=== PATIENT | male | born 1975 | race Hispanic/Latino ===

== ENCOUNTER 2022-01-31 14:11 | Emergency (ER) | payer SELFPAY ==
--- OUTSIDE RECORDS SUMMARY | 2022-01-31 14:14 | XMS REPORT | Continuity of Care Document ---
:1975 Author Organization [facility] t Address [address] [place] [address] Care Team Providers Name Role Phone MaherShelia ba Attending Clinician Unavailable Payers Payer Name Policy Type Policy Number Effective Date Expiration Date S [facility] [employer] [place] 6 [id number] Common Spiri t 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 [id number] Essential Problem Active Comm on (primary) Spirit hypertensi - [facility] on [facility] Allergies, Adverse Reactions, Alerts Allergy Allergy Status Severity Reaction(s) Onset Inactive Treating Comm ents Source Name Type Date Date Clinician 4614 Drug Active Unknown Common allergy [facility] Social History Social Habit Start Date Stop Date Quantity Comments Source History of Tobacco Use Co mmon [facility] Sex Assigned At Com mon [facility] Smoking Status Start Date Stop Date Source Former Smoker 2021-08-27 00:00:00 2021-08-27 00:00:00 Common S pirit - [facility] Medications Ordered Filled Start Stop Current Ordering Indication Dosage Frequency Signature Comments Components Source Medication Medication Date Date Medication? Clinician (SIG) Name Name Lisinopril Lisinopril No 1{table QD Lisinopril 2.5 MG 2.5 MG 5-06 t} 2.5 MG 00:00: 00 glipiZIDE glipiZIDE No 1{table QD glipiZIDE XL 10 MG XL 10 MG 3-18 t_with_ XL 10 MG 00:00: break} Atorvastati Atorvastati No 1{table QD Atorvastat n Calcium n Calcium 3-18 t} in Calcium 40 MG 40 MG 00:00: 40 MG 00 metFORMIN metFORMIN No 1{table BID metFORMIN HCl 1000 MG HCl 1000 MG 3-18 t_with_ HCl 1000 00:00: a_meal} MG 00 Levothyroxi Levothyroxi No QD Levothyrox ne Sodium ne Sodium 3-18 ine Sodium 75 MCG 75 MCG 00:00: 75 MCG 00 No Known No Known No Common Medications Medications S [facility] Ozempic Ozempic No Ozempic (0.25 or (0.25 or (0.25 or 0.5 0.5 0.5 MG/DOSE) 2 MG/DOSE) 2 MG/DOSE) 2 MG/1.5ML MG/1.5ML MG/1.5ML Ozempic Ozempic No Ozempic (0.25 or (0.25 or (0.25 or 0.5 0.5 0.5 MG/DOSE) 2 MG/DOSE) 2 MG/DOSE) 2 MG/1.5ML MG/1.5ML MG/1.5ML Levothyroxi Levothyroxi No QD Levothyrox ne Sodium ne Sodium ine Sodium 75 MCG 75 MCG 75 MCG Atorvastati Atorvastati No 1{table QD Atorvastat n Calcium n Calcium t} in Calcium 40 MG 40 MG 40 MG metFORMIN metFORMIN No 1{table BID metFORMIN HCl 1000 MG HCl 1000 MG t_with_ HCl 1000 a_meal} MG glipiZIDE glipiZIDE No 1{table QD glipiZIDE XL 10 MG XL 10 MG t_with_ XL 10 MG break} metFORMIN metFORMIN No 1{table BID metFORMIN HCl 1000 MG HCl 1000 MG t_with_ HCl 1000 a_meal} MG Levothyroxi Levothyroxi No QD Levothyrox ne Sodium ne Sodium ine Sodium 88 MCG 88 MCG 88 MCG Ozempic Ozempic No Ozempic (0.25 or (0.25 or (0.25 or 0.5 0.5 0.5 MG/DOSE) 2 MG/DOSE) 2 MG/DOSE) 2 MG/1.5ML MG/1.5ML MG/1.5ML Lisinopril Lisinopril No 1{table QD Lisinopril 2.5 MG 2.5 MG t} 2.5 MG glipiZIDE glipiZIDE No 1{table QD glipiZIDE XL 10 MG XL 10 MG t_with_ XL [address]} Atorvastati Atorvastati No 1{table QD Atorvastat n Calcium n Calcium t} in Calcium 40 MG 40 MG 40 MG Vital Signs Vital Name Observation Time Observation Value Comments Source height 2021-08-31 09:40:00 75 [in_i] [facility] weight 2021-08-31 09:40:00 199.2 [lb_av] [facility] temperature 2021-08-31 09:40:00 98.6 [degF] [facility] bmi 2021-08-31 09:40:00 24.9 kg/m2 [facility] oximetry 2021-08-31 09:40:00 99 % [facility] respiratory rate 2021-08-31 09:40:00 16 /min Comm on [facility] blood pressure 2021-08-31 09:40:00 126 mm[Hg] [facility] - systolic [facility] blood pressure 2021-08-31 09:40:00 72 mm[Hg] [facility] diastolic [facility] height 2021-07-10 09:20:00 75 [in_i] [facility] weight 2021-07-10 09:20:00 193.6 [lb_av] [facility] temperature 2021-07-10 09:20:00 97.9 [degF] Common [facility] bmi 2021-07-10 09:20:00 24.2 kg/m2 [facility] oximetry 2021-07-10 09:20:00 99 % [facility] respiratory rate 2021-07-10 09:20:00 16 /min Comm on [facility] blood pressure 2021-07-10 09:20:00 128 mm[Hg] Common [facility] - systolic [facility] blood pressure 2021-07-10 09:20:00 72 mm[Hg] Common [facility] - diastolic [facility] height 2021-05-22 11:40:00 75 [in_i] [facility] weight 2021-05-22 11:40:00 198 [lb_av] [facility] bmi 2021-05-22 11:40:00 24.75 kg/m2 Common [facility] height 2021-05-15 15:40:00 75 [in_i] [facility] weight 2021-05-15 15:40:00 198 [lb_av] [facility] temperature 2021-05-15 15:40:00 97.9 [degF] [facility] bmi 2021-05-15 15:40:00 24.75 kg/m2 [facility] oximetry 2021-05-15 15:40:00 95 % [facility] respiratory rate 2021-05-15 15:40:00 16 /min Comm on [facility] blood pressure 2021-05-15 15:40:00 127 mm[Hg] Common [facility] systolic [facility] blood pressure 2021-05-15 15:40:00 85 mm[Hg] Common [facility] diastolic [facility] Procedures This patient has no known procedures. Encounters Start End Encounter Admission Attending Care Care Encounter Source Date/Time Date/Time Type Type Clinicians Facility Department ID 2021-11-27 Outpatient Maher, STGLORIALC STLMLC [id number] Common 12:25:01 Shelia [facility] 2021-08-27 Outpatient Maher, STGLORIALC STLMLC [id number] Common 10:24:03 Shelia [facility] 2021-07-08 Outpatient Maher, STGLORIALC STLMLC [id number] Common 11:32:01 Shelia [facility] 2021-05-20 Outpatient Maher, STGLORIALC STLMLC [id number] Common 10:54:02 Shelia [facility] 2021-05-15 Outpatient Maher, STLC STLMLC [id number] Common 15:20:02 Shelia [facility] 2021-08-31 2021-08-31 OFFICE STLMLC STLMLC [id number] Co mmon 00:00:00 00:00:00 VISIT Spirit ESTAB PT - [facility] LEVEL 4 [facility] 2021-07-10 2021-07-10 OFFICE STLMLC STLMLC [id number] Co mmon 00:00:00 00:00:00 VISIT Spirit ESTAB PT - [facility] LEVEL 4 [facility] 2021-05-22 2021-05-22 OFFICE STLMLC STLMLC [id number] Co mmon 00:00:00 00:00:00 VISIT Spirit ESTAB PT - [facility] LEVEL 4 [facility] 2021-05-15 2021-05-15 OFFICE STLMLC STLMLC [id number] Co mmon 00:00:00 00:00:00 VISIT NEW Spir it PT LEVEL 3 - [facility] Results Test Description Test Time Test Comments Results Result Comments Source HEMOGLOBIN A1C 2021-07-10 00:00:00 Test Item Value Reference Range Interpretation Comme nts A1C (test code = 4548-4) 11.6
[2022-01-31] MEDS ORDERED: MECLIZINE HCL 12.5 MG TAB ONE (14:50)
[2022-01-31] MEDS ORDERED: ONDANSETRON 4 MG/2 ML VIAL ONE (14:50)
[2022-01-31 15:15] LABS: Absolute Lymphocytes (CBC) 1.9 K/uL (0.7-4.9); Hematocrit 49.3 % (39.6-49.0); Lymphocytes % 18.3 % (15.3-44.8); MPV 7.1 fL (7.6-11.3); RBC Red Blood Cell Count 5.61 M/uL (4.33-5.43)
[2022-01-31 15:32] LABS: Potassium 4.2 mmol/L (3.5-5.1); Troponin High Sensitivity 3.5 pg/mL (<58.9)
[2022-01-31] MEDS ORDERED: NA CHLORIDE 0.9% 1,000 ML ONE (15:45)
[2022-01-31] MEDS ORDERED: INSULIN -REGULAR HUMAN 50 UNIT/0.5 ML ML ONE (15:45)
--- NOTE | 2022-01-31 16:35 | RAD REPORT ---
EXAM DESCRIPTION: CT - Head Brain Wo Cont - 01/31/2022 4:16 pm CLINICAL HISTORY: Syncope COMPARISON: None TECHNIQUE: Computed axial tomography of the head was obtained. IV contrast was not requested. All CT scans are performed using dose optimization technique as appropriate and may include automated exposure control or mA/KV adjustment according to patient size. FINDINGS: An intracranial bleed is not seen . The ventricles are normal in caliber. No extra-axial fluid collection is noted. No significant hypodensity within the brain seen Fluid within the sinuses/ mastoids is not seen. IMPRESSION: No acute intracranial abnormality is seen. If patient's symptoms persist MRI of the bra in would be recommended.
--- NOTE | 2022-01-31 16:40 | RAD REPORT ---
EXAM DESCRIPTION: [facility] Angio01/31/2022 4:18 pm CLINICAL HISTORY: Syncope COMPARISON: None TECHNIQUE: 50 cc Isovue 370 was administered intravenously. 3D MIP reconstruction performed All CT scans are performed using dose optimization technique as appropriate and may include automated exposure control or mA/KV adjustment according to patient size. FINDINGS: The common carotid, internal carotid and external carotid arteries are unremarkable. Left vertebral artery is dominant. Vertebral arteries otherwise unremarkable. No dissection seen. No significant stenosis IMPRESSION: No significant abnormality is displayed NASCET criteria used. Mild 0-49% stenosis Moderate 50-69% stenosis Severe 70-99% stenosis
--- NOTE | 2022-01-31 16:43 | RAD REPORT ---
EXAM DESCRIPTION: CTHead angio01/31/2022 4:18 pm CLINICAL HISTORY: Syncope COMPARISON: None TECHNIQUE: CT angiogram of the head was obtained. 3D MIPS reconstruction performed. All CT scans are performed using dose optimization technique as appropriate and may include automated exposure control or mA/KV adjustment according to patient size. FINDINGS: The basilar, internal carotid, anterior cerebral, middle cerebral and posterior cerebral a rteries do not demonstrate a significant abnormality An aneurysm is not seen A significant stenosis is not noted. IMPRESSION: No acute abnormality is displayed
[2022-01-31] MEDS ORDERED: DIAZEPAM 10 MG/2 ML INJ SYRINGE ONE (17:44)
--- NOTE | 2022-01-31 18:16 | ER ---
Nurse's Notes [facility] Name: Sp Nagel Age: 46 yrs Sex: Male : 1975 Arrival Date: 01/31/2022 Time: 14:13 Bed 14 Private MD: Diagnosis: Vertigo Presentation: 01/31 14:30 Chief complaint: Patient states: unsteady gait, nausea, and syncopal episodes x5 over kb3 the last 3 days. Coronavirus screen: Vaccine status: Patient reports receiving the 2nd dose of the covid vaccine. Client denies travel out of the [place] in the last 14 days. Ebola Screen: Patient negative for fever greater than or equal to 101.5 degrees Fahrenheit, and additional compatible Ebola Virus Disease symptoms Patient denies exposure to infectious person. Patient denies travel to an Ebola-affected area in the 21 days before illness onset. Initial Sepsis Screen: Does the patient meet any 2 criteria? No. Patient's initial sepsis screen is negative. Does the patient have a suspected source of infection? No. Patient's initial sepsis screen is negative. Risk Assessment: Do you want to hurt yourself or someone else? Patient reports no desire to harm self or others. Onset of symptoms was January 29, 2022. 14:30 Method Of Arrival: Ambulatory kb3 14:30 Acuity: [place] 3 kb3 Triage Assessment: 14:33 General: Appears in no apparent distress. Behavior is calm, cooperative. Pain: Denies kb3 pain. GI: Reports nausea. Historical: - Allergies: 14:33 Vicodin; kb3 - Home Meds: 14:33 metformin 500 mg Oral tr24 1 tab once daily [Active]; Ozempic 1 mg/dose (4 mg/3 mL) kb3 subcutaneous pnij once wkly [Active]; - PMHx: 14:33 Diabetes - NIDDM; Hyperlipidemia; Hypertension; Hypothyroidism; kb3 - PSHx: 14:33 None; kb3 - Immunization history:: Adult Immunizations up to date, Client reports receiving the 2nd dose of the Covid vaccine, Last tetanus immunization: up to date. - Social history:: Smoking status: Patient denies any tobacco usage or history of. Screenin:45 Abuse screen: Denies threats or abuse. Denies injuries from another. Nutritional tp1 screening: No deficits noted. Tuberculosis screening: No symptoms or risk factors identified. Fall Risk No fall in past 12 months (0 pts). No secondary diagnosis (0 pts). IV access (20 points). Ambulatory Aid- None/Bed Rest/Nurse Assist (0 pts). Gait- Impaired (20 pts.). Mental Status- Oriented to own ability (0 pts). Total Tobin Fall Scale indicates Low Risk Score (25-44 pts). Fall prevention measures have been instituted. Side Rails Up X 2 Placed close to Nursing Station Frequent Obs/Assesments occuring Family Present and informed to notify staff if they need to leave bedside As available Patient and Family Educated on Fall Prevention Program and strategies. Assessment: 14:40 General: Appears in no apparent distress. comfortable, Behavior is calm, cooperative. tp1 Pain: Denies pain. Neuro: Level of Consciousness is awake, alert, obeys commands, Oriented to person, place, time, situation, Speech is normal, Pupils are PERRLA. Cardiovascular: Patient's skin is warm and dry. Respiratory: Airway is patent Respiratory effort is even, unlabored. GI: Abdomen is flat, non-distended, Reports nausea, vomiting, Patient currently denies diarrhea. : No signs and/or symptoms were reported regarding the genitourinary system. EENT: No signs and/or symptoms were reported regarding the EENT system. Derm: Skin is pink, warm \T\ dry. Musculoskeletal: Circulation, motion, and sensation intact. 15:38 Reassessment: Patient appears in no apparent distress at this time. No changes from tp1 previously documented assessment. Patient and/or family updated on plan of care and expected duration. Pain level reassessed. Patient is alert, oriented x 3, equal unlabored respirations, skin warm/dry/pink. states dizziness and nausea have decreased but are not gone. PT stated he did not take his insulin this morning due to not feeling well. 16:44 Reassessment: Patient appears in no apparent distress at this time. No changes from tp1 previously documented assessment. Patient is alert, oriented x 3, equal unlabored respirations, skin warm/dry/pink. states nausea is gone and is only dizzy when standing Patient denies pain at this time. 17:52 Reassessment: Patient appears in no apparent distress at this time. No changes from tp1 previously documented assessment. Patient is alert, oriented x 3, equal unlabored respirations, skin warm/dry/pink. Patient denies pain at this time. Vital Signs: 14:30 BP 130 / 104; Pulse 101; Resp 20; Temp 98.4; Pulse Ox 99% ; Weight 90.72 kg; Height 6 kb3 ft. 2 in. (187.96 cm); Pain 0/10; 15:38 BP 128 / 94; Pulse 99; Resp 12; Pulse Ox 100% on R/A; tp1 16:44 BP 118 / 94; Pulse 96; Resp 16; Pulse Ox 100% on R/A; tp1 18:00 BP 117 / 89; Pulse 100; Resp 14; Pulse Ox 100% on R/A; tp1 19:04 BP 112 / 87; Pulse 98; Resp 16; Pulse Ox 99% on R/A; tp1 14:30 Body Mass Index 25.68 (90.72 kg, 187.96 cm) kb3 ED Course: 14:13 Patient arrived in ED. jl7 14:14 Isidro Arzate PA is PHCP. [facility] 14:14 Rogelio Root DO is Attending Physician. jmm 14:33 Triage completed. kb3 14:33 Arm band placed on left wrist. kb3 14:43 Marline Oconnell, RN is Primary Nurse. tp1 14:45 Patient has correct armband on for positive identification. Bed in low position. Call tp1 light in reach. Client placed on continuous cardiac and pulse oximetry monitoring. NIBP monitoring applied. 14:46 No provider procedures requiring assistance completed. tp1 15:10 Inserted saline lock: 20 gauge in right forearm, using aseptic technique. Blood tp1 collected. 16:17 CT Head Brain wo Cont In Process Unspecified. EDMS 16:19 CT Head Angio In Process Unspecified. EDMS 16:20 CT Neck Angio In Process Unspecified. EDMS 19:36 IV discontinued, intact, bleeding controlled, No redness/swelling at site. Pressure tp1 dressing applied. Administered Medications: 15:03 Drug: Meclizine 50 mg Route: PO; tp1 15:32 Follow up: Response: Marked relief of symptoms tp1 15:04 Drug: Zofran (Ondansetron) 4 mg Route: IVP; Site: right antecubital; tp1 15:33 Follow up: Response: Nausea is decreased tp1 15:52 Drug: NS 0.9% 1000 ml Route: IV; Rate: 1 bolus; Site: right forearm; tp1 17:00 Follow up: IV Status: Completed infusion; IV Intake: 1000ml tp1 15:52 Drug: Insulin Regular Human 10 units {Co-Signature: bp (Raymond Salomon RN).} Route: IVP; tp1 Site: right forearm; 19:36 Follow up: Response: No adverse reaction tp1 17:47 Drug: Valium (diazepam) 2 mg Route: IVP; Site: right hand; bp 19:37 Follow up: Response: Marked relief of symptoms tp1 Medication: 14:46 VIS not applicable for this client. tp1 Intake: 17:00 IV: 1000ml; Total: 1000ml. tp1 Outcome: 18:16 Discharge ordered by . [facility] 19:36 Discharged to home ambulatory. tp1 19:36 Condition: good 19:36 Discharge instructions given to patient, Instructed on discharge instructions, follow up and referral plans. medication usage, Demonstrated understanding of instructions, follow-up care, medications, Prescriptions given X 2. 19:37 Patient left the ED. tp1 Signatures: Dispatcher [employer] EDMS Isidro Arzate PA PA jmm Leal, Jahala, RN RN jl7 Raymond Salomon RN RN bp Parker, Tiffany, RN RN tp1 Sheila Greene, RN RN kb3 Raymond Salomon RN bp Corrections: (The following items were deleted from the chart) 14:35 14:33 Home Meds: atorvastatin 20 mg Oral tab; kb3 kb3 14:35 14:33 Home Meds: Invokana 100 mg Oral tab 1 tab once daily; kb3 kb3 14:35 14:33 Home Meds: levothyroxine 50 mcg tab 1 tab once daily; kb3 kb3 14:35 14:33 Home Meds: lisinopril 10 mg Oral tab; kb3 kb3 14:35 14:33 Home Meds: bydurion injection weekly; kb3 kb3
--- NOTE | 2022-01-31 18:16 | EDPHYS ---
Physician Documentation [facility] Name: Sp Nagel Age: 46 yrs Sex: Male : 1975 Arrival Date: 01/31/2022 Time: 14:13 Bed 14 Private MD: ED Physician Rogelio Root HPI: 01/31 14:38 This 46 yrs old Male presents to ER via Ambulatory with complaints of Vertigo, jmm Nausea. 14:38 The patient presents with dizziness. Onset: The symptoms/episode began/occurred jmm acutely. Modifying factors: The symptoms are alleviated by nothing, the symptoms are aggravated by movement of head, standing up, changing position. Is a 46-year-old male with history of diabetes mellitus, hyperlipidemia, hypertension the presents emerged department with complaints of acute onset dizziness beginning 3 days ago. Patient states symptoms are intermittent and normally started with movement or walking.. Historical: - Allergies: 14:33 Vicodin; kb3 - Home Meds: 14:33 metformin 500 mg Oral tr24 1 tab once daily [Active]; Ozempic 1 mg/dose (4 mg/3 mL) kb3 subcutaneous pnij once wkly [Active]; - PMHx: 14:33 Diabetes - NIDDM; Hyperlipidemia; Hypertension; Hypothyroidism; kb3 - PSHx: 14:33 None; kb3 - Immunization history:: Adult Immunizations up to date, Client reports receiving the 2nd dose of the Covid vaccine, Last tetanus immunization: up to date. - Social history:: Smoking status: Patient denies any tobacco usage or history of. ROS: 14:38 Constitutional: Negative for fever, chills, and weight loss, Cardiovascular: Negative jmm for chest pain, palpitations, and edema, Respiratory: Negative for shortness of breath, cough, wheezing, and pleuritic chest pain, Abdomen/GI: Negative for abdominal pain, nausea, vomiting, diarrhea, and constipation. 14:38 Neuro: Positive for dizziness. 14:38 All other systems are negative. Exam: 14:38 Constitutional: This is a well developed, well nourished patient who is awake, alert, jmm and in no acute distress. Head/Face: atraumatic. ENT: Moist Mucus Membranes 14:38 Neck: Trachea midline, Supple Chest/axilla: Normal chest wall appearance and motion. 14:38 Eyes: Extraocular movements: intact throughout, Nystagmus: nystagmus with fast component noted, bilaterally. 14:38 Cardiovascular: Rate: normal, Rhythm: regular. 14:38 Respiratory: the patient does not display signs of respiratory distress, Respirations: normal, Breath sounds: are clear throughout. 14:38 Abdomen/GI: Inspection: abdomen appears normal, Bowel sounds: normal. 14:38 Back: pain, is absent. 14:38 Musculoskeletal/extremity: ROM: intact in all extremities. 14:38 Skin: Appearance: Color: normal in color. 14:38 Neuro: Orientation: is normal, Mentation: is normal, Memory: is normal. 14:38 Psych: Behavior/mood is pleasant, cooperative. 14:38 Neuro: Cerebellar function: heel to parmar testing is normal. [facility] Vital Signs: 14:30 BP 130 / 104; Pulse 101; Resp 20; Temp 98.4; Pulse Ox 99% ; Weight 90.72 kg; Height 6 kb3 ft. 2 in. (187.96 cm); Pain 0/10; 15:38 BP 128 / 94; Pulse 99; Resp 12; Pulse Ox 100% on R/A; tp1 16:44 BP 118 / 94; Pulse 96; Resp 16; Pulse Ox 100% on R/A; tp1 18:00 BP 117 / 89; Pulse 100; Resp 14; Pulse Ox 100% on R/A; tp1 19:04 BP 112 / 87; Pulse 98; Resp 16; Pulse Ox 99% on R/A; tp1 14:30 Body Mass Index 25.68 (90.72 kg, 187.96 cm) kb3 MDM: 14:38 Patient medically screened. [facility] 18:15 Data reviewed: vital signs, nurses notes. Counseling: I had a detailed discussion with [facility] the patient and/or guardian regarding: the historical points, exam findings, and any diagnostic results supporting the discharge/admit diagnosis, the need for outpatient follow up, to return to the emergency department if symptoms worsen or persist or if there are any questions or concerns that arise at home. 22:31 ED course: Patient states that he feels much better. Is able ambulate without [facility] difficulty. Cerebellar exam was normal. CTA and CT were negative. I do not currently suspect a central cause. Patient advised follow with ENT and otherwise given strict return precautions. Patient understood and agrees plan of care.. 01/31 14:38 Order name: Basic Metabolic Panel; Complete Time: 15:[address] [facility] 01/31 14:38 Order name: CBC with Diff; Complete Time: 15:[address] [facility] 01/31 14:38 Order name: Troponin HS; Complete Time: 15:[address] [facility] 01/31 14:40 Order name: CT Head Brain wo Cont; Complete Time: 16:[address] [facility] 01/31 14:40 Order name: CT Head Angio; Complete Time: 16:[address] [facility] 01/31 14:40 Order name: CT Neck Angio; Complete Time: 16:[address] [facility] 01/31 14:38 Order name: EKG; Complete Time: 14:[address] [facility] 01/31 14:38 Order name: Cardiac monitoring; Complete Time: 14:[address] [facility] 01/31 14:38 Order name: EKG - Nurse/Tech; Complete Time: 15:[address] [facility] 01/31 14:38 Order name: IV Saline Lock; Complete Time: 15:[address] [facility] 01/31 14:38 Order name: Labs collected and sent; Complete Time: 15:[address] [facility] 01/31 14:38 Order name: O2 Per Protocol; Complete Time: 14:[address] [facility] 01/31 14:38 Order name: O2 Sat Monitoring; Complete Time: 14:[address] [facility] Administered Medications: 15:03 Drug: Meclizine 50 mg Route: PO; tp1 15:32 Follow up: Response: Marked relief of symptoms tp1 15:04 Drug: Zofran (Ondansetron) 4 mg Route: IVP; Site: right antecubital; tp1 15:33 Follow up: Response: Nausea is decreased tp1 15:52 Drug: NS 0.9% 1000 ml Route: IV; Rate: 1 bolus; Site: right forearm; tp1 17:00 Follow up: IV Status: Completed infusion; IV Intake: 1000ml tp1 15:52 Drug: Insulin Regular Human 10 units {Co-Signature: bp (Raymond Salomon RN).} Route: IVP; tp1 Site: right forearm; 19:36 Follow up: Response: No adverse reaction tp1 17:47 Drug: Valium (diazepam) 2 mg Route: IVP; Site: right hand; bp 19:37 Follow up: Response: Marked relief of symptoms tp1 Disposition: 19:16 Co-signature as Attending Physician, Rogelio Root DO I was immediately available on-site ms3 in the Emergency Department for consultation in the care of the patient. Disposition Summary: 01/31/22 18:16 Discharge Ordered Location: Home [facility] Condition: Stable jm Diagnosis - Vertigo [facility] Followup: [facility] - With: Private Physician - When: 2 - 3 days - Reason: Recheck today's complaints, Continuance of care, Re-evaluation by your physician Discharge Instructions: - Discharge Summary Sheet [facility] - Vertigo [facility] - How to Perform the Kristal Maneuver [facility] Forms: - Medication Reconciliation Form [facility] - Thank You Letter [facility] - Antibiotic Education [facility] - Prescription Opioid Use [facility] Prescriptions: - Valium 2 mg Oral Tablet - take 1 tablet by ORAL route every 8 hours As needed; 20 tablet; Refills: 0, [facility] Product Selection Permitted - ondansetron 4 mg odt - take 1 tablet by SUBLINGUAL route every 4-6 hours As needed; 20 tablet; [facility] Refills: 0, Product Selection Permitted Signatures: Dispatcher [employer] EDMD Isidro Arzate PA PA jmm Peltier, Brian, RN RN bp Rogelio Root DO DO ms3 Marline Oconnell RN RN tp1 Sheila Greene RN RN kb3 Raymond Salomon RN bp Corrections: (The following items were deleted from the chart) 14:35 14:33 Home Meds: atorvastatin 20 mg Oral tab; kb3 kb3 14:35 14:33 Home Meds: Invokana 100 mg Oral tab 1 tab once daily; kb3 kb3 14:35 14:33 Home Meds: levothyroxine 50 mcg tab 1 tab once daily; kb3 kb3 14:35 14:33 Home Meds: lisinopril 10 mg Oral tab; kb3 kb3 14:35 14:33 Home Meds: bydurion injection weekly; kb3 kb3
[2022-01-31 19:59] VITALS: TEMP 98.4
[2022-01-31 20:04] VITALS: BP 112/87; O2SAT 99
--- NOTE | 2022-02-01 12:50 | EKG ---
Test Date: 2022-01-31 Test Time: 14:54:32 Service Worker Helper: TP MEASUREMENT RESULTS: Intervals: Rate: 103 TN: 96 QRSD: 88 QT: 528 QTc: 691 [place]: P: 100 TN: 96 QRS: 89 T: 70 INTERPRETIVE STATEMENTS: Sinus tachycardia with short TN Prolonged QT Abnormal ECG Compared to ECG 07/18/2015 09:51:03 Short TN interval now present Prolonged QT interval now present Sinus rhythm no longer present Electronically Signed On 02-01-22 12:48:59 TREE PULLER by Nicholas Farmer
== END 2022-01-31 19:37 | disposition home or self-care (01) ==
LOC: ER 14:11
DX: R42 Dizziness and giddiness (principal); E11.9 Type 2 diabetes mellitus without complications; I10 Essential (primary) hypertension; Z88.5 Allergy status to narcotic agent
CPT/HCPCS: 36415; 70450; 70496; 70498; 80048; 84484; 85025; 93005; 99284; J1815; J2405; J3360; J7030; J8597; Q9967

== ENCOUNTER 2022-04-19 14:22 | Inpatient (IN) | payer BC, SELFPAY ==
--- OUTSIDE RECORDS SUMMARY | 2022-04-19 14:28 | XMS REPORT | Continuity of Care Document ---
:[address] [facility] t Address [address] [place] [address] Care Team Providers Name Role Phone Shelia Maher Attending Clinician Unavailable ANGELIQUE BONILLA Attending Clinician Unavailable EDDIE STEELE Attending Clinician Unavailable [id number] Attending Clinician Unavailable Payers Payer Name Policy Type Policy Number Effective Date Expiration Date Elio ceja [facility] 2 [id number] 2022 00:00:00 [employer] 6 [id number] Common Spiri t [facility] Problems Condition Condition Condition Status Onset Resolution Last Treating Co mments Source Name Details Category Date Date Treatment Clinician Date [id number] Mixed Problem Active Common hyperlipid [facility] emia - [facility] [id number] Hypothyroi Problem Active Com mon dism, [facility] unspecifie - [facility] d type [facility] Hyperglyce Type 2 Problem Active Commo n [facility] due to diabetes Spir it type 2 mellitus - [facility] diabetes with [facility] mellitus hyperglyce [facility] [id number] Essential Problem Active Comm on (primary) [facility] hypertensi - [facility] on [facility] Allergies, Adverse Reactions, Alerts Allergy Allergy Status Severity Reaction(s) Onset Inactive Treating Comm ents Source Name Type Date Date Clinician 4614 Drug Active Unknown Common allergy [facility] Social History Social Habit Start Date Stop Date Quantity Comments Source History of Tobacco Use Co mmon [facility] Sex Assigned At Com funmi [facility] Smoking Status Start Date Stop Date Source Former Smoker 2021-08-27 00:00:00 2021-08-27 00:00:00 Common [facility] Medications Ordered Filled Start Stop Current Ordering Indication Dosage Frequency Signature Comments Components Source Medication Medication Date Date Medication? Clinician (SIG) Name Name Lisinopril Lisinopril No 1{table QD Lisinopril 2.5 MG 2.5 MG 5-06 t} 2.5 MG 00:00: 00 glipiZIDE glipiZIDE No 1{table QD glipiZIDE XL 10 MG XL 10 MG 3-18 t_with_ XL 10 MG 00:00: breakfa 00 st} Atorvastati Atorvastati No 1{table QD Atorvastat [...] Known No Known No Common Medications Medications [facility] Ozempic Ozempic No Ozempic (0.25 [...] MG t_with_ XL [address]} metFORMIN metFORMIN No 1{table BID metFORMIN HCl [...] Comments Source height 2021-08-31 09:40:00 75 [in_i] [facility] weight 2021-08-31 09:40:00 199.2 [lb_av] Common [facility] temperature 2021-08-31 09:40:00 98.6 [degF] [facility] bmi 2021-08-31 09:40:00 24.9 kg/m2 [facility] oximetry 2021-08-31 09:40:00 99 % [facility] respiratory rate 2021-08-31 09:40:00 16 /min Comm on [facility] blood pressure 2021-08-31 09:40:00 126 mm[Hg] Common [facility] blood pressure 2021-08-31 09:40:00 72 mm[Hg] Common [facility] - diastolic [facility] height 2021-07-10 09:20:00 75 [in_i] Common pirit [facility] weight 2021-07-10 09:20:00 193.6 [lb_av] [facility] temperature 2021-07-10 09:20:00 97.9 [degF] Common [facility] bmi 2021-07-10 09:20:00 24.2 kg/m2 [facility] oximetry 2021-07-10 09:20:00 99 % [facility] respiratory rate 2021-07-10 09:20:00 16 /min Comm on [facility] blood pressure 2021-07-10 09:20:00 128 mm[Hg] Common [facility] - systolic [facility] blood pressure 2021-07-10 09:20:00 72 mm[Hg] [facility] diastolic [facility] height 2021-05-22 11:40:00 75 [in_i] [facility] weight 2021-05-22 11:40:00 198 [lb_av] [facility] 2021-05-22 11:40:00 24.75 kg/m2 [facility] height 2021-05-15 15:40:00 75 [in_i] Common [facility] weight 2021-05-15 15:40:00 198 [lb_av] [facility] temperature 2021-05-15 15:40:00 97.9 [degF] [facility] bmi 2021-05-15 15:40:00 24.75 kg/m2 [facility] oximetry 2021-05-15 15:40:00 95 % [facility] respiratory rate 2021-05-15 15:40:00 16 /min Comm on [facility] blood pressure 2021-05-15 15:40:00 127 mm[Hg] Common [facility] - systolic [facility] blood pressure 2021-05-15 15:40:00 85 mm[Hg] Common [facility] - diastolic [facility] Procedures This patient has no known procedures. Encounters Start End Encounter Admission Attending Care Care Encounter Source Date/Time Date/Time Type Type Clinicians Facility Department ID 2021-11-27 Outpatient Maher, STGLORIALC STLMLC [id number] Common 12:25:01 [facility] 2021-08-27 Outpatient Maher, STGLORIALC STLMLC [id number] Common 10:24:03 [facility] 2021-07-08 Outpatient Maher, STGLORIALC STLMLC [id number] Common 11:32:01 [facility] 2021-05-20 Outpatient Maher, STGLORIALC STLC [id number] Common 10:54:02 [facility] 2021-05-15 Outpatient Maher, STGLORIALC STLC [id number] Common 15:20:02 [facility] 2022-06-09 2022-06-09 Outpatient NARENDRA BONILLA [id number] Narendra 14:30:00 14:30:00 ANGELIQUE Seybol d 2022-04-19 2022-04-19 Outpatient NARENDRA STEELE [id number] Narendra 00:00:00 00:00:00 EDDIE Seybol d 2022-04-13 2022-04-13 Outpatient NARENDRA BONILLA [id number] Narendra 08:45:00 08:45:00 ANGELIQUE Seybol d 2022-03-30 2022-03-30 Outpatient NARENDRA STEELE [id number] Narendra 00:00:00 00:00:00 EDDIE Seybol d 2022-03-30 2022-03-30 Outpatient NARENDRA STEELE [id number] Narendra 00:00:00 00:00:00 EDDIE Seybol d 2022-03-29 2022-03-29 Outpatient LAB90 NARENDRA MACKEY [id number] Narendra 15:30:00 15:30:00 Seybol d 2022-03-29 2022-03-29 Outpatient CEDRIC NARENDRA MACKEY [id number] Narendra 14:30:00 14:30:00 EDDIE Seybol d 2021-08-31 2021-08-31 OFFICE STLMLC STLMLC [id number] Co mmon 00:00:00 00:00:00 VISIT Spirit ESTAB PT - [facility] LEVEL 4 [facility] 2021-07-10 2021-07-10 OFFICE STLMLC STLMLC [id number] Co mmon 00:00:00 00:00:00 VISIT Spirit ESTAB PT - [facility] LEVEL 4 [facility] 2021-05-22 2021-05-22 OFFICE STLMLC STLMLC [id number] Co mmon 00:00:00 00:00:00 VISIT Spirit CHARI PT - [facility] LEVEL 4 [facility] 2021-05-15 2021-05-15 OFFICE STLMLC STLMLC [id number] Co mmon 00:00:00 00:00:00 VISIT NEW Spir it PT LEVEL 3 - [facility] Results Test Description Test Time Test Comments Results Result Comments Source HEMOGLOBIN A1C 2021-07-10 00:00:00 Test Item Value Reference Range Interpretation Comme nts A1C (test code = 4548-4) 11.6
[2022-04-19 15:39] LABS: Absolute Lymphocytes (CBC) 1.6 K/uL (0.7-4.9); Hematocrit 37.5 % (39.6-49.0); Lymphocytes % 7.9 % (15.3-44.8); MCV 91.3 fL (80-100); MPV 7.1 fL (7.6-11.3); RBC Red Blood Cell Count 4.11 M/uL (4.33-5.43)
--- NOTE | 2022-04-19 15:43 | RAD REPORT ---
EXAM DESCRIPTION: RAD - Forearm Left - 04/19/2022 3:13 pm CLINICAL HISTORY: Pain. Cellulitis. History of diabetes and hypertension. COMPARISON: None. TECHNIQUE: Two views of the left forearm. FINDINGS: No fracture is identified. There is no dislocation or periosteal reaction noted. No elbow joint effusion is identified on the lateral view. No foreign body or other soft tissue abnormality. IMPRESSION: No acute osseous abnormality of the left forearm.
[2022-04-19 15:44] LABS: Protime INR 0.99
[2022-04-19] MEDS ORDERED: NA CHLORIDE 0.9% 1,000 ML ONE ×2 (15:44→16:24)
[2022-04-19] MEDS ORDERED: ACETAMINOPHEN 500 MG TAB ONE (15:44)
[2022-04-19] MEDS ORDERED: CEFTRIAXONE 1000 MG/VIAL ONE (15:44)
[2022-04-19] MEDS ORDERED: VANCOMYCIN 1.25 GM in NA CHLORIDE 0.9% 250 ML IVPB ONE (16:00)
[2022-04-19 16:02] LABS: Albumin 3.1 g/dL (3.4-5.0); Bilirubin Total 0.5 mg/dL (0.2-1.0); Potassium 3.4 mmol/L (3.5-5.1); Protein, Total 6.9 g/dL (6.4-8.2)
[2022-04-19 16:03] LABS: SARS-CoV-2 Antigen Rapid Res Negative (Negative)
--- NOTE | 2022-04-19 16:18 | ER ---
Nurse's Notes [facility] Name: Sp Nagel Age: 46 yrs Sex: Male : 1975 Arrival Date: 04/19/2022 Time: 14:25 Bed 26 Private MD: Ariella Rust Diagnosis: Cellulitis of left upper limb;Hyperglycemia, unspecified Presentation: 04/19 14:41 Chief complaint: Patient states: left arm cellulitis; i was cleaning out the garage, [facility] moving wood and stuff. dont remember feeling anything bite me. Coronavirus screen: Vaccine status: Patient reports receiving the 2nd dose of the covid vaccine. Client denies travel out of the [place] in the last 14 days. Ebola Screen: Patient negative for fever greater than or equal to 101.5 degrees Fahrenheit, and additional compatible Ebola Virus Disease symptoms Patient denies exposure to infectious person. Patient denies travel to an Ebola-affected area in the 21 days before illness onset. Initial Sepsis Screen: Does the patient meet any 2 criteria? No. Patient's initial sepsis screen is negative. Does the patient have a suspected source of infection? No. Patient's initial sepsis screen is negative. Risk Assessment: Do you want to hurt yourself or someone else? Patient reports no desire to harm self or others. 14:41 Method Of Arrival: Ambulatory [facility] 14:41 Acuity: [place] 2 5 Triage Assessment: 14:46 General: Appears uncomfortable, slender, well groomed, well developed, Behavior is [facility] calm, cooperative, appropriate for age. Pain: Complains of pain in left arm. Historical: - Allergies: 14:46 Vicodin; jh5 - PMHx: 14:46 Diabetes - NIDDM; Hypothyroidism; Hypertension; Hyperlipidemia; jh5 - Immunization history:: Adult Immunizations up to date. - Social history:: Smoking status: Patient denies any tobacco usage or history of. Screenin:08 [facility] ED Fall Risk Assessment (Adult) History of falling in the last 3 months, mb9 including since admission No falls in past 3 months (0 pts) Confusion or Disorientation No (0 pts) Intoxicated or Sedated No (0 pts) Impaired Gait No (0 pts) Mobility Assist Device Used No (0 pt) Altered Elimination No (0 pt) Score/Fall Risk Level 0 - 2 = Low Risk. Abuse screen: Denies threats or abuse. Nutritional screening: No deficits noted. Tuberculosis screening: No symptoms or risk factors identified. Assessment: 15:02 Reassessment: pt brought back to ER room. mb9 15:25 Reassessment: first set of blood cultures sent. mb9 15:35 General: Appears in no apparent distress. comfortable, Behavior is calm, cooperative, mb9 appropriate for age. Pain: Complains of pain in left arm Pain does not radiate. Pain currently is 6 out of 10 on a pain scale. Quality of pain is described as aching, throbbing. 15:35 Neuro: Villarreal Agitation-Sedation Scale (RASS): 0 - Alert and Calm Level of mb9 Consciousness is awake, alert, obeys commands, Oriented to person, place, time, situation, Appropriate for age. Cardiovascular: Heart tones S1 S2 present. Respiratory: Airway is patent Respiratory effort is even, unlabored, Respiratory pattern is regular, symmetrical. GI: Abdomen is flat, non-distended. : No signs and/or symptoms were reported regarding the genitourinary system. EENT: No signs and/or symptoms were reported regarding the EENT system. Derm: Skin is pink, warm \T\ dry. Derm: Musculoskeletal: Range of motion: intact in all extremities, Swelling present in left arm. 15:50 Reassessment: Second set of blood cultures sent. mb9 16:44 Reassessment: No changes from previously documented assessment. Patient and/or family mb9 updated on plan of care and expected duration. Pain level reassessed. Patient is alert, oriented x 3, equal unlabored respirations, skin warm/dry/pink. 18:09 Reassessment: No changes from previously documented assessment. Patient and/or family mb9 updated on plan of care and expected duration. Pain level reassessed. Patient is alert, oriented x 3, equal unlabored respirations, skin warm/dry/pink. Vital Signs: 14:41 BP 123 / 84; Pulse 111; Resp 18; Temp 100.0; Pulse Ox 98% ; Weight 86.18 kg; Height 6 jh5 ft. 2 in. (187.96 cm); Pain 8/10; 16:05 BP 107 / 82; Pulse 98; Resp 20; Pulse Ox 98% on R/A; mb9 14:41 Body Mass Index 24.39 (86.18 kg, 187.96 cm) [facility] ED Course: 14:25 Patient arrived in ED. as 14:27 Ariella Rust is Private Physician. as 14:41 Sina Baird MD is Attending Physician. bs3 14:46 Triage completed. 5 14:46 Arm band placed on right wrist. 5 15:00 Placed in gown. Bed in low position. Call light in reach. Side rails up X 1. Client mb9 placed on continuous cardiac and pulse oximetry monitoring. NIBP monitoring applied. hall monitor on. 15:01 Winter Mohan, RN is Primary Nurse. mb9 15:20 Inserted saline lock: 18 gauge in right forearm, using aseptic technique. mb9 15:29 CBC with Diff Sent. mb9 15:29 Protime (+inr) Sent. mb9 15:29 Ptt, Activated Sent. mb9 15:29 CMP Sent. mb9 15:32 SARS-COV-2 Antigen Rapid Sent. em1 15:42 EKG done, by ED staff, reviewed by Sina Baird MD. em1 15:45 Inserted saline lock: 20 gauge in right antecubital area, using aseptic technique. mb9 16:03 Blood Culture Adult (2) Sent. mb9 16:16 Gucci Baeza MD is Hospitalizing Provider. bs3 16:17 Hospitalizing Provider role handed off by Gucci Baeza MD bs3 16:17 Baldomero Wills is Hospitalizing Provider. bs3 16:18 Baldomero Wills is Hospitalizing Provider. bs3 18:09 No provider procedures requiring assistance completed. mb9 19:55 Patient admitted, IV remains in place. mb9 Administered Medications: 15:30 Drug: Acetaminophen 1000 mg Route: PO; mb9 16:03 Drug: NS 0.9% 1000 ml Route: IV; Rate: 1 bolus; Site: right forearm; mb9 16:03 Drug: Rocephin (cefTRIAXone) 1 grams Route: IV; Rate: bolus; Site: right antecubital; mb9 16:15 Follow up: Response: No adverse reaction; IV Status: Completed infusion mb9 16:15 Drug: vancoMYCIN 15 mg/kg Route: IVPB; Site: right forearm; mb9 16:23 Drug: Ketorolac 15 mg Route: IVP; Site: right antecubital; mb9 16:42 Follow up: Response: No adverse reaction mb9 16:24 Drug: Insulin Regular Human 10 units {Co-Signature: ss (Teressa Keller RN).} Route: mb9 Sub-Q; Site: left lower abdomen; 16:42 Follow up: Response: No adverse reaction mb9 17:51 Drug: NS 0.9% 1000 ml Route: IV; Rate: 1000 ml; Site: right antecubital; mb9 Medication: 18:09 VIS not applicable for this client. mb9 Outcome: 16:17 Decision to Hospitalize by Provider. bs3 19:54 Admitted to Tele via wheelchair, room 415, with chart, Report called to DEEPTHI Freedman mb9 19:54 Condition: stable 19:54 Discharge instructions given to patient, Instructed on the need for admit. 20:26 Patient left the ED. mb9 Signatures: Bailee Craig Eric em1 Merlene Bermeo RN RN jh5 Sina Baird MD MD bs3 Winter Mohan RN RN mb9 Teressa Keller RN ss
--- NOTE | 2022-04-19 16:18 | EDPHYS ---
Physician Documentation [facility] Name: Sp Nagel Age: 46 yrs Sex: Male : 1975 Arrival Date: 04/19/2022 Time: 14:25 Bed 26 Private MD: Airella Rust ED Physician Sina Baird HPI: 04/19 14:48 This 46 yrs old Male presents to ER via Ambulatory with complaints of Abscess, bs3 Arm Swelling/Redness. 14:48 46-year-old history of hypertension hyperlipidemia, diabetes presents with left arm bs3 pain and swelling he notes that he was cleaning his shack and injured it several days ago and he developed redness swelling and a scab he notes that sometimes there is discharge from the area of the scab he notes sweating yesterday but no fevers he has been taking Tylenol for pain this is never happened before. Historical: - Allergies: 14:46 Vicodin; jh5 - PMHx: 14:46 Diabetes - NIDDM; Hypothyroidism; Hypertension; Hyperlipidemia; jh5 - Immunization history:: Adult Immunizations up to date. - Social history:: Smoking status: Patient denies any tobacco usage or history of. ROS: 14:48 Constitutional: Negative for fever, +chills bs3 14:48 Eyes: Negative for injury, pain, redness, and discharge, ENT: Negative for injury, pain, and discharge, Neck: Negative for injury, pain, and swelling, Cardiovascular: Negative for chest pain, palpitations, and edema, Respiratory: Negative for shortness of breath, cough, wheezing Back: Negative for injury and pain, Neuro: Negative for headache, weakness, numbness, tingling, and seizure, Psych: Negative for depression, anxiety, suicide ideation, homicidal ideation, and hallucinations, Endocrine: Negative for neck swelling, polydipsia, polyuria, polyphagia, and marked weight changes. 14:48 Constitutional: Exam: 14:48 Constitutional: This is a well developed, well nourished patient who is awake, alert, bs3 and in no acute distress. Head/Face: Normocephalic, atraumatic. Eyes: Pupils equal round and reactive to light, extra-ocular motions intact. Lids and lashes normal. ENT: mmm, no posterior phyarngeal erythema Neck: Trachea midline, no thyromegaly, no neck stiffness Chest/axilla: Normal chest wall appearance and motion. Nontender with no deformity. No lesions are appreciated. Cardiovascular: Regular rate and rhythm with a normal S1 and S2. symmetric pulses in upper extremities Respiratory: Lungs have equal breath sounds bilaterally, clear to auscultation, no respiratory distress Skin: Warm, dry with normal turgor. Normal color with no rashes, no lesions, and no evidence of cellulitis. MS/ Extremity: Pulses equal, no cyanosis. Neurovascular intact. There is significant redness or warmth in his left forearm with significant swelling, there is an area of a dried scab no palpable fluctuance Neuro: Awake and alert, GCS 15, oriented to person, place, time, and situation. Cranial nerves II-XII grossly intact. Motor strength 5/5 in all extremities. Sensory grossly intact. Psych: Awake, alert, with orientation to person, place and time. Behavior, mood, and affect are within normal limits. Vital Signs: 14:41 BP 123 / 84; Pulse 111; Resp 18; Temp 100.0; Pulse Ox 98% ; Weight 86.18 kg; Height 6 5 ft. 2 in. (187.96 cm); Pain 8/10; 16:05 BP 107 / 82; Pulse 98; Resp 20; Pulse Ox 98% on R/A; mb9 14:41 Body Mass Index 24.39 (86.18 kg, 187.96 cm) [facility] MDM: 14:41 Patient medically screened. bs3 14:48 Differential diagnosis: abscess, cellulitis, insect bite. Data reviewed: vital signs, bs3 EMS record. Consideration of Admission/Observation Patient was admitted/placed on observation. ED course: Patient with likely cellulitis possible abscess we will do bedside ultrasound to evaluate for underlying abscess patient reports chills he is almost febrile he is tachycardic will evaluate for sepsis we will give vancomycin to cover for MRSA and ceftriaxone for gram-negative coverage we will give fluids we will plan to admit given his diabetes and rapidly spreading cellulitis. 15:58 Management of patient was discussed with the following: Hospitalist: agreed w plan. bs3 Test considered but Not performed: CT: doubt compartment syndrome. Care significantly affected by the following Social Determinants of Health: Poor access to healthcare and/or lack of insurance. ED course: pt with leukocytosis, bedside US neg for abscess, will admit. 16:15 ED course: no anion gap, will give fluid, insulin, check fingersticks, lactate <2, no bs3 sepsis. . 04/19 14:48 Order name: Blood Culture Adult (2) bs3 04/19 14:48 Order name: CBC with Diff bs3 04/19 14:48 Order name: CMP bs3 04/19 14:48 Order name: Lactate w/ 2H reflex if indic. bs3 04/19 14:48 Order name: Protime (+inr) bs3 04/19 14:48 Order name: Ptt, Activated bs3 04/19 14:48 Order name: SARS-COV-2 Antigen Rapid bs3 04/19 15:41 Order name: CBC with Automated Diff; Complete Time: 15:47 EDMS 04/19 15:44 Order name: Protime (+INR); Complete Time: 15:47 EDMS 04/19 15:44 Order name: PTT, Activated Partial Thromb; Complete Time: 15:47 EDMS 04/19 16:03 Order name: Lactate w/ 2H reflex if indic.; Complete Time: 16:04 EDMS 04/19 16:03 Order name: SARS-COV-2 Antigen Rapid; Complete Time: 16:04 EDMS 04/19 16:06 Order name: Comprehensive Metabolic Panel; Complete Time: 16:13 EDMS 04/19 16:11 Order name: Glucose, Ancillary Testing; Complete Time: 16:13 EDMS 04/19 14:48 Order name: XRAY Forearm LEFT bs3 04/19 15:44 Order name: RAD; Complete Time: 15:47 EDMS 04/19 17:55 Order name: Phosphorus EDMS 04/19 17:55 Order name: T4 Free EDMS 04/19 17:55 Order name: Magnesium EDMS 04/19 17:55 Order name: Thyroid Stimulating Hormone EDMS 04/19 18:06 Order name: Glucose, Ancillary Testing EDMS 04/19 19:11 Order name: CT EDMS 04/19 19:44 Order name: Glucose, Ancillary Testing EDMS 04/19 14:48 Order name: EKG; Complete Time: 14:48 bs3 04/19 14:48 Order name: Accucheck; Complete Time: 17:54 bs3 04/19 14:48 Order name: Cardiac monitoring; Complete Time: 15:01 bs3 04/19 14:48 Order name: EKG - Nurse/Tech; Complete Time: 15:36 bs3 04/19 14:48 Order name: IV Saline Lock - Large Bore; Complete Time: 15:36 bs3 04/19 14:48 Order name: Labs collected and sent; Complete Time: 15:29 bs3 04/19 14:48 Order name: O2 Per Protocol; Complete Time: 15:01 bs3 04/19 14:48 Order name: O2 Sat Monitoring; Complete Time: 15:01 bs3 04/19 14:48 Order name: Vital Signs; Complete Time: 15:02 bs3 Administered Medications: 15:30 Drug: Acetaminophen 1000 mg Route: PO; mb9 16:03 Drug: NS 0.9% 1000 ml Route: IV; Rate: 1 bolus; Site: right forearm; mb9 16:03 Drug: Rocephin (cefTRIAXone) 1 grams Route: IV; Rate: bolus; Site: right antecubital; mb9 16:15 Follow up: Response: No adverse reaction; IV Status: Completed infusion mb9 16:15 Drug: vancoMYCIN 15 mg/kg Route: IVPB; Site: right forearm; mb9 16:23 Drug: Ketorolac 15 mg Route: IVP; Site: right antecubital; mb9 16:42 Follow up: Response: No adverse reaction mb9 16:24 Drug: Insulin Regular Human 10 units {Co-Signature: ss (Teressa Keller RN).} Route: mb9 Sub-Q; Site: left lower abdomen; 16:42 Follow up: Response: No adverse reaction mb9 17:51 Drug: NS 0.9% 1000 ml Route: IV; Rate: 1000 ml; Site: right antecubital; mb9 Disposition Summary: 04/19/22 16:17 Hospitalization Ordered Hospitalization Status: Inpatient Admission bs3 Location: Telemetry/MedSurg (Inpatient) bs3 Condition: Fair bs3 Problem: new bs3 Symptoms: are unchanged bs3 Bed/Room Type: Standard bs3 Provider: Baldomero Wills(04/19/22 16:18) bs3 Room Assignment: 415(04/19/22 17:38) dw Diagnosis - Cellulitis of left upper limb bs3 - Hyperglycemia, unspecified bs3 Forms: - Medication Reconciliation Form bs3 - SBAR form bs3 Signatures: Dispatcher Dee Núñez Radha, RN RN dw Merlene Bermeo RN RN jh5 Sina Baird MD MD bs3 Winter Mohan RN RN mb9 Teressa Keller RN Corrections: (The following items were deleted from the chart) 16:18 16:17 Gucci Baeza bs3 bs3 17:38 16:17 bs3 dw
[2022-04-19] MEDS ORDERED: KETOROLAC 30 MG/ML INJ ONE (16:23)
[2022-04-19] MEDS ORDERED: INSULIN -REGULAR HUMAN 50 UNIT/0.5 ML ML ONE (16:24)
[2022-04-19] MEDS ORDERED: ACETAMINOPHEN 325 MG TABLET PO PRN (16:51)
[2022-04-19] MEDS ORDERED: LABETALOL 20 MG/4ML SYRINGE IV PRN (16:53)
[2022-04-19] MEDS: CEFEPIME 1 GM in NA CHLORIDE 0.9% 100 ML IV SCH (17:00)
[2022-04-19] MEDS ORDERED: ONDANSETRON 4 MG/2 ML VIAL IV PRN (17:08)
--- NOTE | 2022-04-19 17:10 | P.HP ---
Certification for Inpatient Patient admitted to: Inpatient With expected LOS: >2 Midnights Patient will require the following post-hospital care: None Practitioner: I am a practitioner with admitting privileges, knowledge of patient current condition, hospital course, and medical plan of care. Services: Services provided to patient in accordance with Admission requirements found in Title 42 Section 412.3 of the Code of Federal Regulations Patient History Date of Service: 04/19/22 Reason for admission: Left forearm cellulitis History of Present Illness: Patient is a 46-year-old male with a past medical history significant for DM 2, hypothyroidism, hypertension hyperlipidemia who presents with complaint of left forearm swelling\redness\pain that has been ongoing for the past 2 weeks. Patient reported that he was cleaning his garage when he injured his left forearm. Patient reported that shortly after he started having symptoms which b ecame worse over time. Patient also reported noticing purulent discharge from the scab site. Patient rated pain as 10/10 in severity and described as throbbing\aching in quality. Patient reported associated signs and symptoms of subjective fever, diaphoresis and chills. Patient denies any other signs or symptoms. Symptoms are aggravated by movement and relieved by nothing. Patient decided to present to the hospital due to worsening symptoms. Allergies acetaminophen [From Vicodin] Allergy (Unknown, Verified 09/02/15 07:24) Unknown hydrocodone Allergy (Verified 07/22/15 02:46) Hives seafood Allergy (Unknown, Uncoded 09/02/15 07:24) Rash Home Medications: Atorvastatin Calcium 40 mg PO DAILY 07/18/15 Metformin HCl [Glucophage*] 500 mg PO BIDWM 07/18/15 lisinopriL [Prinivil*] 20 mg PO DAILY 07/18/15 Insulin Glargine,Hum.rec.anlog [Lantus] 25 unit SQ BEDTIME #10 ml 09/03/15 Insulin Lispro [Humalog] 5 unit SQ TID #10 ml 09/03/15 Levothyroxine [Synthroid*] 0.075 mg PO [id number] #30 tab 09/03/15 - Past Medical/Surgical History Diabetic: Yes -: Hypothyroidism -: Diabetes -: Hypertension Past Surgical History: Reviewed- Non-Contributory - Family History Father -: Heart disease, Hypertension, Other (see notes) Notes: Hypothyroidism Mother -: Diabetes, Kidney disease, Other (see notes) Notes: Dialysis; Legally blind - Social History Smoking Status: Former smoker Alcohol use: Yes CD- Drugs: No Caffeine use: Yes Place of Residence: Home Review of Systems General: Fever, Chills, Sweats Eyes: Unremarkable ENT: Unremarkable Respiratory: Unremarkable Cardiovascular: Unremarkable Gastrointestinal: Unremarkable Genitourinary: Unremarkable Musculoskeletal: Arm Pain (Left forearm swelling\pain ), Other (left arm pain ) Integumentary: Other (Left forearm redness ) Neurological: Unremarkable Lymphatics: Unremarkable Physical Examination - Physical Exam General: Alert, In no apparent distress, Oriented x3, Cooperative HEENT: Atraumatic, PERRLA, Mucous membr. moist/pink, EOMI, Sclerae nonicteric Neck: Supple, 2+ carotid pulse no bruit, No LAD, Without JVD or thyroid abnormality Respiratory: Clear to auscultation bilaterally, Normal air movement Cardiovascular: Regular rate/rhythm, Normal S1 S2, Edema Capillary refill: <2 Seconds Gastrointestinal: Normal bowel sounds, Soft and benign, No tenderness Musculoskeletal: Tenderness, Other (Left arm swelling ) Integumentary: No rashes, Tenderness/swelling, Erythema Neurological: Normal speech, Normal tone, Normal affect Lymphatics: No axilla or inguinal lymphadenopathy - Studies Laboratory Data (last 24 hrs) 04/19/22 15:26: PT 10.9, INR 0.99, APTT 29.0 04/19/22 15:26: Sodium 128 L, Potassium 3.4 L, BUN 13, Creatinine 0.92, Glucose 618 H*, Total Bilirubin 0.5, AST 8 L, ALT 31, Alkaline Phosphatase 122 H 04/19/22 15:26: WBC 19.60 H, Hgb 12.6 L, Hct 37.5 L, Plt Count 411 H Assessment and Plan - Plan -- Left forearm cellulitis. CT imaging does not indicate any abscess. Patient placed on antibiotics. Blood cultures pending. Infectious disease MD consulted. We will await further recommendations. --Acute pain. We will manage pain with current medication regimen. --Sepsis. likely secondary to cellulitis. Blood cultures pending. Continue antibiotics. --DM2 with hyperglycemia. Patient reports noncompliance with home diabetic medication. BS monitoring with sliding scale insulin and insulin glargine. --Hypothyroidism. Continue Synthroid. --Hypokalemia. Replete as needed. --Hyperlipidemia. Continue statin. --Hypertension. Poorly controlled. Continue home medications and labetalol as needed. --Anemia of chronic disease. H&H stable. We will continue to monitor hemoglobin and transfuse if less than 7.0. --Hypertension. Stable. Continue home medication. --DVT prophylaxis with Lovenox subQ. Discharge Plan: Home Plan to discharge in: Greater than 2 days - Advance Directives Does patient have a Living Will: No Does patient have a Durable POA for Healthcare: No - Code Status/Comfort Care Code Status Assessed: Yes Physician Review: Patient Assessed, Agree with Above Assessment and Plan Critical Care: No
[2022-04-19] MEDS ORDERED: POTASSIUM CL SA 10 MEQ TAB PO ONE ×2 (17:13→18:56)
[2022-04-19 17:54] LABS: Magnesium 1.9 mg/dL (1.6-2.4); Phosphorus 2.9 mg/dL (2.5-4.9); Thyroid Stimulating Hormone 8.79 uIU/mL (0.358-3.740)
[2022-04-19] MEDS: ENOXAPARIN 40 MG/0.4 ML SQ SCH (18:00)
[2022-04-19] MEDS ORDERED: ENOXAPARIN 40 MG/0.4 ML SQ ONE (18:56)
[2022-04-19] MEDS ORDERED: NA CHLORIDE 0.9% 100 ML ONE (18:57)
[2022-04-19] MEDS ORDERED: CEFEPIME 1 GM/VIAL ONE (18:57)
--- NOTE | 2022-04-19 19:10 | RAD REPORT ---
EXAM DESCRIPTION: CT - Forearm Left W Con - 04/19/2022 6:30 pm CLINICAL HISTORY: Left arm cellulitis. Concern for abscess. COMPARISON: Forearm radiographs of the same day. TECHNIQUE: Thin cut CT images of the left forearm were obtained following administration of approxim ately 90mL Isovue 300 IV contrast. Sagittal and coronal reconstruction images were generated and revi ewed. All CT scans are performed using dose optimization technique as appropriate and may include automated exposure control or mA/KV adjustment according to patient size. FINDINGS: Pronounced subcutaneous soft tissue edema along the left forearm most notably involving th e medial and dorsal aspects, with overlying skin thickening. No discrete or marginally enhancing flui d collections are appreciated. Flexor and extensor muscle compartments are unremarkable, without discrete fluid collections, areas o f nonenhancement, or soft tissue gas. Neurovascular structures are unremarkable. No osseous destructive were lucent changes to suggest ongoing osteomyelitis. No suspicious osseous le sions. Joint alignment is well maintained. No joint effusions. No significant degenerative changes. IMPRESSION: Changes of acute cellulitis most pronounced along the medial and dorsal aspects of the f orearm. No discrete fluid collections to suggest abscess formation. No suspicious osseous abnormality .
[2022-04-19] MEDS ORDERED: INSULIN LISPRO 100 UNIT/ML SQ SCH (21:00)
[2022-04-19] MEDS: HYDROCODONE/APAP 10/325 TAB PO PRN (21:06)
[2022-04-19] MEDS: INSULIN GLARGINE 100 UNIT/ML SQ SCH (21:50)
[2022-04-19] MEDS: INSULIN -REGULAR HUMAN 50 UNIT/0.5 ML ML SQ SCH (21:51)
[2022-04-20] MEDS: CEFEPIME 1 GM in NA CHLORIDE 0.9% 100 ML IV SCH ×3 (00:56→16:32)
[2022-04-20] MEDS ORDERED: WATER FOR INJ,STERILE 20 ML ONE (03:50)
[2022-04-20] MEDS: VANCOMYCIN 1.5 GM in NA CHLORIDE 0.9% 500 ML IVPB SCH ×2 (04:00→16:33)
[2022-04-20] MEDS: HYDROCODONE/APAP 10/325 TAB PO PRN (04:20)
[2022-04-20 05:52] LABS: Absolute Lymphocytes (CBC) 1.7 K/uL (0.7-4.9); Hematocrit 33.2 % (39.6-49.0); Lymphocytes % 9.6 % (15.3-44.8); MCV 88.7 fL (80-100); MPV 7.1 fL (7.6-11.3); RBC Red Blood Cell Count 3.75 M/uL (4.33-5.43)
[2022-04-20 05:57] VITALS: BMI 24.3
[2022-04-20 06:00] LABS: Potassium 3.2 mmol/L (3.5-5.1)
[2022-04-20] MEDS: LEVOTHYROXINE SOD 0.075 MG TAB PO SCH (06:49)
[2022-04-20] MEDS ORDERED: INSULIN LISPRO 100 UNIT/1 ML SQ SCH (08:00)
[2022-04-20] MEDS ORDERED: INFLUENZA VACCINE (for 6+ mo) 0.5 ML DOSE IMVAC ONE (08:00)
[2022-04-20 08:08] LABS: Magnesium 1.8 mg/dL (1.6-2.4); Phosphorus 2.9 mg/dL (2.5-4.9)
[2022-04-20] MEDS: ENOXAPARIN 40 MG/0.4 ML SQ SCH (08:15)
[2022-04-20] MEDS: ATORVASTATIN 40 MG TAB PO SCH (08:16)
[2022-04-20] MEDS: ASPIRIN 81 MG CHEWABLE TABLET PO SCH (08:16)
[2022-04-20] MEDS: lisinopriL 20 MG TAB PO SCH (08:16)
--- NOTE | 2022-04-20 08:25 | P.CNS ---
Date of Consult: 04/20/22 Chief Complaint: Left forearm cellulitis History of Present Illness: Patient is a 46-year-old male with a past medical history significant for DM 2, hypothyroidism, hypertension hyperlipidemia who presents with complaint of left forearm swelling\redness\pain that has been ongoing for the past 2 weeks. Patient reported that he was cleaning his garage when he injured his left forearm. Patient reported that shortly after he started having symptoms which became worse over time. Patient also reported noticing purulent discharge from the scab site. Patient rated pain as 10/10 in severity and described as throbbing\aching in quality. Patient reported associated signs and symptoms of subjective fever, diaphoresis and chills. ID has been consulted for IV antibiotics recommendations and management of left arm cellulitis Allergies seafood Allergy (Unknown, Uncoded 09/02/15 07:24) Rash Home Medications: Atorvastatin Calcium 40 mg PO DAILY 07/18/15 Metformin HCl [Glucophage*] 500 mg PO BIDWM 07/18/15 lisinopriL [Prinivil*] 20 mg PO DAILY 07/18/15 Insulin Glargine,Hum.rec.anlog [Lantus] 25 unit SQ BEDTIME #10 ml 09/03/15 Insulin Lispro [Humalog] 5 unit SQ TID #10 ml 09/03/15 Levothyroxine [Synthroid*] 0.075 mg PO [id number] #30 tab 09/03/15 - Past Medical/Surgical History Diabetic: Yes -: Hypothyroidism -: Diabetes -: Hypertension - Family History Father Medical History: Heart disease, Hypertension, Other (see notes) Notes: Hypothyroidism Mother Medical History: Diabetes, Kidney disease, Other (see notes) Notes: Dialysis; Legally blind - Social History Smoking Status: Current every day smoker Alcohol use: Yes CD- Drugs: No Caffeine use: Yes Place of Residence: Home Review of Systems 10-point ROS is otherwise unremarkable Musculoskeletal: Other (left arm cellulitis) Integumentary: Lesions, Other (left arm, swelling, warmth, and erythematous) Physical Examination Temp Pulse Resp BP Pulse Ox 97.4 F 95 H 18 110/70 96 04/20/22 04:00 04/20/22 08:16 04/20/22 05:20 04/20/22 08:16 04/20/22 05:20 General: Alert, In no apparent distress, Oriented x3 Respiratory: Clear to auscultation bilaterally Cardiovascular: Normal S1 S2, Edema (left arm 2+ secondary to cellulitis) Gastrointestinal: Normal bowel sounds Musculoskeletal: Swelling (left arm cellulitis), Erythema, Tenderness, Warmth Integumentary: Skin lesion (left arm cellulitis), Tenderness/swelling, Erythema, Warmth Neurological: Normal speech, Normal tone, Normal affect Laboratory Data (last 24 hrs) 04/19/22 15:26: Phosphorus 2.9, Magnesium 1.9 04/19/22 15:26: PT 10.9, INR 0.99, APTT 29.0 04/19/22 15:26: Sodium 128 L, Potassium 3.4 L, BUN 13, Creatinine 0.92, Glucose 618 H*, Total Bilirubin 0.5, AST 8 L, ALT 31, Alkaline Phosphatase 122 H 04/19/22 15:26: WBC 19.60 H, Hgb 12.6 L, Hct 37.5 L, Plt Count 411 H Current Medications Acetaminophen (Acetaminophen 325 Mg Tablet) 650 mg PO Q6H PRN PRN Reason: TEMP > 100.4' F Hydrocodone Bitart/Acetaminophen (Hydrocodone/Apap 10/325 Tab) 1 tab PO Q6H PRN PRN Reason: Pain scale 5-7 (Moderate) Last Admin: 04/20/22 04:20 Dose: 1 tab Aspirin (Aspirin 81 Mg Chewable Tablet) 81 mg PO DAILY [facility] Last Admin: 04/20/22 08:16 Dose: 81 mg Atorvastatin Calcium (Atorvastatin 40 Mg Tab) 40 mg PO DAILY [facility] Last Admin: 04/20/22 08:16 Dose: 40 mg Enoxaparin Sodium (Enoxaparin 40 Mg/0.4 Ml) 40 mg SQ DAILY [facility] Last Admin: 04/20/22 08:15 Dose: 40 mg Cefepime HCl 1 gm/ Sodium (Chloride) 100 mls @ 200 mls/hr IV Q8HR [facility]; Protocol Last Admin: 04/20/22 08:16 Dose: 100 mls Vancomycin HCl 1.5 gm/ Sodium (Chloride) 500 mls @ 250 mls/hr IVPB Q12H [facility]; Protocol Last Admin: 04/20/22 04:00 Dose: 500 mls Insulin Glargine (Insulin Glargine 100 Unit/Ml) 25 unit SQ BEDTIME [facility] Last Admin: 04/19/22 21:50 Dose: 25 unit Insulin Human Regular (Insulin -Regular Human 50 Unit/0.5 Ml Ml) 0 unit SQ ACHS [facility]; Protocol Last Admin: 04/19/22 21:51 Dose: 4 unit Labetalol HCl (Labetalol 20 Mg/4ml Syringe) 10 mg IV Q6H PRN PRN Reason: SBP>160 Levothyroxine Sodium (Levothyroxine Sod 0.075 Mg Tab) 0.075 mg PO [id number] [facility] Last Admin: 04/20/22 06:49 Dose: 0.075 mg Lisinopril (Lisinopril 20 Mg Tab) 20 mg PO DAILY [facility] Last Admin: 04/20/22 08:16 Dose: 20 mg Ondansetron HCl (Ondansetron 4 Mg/2 Ml Vial) 4 mg IV Q6HP PRN PRN Reason: NAUSEA / VOMITING Potassium Chloride (Potassium Cl Sa 10 Meq Tab) 40 meq PO 1X ONE Stop: 04/20/22 09:01 Sodium Chloride (Flush Normal Saline 10 Ml) 10 ml IV BID [facility] Last Admin: 04/19/22 21:50 Dose: 10 ml Imagings Data: CT - Forearm Left W Con - 04/19/2022 FINDINGS: Pronounced subcutaneous soft tissue edema along the left forearm most notably involving the medial and dorsal aspects, with overlying skin thickening. No discrete or marginally enhancing fluid collections are appreciated. Flexor and extensor muscle compartments are unremarkable, without discrete fluid collections, areas of nonenhancement, or soft tissue gas. Neurovascular structures are unremarkable. No osseous destructive were lucent changes to suggest ongoing osteomyelitis. No suspicious osseous lesions. Joint alignment is well maintained. No joint effusions. No significant degenerative changes. IMPRESSION: Changes of acute cellulitis most pronounced along the medial and dorsal aspects of the forearm. No discrete fluid collections to suggest abscess formation. No suspicious osseous abnormality RAD - Forearm Left - 04/19/2022 FINDINGS: No fracture is identified. There is no dislocation or periosteal react ion noted. No elbow joint effusion is identified on the lateral view. No foreign body or other soft tissue abnormality. IMPRESSION: No acute osseous abnormality of the left forearm. - Problems (1) Cellulitis of left arm Current Visit: Yes Status: Acute Plan: Cultures: - 04/19 BC: Pending Antibiotics: - On IV Cefepime and Vancomycin (04/19- ) Recommendations: - Continue IV Cefepime and Vancomycin - ID will recommend the antibiotics drug of choice when culture is available (2) Leukocytosis Current Visit: Yes Status: Acute Plan: WBC: - 04/19: 19.6 - 04/20: 17.3, trending down Conclusions/Impression: - Left forearm cellulitis: Continue IV Cefepime and Vancomycin - Acute pain - Sepsis: Likely secondary to cellulitis - Leukocytosis: Trending down - DM2 with hyperglycemia - Hypothyroidism - Hypokalemia - Hyperlipidemia - Hypertension - Anemia of chronic disease - Hypertension ID will monitor the patient closely for signs of infection with fever and WBC trends Case has been discussed with Dr. Silva N Thank you Dr. Garcia for consultation
[2022-04-20] MEDS: INSULIN -REGULAR HUMAN 50 UNIT/0.5 ML ML SQ SCH ×4 (08:41→21:10)
[2022-04-20] MEDS ORDERED: POTASSIUM CL SA 10 MEQ TAB PO ONE (09:00)
[2022-04-20] MEDS: HYDROMORPHONE HCL 1 MG/ML INJ IV PRN ×2 (11:57→21:11)
[2022-04-20 12:29] LABS: Urine Bacteria None Seen /HPF (<20); Urine Bilirubin NEGATIVE (Negative); Urine Blood Negative (Negative); Urine Clarity Clear (Clear); Urine Color Yellow (Yellow); Urine Glucose 4+ (Negative); Urine Mucus 2+ /HPF (None Seen); Urine Protein 1+ (Negative); Urine Urobilinogen Normal (Normal)
[2022-04-20 12:37] LABS: Specific Gravity > 1.030 (1.005-1.030)
--- NOTE | 2022-04-20 17:13 | EKG ---
Test Date: 2022-04-19 Test Time: 15:38:29 Manager Transportation: LATANYA MEASUREMENT RESULTS: Intervals: Rate: 97 IN: 142 QRSD: 104 QT: 374 QTc: 474 [place]: P: 75 IN: 142 QRS: 66 T: 89 INTERPRETIVE STATEMENTS: Normal sinus rhythm Prolonged QT Abnormal ECG Compared to ECG 01/31/2022 14:54:32 Sinus tachycardia no longer present Short IN interval no longer present Electronically Signed On 04-20-22 17:09:32 [employer] by Nicholas Farmer
[2022-04-20] MEDS: INSULIN GLARGINE 100 UNIT/ML SQ SCH (21:11)
--- NOTE | 2022-04-20 22:13 | P.PN ---
Date of Service: 04/20/22 Subjective: feels redness and warmth has improved swelling slightly worsened, pain about the same no new numbness/tingling of hands/fingers ROS: A complete review of systems was performed and is negative except as mentioned above Physical Exam: Gen: NAD, AOx3 HEENT: normal conjunctiva, sclera anicteric CV: regular rate & rhythm, no edema Pulm: non-labored respirations, clear bilaterally Abd: soft, non-tender, non-distended Skin: erythema and tenderness of left upper extremity, with significant swelling vitals reviewed Problem List Sepsis secondary to Left arm cellulitis IDDM2 with neuropathy Hypothyroidism HLD HTN cellulitis significant erythema and swelling improving with significant pain continue empiric vanc/cefepime ID consulted CT without signs compartment syndrome, no abscess insulin, +sliding scale synthroid VTE: lovenox Code: full Dispo: home, ~2-3 days
[2022-04-21] MEDS: CEFEPIME 1 GM in NA CHLORIDE 0.9% 100 ML IV SCH ×3 (00:52→15:58)
[2022-04-21] MEDS: HYDROMORPHONE HCL 1 MG/ML INJ IV PRN ×4 (01:26→21:32)
[2022-04-21 03:09] LABS: Absolute Lymphocytes (CBC) 1.8 K/uL (0.7-4.9); Hematocrit 32.4 % (39.6-49.0); Lymphocytes % 11.1 % (15.3-44.8); MPV 6.7 fL (7.6-11.3)
[2022-04-21 03:21] LABS: Potassium 3.8 mmol/L (3.5-5.1)
[2022-04-21] MEDS: VANCOMYCIN 1.5 GM in NA CHLORIDE 0.9% 500 ML IVPB SCH (03:48)
[2022-04-21] MEDS ORDERED: POTASSIUM CL SA 10 MEQ TAB PO ONE (04:00)
[2022-04-21] MEDS: LEVOTHYROXINE SOD 0.075 MG TAB PO SCH (05:32)
[2022-04-21] MEDS: INSULIN -REGULAR HUMAN 50 UNIT/0.5 ML ML SQ SCH ×4 (07:30→21:31)
[2022-04-21] MEDS: lisinopriL 20 MG TAB PO SCH (08:38)
[2022-04-21] MEDS: ATORVASTATIN 40 MG TAB PO SCH (08:39)
[2022-04-21] MEDS: ASPIRIN 81 MG CHEWABLE TABLET PO SCH (08:39)
[2022-04-21] MEDS: ENOXAPARIN 40 MG/0.4 ML SQ SCH (08:39)
--- NOTE | 2022-04-21 09:49 | P.PN ---
Subjective Date of Service: 04/21/22 Chief Complaint: Left forearm cellulitis Patient just finished taking a shower with family member at the bedside. Left arm cellulitis started having white drainage with no odor. Wound culture sent Physical Examination - Vital Signs Temperature: 98.6 F Blood Pressure: 114/70 Pulse: 86 Respirations: 16 Pulse Ox (%): 97 - Physical Exam General: Alert, In no apparent distress, Oriented x3 Respiratory: Clear to auscultation bilaterally Cardiovascular: Normal S1 S2, Edema (left arm cellulitis 2+ edema) Gastrointestinal: Normal bowel sounds Musculoskeletal: No swelling, No tenderness, Swelling (left arm cellulitis 2+ edema) Integumentary: Skin lesion (left arm cellulitis 2+ edema), Tenderness/swelling, Erythema, Warmth, Other (white drainage with no odor) Neurological: Normal gait, Normal speech, Normal tone, Normal affect - Studies Current medications Acetaminophen (Acetaminophen 325 Mg Tablet) 650 mg PO Q6H PRN PRN Reason: TEMP > 100.4' F Hydrocodone Bitart/Acetaminophen (Hydrocodone/Apap 10/325 Tab) 1 tab PO Q6H PRN PRN Reason: Pain scale 5-7 (Moderate) Last Admin: 04/20/22 04:20 Dose: 1 tab Aspirin (Aspirin 81 Mg Chewable Tablet) 81 mg PO DAILY [facility] Last Admin: 04/21/22 08:39 Dose: 81 mg Atorvastatin Calcium (Atorvastatin 40 Mg Tab) 40 mg PO DAILY [facility] Last Admin: 04/21/22 08:39 Dose: 40 mg Enoxaparin Sodium (Enoxaparin 40 Mg/0.4 Ml) 40 mg SQ DAILY [facility] Last Admin: 04/21/22 08:39 Dose: 40 mg Hydromorphone HCl (Hydromorphone Hcl 1 Mg/Ml Inj) 1 mg IV Q4H PRN PRN Reason: Pain scale 8-10 (Severe) Last Admin: 04/21/22 11:13 Dose: 1 mg Cefepime HCl 1 gm/ Sodium (Chloride) 100 mls @ 200 mls/hr IV Q8HR [facility]; Protocol Last Admin: 04/21/22 15:58 Dose: 100 mls Vancomycin HCl 1.75 gm/ Sodium (Chloride) 500 mls @ 250 mls/hr IVPB Q12H [facility]; Protocol Last Admin: 04/21/22 15:59 Dose: 500 mls Insulin Glargine (Insulin Glargine 100 Unit/Ml) 25 unit SQ BEDTIME [facility] Last Admin: 04/20/22 21:11 Dose: 25 unit Insulin Human Regular (Insulin -Regular Human 50 Unit/0.5 Ml Ml) 0 unit SQ ACHS [facility]; Protocol Last Admin: 04/21/22 17:25 Dose: 4 unit Labetalol HCl (Labetalol 20 Mg/4ml Syringe) 10 mg IV Q6H PRN PRN Reason: SBP>160 Levothyroxine Sodium (Levothyroxine Sod 0.075 Mg Tab) 0.075 mg PO [id number] [facility] Last Admin: 04/21/22 05:32 Dose: 0.075 mg Lisinopril (Lisinopril 20 Mg Tab) 20 mg PO DAILY [facility] Last Admin: 04/21/22 08:38 Dose: 20 mg Ondansetron HCl (Ondansetron 4 Mg/2 Ml Vial) 4 mg IV Q6HP PRN PRN Reason: NAUSEA / VOMITING Sodium Chloride (Flush Normal Saline 10 Ml) 10 ml IV BID [facility] Last Admin: 04/21/22 08:40 Dose: 10 ml Microbiology Data (last 24 hrs): Microbiology 04/19/22 15:50 Blood - Blood Aerobic Blood Culture - Preliminary No growth in 24 hours. 04/19/22 15:50 Blood - Blood Anaerobic Blood Culture - Preliminary No growth in 24 hours. 04/19/22 15:25 Blood - Blood Aerobic Blood Culture - Preliminary No growth in 24 hours. 04/19/22 15:25 Blood - Blood Anaerobic Blood Culture - Preliminary No growth in 24 hours. Assessment And Plan - Current Problems (Diagnosis) (1) Cellulitis of left arm Current Visit: Yes Status: Acute Plan: Cultures: - 04/21 Wound: Pending - 04/19 BC: Negative Antibiotics: - On IV Cefepime and Vancomycin (04/19- ) Recommendations: - Continue IV Cefepime and Vancomycin - ID will recommend antibiotics drug of choice when culture is available (2) Leukocytosis Current Visit: Yes Status: Acute Plan: WBC: - 04/19: 19.6 - 04/20: 17.3, - 04/21: 16.5, trending down - Plan - Left forearm cellulitis: Continue IV Cefepime and Vancomycin; Pending for wound culture - Acute pain - Sepsis: Likely secondary to cellulitis - Leukocytosis: Trending down - DM2 with hyperglycemia - Hypothyroidism - Hypokalemia - Hyperlipidemia - Hypertension - Anemia of chronic disease - Hypertension ID will monitor the patient closely for signs of infection with fever and WBC trends Case has been discussed with Dr. Silva N Physician Review: Patient Assessed, Agree with Above Assessment and Plan
--- NOTE | 2022-04-21 15:04 | CON ---
Date of Consultation: 04/21/2022 Reason For Consultation: Infection of left forearm. History Of Present Illness: The patient is a 46-year-old gentleman, who presented to the emergency room 2 days ago with infection on his left forearm, which started about 2 weeks ago after he was working in the garage and had a minor injury, and his symptoms progressively got worse where he had some purulent discharge, swelling, redness in his left forearm, and he felt feverish, diaphoretic, and chills were present as well. He came to the emergency room and was admitted for cellulitis; however, there has been a small opening in the forearm from the wound and I was asked to evaluate. He is awake, alert, complaining of pain. No axillary lymphadenopathy. He does not recall any insect bite, injury or any significant trauma 2 weeks ago. Review of Systems: Negative for any sore throat, runny nose, cough, headaches, dizziness, chest pain. Otherwise, unremarkable. Past Medical History: Significant for diabetes, hypertension, hypothyroidism. Past Surgical History: Negative. Allergies: INCLUDE HYDROCODONE, SEAFOOD, AND ACETAMINOPHEN. Social History: The patient is a former smoker. Drinks alcohol occasionally. Family History: Significant for heart disease, hypertension, and hypothyroidism as well as kidney disease. Physical Examination: Vital Signs: Stable. Currently afebrile. General: He is awake, alert, and oriented x3. Head and Neck: Cranial nerves 2 through 12 are grossly within normal limits. No neck masses. No JVD. Throat clear. Neck is supple. Chest: Clear. Heart: S1, S2. Abdomen: Soft. Extremities: Neurovascularly intact. Neuro: Nonfocal. Left forearm is swollen, red, warm with edema present, tenderness and there is a small opening approximately 1 cm in length where he has minimal oozing that appears to be some fluctuance underneath there. Laboratory Data: Reviewed. The patient has leukocytosis on admission, his white count was 19.6, today 16.5, and left shift. CT shows changes of acute cellulitis of the forearm that was done 2 days ago. Assessment: Left forearm cellulitis and abscess. Recommendations: Continue IV antibiotics as ordered, n.p.o. after midnight. To the OR for incision, drainage, and debridement of left forearm abscess. The patient understands the risks, benefits, and alternatives and agrees to procedure. /MODL Voice ID: [id number] Report ID: [id number] MTDNegar
--- NOTE | 2022-04-21 15:49 | P.PN ---
Date of Service: 04/21/22 Subjective: Redness and swelling improved Now having purulent drainage No new/worsening of symptoms ROS: A complete review of systems was performed and is negative except as mentioned above Physical Exam: Gen: NAD, AOx3 HEENT: normal conjunctiva, sclera anicteric CV: regular rate & rhythm, no edema Pulm: non-labored respirations, clear bilaterally Skin: erythema and tenderness of left upper extremity (elbow to wrist), with significant swelling white, purulent drainage noted on dorsal aspect of forearm, with palpable fluctuance vitals reviewed Problem List Sepsis secondary to Left arm cellulitis IDDM2 with neuropathy Hypothyroidism HLD HTN cellulitis significant erythema and swelling with pain improving continue empiric vanc/cefepime ID consulted CT without signs compartment syndrome, no abscess noted 04/21 - purulent drainage noted Dr. Mata consulted plan for I&D on 04/22 culture obtained of purulent drainage insulin, +sliding scale better control home synthroid VTE: lovenox Code: full Dispo: home, likely Tuesday/Tuesday await cultures
[2022-04-21] MEDS: VANCOMYCIN 1.75 GM in NA CHLORIDE 0.9% 500 ML IVPB SCH (15:59)
[2022-04-21] MEDS: INSULIN GLARGINE 100 UNIT/ML SQ SCH (21:31)
[2022-04-22] MEDS: CEFEPIME 1 GM in NA CHLORIDE 0.9% 100 ML IV SCH ×3 (01:06→17:08)
[2022-04-22] MEDS: HYDROMORPHONE HCL 1 MG/ML INJ IV PRN ×2 (03:07→12:06)
[2022-04-22] MEDS: VANCOMYCIN 1.75 GM in NA CHLORIDE 0.9% 500 ML IVPB SCH ×2 (03:59→16:00)
[2022-04-22] MEDS: LEVOTHYROXINE SOD 0.075 MG TAB PO SCH (05:27)
[2022-04-22 05:41] LABS: Absolute Lymphocytes (CBC) 1.5 K/uL (0.7-4.9); Lymphocytes % 9.4 % (15.3-44.8); MCV 89.9 fL (80-100); MPV 7.5 fL (7.6-11.3); RBC Red Blood Cell Count 3.67 M/uL (4.33-5.43)
[2022-04-22 05:54] LABS: Potassium 3.4 mmol/L (3.5-5.1)
[2022-04-22] MEDS ORDERED: Ringers Lactate 1,000 ML IV ONE (06:53)
[2022-04-22] MEDS ORDERED: BUPIVACAINE 0.5% PF 10 ML VIAL ONE (07:04)
[2022-04-22] MEDS ORDERED: LIDOCAINE 2% MPF 5 ML VIAL ONE (07:15)
[2022-04-22] MEDS ORDERED: propofoL 200 MG/20 ML VIAL IV ONE (07:15)
[2022-04-22] MEDS ORDERED: MIDAZOLAM HCL 2 MG/2 ML INJ ONE (07:15)
[2022-04-22] MEDS ORDERED: FENTANYL CITR 100 MCG/2 ML ONE (07:15)
[2022-04-22] MEDS: INSULIN -REGULAR HUMAN 50 UNIT/0.5 ML ML SQ SCH ×5 (07:30→20:36)
[2022-04-22] MEDS ORDERED: ONDANSETRON 4 MG/2 ML VIAL ONE (07:42)
[2022-04-22] MEDS: lisinopriL 20 MG TAB PO SCH (07:59)
[2022-04-22] MEDS: HYDROMORPHONE HCL 1 MG/ML INJ ONE ×2 (08:27→08:47)
--- NOTE | 2022-04-22 08:41 | P.OP ---
Date of Service: 04/22/22 Preop diagnosis: Abscess and cellulitis left forearm Postop diagnosis: Same Procedure performed: Incision, drainage and debridement left forearm abscess Surgeon: Genaro Mata MD Carpet Cleaning Technician: None Estimated blood loss: Minimal Specimen: Pus and debridement tissue Findings: As above Anesthesia: General Complications: None Drains: None Fluids and blood products: Nonapplicable Disposition: Recovery room Operative note: Patient brought to the OR and placed in supine position. General anesthesia begun. Patient prepped and draped in the usual sterile fashion. Marcaine 0.5% infiltrated locally. Then a 15 blade used to make a 4 x 1 cm incision around a open wound. Subcutaneous tissue divided. Pus under pressure evacuated. Necrotic tissue debrided. Wound irrigated and bleeding controlled cautery. Wet-to-dry normal saline dressing change applied. Patient the procedure in stable condition taken to recovery room in good general condition. CC: Dr. Garcia's office
[2022-04-22] MEDS: FENTANYL CITR 100 MCG/2 ML ONE ×2 (08:57→09:07)
[2022-04-22] MEDS ORDERED: CHLORHEXIDINE GLUCO 4% 120 ML TOP SCH (09:00)
[2022-04-22] MEDS: MUPIROCIN 2% OINT 22GM TUBE TOP SCH ×3 (09:00→21:00)
[2022-04-22] MEDS: ATORVASTATIN 40 MG TAB PO SCH (09:35)
[2022-04-22] MEDS: ENOXAPARIN 40 MG/0.4 ML SQ SCH (09:35)
[2022-04-22] MEDS: ASPIRIN 81 MG CHEWABLE TABLET PO SCH (09:35)
[2022-04-22] MEDS: HYDROCODONE/APAP 10/325 TAB PO PRN (09:39)
--- NOTE | 2022-04-22 10:16 | P.PN ---
Subjective Date of Service: 04/22/22 Chief Complaint: Left forearm cellulitis Patient lying in bed with family member at the bedside. Had I&D by Dr. Adolfo beckett Physical Examination - Vital Signs Temperature: 98.0 F Blood Pressure: 104/71 Pulse: 82 Respirations: 16 Pulse Ox (%): 99 - Physical Exam General: Alert, In no apparent distress, Oriented x3 Neck: Supple Respiratory: Clear to auscultation bilaterally Cardiovascular: Normal S1 S2, Edema (left arm cellulitis) Gastrointestinal: Normal bowel sounds Musculoskeletal: Swelling (left arm cellulitis), Erythema, Tenderness, Warmth, Other Integumentary: Skin lesion (left arm cellulitis), Tenderness/swelling, Erythema, Warmth Neurological: Normal gait, Normal speech, Normal tone, Sensation intact, Normal affect - Studies active medications Acetaminophen (Acetaminophen 325 Mg Tablet) 650 mg PO Q6H PRN PRN Reason: TEMP > 100.4' F Hydrocodone Bitart/Acetaminophen (Hydrocodone/Apap 10/325 Tab) 1 tab PO Q6H PRN PRN Reason: Pain scale 5-7 (Moderate) Last Admin: 04/22/22 09:39 Dose: 1 tab Aspirin (Aspirin 81 Mg Chewable Tablet) 81 mg PO DAILY [facility] Last Admin: 04/22/22 09:35 Dose: 81 mg Atorvastatin Calcium (Atorvastatin 40 Mg Tab) 40 mg PO DAILY [facility] Last Admin: 04/22/22 09:35 Dose: 40 mg Chlorhexidine Gluconate (Chlorhexidine Gluco 4% 120 Ml) 1 appl [place] [facility] [place] Enoxaparin Sodium (Enoxaparin 40 Mg/0.4 Ml) 40 mg SQ DAILY [facility] Last Admin: 04/22/22 09:35 Dose: 40 mg Hydromorphone HCl (Hydromorphone Hcl 1 Mg/Ml Inj) 1 mg IV Q4H PRN PRN Reason: Pain scale 8-10 (Severe) Last Admin: 04/22/22 03:07 Dose: 1 mg Cefepime HCl 1 gm/ Sodium (Chloride) 100 mls @ 200 mls/hr IV Q8HR [facility]; Protocol Last Admin: 04/22/22 09:34 Dose: 100 mls Vancomycin HCl 1.75 gm/ Sodium (Chloride) 500 mls @ 250 mls/hr IVPB Q12H [facility]; Protocol Last Admin: 02/16/23 03:59 Dose: 500 mls Insulin Glargine (Insulin Glargine 100 Unit/Ml) 25 unit SQ BEDTIME [facility] Last Admin: 04/21/22 21:31 Dose: 25 unit Insulin Human Regular (Insulin -Regular Human 50 Unit/0.5 Ml Ml) 0 unit SQ ACHS [facility]; Protocol Last Admin: 04/22/22 09:45 Dose: 8 unit Labetalol HCl (Labetalol 20 Mg/4ml Syringe) 10 mg IV Q6H PRN PRN Reason: SBP>160 Levothyroxine Sodium (Levothyroxine Sod 0.075 Mg Tab) 0.075 mg PO [id number] [facility] Last Admin: 04/22/22 05:27 Dose: Not Given Lisinopril (Lisinopril 20 Mg Tab) 20 mg PO DAILY [facility] Last Admin: 04/22/22 07:59 Dose: Not Given Mupirocin (Mupirocin 2% Oint 22gm Tube) 1 appl TOP BID [facility] Last Admin: 04/22/22 09:00 Dose: Not Given Ondansetron HCl (Ondansetron 4 Mg/2 Ml Vial) 4 mg IV Q6HP PRN PRN Reason: NAUSEA / VOMITING Sodium Chloride (Flush Normal Saline 10 Ml) 10 ml IV BID [facility] Last Admin: 04/22/22 07:59 Dose: Not Given Microbiology Data (last 24 hrs): Microbiology 04/19/22 15:50 Blood - Blood Aerobic Blood Culture - Preliminary No growth in 24 hours. 04/19/22 15:50 Blood - Blood Anaerobic Blood Culture - Preliminary No growth in 24 hours. 04/19/22 15:25 Blood - Blood Aerobic Blood Culture - Preliminary No growth in 24 hours. 04/19/22 15:25 Blood - Blood Anaerobic Blood Culture - Preliminary No growth in 24 hours. Assessment And Plan - Current Problems (Diagnosis) (1) Cellulitis of left arm Plan: Cultures: - 04/22 Wound: Pending - 04/22 Body fluid-arm: Pending - 04/21 Wound: Pending - 04/19 BC: Negative Antibiotics: - On IV Cefepime and Vancomycin (04/19- ) Recommendations: - Continue IV Cefepime and Vancomycin - ID will recommend antibiotics drug of choice when culture is available 04/22: Dr. Mata performed Incision, drainage and debridement left forearm abscess (2) Leukocytosis Plan: WBC: - 04/19: 19.6 - 04/20: 17.3 - 04/21: 16.5 - 04/22: 15.5, trending down - Plan - Left forearm cellulitis: Continue IV Cefepime and Vancomycin; Pending for wound culture - Acute pain - Sepsis: Likely secondary to cellulitis - Leukocytosis: Trending down - DM2 with hyperglycemia - Hypothyroidism - Hypokalemia - Hyperlipidemia - Hypertension - Anemia of chronic disease - Hypertension ID will monitor the patient closely for signs of infection with fever and WBC trends Case has been discussed with Dr. Silva, N Physician Review: Patient Assessed, Agree with Above Assessment and Plan
[2022-04-22] MEDS ORDERED: POLYETHYL GLY 3350 17 GM/DOSE PO PRN (15:39)
[2022-04-22] MEDS: VANCOMYCIN 2 GM in NA CHLORIDE 0.9% 500 ML IVPB SCH (17:09)
[2022-04-22] MEDS: DOCUSATE NA 100 MG CAP PO SCH (20:35)
[2022-04-22] MEDS: INSULIN GLARGINE 100 UNIT/ML SQ SCH (20:35)
--- NOTE | 2022-04-22 20:47 | P.PN ---
Date of Service: 04/22/22 Subjective: s/p I&D by Dr. Mata this morning feeling much better, significant pain from pressure is now relieved swelling improved afebrile ROS: A complete review of systems was performed and is negative except as mentioned above Physical Exam: Gen: NAD, AOx3 HEENT: normal conjunctiva, sclera anicteric CV: regular rate & rhythm, no edema Pulm: non-labored respirations, clear bilaterally Skin: mild swelling, surgical dressing in place vitals reviewed Problem List Sepsis secondary to Left arm cellulitis with abscess IDDM2 with neuropathy Hypothyroidism HLD HTN cellulitis with abscess improving 04/21 - purulent drainage noted s/p I&D 04/[address] Mata continue empiric antibiotics until cultures return leukocytosis slightly improved ID consulted culture obtained of purulent drainage insulin, +sliding scale better control long acting insulin check A1c pt reports was off meds for months due to insurance issues, only recently restarted on meds by PCP home synthroid VTE: lovenox Code: full Dispo: home, likely Tuesday await cultures
[2022-04-23] MEDS: CEFEPIME 1 GM in NA CHLORIDE 0.9% 100 ML IV SCH ×3 (01:00→17:23)
[2022-04-23] MEDS: HYDROMORPHONE HCL 1 MG/ML INJ IV PRN ×2 (01:10→20:46)
[2022-04-23 04:12] LABS: Absolute Lymphocytes (CBC) 1.5 K/uL (0.7-4.9); Hematocrit 34.1 % (39.6-49.0); Lymphocytes % 11.4 % (15.3-44.8); MCV 90.2 fL (80-100); MPV 7.5 fL (7.6-11.3); RBC Red Blood Cell Count 3.77 M/uL (4.33-5.43)
[2022-04-23 04:27] LABS: Magnesium 1.9 mg/dL (1.6-2.4); Potassium 3.6 mmol/L (3.5-5.1)
[2022-04-23] MEDS: VANCOMYCIN 2 GM in NA CHLORIDE 0.9% 500 ML IVPB SCH ×2 (04:37→17:23)
[2022-04-23] MEDS: LEVOTHYROXINE SOD 0.075 MG TAB PO SCH (05:27)
[2022-04-23] MEDS ORDERED: POTASSIUM CL SA 10 MEQ TAB PO ONE (06:00)
[2022-04-23] MEDS: INSULIN -REGULAR HUMAN 50 UNIT/0.5 ML ML SQ SCH ×4 (08:44→20:43)
[2022-04-23] MEDS: DOCUSATE NA 100 MG CAP PO SCH ×2 (08:45→20:42)
[2022-04-23] MEDS: lisinopriL 20 MG TAB PO SCH (08:45)
[2022-04-23] MEDS: HYDROCODONE/APAP 10/325 TAB PO PRN (08:45)
[2022-04-23] MEDS: ENOXAPARIN 40 MG/0.4 ML SQ SCH (08:45)
[2022-04-23] MEDS: ASPIRIN 81 MG CHEWABLE TABLET PO SCH (08:45)
[2022-04-23] MEDS: ATORVASTATIN 40 MG TAB PO SCH (08:46)
[2022-04-23] MEDS: MUPIROCIN 2% OINT 22GM TUBE TOP SCH ×3 (09:00→20:44)
--- NOTE | 2022-04-23 09:40 | P.PN ---
Subjective Date of Service: 04/23/22 Chief Complaint: Left forearm cellulitis No major event over night, s/p I&D by Dr. Mata, day 1 Physical Examination - Vital Signs Temperature: 98.2 F Blood Pressure: 118/78 Pulse: 82 Respirations: 17 Pulse Ox (%): 100 - Physical Exam General: Alert, In no apparent distress, Oriented x3 Respiratory: Clear to auscultation bilaterally Cardiovascular: Normal S1 S2, Edema (left arm cellulitis) Gastrointestinal: Normal bowel sounds Musculoskeletal: Erythema (left arm cellulitis), Tenderness, Warmth Integumentary: Skin lesion (left arm cellulitis), Tenderness/swelling, Erythema, Warmth Neurological: Normal gait, Normal speech, Normal tone, Normal affect - Studies active medications Acetaminophen (Acetaminophen 325 Mg Tablet) 650 mg PO Q6H PRN PRN Reason: TEMP > 100.4' F Hydrocodone Bitart/Acetaminophen (Hydrocodone/Apap 10/325 Tab) 1 tab PO Q6H PRN PRN Reason: Pain scale 5-7 (Moderate) Last Admin: 04/23/22 08:45 Dose: 1 tab Aspirin (Aspirin 81 Mg Chewable Tablet) 81 mg PO DAILY [facility] Last Admin: 04/23/22 08:45 Dose: 81 mg Atorvastatin Calcium (Atorvastatin 40 Mg Tab) 40 mg PO DAILY [facility] Last Admin: 04/23/22 08:46 Dose: 40 mg Chlorhexidine Gluconate (Chlorhexidine Gluco 4% 120 Ml) 1 appl TOP [facility] [place] Docusate Sodium (Docusate Na 100 Mg Cap) 100 mg PO BID [facility] Last Admin: 04/23/22 08:45 Dose: 100 mg Enoxaparin Sodium (Enoxaparin 40 Mg/0.4 Ml) 40 mg SQ DAILY [facility] Last Admin: 04/23/22 08:45 Dose: 40 mg Hydromorphone HCl (Hydromorphone Hcl 1 Mg/Ml Inj) 1 mg IV Q4H PRN PRN Reason: Pain scale 8-10 (Severe) Last Admin: 04/23/22 01:10 Dose: 1 mg Cefepime HCl 1 gm/ Sodium (Chloride) 100 mls @ 200 mls/hr IV Q8HR [facility]; Protocol Last Admin: 04/23/22 08:43 Dose: 100 mls Vancomycin HCl 2 gm/ Sodium (Chloride) 500 mls @ 250 mls/hr IVPB Q12H [facility]; Protocol Last Admin: 04/23/22 04:37 Dose: 500 mls Insulin Glargine (Insulin Glargine 100 Unit/Ml) 25 unit SQ BEDTIME [facility] Last Admin: 04/22/22 20:35 Dose: 25 unit Insulin Human Regular (Insulin -Regular Human 50 Unit/0.5 Ml Ml) 0 unit SQ ACHS [facility]; Protocol Last Admin: 04/23/22 08:44 Dose: 6 unit Labetalol HCl (Labetalol 20 Mg/4ml Syringe) 10 mg IV Q6H PRN PRN Reason: SBP>160 Levothyroxine Sodium (Levothyroxine Sod 0.075 Mg Tab) 0.075 mg PO [id number] [facility] Last Admin: 04/23/22 05:27 Dose: 0.075 mg Lisinopril (Lisinopril 20 Mg Tab) 20 mg PO DAILY [facility] Last Admin: 04/23/22 08:45 Dose: 20 mg Mupirocin (Mupirocin 2% Oint 22gm Tube) 1 appl TOP BID [facility] Last Admin: 04/22/22 21:00 Dose: Not Given Ondansetron HCl (Ondansetron 4 Mg/2 Ml Vial) 4 mg IV Q6HP PRN PRN Reason: NAUSEA / VOMITING Polyethylene Glycol (Polyethyl Gly 3350 17 Gm/Dose) 17 gm PO DAILY PRN PRN Reason: CONSTIPATION Last Admin: 04/23/22 08:44 Dose: 17 gm Sodium Chloride (Flush Normal Saline 10 Ml) 10 ml IV BID [facility] Last Admin: 04/23/22 08:46 Dose: 10 ml Microbiology Data (last 24 hrs): Microbiology 04/19/22 15:50 Blood - Blood Aerobic Blood Culture - Preliminary No growth in 24 hours. 04/19/22 15:50 Blood - Blood Anaerobic Blood Culture - Preliminary No growth in 24 hours. 04/19/22 15:25 Blood - Blood Aerobic Blood Culture - Preliminary No growth in 24 hours. 04/19/22 15:25 Blood - Blood Anaerobic Blood Culture - Preliminary No growth in 24 hours. Assessment And Plan - Current Problems (Diagnosis) (1) Cellulitis of left arm Plan: Cultures: - 04/22 Wound: Staph coagulase positive; pending for culture - 04/22 Body fluid-arm: Pending - 04/21 Wound: Staph coagulase positive; pending for culture - 04/19 BC: Negative Antibiotics: - On IV Cefepime and Vancomycin (04/19- ) Recommendations: - Continue IV Cefepime and Vancomycin - ID will recommend antibiotics drug of choice when culture is available 04/22: Dr. Mata performed Incision, drainage and debridement left forearm abscess (2) Leukocytosis Plan: WBC: - 04/19: 19.6 - 04/20: 17.3 - 04/21: 16.5 - 04/22: 15.5 - 04/23: 13.6, trending down - Plan - Left forearm cellulitis: Continue IV Cefepime and Vancomycin; Pending for wound culture - Acute pain - Sepsis: Likely secondary to cellulitis - Leukocytosis: Trending down - DM2 with hyperglycemia - Hypothyroidism - Hypokalemia - Hyperlipidemia - Hypertension - Anemia of chronic disease - Hypertension ID will monitor the patient closely for signs of infection with fever and WBC trends Case has been discussed with Mike Olguin Physician Review: Patient Assessed, Agree with Above Assessment and Plan
--- NOTE | 2022-04-23 15:02 | P.PN ---
Date of Service: 04/23/22 Subjective: stilll swollen/painful but improving daily no new/worsening symptoms ROS: A complete review of systems was performed and is negative except as mentioned above Physical Exam: Gen: NAD, AOx3 HEENT: normal conjunctiva, sclera anicteric CV: regular rate & rhythm, no edema Pulm: non-labored respirations, clear bilaterally Skin: mild swelling, surgical dressing in place vitals reviewed Problem List Sepsis secondary to Left arm cellulitis with abscess IDDM2 with neuropathy Hypothyroidism HLD HTN cellulitis with abscess improving 04/21 - purulent drainage noted s/p I&D 04/[address] Mata continue empiric antibiotics until cultures return leukocytosis improving ID consulted culture obtained of purulent drainage insulin, +sliding scale better control long acting insulin check A1c pt reports was off meds for months due to insurance issues, only recently restarted on meds by PCP home synthroid VTE: lovenox Code: full Dispo: home, likely Tuesday await cultures
--- NOTE | 2022-04-23 17:13 | PN ---
Date of Progress Note: 04/23/2022 Subjective: The patient is awake, alert, states that he feels better. Objective: Vital Signs: Stable and afebrile. Extremities: Dressing is clean, dry, intact. Cultures are pending. Gram stain shows gram-positive cocci. Coag positive. White count is down to 13.6 with a left shift, which is improving. Assessment: Status post I and D left form abscess. Recommendations: Continue IV antibiotics. Check cultures. Adjust antibiotics accordingly. Wound care is ordered. Teach family, likely discharged to home. /MODL Voice ID: [id number] Report ID: [id number] MTDNegar
[2022-04-23] MEDS: INSULIN GLARGINE 100 UNIT/ML SQ SCH (20:43)
[2022-04-23 22:56] VITALS: O2SAT 99
[2022-04-24] MEDS: CEFEPIME 1 GM in NA CHLORIDE 0.9% 100 ML IV SCH (00:01)
[2022-04-24 05:06] LABS: Potassium 4.1 mmol/L (3.5-5.1)
[2022-04-24] MEDS: VANCOMYCIN 2 GM in NA CHLORIDE 0.9% 500 ML IVPB SCH (05:35)
[2022-04-24] MEDS: LEVOTHYROXINE SOD 0.075 MG TAB PO SCH (05:36)
[2022-04-24] MEDS: INSULIN -REGULAR HUMAN 50 UNIT/0.5 ML ML SQ SCH (08:17)
[2022-04-24] MEDS: ATORVASTATIN 40 MG TAB PO SCH (08:17)
[2022-04-24] MEDS: ASPIRIN 81 MG CHEWABLE TABLET PO SCH (08:17)
[2022-04-24] MEDS: DOCUSATE NA 100 MG CAP PO SCH (08:17)
[2022-04-24] MEDS: lisinopriL 20 MG TAB PO SCH (08:17)
[2022-04-24] MEDS: ENOXAPARIN 40 MG/0.4 ML SQ SCH (08:17)
[2022-04-24] MEDS: HYDROCODONE/APAP 10/325 TAB PO PRN (08:17)
[2022-04-24] MEDS: MUPIROCIN 2% OINT 22GM TUBE TOP SCH (08:18)
[2022-04-24] MEDS ORDERED: CEFEPIME 2 GM in NA CHLORIDE 0.9% 100 ML IV SCH (09:00)
[2022-04-24] MEDS ORDERED: SMZ./TMP. 800/160 MG TABLET PO SCH (09:00)
[2022-04-24 09:43] VITALS: BP 116/78; TEMP 98.4
--- NOTE | 2022-04-24 10:11 | P.DS ---
Admission Date: 04/19/22 Discharge Date: 04/24/22 Disposition: ROUTINE DISCHARGE Discharge Condition: GOOD Reason for Admission: Left forearm cellulitis Consultations: General Surgery - Dr. Mata Brief History of Present Illness: 46-year-old male with a past medical history significant for DM 2, hypothyroidism, hypertension hyperlipidemia who presents with complaint of left forearm swelling\redness\pain that has been ongoing for the past 2 weeks. Patient reported that he was cleaning his garage when he injured his left forearm. Patient reported that shortly after he started having symptoms which b ecame worse over time. Patient also reported noticing purulent discharge from the scab site. Patient rated pain as 10/10 in severity and described as throbbing\aching in quality. Patient reported associated signs and symptoms of subjective fever, diaphoresis and chills. Patient denies any other signs or symptoms. Symptoms are aggravated by movement and relieved by nothing. Patient decided to present to the hospital due to worsening symptoms. Hospital Course: Problem List Sepsis secondary to Left arm cellulitis with abscess; secondary to MRSA IDDM2 with neuropathy Hypothyroidism HLD HTN Patient presented with significant swelling, erythema, and pain of his left arm. He was treated with IV empiric antibiotics. He was found to have an abscess with purulent drainage. He underwent incision and debridement by Dr. Mata. Culture of the abscess fluid was positive for MRSA. Blood cultures were negative, patient's symptoms significantly improved, he remained afebrile, and leukocytosis improved. He was deemed stable for discharge home on 2 weeks of antibiotics -Bactrim and doxycycline per Dr. Mata Patient's hemoglobin A1c was >14, discharged with insulin, continue his home metformin, and follow-up with his primary care doctor as already planned. Follow-up with Dr. Mata in the wound clinic Continue wet-to-dry/packing dressing changes as instructed by Dr. Adolfo Starr to return back to work without restrictions. Physical Exam: Gen: NAD, AOx3 HEENT: normal conjunctiva, sclera anicteric CV: regular rate & rhythm, no edema Pulm: non-labored respirations, clear bilaterally Skin: mild swelling, surgical dressing in place Vital Signs/Physical Exam: Temp Pulse Resp BP Pulse Ox 98.4 F 82 16 116/78 99 04/24/22 08:00 04/24/22 08:00 04/24/22 08:00 04/24/22 08:00 04/24/22 08:00 Laboratory Data at Discharge: WBC 13.60 K/uL (4.3-10.9) H 04/23/22 03:22 Hgb 11.1 g/dL (13.6-17.9) L 04/23/22 03:22 Hct 34.1 % (39.6-49.0) L 04/23/22 03:22 Plt Count 457 K/uL (152-406) H 04/23/22 03:22 PT 10.9 SECONDS (9.5-12.5) 04/19/22 15:26 INR 0.99 04/19/22 15:26 APTT 29.0 SECONDS (24.3-36.9) 04/19/22 15:26 Sodium 138 mmol/L (136-145) 04/24/22 04:05 Potassium 4.1 mmol/L (3.5-5.1) D 04/24/22 04:05 BUN 9 mg/dL (7-18) 04/24/22 04:05 Creatinine 0.60 mg/dL (0.70-1.30) L 04/24/22 04:05 Glucose 236 mg/dL (74-106) H 04/24/22 04:05 Phosphorus 2.9 mg/dL (2.5-4.9) 04/20/22 05:17 Magnesium 1.9 mg/dL (1.6-2.4) 04/23/22 03:22 Total Bilirubin 0.5 mg/dL (0.2-1.0) 04/19/22 15:26 AST 8 U/L (15-37) L 04/19/22 15:26 ALT 31 U/L (16-61) 04/19/22 15:26 Alkaline Phosphatase 122 U/L (45-117) H 04/19/22 15:26 Home Medications: Atorvastatin Calcium 40 mg PO DAILY 07/18/15 Metformin HCl [Glucophage*] 500 mg PO BIDWM 07/18/15 lisinopriL [Prinivil*] 20 mg PO DAILY 07/18/15 Levothyroxine [Synthroid*] 0.075 mg PO [id number] #30 tab 09/03/15 Doxycycline Monohydrate 100 mg PO BID 12 Days #24 cap 04/24/22 Hydrocodone 5/APAP 325 [Wolcott 5/325] 1 tab PO Q8H PRN #10 tab 04/24/22 Insulin Glargine,Hum.rec.anlog [Lantus] 25 unit SQ BEDTIME 30 Days #10 ml 04/24/22 Insulin Lispro [Humalog] 5 unit SQ TID #10 ml 04/24/22 Smz./Tmp. [Bactrim Ds 800 MG/160 MG*] 1 tab PO BID 12 Days #24 tab 04/24/22 New Medications: Smz./Tmp. [Bactrim Ds 800 MG/160 MG*] 1 tab PO BID 12 Days #24 tab Doxycycline Monohydrate 100 mg PO BID 12 Days #24 cap Insulin Lispro [Humalog] 5 unit SQ TID #10 ml Insulin Glargine,Hum.rec.anlog [Lantus] 25 unit SQ BEDTIME 30 Days #10 ml Hydrocodone 5/APAP 325 [Wolcott 5/325] 1 tab PO Q8H PRN #10 tab PRN Reason: Pain Physician Discharge Instructions: Patient presented with significant swelling, erythema, and pain of his left arm. He was treated with IV empiric antibiotics. He was found to have an abscess with purulent drainage. He underwent incision and debridement by Dr. Mata. Culture of the abscess fluid was positive for MRSA. Blood cultures were negative, patient's symptoms significantly improved, he remained afebrile, and leukocytosis improved. He was deemed stable for discharge home on 2 weeks of antibiotics -Bactrim and doxycycline per Dr. Mata Patient's hemoglobin A1c was >14, discharged with insulin, continue his home metformin, and follow-up with his primary care doctor as already planned. Follow-up with Dr. Mata in the wound clinic Continue wet-to-dry/packing dressing changes as instructed by Dr. Adolfo Starr to return back to work without restrictions. Diet: ADA Followup: Ariella Rust MD [Primary Care Provider] - Time spent managing pt's care (in minutes): 45
--- NOTE | 2022-04-24 11:53 | PN ---
Date of Progress Note: 04/24/2022 Subjective: The patient is awake, alert. No complaint. Objective: Vital Signs: Stable, afebrile. Extremities: Examination of the wound reveals it to be clean. No purulence. There is fibrin presen t. There is still some edema in the forearm and mild erythema. Laboratory Data: Cultures have grown MRSA, sensitive to Bactrim and doxycycline. Assessment: Status post I and D of left forearm abscess. Recommendation: The patient is cleared from Surgery for discharge on Bactrim and doxycycline. [facility]. /MODL Voice ID: [id number] Report ID: [id number]
[2022-04-24] MEDS ORDERED: INFLUENZA VACCINE (for 6+ mo) 0.5 ML DOSE IMVAC ONE (12:00)
== END 2022-04-24 12:00 | disposition home or self-care (01) | DRG 854 ==
LOC: ER 14:22 → ERHOLD 16:44 → 4TH 19:54
PROVIDERS: ADMIT Internal Medicine; ATTEND Hospitalist
PROC: 0JBH0ZZ Excision of Left Lower Arm Subcutaneous Tissue and Fascia, Open Approach (ICD-10-PCS; principal; 2022-04-22 07:30)
DX: A41.02 Sepsis due to Methicillin resistant Staphylococcus aureus (principal); L02.414 Cutaneous abscess of left upper limb; L03.114 Cellulitis of left upper limb; I10 Essential (primary) hypertension; E78.5 Hyperlipidemia, unspecified; E87.6 Hypokalemia; E03.9 Hypothyroidism, unspecified; E11.65 Type 2 diabetes mellitus with hyperglycemia; E11.40 Type 2 diabetes mellitus with diabetic neuropathy, unspecified; D63.8 Anemia in other chronic diseases classified elsewhere; T38.3X6A Underdosing of insulin and oral hypoglycemic [antidiabetic] drugs, initial encounter; F17.200 Nicotine dependence, unspecified, uncomplicated; Z88.5 Allergy status to narcotic agent; Z79.4 Long term (current) use of insulin; Z79.84 Long term (current) use of oral hypoglycemic drugs; Z91.14 Patient's other noncompliance with medication regimen; Z91.013 Allergy to seafood; Z79.890 Hormone replacement therapy; Z20.822 Contact with and (suspected) exposure to COVID-19
CPT/HCPCS: 36415; 73201; 80048; 80053; 80202; 81001; 82947; 83036; 83605; 83735; 84100; 84439; 84443; 85025; 85610; 85730; 87040; 87070; 87075; 87077; 87186; 87205; 87811; 88304; 93005; 96372; 99285; J0692; J1170; J1650; J1815; J2001; J2250; J2405; J2704; J3010; J3370; J7030; J7040; J7050; J7120; Q9967

== ENCOUNTER 2022-04-27 17:19 | Emergency (ER) | payer BC ==
--- OUTSIDE RECORDS SUMMARY | 2022-04-27 17:24 | XMS REPORT | Continuity of Care Document ---
:1975 Author Organization [facility] t Address [address] [place] [address] Care Team Providers Name Role Phone Shelia Maher Attending Clinician Unavailable ANGELIQUE BONILLA Attending Clinician Unavailable EDDIE STEELE Attending Clinician Unavailable [id number] Attending Clinician Unavailable Payers Payer Name Policy Type Policy Number Effective Date Expiration Date Elio ceja [facility] 2 [id number] 2022 00:00:00 [employer] 6 [id number] Common [facility]iri t [facility] Problems Condition Condition Condition Status Onset Resolution Last Treating Co mments Source Name Details Category Date Date Treatment Clinician Date [id number] Mixed Problem Active Common hyperlipid [facility] emia - [facility] [id number] Hypothyroi Problem Active Com mon dism, [facility] unspecifie - [facility] d type [facility] Hyperglyce Type 2 Problem Active Commo n [facility] due to diabetes Spir it type 2 mellitus [id number] Essential Problem Active Comm on (primary) [facility] hypertensi - [facility] on [facility] Allergies, Adverse Reactions, Alerts Allergy Allergy Status Severity Reaction(s) Onset Inactive Treating Comm ents Source Name Type Date Date Clinician 4614 Drug Active Unknown Common allergy [facility] Social History Social Habit Start Date Stop Date Quantity Comments Source History of Tobacco Use Co mmon [facility] Sex Assigned At Com funmi [facility] Smoking Status Start Date Stop Date Source Former Smoker 2021-08-27 00:00:00 2021-08-27 00:00:00 Common [facility] Medications Ordered Filled Start Stop Current Ordering [...] Known No Known No Common Medications Medications [facility] Ozempic Ozempic No Ozempic (0.25 or (0.25 [...] Comments Source height 2021-08-31 09:40:00 75 [in_i] [facility] weight 2021-08-31 09:40:00 199.2 [lb_av] Common [facility] temperature 2021-08-31 09:40:00 98.6 [degF] [facility] bmi 2021-08-31 09:40:00 24.9 kg/m2 [facility] oximetry 2021-08-31 09:40:00 99 % [facility] respiratory rate 2021-08-31 09:40:00 16 /min Comm on [facility] blood pressure 2021-08-31 09:40:00 126 mm[Hg] [facility] blood pressure 2021-08-31 09:40:00 72 mm[Hg] Common [facility] - diastolic [facility] height 2021-07-10 09:20:00 75 [in_i] [facility] weight 2021-07-10 09:20:00 193.6 [lb_av] Common [facility] - [facility] temperature 2021-07-10 09:20:00 97.9 [degF] [facility] bmi 2021-07-10 09:20:00 24.2 kg/m2 [facility] oximetry 2021-07-10 09:20:00 99 % [facility] respiratory rate 2021-07-10 09:20:00 16 /min Comm on [facility] blood pressure 2021-07-10 09:20:00 128 mm[Hg] Common [facility] - systolic [facility] blood pressure 2021-07-10 09:20:00 72 mm[Hg] Common [facility] - diastolic [facility] height 2021-05-22 11:40:00 75 [in_i] Common [facility] weight 2021-05-22 11:40:00 198 [lb_av] [facility] bmi 2021-05-22 11:40:00 24.75 kg/m2 Common S [facility] height 2021-05-15 15:40:00 75 [in_i] Common [facility] weight 2021-05-15 15:40:00 198 [lb_av] Common [facility] temperature 2021-05-15 15:40:00 97.9 [degF] Common [facility] bmi 2021-05-15 15:40:00 24.75 kg/m2 [facility] oximetry 2021-05-15 15:40:00 95 % [facility] respiratory rate 2021-05-15 15:40:00 16 /min Comm on [facility] blood pressure 2021-05-15 15:40:00 127 mm[Hg] Common [facility] - systolic [facility] blood pressure 2021-05-15 15:40:00 85 mm[Hg] Common [facility] - diastolic [facility] Procedures This patient has no known procedures. Encounters Start End Encounter Admission Attending Care Care Encounter Source Date/Time Date/Time Type Type Clinicians Facility Department ID 2021-11-27 Outpatient Maher, STLMLC STLMLC [id number] Common 12:25:01 Shelia [facility] 2021-08-27 Outpatient Maher, STLMLC STLMLC [id number] Common 10:24:03 Shelia [facility] 2021-07-08 Outpatient Maher, STLMLC STLMLC [id number] Common 11:32:01 Shelia [facility] 2021-05-20 Outpatient Maher, STGLORIALC STLMLC [id number] Common 10:54:02 Shelia [facility] 2021-05-15 Outpatient Maher, STLMLC STLMLC [id number] Common 15:20:02 Shelia [facility] 2022-06-09 2022-06-09 Outpatient NARENDRA BONILLA [id number] Narendra 14:30:00 14:30:00 ANGELIQUE Seybol d 2022-04-27 2022-04-27 Outpatient NARENDRA STEELE [id number] Narendra 16:30:00 16:30:00 EDDIE Seybol d 2022-04-19 2022-04-19 Outpatient NARENDRA STEELE [id number] Narendra 00:00:00 00:00:00 EDDIE Seybol d 2022-04-13 2022-04-13 Outpatient NARENDRA BONILLA [id number] Narendra 08:45:00 08:45:00 ANGELIQUE Seybol d 2022-03-30 2022-03-30 Outpatient NARENDRA STEELE [id number] Narendra 00:00:00 00:00:00 EDDIE Seybol d 2022-03-30 2022-03-30 Outpatient NARENDRA STEELE [id number] Narendra 00:00:00 00:00:00 EDDIE Seybol d 2022-03-29 2022-03-29 Outpatient LAB90 NARENDRA MACKEY [id number] Narendra 15:30:00 15:30:00 Seybol d 2022-03-29 2022-03-29 Outpatient NARENDRA STEELE [id number] Narendra 14:30:00 14:30:00 EDDIE Seybol d 2021-08-31 2021-08-31 OFFICE STLMLC STLMLC [id number] Co mmon 00:00:00 00:00:00 VISIT Spirit ESTAB PT - [facility] LEVEL 4 [facility] 2021-07-10 2021-07-10 OFFICE STLMLC STLMLC [id number] Co mmon 00:00:00 00:00:00 VISIT Spirit ESTAB PT - [facility] LEVEL 4 [facility] 2021-05-22 2021-05-22 OFFICE STLMLC STLMLC [id number] Co mmon 00:00:00 00:00:00 VISIT Spirit [facility] - [facility] LEVEL 4 [facility] 2021-05-15 2021-05-15 OFFICE STLMLC STLMLC [id number] Co mmon 00:00:00 00:00:00 VISIT NEW Susan it PT LEVEL 3 - [facility] Results Test Description Test Time Test Comments Results Result Comments Source HEMOGLOBIN A1C 2021-07-10 00:00:00 Test Item Value Reference Range Interpretation Comme nts A1C (test code = 4548-4) 11.6
[2022-04-27 17:57] LABS: SARS-CoV-2 Antigen Rapid Res Negative (Negative)
--- NOTE | 2022-04-27 18:29 | RAD REPORT ---
[facility]21 pm CLINICAL HISTORY: SWELLING COMPARISON: Chest Single View dated 07/18/2015; CHEST PA AND LAT 2 VIEW dated 11/29/2014; CHEST PA AND LAT 2 VIEW dated 10/15/2008 TECHNIQUE: Portable AP view of the chest. FINDINGS: The lungs are clear. No pneumothorax or effusion. The cardiomediastinal contours are unrem arkable. IMPRESSION: No acute cardiopulmonary process.
[2022-04-27 18:44] LABS: Absolute Lymphocytes (CBC) 2.3 K/uL (0.7-4.9); Lymphocytes % 24.7 % (15.3-44.8); MPV 6.4 fL (7.6-11.3); RBC Red Blood Cell Count 3.84 M/uL (4.33-5.43)
--- NOTE | 2022-04-27 18:48 | RAD REPORT ---
EXAM DESCRIPTION: US - Extrem Venous W Compress Azael - 04/27/2022 6:33 pm CLINICAL HISTORY: Swelling COMPARISON: 07/20/2015 TECHNIQUE: Real-time sonographic evaluation of the bilateral lower extremity deep venous system was performed. FINDINGS: Normal compressibility, flow augmentation, phasic flow and spontaneous flow is identified in bilateral lower extremity deep venous system. No intraluminal filling defects seen. Mildly prominent lymph nodes in the left groin. Bilateral subcutaneous soft tissue swelling along the lower legs worse on the left. IMPRESSION: No DVT in either lower extremity.
[2022-04-27 19:04] LABS: BUN Blood Urea Nitrogen 10 mg/dL (7-18); Bicarbonate 29 mmol/L (21-32); Glomerular Filtration Rate 105 ml/min (=/>90); Potassium 4.8 mmol/L (3.5-5.1); Sodium Level 130 mmol/L (136-145); Troponin High Sensitivity < 3.0 pg/mL (<58.9)
[2022-04-27 19:05] LABS: Glucose Level 576 mg/dL (74-106)
[2022-04-27] MEDS ORDERED: INSULIN -REGULAR HUMAN 50 UNIT/0.5 ML ML ONE (19:22)
--- NOTE | 2022-04-27 19:46 | EDPHYS ---
Physician Documentation [facility] Name: Sp Nagel Age: 46 yrs Sex: Male : 1975 Arrival Date: 04/27/2022 Time: 17:22 Bed 12 Private MD: ED Physician Vito Grider HPI: 04/27 17:29 This 46 yrs old Male presents to ER via Ambulatory with complaints of swelling.jmm 17:29 The patient presents with swelling. jmm 17:29 Onset: The symptoms/episode began/occurred gradually. Is a 46-year-old male with jmm history of diabetes mellitus, hyperlipidemia, hypertension presents ED with complaints of 1 week of increased swelling to the lower extremities and the lower abdomen. Denies any chest pain or shortness of breath. Patient was admitted to the hospital for cellulitis approximate 1 week ago. Patient states he spent 3 days. Had a surgical procedure done to the left forearm.. Historical: - Allergies: 17:33 Vicodin; ap3 - PMHx: 17:33 Diabetes - NIDDM; Hyperlipidemia; Hypertension; Hypothyroidism; ap3 - Immunization history:: Client reports receiving the 2nd dose of the Covid vaccine, Flu vaccine is up to date. - Social history:: Smoking status: Patient denies any tobacco usage or history of. ROS: 17:29 Constitutional: Negative for fever, chills, and weight loss, Cardiovascular: Negative jmm for chest pain, palpitations, and edema, Respiratory: Negative for shortness of breath, cough, wheezing, and pleuritic chest pain. 17:29 MS/extremity: Positive for swelling. 17:29 All other systems are negative. Exam: 17:29 Constitutional: This is a well developed, well nourished patient who is awake, alert, jmm and in no acute distress. Head/Face: atraumatic. Eyes: EOMI, no conjunctival erythema appreciated ENT: Moist Mucus Membranes Neck: Trachea midline, Supple Chest/axilla: Normal chest wall appearance and motion. Cardiovascular: Regular rate and rhythm. No edema appreciated Respiratory: Normal respirations, no respiratory distress appreciated Abdomen/GI: Non distended Back: Normal ROM Skin: General appearance color normal 17:29 Musculoskeletal/extremity: Swelling noted to the lower extremity bilaterally, compartments are soft, full distal dorsalis pedis pulse, neurovascular intact. 17:29 Skin: Exam negative for Appearance: Color: normal in color. 17:29 Neuro: Orientation: is normal, Mentation: is normal, Memory: is normal. 17:29 Psych: Behavior/mood is pleasant, cooperative. Vital Signs: 17:31 BP 115 / 78; Pulse 95; Resp 18; Temp 98.7(T); Pulse Ox 97% on R/A; Weight 101.6 kg; ap3 Height 6 ft. 2 in. (187.96 cm); 18:29 BP 122 / 79; Pulse 94; Resp 18; Pulse Ox 99% on R/A; ld1 20:23 BP 106 / 77; Pulse 78; Resp 18; Pulse Ox 99% on R/A; kr3 17:31 Body Mass Index 28.76 (101.60 kg, 187.96 cm) ap3 MDM: 17:41 Patient medically screened. [facility] 19:43 Data reviewed: vital signs, nurses notes. I considered the following discharge [facility] prescriptions or medication management in the emergency department Medications were administered in the Emergency Department. See MAR. Counseling: I had a detailed discussion with the patient and/or guardian regarding: the historical points, exam findings, and any diagnostic results supporting the discharge/admit diagnosis, lab results, radiology results, the need for outpatient follow up, to return to the emergency department if symptoms worsen or persist or if there are any questions or concerns that arise at home. Admission orders: after a detailed discussion of the patient's condition and case, the admit orders are written by me. ED course: Patient is alert nontoxic in appearance in the ED. Ultrasounds negative for DVT chest x-ray did not show any volume overload pattern, I do not Suspect heart failure. Patient's glucose level was elevated. IV insulin was administered. Patient advised follow with the PCP tomorrow for reevaluation otherwise given strict return precautions. Patient understood and agrees plan of care. 04/27 17:29 Order name: Basic Metabolic Panel 1 04/27 17:29 Order name: CBC with Diff ld1 04/27 17:29 Order name: Troponin HS ld1 04/27 17:29 Order name: SARS RAPID 1 04/27 17:57 Order name: SARS-COV-2 Antigen Rapid; Complete Time: 17:58 EDMS 04/27 18:32 Order name: NT PRO-BNP [facility] 04/27 17:29 Order name: XRAY Chest (1 view) ld1 04/27 17:47 Order name: US Extremity Venous W Compression Azael [facility] 04/27 18:29 Order name: RAD; Complete Time: 18:31 EDMS 04/27 18:45 Order name: CBC with Automated Diff; Complete Time: 18:46 EDMS 04/27 18:48 Order name: US; Complete Time: 18:52 EDMS 04/27 19:06 Order name: Basic Metabolic Panel; Complete Time: 19:06 EDMS 04/27 19:06 Order name: Troponin High Sensitivity; Complete Time: 19:06 EDMS 04/27 19:06 Order name: NT PRO-BNP; Complete Time: 19:06 EDMS 04/27 17:29 Order name: EKG; Complete Time: 17:30 ld1 04/27 17:29 Order name: Cardiac monitoring; Complete Time: 18:10 ld1 04/27 17:29 Order name: EKG - Nurse/Tech; Complete Time: 18:01 ld1 04/27 17:29 Order name: IV Saline Lock; Complete Time: 18:38 ld1 04/27 17:29 Order name: Labs collected and sent; Complete Time: 18:38 ld1 04/27 17:29 Order name: O2 Per Protocol; Complete Time: 17:35 ld1 04/27 17:29 Order name: O2 Sat Monitoring; Complete Time: 17:35 ld1 Administered Medications: 19:20 Drug: Insulin Regular Human 10 units {Co-Signature: bp (Raymond Salomon RN).} Route: IVP; kr3 Site: right antecubital; 20:24 Follow up: Response: No adverse reaction kr3 20:04 Drug: Lasix (furosemide) 20 mg Route: IVP; Site: right forearm; kr3 20:24 Follow up: Response: No adverse reaction kr3 Disposition Summary: 04/27/22 19:46 Discharge Ordered Location: Home jm Condition: Stable jmm Diagnosis - Hyperglycemia, unspecified jmm - Generalized edema jmm Followup: jmm - With: Private Physician - When: Tomorrow - Reason: Recheck today's complaints, Continuance of care, Re-evaluation by your physician Discharge Instructions: - Discharge Summary Sheet jmm - Edema jmm - Hyperglycemia jm Forms: - Medication Reconciliation Form jmm - Thank You Letter jmm - Antibiotic Education jmm - Prescription Opioid Use [facility] Prescriptions: - Lasix 20 mg Oral Tablet - take 1 tablet by ORAL route once daily; 20 tablet; Refills: 0, Product [facility] Selection Permitted Signatures: Dispatcher [employer] Isidro Del Rio PA PA jmm Prokisch, Amanda RN RN ap3 Gertrude Glover RN RN ld1 Yesika Carmona RN RN kr3 Raymond Salomon RN bp
--- NOTE | 2022-04-27 19:46 | ER ---
Nurse's Notes [facility] Name: Sp Nagel Age: 46 yrs Sex: Male : 1975 Arrival Date: 04/27/2022 Time: 17:22 Bed 12 Private MD: Diagnosis: Hyperglycemia, unspecified;Generalized edema Presentation: 04/27 17:31 Chief complaint: Patient states: he is having significant swelling over the last week ap3 from the waist down. patient was sent here from his PCP. Coronavirus screen: At this time, the client does not indicate any symptoms associated with coronavirus-19. Ebola Screen: No symptoms or risks identified at this time. Initial Sepsis Screen: Does the patient meet any 2 criteria? No. Patient's initial sepsis screen is negative. Does the patient have a suspected source of infection? No. Patient's initial sepsis screen is negative. Risk Assessment: Do you want to hurt yourself or someone else? Patient reports no desire to harm self or others. Onset of symptoms was April 20, 2022. 17:31 Method Of Arrival: Ambulatory ap3 17:31 Acuity: [place] 3 ap3 Triage Assessment: 17:33 General: Appears in no apparent distress. Behavior is calm, cooperative. Pain: ap3 Complains of pain in right leg and left leg Quality of pain is described as tightness. Neuro: Level of Consciousness is awake, alert, obeys commands, Oriented to person, place, time, situation, Gait is steady, Speech is normal. Cardiovascular: Patient's skin is warm and dry. Respiratory: Airway is patent Respiratory effort is even, unlabored, Respiratory pattern is regular, symmetrical. Musculoskeletal: Swelling present in right leg and left leg Reports. Historical: - Allergies: 17:33 Vicodin; ap3 - PMHx: 17:33 Diabetes - NIDDM; Hyperlipidemia; Hypertension; Hypothyroidism; ap3 - Immunization history:: Client reports receiving the 2nd dose of the Covid vaccine, Flu vaccine is up to date. - Social history:: Smoking status: Patient denies any tobacco usage or history of. Screenin:34 Abuse screen: Denies threats or abuse. Nutritional screening: No deficits noted. ap3 Tuberculosis screening: No symptoms or risk factors identified. 18:29 [facility] ED Fall Risk Assessment (Adult) History of falling in the last 3 months, ld1 including since admission No falls in past 3 months (0 pts). Assessment: 18:29 Reassessment: See triage assessment. ld1 Vital Signs: 17:31 BP 115 / 78; Pulse 95; Resp 18; Temp 98.7(T); Pulse Ox 97% on R/A; Weight 101.6 kg; ap3 Height 6 ft. 2 in. (187.96 cm); 18:29 BP 122 / 79; Pulse 94; Resp 18; Pulse Ox 99% on R/A; ld1 20:23 BP 106 / 77; Pulse 78; Resp 18; Pulse Ox 99% on R/A; kr3 17:31 Body Mass Index 28.76 (101.60 kg, 187.96 cm) ap3 ED Course: 17:22 Patient arrived in ED. as 17:29 Gertrude Glover, DEEPTHI is Primary Nurse. ld1 17:30 Isidro Arzate PA is PHCP. [facility] 17:30 Vito Grider MD is Attending Physician. [facility] 17:33 Triage completed. ap3 17:34 Arm band placed on right wrist. ap3 17:34 Patient has correct armband on for positive identification. Placed in gown. Bed in low ap3 position. Call light in reach. Side rails up X 1. front desk monitor on. Pulse ox on. NIBP on. Door closed. Noise minimized. 17:35 SARS RAPID Sent. ap3 18:00 Missed attempt(s): 20 gauge in right forearm. mm9 18:29 No provider procedures requiring assistance completed. ld1 18:38 Inserted saline lock: 20 gauge in right forearm, using aseptic technique. Blood ld1 collected. 20:24 IV discontinued, intact, bleeding controlled, No redness/swelling at site. Pressure kr3 dressing applied. Administered Medications: 19:20 Drug: Insulin Regular Human 10 units {Co-Signature: bp (Raymond Salomon RN).} Route: IVP; kr3 Site: right antecubital; 20:24 Follow up: Response: No adverse reaction kr3 20:04 Drug: Lasix (furosemide) 20 mg Route: IVP; Site: right forearm; kr3 20:24 Follow up: Response: No adverse reaction kr3 Medication: 17:35 VIS not applicable for this client. ap3 Outcome: 19:46 Discharge ordered by . brianna 20:21 Patient left the ED. kr3 20:24 Discharged to home ambulatory. kr3 20:24 Condition: stable 20:24 Discharge instructions given to patient, Instructed on discharge instructions, follow up and referral plans. medication usage, Demonstrated understanding of instructions, follow-up care, medications, Prescriptions given X 1. Signatures: Isidro Arzate PA PA jmm Martinez, Amelia as Prokisch, Amanda RN RN ap3 Gertrude Glover RN RN ld1 Yesika Carmona RN RN marques3 Leatha Craig mm9 Raymond Salomon RN bp
[2022-04-27] MEDS ORDERED: FUROSEMIDE 40 MG/4 ML VIAL ONE (20:03)
[2022-04-27 20:48] VITALS: TEMP 98.7
[2022-04-27 20:49] VITALS: BP 122/79; O2SAT 99
--- NOTE | 2022-04-28 15:22 | EKG ---
Test Date: 2022-04-27 Test Time: 17:40:06 Coding Compliance Specialist: CAMILLA MEASUREMENT RESULTS: Intervals: Rate: 81 HI: 136 QRSD: 96 QT: 388 QTc: 450 [place]: P: 71 HI: 136 QRS: 52 T: 63 INTERPRETIVE STATEMENTS: Normal sinus rhythm Normal ECG Compared to ECG 04/19/2022 15:38:29 Prolonged QT interval no longer present Electronically Signed On 04-28-22 15:19:47 DRYWALL SANDER by Nicholas Farmer
== END 2022-04-27 20:21 | disposition home or self-care (01) ==
LOC: ER 17:19
DX: R60.1 Generalized edema (principal); E11.65 Type 2 diabetes mellitus with hyperglycemia; Z20.822 Contact with and (suspected) exposure to COVID-19; Z88.5 Allergy status to narcotic agent
CPT/HCPCS: 85025; 80048; 36415; 84484; 83880; 71045; 93970; 87811; J1815; J1940; 93005

== ENCOUNTER 2022-11-10 13:32 | Inpatient (IN) | payer BC ==
--- OUTSIDE RECORDS SUMMARY | 2022-11-10 13:35 | XMS REPORT | Continuity of Care Document ---
:1975 Author Organization [facility] t Address [address] [place] [address] Care Team Providers Name Role Phone Shelia Maher Attending Clinician Unavailable ANGELIQUE BONILLA Attending Clinician Unavailable EDDIE STEELE Attending Clinician Unavailable [id number] Attending Clinician Unavailable Payers Payer Name Policy Type Policy Number Effective Date Expiration Date Elio ceja [facility] 2 [id number] 2022 00:00:00 [employer] 6 [id number] Common Spiri t [facility] Problems Condition Condition Condition Status Onset Resolution Last Treating Co mments Source Name Details Category Date Date Treatment Clinician Date [id number] Mixed Problem Active Common hyperlipid Spirit emia - [facility] [id number] Hypothyroi Problem Active Com mon dism, Spirit unspecifie - [facility] d type [facility] Hyperglyce Type [address] [facility] due to diabetes Spir it type 2 mellitus - [facility] diabetes with [facility] mellitus hyperglyce [facility] [id number] Essential Problem Active Comm on (primary) Spirit hypertensi - [facility] on [facility] Allergies, Adverse Reactions, Alerts Allergy Allergy Status Severity Reaction(s) Onset Inactive Treating Comm ents Source Name Type Date Date Clinician Hydrocod Propensi Active Hives Faye one ty to 2-13 Seybold adverse 00:00: - reaction 00 Externa s l 4614 Drug Active Unknown Common allergy [facility] Social History Social Habit Start Date Stop Date Quantity Comments Source History of Common Spirit - Tobacco Use [facility] Tobacco use and 2022-03-29 2022-03-29 Smokeless tobacco Ke lsey Seybold - exposure 00:00:00 00:00:00 non-user External Sex Ass[birth year] At [birth year] Faye Ernandez ybold - 00:00:00 00:00:00 External Smoking Status Start Date Stop Date Source Never smoked tobacco Faye Kendall old - External Former Smoker 2021-08-27 00:00:00 2021-08-27 00:00:00 Common S pirit - [facility] nter Medications Ordered Filled Start Stop Current Ordering Indication Dosage Frequency Signature Comments Components Source Medication Medication Date Date Medication? Clinician (SIG) Name Name Furosemide Yes 20mg Take 20 mg K elsey (LASIX) 20 2-22 by mouth Seybo ld MG oral 00:00: daily - Tablet 00 Externa l Doxycycline Yes 100mg Take 100 K elsey Monohydrate 2-18 mg by Seybold 100 MG oral 00:00: mouth 2 - Capsule 00 times Externa daily l HYDROcodone Yes 1{tbl} Q.[id number] Take 1 Faye -Acetaminop 2-18 [id number] tablet by Seybold hen (NORCO) 00:00: 3D mouth - 5-325 MG 00 every 8 Externa oral Tablet hours as l needed FOR PAIN HumaLOG 100 Yes INJECT 5 Ke lsey UNIT/ML 2-18 UNITS Seybold injection 00:00: SUBCUTANEO - Solution 00 USLY THREE Exter na TIMES l DAILY TRIMETHOPRI Yes 1{tbl} Take 1 Ke lsey M-SULFAMETH 2-18 tablet by [place] bold OXAZOLE 00:00: mouth 2 - (BACTRIM 00 times Externa DS) 800-160 daily l MG oral Tablet Doxycycline Yes 100mg Take 100 K elsey Monohydrate 2-18 mg by Seybold 100 MG oral 00:00: mouth 2 - Capsule 00 times Externa daily l HYDROcodone Yes 1{tbl} Q.[id number] Take 1 Faye -Acetaminop 2-18 [id number] tablet by Cinthya smith (Liiiike) 00:00: 3D mouth - 5-325 MG 00 every 8 Externa oral Tablet hours as l needed FOR PAIN HumaLOG 100 Yes INJECT 5 Ke lsey UNIT/ML 2-18 UNITS Seybold injection 00:00: SUBCUTANEO - Solution 00 USLY THREE Exter na TIMES l DAILY TRIMETHOPRI Yes 1{tbl} Take 1 Ke lsey M-SULFAMETH 2-18 tablet by [place] cortes OXAZOLE 00:00: mouth 2 - (BACTRIM 00 times Externa DS) 800-160 daily l MG oral Tablet OZEMPIC Yes [id number] .5mg Inject 0.5 Faye (0.25 or 1-25 mg into Seybold 0.5 00:00: the skin - mg/dose) 2 00 once a Externa mg/1.5 mL week l SQ Solution Pen-Injecto r OZEMPIC Yes [id number] .5mg Inject 0.5 Faye (0.25 or 1-25 mg into Seybold 0.5 00:00: the skin - mg/dose) 2 00 once a Externa mg/1.5 mL week l SQ Solution Pen-Injecto r Atorvastati Yes [id number] 40mg Take 1 Faye n Calcium 1-24 tablet (40 Seyb old 40 MG oral 00:00: mg total) - Tablet 00 by mouth Externa daily l GlipiZIDE Yes [id number] 10mg Take 1 K elsey 10 MG oral 1-24 tablet (10 Sey bold TABLET SR 00:00: mg total) - 24 HR 00 by mouth Externa daily l Levothyroxi Yes [id number] 88ug Take 1 Faye ne Sodium 1-24 tablet (88 Seyb old 88 MCG oral 00:00: mcg total) - Tablet 00 by mouth Externa daily l Lisinopril Yes [id number] 2.5mg Take 1 Faye 2.5 MG oral 1-24 tablet Seybol d Tablet 00:00: (2.5 mg - 00 total) by Externa mouth l daily Metformin 2022-0 Yes [id number] 1000mg Take 1 Faye HCl 1000 MG 1-24 tablet Seybol d oral Tablet 00:00: (1,000 mg - 00 total) by Externa mouth in l the morning and 1 tablet (1,000 mg total) in the evening. Take with meals. Atorvastati 2022-0 Yes [id number] 40mg Take 1 Faye n Calcium 1-24 tablet (40 Seyb old 40 MG oral 00:00: mg total) - Tablet 00 by mouth Externa daily l GlipiZIDE 2022-0 Yes [id number] 10mg Take 1 K elsey 10 MG oral 1-24 tablet (10 Sey bold TABLET SR 00:00: mg total) - 24 HR 00 by mouth Externa daily l Levothyroxi 2022-0 Yes [id number] 88ug Take 1 Faye ne Sodium 1-24 tablet (88 Seyb old 88 MCG oral 00:00: mcg total) - Tablet 00 by mouth Externa daily l Lisinopril 2022-0 Yes [id number] 2.5mg Take 1 Faye 2.5 MG oral 1-24 tablet Seybol d Tablet 00:00: (2.5 mg - 00 total) by Externa mouth l daily Metformin 2022-0 Yes [id number] 1000mg Take 1 Faye HCl 1000 MG 1-24 tablet Seybol d oral Tablet 00:00: (1,000 mg - 00 total) by Externa mouth in l the morning and 1 tablet (1,000 mg total) in the evening. Take with meals. OZEMPIC 0 2022- No [id number] 0.5 mg Ke lsey (0.25 or 1-24 - Seybold 0.5 00:00: 00:00 - mg/dose) 2 00 :00 Externa mg/1.5 mL l SQ Solution Pen-Injecto r Lisinopril Lisinopril 2021-0 No 1{table QD Lisinopril 2.5 MG 2.5 MG 5-06 t} 2.5 MG 00:00: 00 glipiZIDE glipiZIDE 2021-0 No 1{table QD glipiZIDE XL 10 MG XL 10 MG 3-18 t_with_ XL 10 MG 00:00: breakfa st} Atorvastati Atorvastati No 1{table QD [...] MCG 75 MCG 00:00: 75 MCG 00 Ozempic Ozempic No Ozempic (0.25 or (0.25 or (0.25 or 0.5 0.5 0.5 MG/DOSE) 2 MG/DOSE) 2 MG/DOSE) 2 MG/1.5ML MG/1.5ML MG/1.5ML Lisinopril Lisinopril No 1{table QD Lisinopril 2.5 MG 2.5 MG t} 2.5 MG glipiZIDE glipiZIDE No 1{table QD glipiZIDE XL 10 MG XL 10 MG t_with_ XL 10 MG break} Atorvastati Atorvastati No 1{table QD Atorvastat n Calcium n Calcium t} in Calcium 40 MG 40 MG 40 MG No Known No Known No Common Medications Medications S [facility] Ozempic Ozempic No Ozempic (0.25 or (0.25 [...] Sodium 88 MCG 88 MCG 88 MCG Vital Signs Vital Name Observation Time Observation Value Comments Source Body temperature 2022-05-10 20:55:00 37.28 Rachell Alejandra peterson Seybold - External Respiratory rate 2022-05-10 20:55:00 14 /min Alejandra peterson Seybold - External Body height 2022-05-10 20:55:00 188 cm Faye Ballard eybold - External Body weight 2022-05-10 20:55:00 90.719 kg Faye Ballard eybold - External BMI 2022-05-10 20:55:00 25.68 kg/m2 Faye Ballard eybold - External Systolic blood 2022-05-10 20:55:00 98 mm[Hg] Faye Seybold - pressure External Diastolic blood 2022-05-10 20:55:00 62 mm[Hg] Donna stanley Seybold - pressure External Heart rate 2022-05-10 20:55:00 100 /min Faye Ballard eybold - External Systolic blood 2022-04-27 22:11:00 106 mm[Hg] Faye Seybold - pressure External Diastolic blood 2022-04-27 22:11:00 68 mm[Hg] Donna y Seybold - pressure External Heart rate 2022-04-27 22:11:00 93 /min Faye Ballard eybold - External Body temperature 2022-04-27 22:11:00 37.39 Rachell Alejandra peterson Seybold - External Respiratory rate 2022-04-27 22:11:00 15 /min Alejandra peterson Seybold - External Body height 2022-04-27 22:11:00 188 cm Faye Ballard eybold - External Body weight 2022-04-27 22:11:00 101.152 kg Faye Ballard eybold - External BMI 2022-04-27 22:11:00 28.63 kg/m2 Faye Ballard eybold - External height 2021-08-31 09:40:00 75 [in_i] Common S pirit [facility] weight 2021-08-31 09:40:00 199.2 [lb_av] [facility] temperature 2021-08-31 09:40:00 98.6 [degF] Common S pirit [facility] bmi 2021-08-31 09:40:00 24.9 kg/m2 Common S pirit [facility] oximetry 2021-08-31 09:40:00 99 % Common S pirit [facility] respiratory rate 2021-08-31 09:40:00 16 /min Comm on [facility] blood pressure 2021-08-31 09:40:00 126 mm[Hg] Common [facility] - systolic [facility] blood pressure 2021-08-31 09:40:00 72 mm[Hg] Common [facility] - diastolic [facility] height 2021-07-10 09:20:00 75 [in_i] Common S [facility] weight 2021-07-10 09:20:00 193.6 [lb_av] [facility] temperature 2021-07-10 09:20:00 97.9 [degF] Common S [facility] bmi 2021-07-10 09:20:00 24.2 kg/m2 Common S pirit [facility] oximetry 2021-07-10 09:20:00 99 % [facility] 2021-07-10 09:20:00 16 /min Comm on [facility] blood pressure 2021-07-10 09:20:00 128 mm[Hg] Common [facility] - systolic [facility] blood pressure 2021-07-10 09:20:00 72 mm[Hg] Common [facility] - diastolic [facility] height 2021-05-22 11:40:00 75 [in_i] Common S pirit [facility] weight 2021-05-22 11:40:00 198 [lb_av] Common [facility] bmi 2021-05-22 11:40:00 24.75 kg/m2 Common [facility] height 2021-05-15 15:40:00 75 [in_i] Common [facility] weight 2021-05-15 15:40:00 198 [lb_av] Common [facility] temperature 2021-05-15 15:40:00 97.9 [degF] Common [facility] bmi 2021-05-15 15:40:00 24.75 kg/m2 [facility] oximetry 2021-05-15 15:40:00 95 % [facility] respiratory rate 2021-05-15 15:40:00 16 /min Comm on [facility] blood pressure 2021-05-15 15:40:00 127 mm[Hg] Common [facility] - systolic [facility] blood pressure 2021-05-15 15:40:00 85 mm[Hg] Common [facility] - diastolic [facility] Procedures This patient has no known procedures. Encounters Start End Encounter Admission Attending Care Care Encounter Source Date/Time Date/Time Type Type Clinicians Facility Department ID 2021-11-27 Outpatient GEREMIAS Maher [facility] [id number] Common 12:25:01 Shelia [facility] 2021-08-27 Outpatient Nika STCHANDNI [facility] [id number] Common 10:24:03 Shelia [facility] 2021-07-08 [facility] [id number] Common 11:32:01 Shelia [facility] 2021-05-20 [facility] [id number] Common 10:54:02 Shelia [facility] 2021-05-15 [facility] [id number] Common 15:20:02 Shelia [facility] 2022-06-09 2022-06-09 Outpatient FAYE BONILLA [id number] Faye 14:30:00 14:30:00 ANGELIQUE Seybol d 2022-05-10 2022-05-10 Outpatient FAYE STEELE [id number] Faye 15:00:00 15:00:00 EDDIE Seybol d 2022-05-03 2022-05-03 Outpatient FAYE STEELE [id number] Faye 00:00:00 00:00:00 EDDIE Seybol d 2022-04-29 2022-04-29 Outpatient FAYE STEELE [id number] Faye 00:00:00 00:00:00 EDDIE Seybol d 2022-04-28 2022-04-28 Outpatient FAYE STEELE [id number] Faye 00:00:00 00:00:00 EDDIE Seybol d 2022-04-27 2022-04-27 Outpatient FAYE STEELE [id number] Faye 16:30:00 16:30:00 EDDIE Seybol d 2022-04-19 2022-04-19 Outpatient FAYE STEELE [id number] Faye 00:00:00 00:00:00 EDDIE Seybol d 2022-04-13 2022-04-13 Outpatient FAYE BONILLA [id number] Faye 08:45:00 08:45:00 ANGELIQUE Seybol d 2022-03-30 2022-03-30 Outpatient FAYE STEELE [id number] Faye 00:00:00 00:00:00 EDDIE Seybol d 2022-03-30 2022-03-30 Outpatient FAYE STEELE [id number] Faye 00:00:00 00:00:00 EDDIE Seybol d 2022-03-29 2022-03-29 Outpatient LAB90 FAYE MACKEY [id number] Faye 15:30:00 15:30:00 Seybol d 2022-03-29 2022-03-29 Outpatient FAYE STEELE [id number] Faye 14:30:00 14:30:00 EDDIE arroyo 2021-08-31 2021-08-31 OFFICE STLMLC ST[facility]C [id number] Co mmon 00:00:00 00:00:00 VISIT Spirit ESTAB PT - [facility] LEVEL 4 [facility] 2021-07-10 2021-07-10 OFFICE STLMLC STLMLC [id number] Co mmon 00:00:00 00:00:00 VISIT Spirit ESTAB PT - [facility] LEVEL 4 [facility] 2021-05-22 2021-05-22 OFFICE STLMLC STLMLC [id number] Co mmon 00:00:00 00:00:00 VISIT Spirit ESTAB PT - [facility] LEVEL 4 [facility] 2021-05-15 2021-05-15 OFFICE STLMLC STLMLC [id number] Co mmon 00:00:00 00:00:00 VISIT TOÑO [place] it PT LEVEL 3 - [facility] Results Test Description Test Time Test Comments Results Result Comments Source HEMOGLOBIN A1C 2021-07-10 00:00:00 Test Item Value Reference Range Interpretation Comme nts A1C (test code = 4548-4) 11.6
--- NOTE | 2022-11-10 14:15 | EDPHYS ---
Physician Documentation [facility] Name: Sp Nagel Age: 47 yrs Sex: Male : 1975 Arrival Date: 11/10/2022 Time: 13:32 Bed 7 Private MD: ED Physician Feng Garcia HPI: 11/10 14:06 This 47 yrs old Male presents to ER via Ambulatory with complaints of Leg snw Swelling - right. 14:06 The patient presents with an abscess, moderate-sized, pain, that is acute, swelling, snw tenderness. The complaints affect the right parmar. Onset: The symptoms/episode began/occurred acutely. Severity of symptoms: At their worst the symptoms were moderate, severe. The patient has experienced a previous episode, many years ago. sees Dr. Rust at [facility]. Historical: - Allergies: 13:54 Vicodin; ko1 - PMHx: 13:54 Diabetes - NIDDM; Hyperlipidemia; Hypertension; Hypothyroidism; ko1 - Immunization history:: Adult Immunizations unknown. - Social history:: Smoking status: Patient denies any tobacco usage or history of. ROS: 14:15 Constitutional: Negative for fever, chills, and weight loss, Eyes: Negative for injury, snw pain, redness, and discharge, ENT: Negative for injury, pain, and discharge, Neck: Negative for injury, pain, and swelling, Cardiovascular: Negative for chest pain, palpitations, and edema, Respiratory: Negative for shortness of breath, cough, wheezing, and pleuritic chest pain, Abdomen/GI: Negative for abdominal pain, nausea, vomiting, diarrhea, and constipation, Back: Negative for injury and pain, : Negative for injury, bleeding, discharge, and swelling, MS/Extremity: Negative for injury and deformity, Neuro: Negative for headache, weakness, numbness, tingling, and seizure, Psych: Negative for depression, anxiety, suicide ideation, homicidal ideation, and hallucinations. 14:15 Skin: Positive for abscess, of the right parmar. Exam: 14:05 Constitutional: This is a well developed, well nourished patient who is awake, alert, snw and in no acute distress. Head/Face: Normocephalic, atraumatic. Eyes: Pupils equal round and reactive to light, extra-ocular motions intact. Lids and lashes normal. Conjunctiva and sclera are non-icteric and not injected. Cornea within normal limits. Periorbital areas with no swelling, redness, or edema. ENT: Nares patent. No nasal discharge, no septal abnormalities noted. Tympanic membranes are normal and external auditory canals are clear. Oropharynx with no redness, swelling, or masses, exudates, or evidence of obstruction, uvula midline. Mucous membranes moist. Neck: Trachea midline, no thyromegaly or masses palpated, and no cervical lymphadenopathy. Supple, full range of motion without nuchal rigidity, or vertebral point tenderness. No Meningismus. Chest/axilla: Normal chest wall appearance and motion. Nontender with no deformity. No lesions are appreciated. 14:05 Respiratory: Lungs have equal breath sounds bilaterally, clear to auscultation and percussion. No rales, rhonchi or wheezes noted. No increased work of breathing, no retractions or nasal flaring. Abdomen/GI: Soft, non-tender, with normal bowel sounds. No distension or tympany. No guarding or rebound. No evidence of tenderness throughout. Back: No spinal tenderness. No costovertebral tenderness. Full range of motion. Neuro: Awake and alert, GCS 15, oriented to person, place, time, and situation. Cranial nerves II-XII grossly intact. Motor strength 5/5 in all extremities. Sensory grossly intact. Cerebellar exam normal. Normal gait. Psych: Awake, alert, with orientation to person, place and time. Behavior, mood, and affect are within normal limits. 14:05 Cardiovascular: Rate: tachycardic, Rhythm: regular, Heart sounds: normal. 14:05 Skin: Appearance: normal except for affected area, abscess, that is moderate sized, of the right parmar, with drainage, with surrounding cellulitis, that is severe. Vital Signs: 13:52 BP 111 / 75; Pulse 107; Resp 18; Temp 99.1; Pulse Ox 99% ; Weight 90.72 kg; Height 6 ko1 ft. 2 in. ; 15:12 BP 135 / 92; Pulse 97; Resp 18; Pulse Ox 99% on R/A; ld1 17:00 BP 118 / 92; Pulse 95; Resp 18; Pulse Ox 99% on R/A; ld1 18:05 BP 130 / 105; Pulse 92; Resp 18; Pulse Ox 100% on R/A; ld1 18:27 BP 121 / 95; Pulse 97; Resp 18; Pulse Ox 99% on R/A; Pain 0/10; ld1 13:52 Body Mass Index 25.68 (90.72 kg, 187.96 cm) ko1 18:27 Pain Scale: Adult ld1 MDM: 13:51 Patient medically screened. snw 14:01 Differential diagnosis: cellulitis with abscess to right lower ext. Data reviewed: snw vital signs, nurses notes, lab test result(s), EKG, radiologic studies. Management of patient was discussed with the following: Hospitalist: Dayanara Watson. Pneumatic System Conveyor Operator: Dr. Addison. Counseling: I had a detailed discussion with the patient and/or guardian regarding the historical points, exam findings, and any diagnostic results supporting the discharge/admit diagnosis, lab results, radiology results, the need for further work-up and treatment in the hospital. 14:16 ED course: Dr. Addison at bedside. sn 11/10 13:57 Order name: Blood Culture Adult (2) snw 11/10 13:57 Order name: CBC with Diff; Complete Time: 14:50 snw 11/10 13:57 Order name: CMP; Complete Time: 15:22 snw 11/10 13:57 Order name: Lactate w/ 2H reflex if indic.; Complete Time: 14:58 snw 11/10 13:57 Order name: Protime (+inr); Complete Time: 14:50 snw 11/10 13:57 Order name: Ptt, Activated; Complete Time: 14:50 snw 11/10 13:57 Order name: CPK; Complete Time: 15:22 snw 11/10 13:57 Order name: Procalcitonin; Complete Time: 15:29 snw 11/10 13:57 Order name: CRP; Complete Time: 15:22 snw 11/10 14:13 Order name: Wound Culture snw 11/10 14:53 Order name: CREATININE WHOLE BLOOD; Complete Time: 14:54 EDMS 11/10 16:07 Order name: Glucose Level; Complete Time: 17:35 EDMS 11/10 16:17 Order name: Magnesium; Complete Time: 17:11 EDMS 11/10 16:17 Order name: Phosphorus; Complete Time: 17:11 EDMS 11/10 16:17 Order name: Urinalysis w/ reflexes EDMS 11/10 16:17 Order name: CBC with Automated Diff EDMS 11/10 16:17 Order name: CBC with Automated Diff EDMS 11/10 16:17 Order name: Comprehensive Metabolic Panel EDMS 11/10 16:17 Order name: Comprehensive Metabolic Panel EDMS 11/10 16:17 Order name: Lipid Profile EDMS 11/10 16:17 Order name: Lipid Profile EDMS 11/10 17:45 Order name: Glucose, Ancillary Testing; Complete Time: 17:49 EDMS 11/10 13:57 Order name: Chest Single View XRAY; Complete Time: 14:32 snw 11/10 14:31 Order name: US Extremity Venous Unilateral Ltd; Complete Time: 15:23 snw 11/10 16:37 Order name: Carotid Artery Bilateral EDMS 11/10 16:37 Order name: Echo with Doppler EDMS 11/10 16:37 Order name: ERT ORTHOSTATIC V/S EDMS 11/10 16:37 Order name: ERT ORTHOSTATIC V/S EDMS 11/10 16:37 Order name: ERT ORTHOSTATIC V/S EDMS 11/10 16:37 Order name: ERT ORTHOSTATIC V/S EDMS 11/10 13:57 Order name: EKG; Complete Time: 13:58 snw 11/10 16:17 Order name: 60g Consistent Carbohydrate (ADA 1800/2000) EDMS 11/10 16:17 Order name: CONS Physician Consult EDMS 11/10 13:57 Order name: Accucheck; Complete Time: 14:50 snw 11/10 13:57 Order name: Cardiac monitoring; Complete Time: 14:50 snw 11/10 13:57 Order name: EKG - Nurse/Tech; Complete Time: 14:35 snw 11/10 13:57 Order name: IV Saline Lock - Large Bore; Complete Time: 14:26 snw 11/10 13:57 Order name: Labs collected and sent; Complete Time: 14:26 snw 11/10 13:57 Order name: O2 Per Protocol; Complete Time: 14:26 snw 11/10 13:57 Order name: O2 Sat Monitoring; Complete Time: 14:26 snw 11/10 13:57 Order name: Vital Signs; Complete Time: 14:50 snw 11/10 14:13 Order name: Wound Care: Dr. Cyn Zapata (from the OR); Complete Time: 15:11 snw 11/10 14:13 Order name: NPO: post MN; Complete Time: 14:50 snw 11/10 17:11 Order name: FSBS; Complete Time: 17:34 snw EC:40 Rate is 104 beats/min. Rhythm is regular. QRS [place] is Normal. NV interval is normal. snw QRS interval is normal. QT interval is normal. Clinical impression: NSR w/ Non-specific ST/T Changes. Administered Medications: 14:59 Drug: Boostrix Tdap IM 0.5 ml Route: IM; Site: left deltoid; ld1 15:10 Drug: Cefepime IVPB 1 grams Route: IVPB; Rate: 200 ml/hr; Infused Over: 30 mins; Site: ld1 right forearm; 15:10 Drug: fentaNYL (PF) IVP 50 mcg Route: IVP; Site: right forearm; ld1 15:43 Drug: vancoMYCIN IVPB 1.5 grams Route: IVPB; Rate: calculated rate; Site: right forearm;ld1 16:16 Drug: Insulin Regular Human IVP 10 units {Co-Signature: sai (Pao Smith RN).} ld1 Route: IVP; Site: right forearm; 17:49 Drug: Insulin Regular Human IVP 5 units {Co-Signature: sai (Pao Smith RN).} Route: ld1 IVP; Site: right forearm; Disposition: 19:55 Co-signature as Attending Physician, Feng Garcia MD I reviewed the patient's care rn provided by the Advanced Practice Provider and agree with the diagnosis and treatment plan. Disposition Summary: 11/10/22 14:15 Hospitalization Ordered Hospitalization Status: Inpatient Admission snw Provider: Darius Egan Location: Telemetry/MedSurg (Inpatient) snw Condition: Stable snw Problem: new snw Symptoms: are unchanged snw Bed/Room Type: Standard snw Room Assignment: 431(11/10/22 17:17) bd Diagnosis - Cutaneous abscess of right lower limb snw - Cellulitis of right lower limb snw Forms: - Medication Reconciliation Form snw - SBAR form snw - Leadership Thank You Letter snw Signatures: Dispatcher [employer] Michaela Carver Shelly, PHARMACY CLERK-C PHARMACY CLERK-Csnw Feng Garcia MD MD rn Gertrude Root RN RN ld1 Jennifer Tapia RN RN [email or web address] Pao Smith RN Corrections: (The following items were deleted from the chart) 17:17 14:15 lizabeth bd
--- NOTE | 2022-11-10 14:15 | ER ---
Nurse's Notes [facility] Name: Sp Nagel Age: 47 yrs Sex: Male : 1975 Arrival Date: 11/10/2022 Time: 13:32 Bed 7 Private MD: Diagnosis: Cutaneous abscess of right lower limb;Cellulitis of right lower limb Presentation: 11/10 13:52 Chief complaint: Patient states: RLE red, swollen, weeping since Tuesday. Hx of ko1 cellulitis 16-17 yrs ago in same spot. HX DM. Coronavirus screen: At this time, the client does not indicate any symptoms associated with coronavirus-19. Ebola Screen: No symptoms or risks identified at this time. Initial Sepsis Screen: Does the patient meet any 2 criteria? No. Patient's initial sepsis screen is negative. Does the patient have a suspected source of infection? No. Patient's initial sepsis screen is negative. Risk Assessment: Do you want to hurt yourself or someone else? Patient reports no desire to harm self or others. Onset of symptoms was November 10, 2022. 13:52 Method Of Arrival: Ambulatory ko1 13:52 Acuity: [place] 3 ko1 Historical: - Allergies: 13:54 Vicodin; ko1 - PMHx: 13:54 Diabetes - NIDDM; Hyperlipidemia; Hypertension; Hypothyroidism; ko1 - Immunization history:: Adult Immunizations unknown. - Social history:: Smoking status: Patient denies any tobacco usage or history of. Screenin:41 [facility] ED Fall Risk Assessment (Adult) History of falling in the last 3 months, ld1 including since admission No falls in past 3 months (0 pts). Abuse screen: Denies threats or abuse. Denies injuries from another. Nutritional screening: No deficits noted. Tuberculosis screening: No symptoms or risk factors identified. Assessment: 14:41 General: Appears in no apparent distress. comfortable, Behavior is calm, cooperative, ld1 appropriate for age. Pain: Complains of pain in right leg and right parmar Pain does not radiate. Pain currently is 9 out of 10 on a pain scale. Quality of pain is described as throbbing, Pain began 1 day ago. Neuro: Level of Consciousness is awake, alert, obeys commands, Oriented to person, place, time, situation. Cardiovascular: Capillary refill < 3 seconds Patient's skin is warm and dry. Respiratory: Airway is patent Respiratory effort is even, unlabored. GI: Abdomen is flat, non-distended. : No signs and/or symptoms were reported regarding the genitourinary system. EENT: No signs and/or symptoms were reported regarding the EENT system. Derm: No signs and/or symptoms reported regarding the dermatologic system. Musculoskeletal: No signs and/or symptoms reported regarding the musculoskeletal system. 17:58 Reassessment:. ld1 18:05 Reassessment: Patient appears in no apparent distress at this time. No changes from ld1 previously documented assessment. Patient and/or family updated on plan of care and expected duration. Pain level reassessed. Patient is alert, oriented x 3, equal unlabored respirations, skin warm/dry/pink. 18:27 Reassessment: Patient appears in no apparent distress at this time. No changes from ld1 previously documented assessment. Patient and/or family updated on plan of care and expected duration. Pain level reassessed. Patient is alert, oriented x 3, equal unlabored respirations, skin warm/dry/pink. Patient denies pain at this time. Vital Signs: 13:52 BP 111 / 75; Pulse 107; Resp 18; Temp 99.1; Pulse Ox 99% ; Weight 90.72 kg; Height 6 ko1 ft. 2 in. ; 15:12 BP 135 / 92; Pulse 97; Resp 18; Pulse Ox 99% on R/A; ld1 17:00 BP 118 / 92; Pulse 95; Resp 18; Pulse Ox 99% on R/A; ld1 18:05 BP 130 / 105; Pulse 92; Resp 18; Pulse Ox 100% on R/A; ld1 18:27 BP 121 / 95; Pulse 97; Resp 18; Pulse Ox 99% on R/A; Pain 0/10; ld1 13:52 Body Mass Index 25.68 (90.72 kg, 187.96 cm) ko1 18:27 Pain Scale: Adult ld1 ED Course: 13:35 Patient arrived in ED. im 13:35 Lynsey Buckley [facility]-C [facility] snw 13:35 Feng Garcia MD is Attending Physician. snw 13:54 Triage completed. ko1 13:54 Arm band placed on right wrist. Patient placed in waiting room, Patient notified of ko1 wait time. 14:12 Smith, Pao, RN is Primary Nurse. hb 14:13 Darius Egan MD is Hospitalizing Provider. snw 14:19 Chest Single View XRAY In Process Unspecified. EDMS 14:26 CRP Sent. bc6 14:26 Procalcitonin Sent. bc6 14:26 CPK Sent. bc6 14:26 Blood Culture Adult (2) Sent. bc6 14:26 CBC with Diff Sent. bc6 14:26 CMP Sent. bc6 14:26 Lactate w/ 2H reflex if indic. Sent. bc6 14:26 Protime (+inr) Sent. bc6 14:26 Ptt, Activated Sent. bc6 14:26 Inserted saline lock: 20 gauge in right forearm, using aseptic technique. Blood bc6 collected. 14:41 Patient has correct armband on for positive identification. Placed in gown. Bed in low ld1 position. Call light in reach. Side rails up X2. environmental monitoring technician on. Pulse ox on. NIBP on. Door closed. Noise minimized. Warm blanket given. 14:41 No provider procedures requiring assistance completed. ld1 15:05 US Extremity Venous Unilateral Ltd In Process Unspecified. EDMS 18:05 Patient admitted, IV remains in place. ld1 Administered Medications: 14:59 Drug: Boostrix Tdap IM 0.5 ml Route: IM; Site: left deltoid; ld1 15:10 Drug: Cefepime IVPB 1 grams Route: IVPB; Rate: 200 ml/hr; Infused Over: 30 mins; Site: ld1 right forearm; 15:10 Drug: fentaNYL (PF) IVP 50 mcg Route: IVP; Site: right forearm; ld1 15:43 Drug: vancoMYCIN IVPB 1.5 grams Route: IVPB; Rate: calculated rate; Site: right forearm;ld1 16:16 Drug: Insulin Regular Human IVP 10 units {Co-Signature: hb (Pao Smith RN).} ld1 Route: IVP; Site: right forearm; 17:49 Drug: Insulin Regular Human IVP 5 units {Co-Signature: sai (Pao Smith RN).} Route: ld1 IVP; Site: right forearm; Medication: 18:05 Vaccine Information Statement (VIS) provided today. Questions and/or concerns ld1 addressed. VIS edition date: November 10, 2022. Outcome: 14:15 Decision to Hospitalize by Provider. snw 18:05 Admitted to Med/surg accompanied by tech, via wheelchair, room 431, Report called to annmarie Solomon RN 18:05 Condition: stable 18:05 Instructed on the need for admit. 19:07 Patient left the ED. ld1 Signatures: Dispatcher [employer] EDMS Lynsey Buckley, MACHINE SHOP INSPECTOR-C MACHINE SHOP INSPECTOR-Csnw Pao Smith RN RN Gertrude Root RN RN ld1 Jennifer Tapia, DEEPTHI RN ko1 Amaris Cox [facility] Sparkle Munguia Heather RN
--- NOTE | 2022-11-10 14:27 | RAD REPORT ---
EXAM DESCRIPTION: Jim Single View11/10/2022 2:17 pm CLINICAL HISTORY: Preop COMPARISON: April 2019. FINDINGS: The lungs appear clear of acute infiltrate. The heart is normal size IMPRESSION: No acute abnormalities displayed
[2022-11-10 14:45] LABS: Hematocrit 38.7 % (39.6-49.0); Lymphocytes % 12.8 % (15.3-44.8); MCV 91.7 fL (80-100); MPV 7.5 fL (7.6-11.3); Platelets 420 thou/uL (152-406); RBC Red Blood Cell Count 4.22 M/uL (4.33-5.43)
[2022-11-10 14:46] LABS: Protime INR 0.97
[2022-11-10] MEDS ORDERED: VANCOMYCIN 1.5 GM in NA CHLORIDE 0.9% 500 ML IVPB ONE (15:00)
[2022-11-10] MEDS ORDERED: TDAP (DIPHTH,PERTUSS(ACELL),TET VAC) 0.5 ML VIAL IMVAC ONE (15:05)
[2022-11-10] MEDS ORDERED: NA CHLORIDE 0.9% 100 ML ONE (15:05)
[2022-11-10] MEDS ORDERED: FENTANYL CITR 100 MCG/2 ML ONE (15:05)
[2022-11-10] MEDS ORDERED: CEFEPIME 1 GM/VIAL ONE (15:06)
[2022-11-10 15:14] LABS: Albumin 3.3 g/dL (3.4-5.0); Bilirubin Total 0.5 mg/dL (0.2-1.0); Protein, Total 7.4 g/dL (6.4-8.2)
--- NOTE | 2022-11-10 15:22 | RAD REPORT ---
EXAM DESCRIPTION: USExtremity Venous Uni Ltd11/10/2022 3:02 pm CLINICAL HISTORY: Right leg swelling. COMPARISON: April 2022 FINDINGS: Right common femoral, superficial femoral, greater saphenous, popliteal and right posterio r tibial veins are compressible and demonstrate augmentation. Doppler demonstrates good flow. Grayscale, color and spectral analysis performed on all vessels IMPRESSION: No evidence of deep venous thrombosis involving the right lower extremity.
[2022-11-10] MEDS ORDERED: ACETAMINOPHEN 325 MG TABLET PO PRN (16:11)
[2022-11-10] MEDS ORDERED: ONDANSETRON 4 MG/2 ML VIAL IV PRN (16:14)
[2022-11-10] MEDS ORDERED: D10W 250 ML BAG IV PRN (16:19)
[2022-11-10] MEDS ORDERED: GLUCAGON 1 MG/VIAL IM PRN (16:19)
--- NOTE | 2022-11-10 16:19 | P.HP ---
Certification for Inpatient Patient admitted to: Inpatient With expected LOS: >2 Midnights Patient will require the following post-hospital care: None Practitioner: I am a practitioner with admitting privileges, knowledge of patient current condition, hospital course, and medical plan of care. Services: Services provided to patient in accordance with Admission requirements found in Title 42 Section 412.3 of the Code of Federal Regulations Patient History Date of Service: 11/10/22 Reason for admission: Right lower extremity redness\swelling\pain\wound and dizziness History of Present Illness: Patient is a 47-year-old male with a past medical history significant for DM 2, hyperlipidemia, hypertension, hypothyroidism who presents with complaint of left lower extremity swelling\redness\pain has been ongoing for the past 3 days. Patient reported that he noticed an induration 4 days ago in his right lower extremity. The following day he started experiencing swelling\redness and pain which became worse over time. Patient rated pain as 9/10 in severity and described pain as throbbing in quality. Patient reported that wound developed y esterday on the right lower leg and started draining serosanguineous fluid. Patient also reported he been having dizziness for the past 1 year and dizziness is mostly pronounced whenever he stands up and change positions. Patient also reports that he has had about 2 syncopal episodes in the last couple of weeks. Patient reported associated signs and symptoms of headache.. Patient denies any other signs and symptoms. Symptoms are aggravated or relieved by nothing. Patient decided to present to the hospital due to worsening symptoms. Allergies seafood Allergy (Unknown, Uncoded 09/02/15 07:24) Rash Home Medications: Atorvastatin Calcium 40 mg PO DAILY 07/18/15 Metformin HCl [Glucophage*] 500 mg PO BIDWM 07/18/15 lisinopriL [Prinivil*] 20 mg PO DAILY 07/18/15 Levothyroxine [Synthroid*] 0.075 mg PO [id number] #30 tab 09/03/15 Doxycycline Monohydrate 100 mg PO BID 12 Days #24 cap 04/24/22 Hydrocodone 5/APAP 325 [[place] 5/325] 1 tab PO Q8H PRN #10 tab 04/24/22 Insulin Glargine,Hum.rec.anlog [Lantus] 25 unit SQ BEDTIME 30 Days #10 ml 04/24/22 Insulin Lispro [Humalog] 5 unit SQ TID #10 ml 04/24/22 Smz./Tmp. [Bactrim Ds 800 MG/160 MG*] 1 tab PO BID 12 Days #24 tab 04/24/22 - Past Medical/Surgical History Diabetic: Yes -: Hypothyroidism -: Diabetes -: Hypertension Past Surgical History: Reviewed- Non-Contributory - Family History Father -: Heart disease, Hypertension, Other (see notes) Notes: Hypothyroidism Mother -: Diabetes, Kidney disease, Other (see notes) Notes: Dialysis; Legally blind - Social History Smoking Status: Former smoker Alcohol use: Yes CD- Drugs: No Caffeine use: Yes Place of Residence: Home Review of Systems General: Unremarkable Eyes: Unremarkable ENT: Unremarkable Respiratory: Unremarkable Cardiovascular: Unremarkable Gastrointestinal: Unremarkable Genitourinary: Unremarkable Musculoskeletal: Leg Pain, Other (Right lower extremity swelling.) Integumentary: Other (Right lower extremity redness), Unremarkable Neurological: Other (Headache, dizziness, syncope) Lymphatics: Unremarkable Physical Examination - Physical Exam General: Alert, In no apparent distress, Oriented x3, Cooperative HEENT: Atraumatic, PERRLA, Mucous membr. moist/pink, EOMI, Sclerae nonicteric Neck: Supple, 2+ carotid pulse no bruit, No LAD, Without JVD or thyroid abnormality Respiratory: Clear to auscultation bilaterally, Normal air movement Cardiovascular: Regular rate/rhythm, Normal S1 S2 Capillary refill: <2 Seconds Gastrointestinal: Normal bowel sounds, Soft and benign, No tenderness Musculoskeletal: No tenderness, Erythema (Right lower extremity) Integumentary: No rashes, Tenderness/swelling, Erythema (Right lower extremity), Other (Right lower extremity wound) Neurological: Normal speech, Normal tone, Normal affect Lymphatics: No axilla or inguinal lymphadenopathy - Studies Laboratory Data (last 24 hrs) 11/10/22 11/10/22 11/10/22 14:20 14:20 14:20 WBC 15.80 H Hgb 12.8 L Hct 38.7 L Plt Count 420 H PT 10.7 INR 0.97 APTT 28.6 Sodium 127 L Potassium 4.0 BUN 16 Creatinine 1.19 Glucose 785 H* Total Bilirubin 0.5 AST 9 L ALT 17 Alkaline Phosphatase 126 H Assessment and Plan - Plan --Right lower extremity cellulitis\abscess. Surgeon consulted. Plans on I&D in a.m. continue antibiotics. Blood and wound cultures pending. We will further recommendation from surgeon. -- Acute pain. We will manage pain with current pain medication regimen. --DM2 with hyperglycemia. BS monitoring with sliding scale insulin, pre-meal and Lantus. --Leukocytosis. Likely secondary to abscess/cellulitis. Blood and wound cultures pending. Continue antibiotics. We will continue to monitor WBC levels.. --Anemia of chronic disease. H&H stable. We will continue to monitor hemoglobin and transfuse if less than 7.0. --Hyponatremia. Likely secondary to hyperglycemia. We will keep blood sugar controlled. We will continue to monitor sodium levels. --Dizziness. Patient reports 2 episodes of syncope in the last couple of weeks. Carotid Doppler to assess carotid artery stenosis. Echocardiogram pending to assess cardiac structures and functions. We will get some orthostatic blood pressure levels. Fall precautions. --Hypothyroidism. Continue Synthroid. --Hyperlipidemia. Continue statin. --DVT prophylaxis with SCDs. Discharge Plan: Home Plan to discharge in: Greater than 2 days - Advance Directives Does patient have a Living Will: No Does patient have a Durable POA for Healthcare: No - Code Status/Comfort Care Code Status Assessed: Yes Physician Review: Patient Assessed, Agree with Above Assessment and Plan Critical Care: No
[2022-11-10] MEDS: INSULIN -REGULAR HUMAN 50 UNIT/0.5 ML ML SQ SCH ×2 (16:30→21:00)
[2022-11-10] MEDS: INSULIN LISPRO 100 UNIT/1 ML SQ SCH (17:00)
[2022-11-10 17:08] LABS: Magnesium 1.8 mg/dL (1.6-2.4); Phosphorus 3.2 mg/dL (2.5-4.9)
[2022-11-10] MEDS ORDERED: INSULIN -REGULAR HUMAN 50 UNIT/0.5 ML ML ONE (17:57)
--- NOTE | 2022-11-10 20:46 | RAD REPORT ---
EXAM DESCRIPTION: USCarotid Artery Bilateral11/10/2022 8:29 pm CLINICAL HISTORY: syncope COMPARISON: 2021 CT angiogram neck FINDINGS: The velocity of the right internal carotid artery equals 62 cm/sec. The right ICA/CCA rati o 0.9 The velocity of the left internal carotid artery equals 68 cm/sec. The left ICA/CCA ratio 0.9 Plaque is not visualized within the arteries The vertebral arteries demonstrate antegrade flow IMPRESSION: Unremarkable exam NASCET criteria used. Mild 0-49% stenosis Moderate 50-69% stenosis Severe 70-99% stenosis
[2022-11-10] MEDS: MORPHINE 4 MG/ML SYR IV PRN (21:46)
[2022-11-10] MEDS: INSULIN GLARGINE 100 UNIT/ML SQ SCH (21:46)
--- NOTE | 2022-11-11 00:01 | CON ---
Date of Consultation: 11/10/2022 Brief History Of Present Illness: The patient is a 47-year-old male who comes in with right lower extremity cellulitis and drainage which began on Tuesday morning, which was approximately 5 days ago. He states that the area just began to swell. He was unaware of any injuries. No trauma. No envenomation he is aware of. However, he continued to get progressively worse with redness, swelling, tenderness. He tried placing some triple antibiotic on the area initially and it got significantly worse. 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 He has had multiple abscesses before also which required drainage, packing on multiple occasions in the past as well, predominantly of the left upper extremity as well as in the same said leg, but in a different location. He noted significant pain, swelling, tenderness, and he had difficulty taking his boot off due to the significant swelling, which is occurring in his lower extremity. As such, he came to the emergency room with the above-stated complaints. Past Medical History: Significant for diabetes, hypertension, hypothyroidism, hyperlipidemia, and multiple abscesses, MRSA. Past Surgical History: Includes multiple debridements in the past. Allergies: TO VICODIN. Review of Systems: 10-point review of systems other than HPI denies. Physical Examination: Vital Signs: At the time of my examination, his BMI is 25.7. General: He is awake, alert, oriented. Psychiatric: He is appropriate and conversive. HEENT: He is normocephalic. Sclerae anicteric. Mucous membranes are moist. Oropharynx is clear. Neck: Supple without JVD. Chest: Expansion and excursion. Cardiovascular: Regular rate and rhythm. Pulmonary: Clear to auscultation bilaterally. Abdomen: Soft, nontender, nondistended. No rebound. No guarding. No focal peritonitis. Extremities: Focused examination of the right lower extremity, he has swelling cellulitis over much of the right lower extremity below the knee extending above the area of concern it is completely circumferential in most areas and has an area of fluctuance in the mid section which is currently draining abscess like material. The remainder of the exam is unremarkable. The remainder of his other extremities are unremarkable other than well-healed surgical scars. Laboratory Exam: He had laboratory exam. His white blood count is 15.8, hemoglobin is 12.8, hematocrit 38.7, platelet count was 420, his neutrophils were 77%. PT of 10.7, INR 0.97, PTT 28.6. Sodium 127, potassium 4.9, chloride 98, carbon dioxide is 24, BUN 16, creatinine 1.1, glucose was 785 on admission. His lactic acid is 1.2, phosphorus 3.2, magnesium 1.8, total bilirubin 0.5, AST 9, ALT 17, alkaline phosphatase 126. Procal was less than 0.05. CRP was 181. He had imaging performed, which included an extremity venous study of the right lower extremity which did show no evidence of DVT. Additionally, he had a chest x-ray which was officially read, no acute abnormalities displayed. Assessment And Plan: This is a 47-year-old male who comes in with right lower extremity cellulitis and abscess and multiple medical problems including hyperlipidemia and electrolyte abnormalities. 1. IV fluid hydration and electrolyte correction. 2. Control of his blood sugar with insulin and medical management for his uncontrolled diabetes at this point. 3. We will appoint vancomycin and cefepime to be initiated for antibiotic coverage. 4. The patient ate he states 30-45 minutes prior to his arrival to the hospital and as such he states he ate a large meal and as such this is not a surgical emergency, I have recommended n.p.o. status and planning for surgical intervention tomorrow after the patient's medical condition is optimized and he has been n.p.o. for reasonable amount of time. I have explained the risks, its alternatives, the above stated plan including the procedure, which will be an excisional debridement of the right lower extremity. The risks include, but are not limited to bleeding, infection, damage to surrounding tissue, injury to nerves, need for further operation/procedures, limb loss, permanent dysfunction of lower extremity, need for further operation and procedures, trouble with perioperative complications including, but not limited to, bleeding, infection, strokes, heart attacks, blood clots, other unforeseen complications related to anesthesia. The patient displayed understanding of the above stated plan, agreed to proceed as indicated. Thank you for this interesting consult. ZACHARY/KACEY Voice ID: [id number] Report ID: [id number] ERNESTINA
[2022-11-11 01:48] VITALS: BMI 25.7
[2022-11-11] MEDS: CEFEPIME 2 GM in NA CHLORIDE 0.9% 100 ML IV SCH ×3 (02:02→16:02)
[2022-11-11] MEDS: VANCOMYCIN 1 GM in NA CHLORIDE 0.9% 250 ML IVPB SCH ×2 (02:02→15:32)
[2022-11-11] MEDS: MORPHINE 4 MG/ML SYR IV PRN ×2 (04:07→21:15)
[2022-11-11 06:15] LABS: Absolute Lymphocytes (CBC) 1.6 K/uL (0.7-4.9); Lymphocytes % 12.6 % (15.3-44.8); MPV 7.2 fL (7.6-11.3); Platelets 410 thou/uL (152-406); RBC Red Blood Cell Count 3.89 M/uL (4.33-5.43)
[2022-11-11 06:34] LABS: Albumin 2.6 g/dL (3.4-5.0); Bilirubin Total 0.4 mg/dL (0.2-1.0); Potassium 3.9 mEq/L (3.5-5.1); Protein, Total 6.2 g/dL (6.4-8.2)
[2022-11-11] MEDS: INSULIN LISPRO 100 UNIT/1 ML SQ SCH ×3 (08:00→16:03)
[2022-11-11] MEDS: INSULIN -REGULAR HUMAN 50 UNIT/0.5 ML ML SQ SCH ×4 (08:43→21:15)
[2022-11-11] MEDS ORDERED: NA CHLORIDE 0.9% 1,000 ML ONE (09:00)
[2022-11-11] MEDS ORDERED: NA CHLORIDE 0.9% 100 ML ONE (09:02)
[2022-11-11] MEDS ORDERED: BUPIVACAINE 0.25% PF 10 ML VIAL ONE (09:45)
[2022-11-11] MEDS ORDERED: MIDAZOLAM HCL 2 MG/2 ML INJ ONE (10:52)
[2022-11-11] MEDS ORDERED: propofoL 200 MG/20 ML VIAL IV ONE (10:52)
[2022-11-11] MEDS ORDERED: FENTANYL CITR 100 MCG/2 ML ONE (10:52)
[2022-11-11] MEDS ORDERED: LIDOCAINE 2% MPF 5 ML VIAL ONE (10:54)
[2022-11-11] MEDS ORDERED: ONDANSETRON 4 MG/2 ML VIAL ONE (11:32)
[2022-11-11] MEDS ORDERED: GLYCOPYRROLATE 0.2 MG/ML SYR ONE (11:32)
[2022-11-11] MEDS ORDERED: dexAMETHasone 4 MG/ML VIAL ONE (11:32)
[2022-11-11] MEDS ORDERED: KETAMINE HCL IN 0.9 % NACL 50 MG/5 ML SYRINGE IV ONE (11:48)
--- NOTE | 2022-11-11 11:50 | P.OP ---
Preoperative diagnosis: RIGHT Lower Extremity Abscess / Necrotic Wound Postoperative diagnosis: RIGHT Lower Extremity Abscess / Necrotic Wound Primary procedure: Excisional Debridement of RIGHT Lower Extremity Abscess / Necrotic Wound Anesthesia: GETA + Local Estimated blood loss: <5cc Specimen: Cultures, Debridement Tissue Findings: ~ 8cm x 4cm down to muscle necrosis Complications: None Transferred to: Recovery Room Condition: Good
[2022-11-11] MEDS ORDERED: NS 0.9% VIAL 10 ML ONE (11:52)
[2022-11-11] MEDS ORDERED: Phenylephrine HCl 10 MG/ML 1 ML VIAL ONE (11:52)
--- NOTE | 2022-11-11 12:28 | OP ---
Date of Procedure: 11/11/2022 Surgeon: Steven Addison MD, Preoperative Diagnosis: Right lower extremity abscess/necrotic wound. Postoperative Diagnosis: Right lower extremity abscess/necrotic wound. Procedure Performed: Excisional debridement of right lower extremity abscess/necrotic wound. Anesthesia: General endotracheal plus local with 0.25% Marcaine. Estimated Blood Loss: Less than 5 cc. Specimen: Cultures for for aerobic and anaerobic speciation and debridement tissue. Findings: An 8 cm x 4 cm area of abscess/necrosis down to the fascia overlying the muscle and slight ly into the fascia. Complications: None. Disposition: The patient was transferred to the recovery room in good condition. Procedure In Detail: After informed consent was obtained, the patient was brought to the operating r oom, prepped and draped in the usual sterile fashion after adequate anesthesia was achieved. I made a curvilinear incision around the area of necrotic drainage on the right lower extremity near the tib ia down to subcutaneous tissues using a 15 blade. I immediately encountered abscess material. This was cultured for aerobic and anaerobic speciation. I then removed this ellipse of skin and digitized the area and found to have a multiloculated abscess extending all the way down to the muscle fascia, but it did not appear to be a gas-forming necrotizing fasciitis type infection. As such, I extended the incisions superiorly and inferiorly with a 15 blade down to subcutaneous tissues and electrocaut jenny ultimately opening the entirety of the wound. At this point, all necrotic tissue was debrided sh arply and electrocautery was used to achieve hemostasis. At this point, the area was copiously irrig ated and packed with Kerlix with Vashe-soaked gauze and a sterile dressing placed over top. The kinga ent tolerated the procedure well without evidence of complication and transferred to PACU in good con dition. All counts were correct at the end of the case. TK/MODL Voice ID: [id number] Report ID: [id number]
--- NOTE | 2022-11-11 12:28 | EKG ---
Test Date: 2022-11-10 Test Time: 14:32:32 Inspector Technician: KETURAH MEASUREMENT RESULTS: Intervals: Rate: 104 FL: 144 QRSD: 94 QT: 382 QTc: 502 [place]: P: 86 FL: 144 QRS: 70 T: 76 INTERPRETIVE STATEMENTS: Sinus tachycardia Otherwise normal ECG Compared to ECG 04/27/2022 17:40:06 Sinus rhythm no longer present Electronically Signed On 11-11-22 12:25:10 CDT by Nicholas Farmer
[2022-11-11] MEDS ORDERED: HYDROMORPHONE HCL 1 MG/ML INJ ONE (12:43)
[2022-11-11] MEDS ORDERED: KETOROLAC 30 MG/ML INJ ONE (12:43)
[2022-11-11] MEDS: INSULIN GLARGINE 100 UNIT/ML SQ SCH (21:15)
[2022-11-12] MEDS: MORPHINE 4 MG/ML SYR IV PRN ×3 (00:11→13:41)
[2022-11-12] MEDS: CEFEPIME 2 GM in NA CHLORIDE 0.9% 100 ML IV SCH ×3 (00:12→15:58)
[2022-11-12 01:29] VITALS: O2SAT 97
[2022-11-12 02:34] LABS: Absolute Lymphocytes (CBC) 2.3 K/uL (0.7-4.9); Hematocrit 36.9 % (39.6-49.0); Lymphocytes % 12.7 % (15.3-44.8); MCV 90.5 fL (80-100); MPV 7.2 fL (7.6-11.3); Platelets 419 thou/uL (152-406); RBC Red Blood Cell Count 4.07 M/uL (4.33-5.43)
[2022-11-12 02:53] LABS: Albumin 2.6 g/dL (3.4-5.0); Bilirubin Total 0.3 mg/dL (0.2-1.0); Magnesium 1.9 mg/dL (1.6-2.4); Potassium 4.3 mEq/L (3.5-5.1); Protein, Total 6.4 g/dL (6.4-8.2)
[2022-11-12] MEDS: VANCOMYCIN 1 GM in NA CHLORIDE 0.9% 250 ML IVPB SCH (03:17)
[2022-11-12] MEDS: INSULIN -REGULAR HUMAN 50 UNIT/0.5 ML ML SQ SCH ×4 (03:20→15:57)
[2022-11-12] MEDS: INSULIN LISPRO 100 UNIT/1 ML SQ SCH ×3 (08:40→15:56)
[2022-11-12] MEDS ORDERED: VANCOMYCIN 1.25 GM in NA CHLORIDE 0.9% 250 ML IVPB SCH (15:00)
[2022-11-12 16:50] VITALS: BP 104/66; TEMP 98.4
[2022-11-12] MEDS ORDERED: INSULIN GLARGINE 100 UNIT/ML SQ SCH (21:00)
== END 2022-11-12 18:50 | disposition home or self-care (01) | DRG 571 ==
LOC: ER 13:32 → ERHOLD 16:09 → 4TH 17:30
PROVIDERS: ADMIT Hospitalist; ATTEND Hospitalist
PROC: 0JBN0ZZ Excision of Right Lower Leg Subcutaneous Tissue and Fascia, Open Approach (ICD-10-PCS; principal; 2022-11-11 14:00)
DX: L03.115 Cellulitis of right lower limb (principal); E87.1 Hypo-osmolality and hyponatremia; I96 Gangrene, not elsewhere classified; L02.415 Cutaneous abscess of right lower limb; E78.5 Hyperlipidemia, unspecified; D63.8 Anemia in other chronic diseases classified elsewhere; I10 Essential (primary) hypertension; E11.65 Type 2 diabetes mellitus with hyperglycemia; E03.9 Hypothyroidism, unspecified; Z88.5 Allergy status to narcotic agent; Z79.4 Long term (current) use of insulin; Z79.84 Long term (current) use of oral hypoglycemic drugs; Z86.14 Personal history of Methicillin resistant Staphylococcus aureus infection; Z91.013 Allergy to seafood; Z79.890 Hormone replacement therapy; Z79.899 Other long term (current) drug therapy; Z87.891 Personal history of nicotine dependence
CPT/HCPCS: 36415; 71045; 80053; 80061; 80202; 82550; 82565; 82947; 83036; 83605; 83735; 83880; 84100; 84145; 85025; 85610; 85730; 86140; 87040; 87070; 87075; 87077; 87186; 87205; 88304; 93005; 93880; 93971; 96372; 96374; 96375; 99285; A4216; J0692; J1100; J1170; J1815; J2001; J2250; J2371; J2405; J2704; J3010; J7030; J7040; J7050

== ENCOUNTER 2023-04-27 12:21 | Inpatient (IN) | payer BC ==
--- OUTSIDE RECORDS SUMMARY | 2023-04-27 12:24 | XMS REPORT | Continuity of Care Document ---
Author Name Unknown Address [address] [facility] [address] [place] [address] [facility] Address [address] [facility] [place] [address] Care Team Providers Care Mold Designer Name Role Phone Shelia Maher Attending Clinician Unavailable ANGELIQUE BONILLA Attending Clinician Unavailable EDDIE STEELE Attending Clinician Unabarry ilable [id number] Attending Clinician Unavailable Payers Payer Name Policy Type Policy Number Effective Date Expirati on Date Source [facility] 2 [id number] 2022 00:00:00 [place] [address] [id number] [facility] Problems Condition Name Condition Details Condition Category Status Onset Date Resolution Date Last Treatment Date Treating Clinician Comments Source [id number] Mixed hyperlipid emia Problem Active [facility] [id number] Hypothyroi dism, unspecifie d type Problem Active [facility] Hyperglyce diamante due to type 2 diabetes mellitus Type 2 diabetes mellitus with hyperglyce diamante Problem Active [facility] [id number] Essential (primary) hypertensi on Problem Active [facility] Allergies, Adverse Reactions, Alerts Allergy Name Allergy Type Status Severity Reaction(s) Onset Date Inactive Date Treating Clinician Comments Source Hydrocod one Propensi ty to adverse reaction s Active Hives -13 00:00: 00 Faye vo 4614 Drug allergy Active Unknown [facility] Social History Social Habit Start Date Stop Date Quantity Comments Source History of Tobacco Use [facility] Tobacco use and exposure 2022-03-29 00:00:00 2022-03-29 00:00:00 Smokeless tobacco non-user Faye Lozano Sex Assigned At [birth year] 00:00:00 Faye Lozano Smoking Status Start Date Stop Date Source Never smoked tobacco Faye Wilkins External Former Smoker 2021-08-27 00:00:00 2021-08-27 00:00:00 [facility] Medications Ordered Medication Name Filled Medication Name Start Date Stop Date Current Medication? Ordering Clinician Indication Dosage Frequency Signature (SIG) Comments Components Source Furosemide (LASIX) 20 MG oral Tablet 04-28 00:00: 00 Yes 20mg Take 20 mg by mouth daily Faye vo Doxycycline Monohydrate 100 MG oral Capsule 04-24 00:00: 00 Yes 100mg Take 100 mg by mouth 2 times daily Faye vo HYDROcodone -Acetaminop hen (NORCO) 5-325 MG oral Tablet 04-24 00:00: 00 Yes 1{tbl} Q.[id number] 3D Take 1 tablet by mouth every 8 hours as needed FOR PAIN Faye vo HumaLOG 100 UNIT/ML injection Solution 04-24 00:00: 00 Yes INJECT 5 UNITS SUBCUTANEO USLY THREE TIMES DAILY Faye vo TRIMETHOPRI M-SULFAMETH OXAZOLE (BACTRIM DS) 800-160 MG oral Tablet 04-24 00:00: 00 Yes 1{tbl} Take 1 tablet by mouth 2 times daily Faye vo Doxycycline Monohydrate 100 MG oral Capsule 04-24 00:00: 00 Yes 100mg Take 100 mg by mouth 2 times daily Faye vo HYDROcodone -Acetaminop hen (NORCO) 5-325 MG oral Tablet 04-24 00:00: 00 Yes 1{tbl} Q.[id number] 3D Take 1 tablet by mouth every 8 hours as needed FOR PAIN Faye ov HumaLOG 100 UNIT/ML injection Solution 04-24 00:00: 00 Yes INJECT 5 UNITS SUBCUTANEO USLY THREE TIMES DAILY Faye vo TRIMETHOPRI M-SULFAMETH OXAZOLE (BACTRIM DS) 800-160 MG oral Tablet 04-24 00:00: 00 Yes 1{tbl} Take 1 tablet by mouth 2 times daily Faye vo OZEMPIC (0.25 or 0.5 mg/dose) 2 mg/1.5 mL SQ Solution Pen-Injecto r 03-31 00:00: 00 Yes [id number] .5mg Inject 0.5 mg into the skin once a week Faye vo OZEMPIC (0.25 or 0.5 mg/dose) 2 mg/1.5 mL SQ Solution Pen-Injecto r 03-31 00:00: 00 Yes [id number] .5mg Inject 0.5 mg into the skin once a week Faye vo Atorvastati n Calcium 40 MG oral Tablet 03-30 00:00: 00 Yes [id number] 40mg Take 1 tablet (40 mg total) by mouth daily Faye vo GlipiZIDE 10 MG oral TABLET SR 24 HR 03-30 00:00: 00 Yes [id number] 10mg Take 1 tablet (10 mg total) by mouth daily Faye vo Levothyroxi ne Sodium 88 MCG oral Tablet 03-30 00:00: 00 Yes [id number] 88ug Take 1 tablet (88 mcg total) by mouth daily Faye vo Lisinopril 2.5 MG oral Tablet 03-30 00:00: 00 Yes [id number] 2.5mg Take 1 tablet (2.5 mg total) by mouth daily Faye vo Metformin HCl 1000 MG oral Tablet 03-30 00:00: 00 Yes [id number] 1000mg Take 1 tablet (1,000 mg total) by mouth in the morning and 1 tablet (1,000 mg total) in the evening. Take with meals. Faye vo Atorvastati n Calcium 40 MG oral Tablet 03-30 00:00: 00 Yes [id number] 40mg Take 1 tablet (40 mg total) by mouth daily Faye vo GlipiZIDE 10 MG oral TABLET SR 24 HR 03-30 00:00: 00 Yes [id number] 10mg Take 1 tablet (10 mg total) by mouth daily Faye vo Levothyroxi ne Sodium 88 MCG oral Tablet 03-30 00:00: 00 Yes [id number] 88ug Take 1 tablet (88 mcg total) by mouth daily Faye vo Lisinopril 2.5 MG oral Tablet 03-30 00:00: 00 Yes [id number] 2.5mg Take 1 tablet (2.5 mg total) by mouth daily Faye vo Metformin HCl 1000 MG oral Tablet 03-30 00:00: 00 Yes [id number] 1000mg Take 1 tablet (1,000 mg total) by mouth in the morning and 1 tablet (1,000 mg total) in the evening. Take with meals. Faye vo OZEMPIC (0.25 or 0.5 mg/dose) 2 mg/1.5 mL SQ Solution Pen-Injecto r 03-30 00:00: 00 04-27 00:00 :00 No [id number] 0.5 mg Faye vo Lisinopril 2.5 MG Lisinopril 2.5 MG 5-06 00:00: 00 No 1{table t} QD Lisinopril 2.5 MG glipiZIDE XL 10 MG glipiZIDE XL 10 MG 3-18 00:00: 00 No 1{table t_with_ breakfa st} QD glipiZIDE XL 10 MG Atorvastati n Calcium 40 MG Atorvastati n Calcium 40 MG 18 00:00: 00 No 1{table t} QD Atorvastat in Calcium 40 MG metFORMIN HCl 1000 MG metFORMIN HCl 1000 MG 18 00:00: 00 No 1{table t_with_ a_meal} BID metFORMIN HCl 1000 MG Levothyroxi ne Sodium 75 MCG Levothyroxi ne Sodium 75 MCG 05-22 00:00: 00 No QD Levothyrox ine Sodium 75 MCG No Known Medications No Known Medications No Common [facility] Ozempic (0.25 or 0.5 MG/DOSE) 2 MG/1.5ML Ozempic (0.25 or 0.5 MG/DOSE) 2 MG/1.5ML No Ozempic (0.25 or 0.5 MG/DOSE) 2 MG/1.5ML Ozempic (0.25 or 0.5 MG/DOSE) 2 MG/1.5ML Ozempic (0.25 or 0.5 MG/DOSE) 2 MG/1.5ML No Ozempic (0.25 or 0.5 MG/DOSE) 2 MG/1.5ML Levothyroxi ne Sodium 75 MCG Levothyroxi ne Sodium 75 MCG No QD Levothyrox ine Sodium 75 MCG Atorvastati n Calcium 40 MG Atorvastati n Calcium 40 MG No 1{table t} QD Atorvastat in Calcium 40 MG metFORMIN HCl 1000 MG metFORMIN HCl 1000 MG No 1{table t_with_ a_meal} BID metFORMIN HCl 1000 MG glipiZIDE XL 10 MG glipiZIDE XL 10 MG No 1{table t_with_ breakfa st} QD glipiZIDE XL 10 MG metFORMIN HCl 1000 MG metFORMIN HCl 1000 MG No 1{table t_with_ a_meal} BID metFORMIN HCl 1000 MG Levothyroxi ne Sodium 88 MCG Levothyroxi ne Sodium 88 MCG No QD Levothyrox ine Sodium 88 MCG Ozempic (0.25 or 0.5 MG/DOSE) 2 MG/1.5ML Ozempic (0.25 or 0.5 MG/DOSE) 2 MG/1.5ML No Ozempic (0.25 or 0.5 MG/DOSE) 2 MG/1.5ML Lisinopril 2.5 MG Lisinopril 2.5 MG No 1{table t} QD Lisinopril 2.5 MG glipiZIDE XL 10 MG glipiZIDE XL 10 MG No 1{table t_with_ breakfa st} QD glipiZIDE XL 10 MG Atorvastati n Calcium 40 MG Atorvastati n Calcium 40 MG No 1{table t} QD Atorvastat in Calcium 40 MG Vital Signs Vital Name Observation Time Observation Value Comments S ource Systolic blood pressure 2022-05-10 20:55:00 98 mm[Hg] Faye Seybo ld - External Diastolic blood pressure 2022-05-10 20:55:00 62 mm[Hg] Faye Seybo ld - External Heart rate 2022-05-10 20:55:00 100 /min Kelse y Seybold - External Body temperature 2022-05-10 20:55:00 37.28 Rachell Faye Seybold - External Respiratory rate 2022-05-10 20:55:00 14 /min Faye Seybold - External Body height 2022-05-10 20:55:00 188 cm Alejandra ey Seybold - External Body weight 2022-05-10 20:55:00 90.719 kg Alejandra ey Seybold - External BMI 2022-05-10 20:55:00 25.68 kg/m2 Alejandra ey Seybold - External Systolic blood pressure 2022-04-27 22:11:00 106 mm[Hg] Faye Seybo ld - External Diastolic blood pressure 2022-04-27 22:11:00 68 mm[Hg] Faye Seybo ld - External Heart rate 2022-04-27 22:11:00 93 /min Kelse y Seybold - External Body temperature 2022-04-27 22:11:00 37.39 Rachell Faye Seybold - External Respiratory rate 2022-04-27 22:11:00 15 /min Faye Seybold - External Body height 2022-04-27 22:11:00 188 cm Alejandra ey Seybold - External Body weight 2022-04-27 22:11:00 101.152 kg Alejandra ey Seybold - External BMI 2022-04-27 22:11:00 28.63 kg/m2 Alejandra ey Seybold - External height 2021-08-31 09:40:00 75 [in_i] Commo n [facility] weight 2021-08-31 09:40:00 199.2 [lb_av] Co on [facility] temperature 2021-08-31 09:40:00 98.6 [degF] Com [facility] bmi 2021-08-31 09:40:00 24.9 kg/m2 Commo n [facility] oximetry 2021-08-31 09:40:00 [facility] respiratory rate 2021-08-31 09:40:00 16 /min [facility] blood pressure systolic 2021-08-31 09:40:00 126 mm[Hg] [facility] blood pressure diastolic 2021-08-31 09:40:00 72 mm[Hg] [facility] oximetry 2021-07-10 09:20:00 99 % [facility] respiratory rate 2021-07-10 09:20:00 16 /min [facility] blood pressure systolic 2021-07-10 09:20:00 128 mm[Hg] [facility] blood pressure diastolic 2021-07-10 09:20:00 72 mm[Hg] Common [facility] height 2021-07-10 09:20:00 75 [in_i] Commo n [facility] weight 2021-07-10 09:20:00 193.6 [lb_av] Co [facility] temperature 2021-07-10 09:20:00 97.9 [degF] Com [facility] bmi 2021-07-10 09:20:00 24.2 kg/m2 Commo n [facility] height 2021-05-22 11:40:00 75 [in_i] Commo n [facility] weight 2021-05-22 11:40:00 198 [lb_av] Comm on [facility] bmi 2021-05-22 11:40:00 24.75 kg/m2 Comm on [facility] height 2021-05-15 15:40:00 75 [in_i] Commo n [facility] weight 2021-05-15 15:40:00 198 [lb_av] Comm on [facility] temperature 2021-05-15 15:40:00 97.9 [degF] Com mon [facility] bmi 2021-05-15 15:40:00 24.75 kg/m2 Comm on [facility] oximetry 2021-05-15 15:40:00 95 % Commo n [facility] respiratory rate 2021-05-15 15:40:00 16 /min [facility] blood pressure systolic 2021-05-15 15:40:00 127 mm[Hg] [facility] blood pressure diastolic 2021-05-15 15:40:00 85 mm[Hg] [facility] Encounters Start Date/Time End Date/Time Encounter Type Admission Type Attending [facility] Care Facility Care Department Encounter ID Source 2021-11-27 12:25:[address] [facility] [id number] [facility] 2021-08-27 10:24:03 [facility] [id number] [facility] 2021-07-08 11:32:01 Outpatient Shelia Maher [facility] [id number] [facility] 2021-05-20 10:54:02 [facility] [id number] [facility] 2021-05-15 15:20:02 [facility] [id number] [facility] 2022-06-09 14:30:00 2022-06-09 14:30:00 Outpatient ANGELIQUE BONILLA FAYE MACKEY [id number] [facility] 2022-05-10 15:00:00 2022-05-10 15:00:00 Outpatient HEMANT STEELEALEAH MACKEY [id number] [facility] 2022-05-03 00:00:00 2022-05-03 00:00:00 Outpatient CEDRIC, EDDIEALEAH MACKEY [id number] [facility] 2022-04-29 00:00:00 2022-04-29 00:00:00 Outpatient CEDRIC EDDIE MACKEY [id number] [facility] 2022-04-28 00:00:00 2022-04-28 00:00:00 Outpatient CEDRIC, EDDIE MACKEY [id number] [facility] 2022-04-27 16:30:00 2022-04-27 16:30:00 Outpatient CEDRIC[facility] EDDIE [facility] [id number] [facility] 00:00:00 2022-04-19 00:00:00 Outpatient EDDIE STEELE FAYE MACKEY [id number] [facility] 2022-04-13 08:45:00 2022-04-13 08:45:00 Outpatient ANGELIQUE [facility]ONILLA [facility] [id number] [facility] 2022-03-30 00:00:00 2022-03-30 00:00:00 Outpatient CEDRIC EDDIE MACKEY [id number] [facility] 2022-03-30 00:00:00 2022-03-30 00:00:00 Outpatient CEDRIC EDDIE [facility] [id number] [facility]22-[facility] 15:30:00 2022-03-29 15:30:00 [facility]YN [facility] [id number] [facility]22-[facility] 14:30:00 2022-03-29 14:30:00 Outpatient EDDIE STEELE [id number] [facility] 2021-08-31 00:00:00 2021-08-31 00:00:00 OFFICE VISIT ESTAB PT LEVEL 4 [facility] [id number] [facility] 2021-07-10 00:00:00 2021-07-10 00:00:00 OFFICE VISIT ESTAB PT LEVEL 4 [facility] [id number] [facility] 2021-05-22 00:00:00 2021-05-22 00:00:00 OFFICE VISIT ESTAB PT LEVEL 4 [facility] [id number] [facility] 2021-05-15 00:00:00 2021-05-15 00:00:00 OFFICE VISIT NEW PT LEVEL 3 [facility] [id number] [facility] Results Test Description Test Time Test Comments Results Result Co mments Source
[2023-04-27] MEDS ORDERED: VANCOMYCIN 1 GM/VIAL ONE (13:33)
[2023-04-27] MEDS ORDERED: VANCOMYCIN 500 MG/VIAL ONE (13:34)
[2023-04-27] MEDS ORDERED: NA CHLORIDE 0.9% 100 ML ONE (13:34)
[2023-04-27] MEDS ORDERED: ACETAMINOPHEN 500 MG TAB ONE (13:34)
[2023-04-27] MEDS ORDERED: NA CHLORIDE 0.9% 250 ML ONE (13:34)
[2023-04-27] MEDS ORDERED: PIPERACIL/TAZO 3.375 GM VIAL IV ONE (13:34)
[2023-04-27 13:44] LABS: Absolute Lymphocytes (CBC) 1.9 K/uL (0.7-4.9); Hematocrit 39.3 % (39.6-49.0); Lymphocytes % 22.1 % (15.3-44.8); MCV 89.3 fL (80-100); MPV 7.3 fL (7.6-11.3); Platelets 499 thou/uL (152-406)
[2023-04-27 13:47] LABS: Protime INR 0.92
[2023-04-27 13:59] LABS: Albumin 3.4 g/dL (3.4-5.0); Bilirubin Total 0.7 mg/dL (0.2-1.0); Potassium 4.3 mEq/L (3.5-5.1); Protein, Total 7.3 g/dL (6.4-8.2)
[2023-04-27] MEDS ORDERED: INSULIN REGULAR (HUMAN) 100 UNIT/ML ONE (14:15)
[2023-04-27 14:27] LABS: Specific Gravity > 1.030 (1.005-1.030); Urine Bacteria None Seen /HPF (<20); Urine Bilirubin NEGATIVE (Negative); Urine Blood Negative (Negative); Urine Clarity Clear (Clear); Urine Color Colorless (Yellow); Urine Glucose 4+ (Over) (Negative); Urine Mucus Slight /HPF (None Seen); Urine Protein NEGATIVE (Negative); Urine RBC <5 /HPF (None Seen); Urine Urobilinogen Normal (Normal); Urine pH 6.5 (5.0-7.0)
[2023-04-27 14:32] LABS: Arterial Blood Carboxyhemoglob 0.9 % (0-1.5); Blood Gas Oxyhemoglobin 77.6 % (94-97); Blood O2 Saturation 80.3 % (92-98.5)
--- NOTE | 2023-04-27 14:38 | RAD REPORT ---
EXAM DESCRIPTION: CTAbdomen Pelvis W Contrast - 04/27/2023 2:16 pm CLINICAL HISTORY: Scrotal infection COMPARISON: No comparisons TECHNIQUE: CT of the abdomen and pelvis was performed. All CT scans are performed using dose optimization technique as appropriate and may include automated exposure control or mA/KV adjustment according to patient size. FINDINGS: Lower chest: No acute abnormality. Liver: No acute abnormality or suspicious lesions. Biliary: No biliary ductal dilatation. Stomach: No significant focal abnormality. Duodenum: No significant focal abnormality. Pancreas: No significant abnormality. Spleen: No significant abnormality. Adrenal: No suspicious lesions. Kidney/ureter: No hydronephrosis. 2 mm stone in the right kidney. Retroperitoneum: No retroperitoneal adenopathy. Vascular: No aneurysm. Bowel: No significant focal abnormality. Peritoneum: No ascites or free air. Reactive inguinal lymph nodes. Bladder: Grossly unremarkable. Reproductive: Ulceration and subcutaneous gas and fluid at these scrotum. No discrete abscess identif ied. Scrotal edema is present. No evidence of soft tissue gas extending into the inguinal regions or abdominal wall. Bones: No acute fracture. Other: n/a IMPRESSION: Scrotal wound/ulceration without abscess. No evidence of disseminated soft tissue gas to suggest a necrotizing fasciitis.
--- NOTE | 2023-04-27 15:10 | ER ---
Nurse's Notes [facility] Name: Sp Nagel Age: 47 yrs Sex: Male : 1975 Arrival Date: 04/27/2023 Time: 12:21 Bed 13 Private MD: Diagnosis: Scrotal Ulcer;Diabetes mellitus due to underlying condition with hyperglycemia Presentation: 04/27 12:39 Chief complaint: Patient states: I have a hole in the base of my scrotum , it started iw as a pimple sized ball, then it got bigger , then it popped , had been there for a couple weeks, there's s smell and it's draining. Coronavirus screen: At this time, the client does not indicate any symptoms associated with coronavirus-19. Ebola Screen: Patient negative for fever greater than or equal to 101.5 degrees Fahrenheit, and additional compatible Ebola Virus Disease symptoms Patient denies exposure to infectious person. Patient denies travel to an Ebola-affected area in the 21 days before illness onset. No symptoms or risks identified at this time. Initial Sepsis Screen: Does the patient meet any 2 criteria? No. Patient's initial sepsis screen is negative. Does the patient have a suspected source of infection? No. Patient's initial sepsis screen is negative. Risk Assessment: Do you want to hurt yourself or someone else? Patient reports no desire to harm self or others. Onset of symptoms was April 07, 2023. 12:39 Method Of Arrival: Ambulatory iw 12:39 Acuity: [place] 3 iw Triage Assessment: 20:17 General: Behavior is calm, cooperative. tm6 Historical: - Allergies: 12:40 Vicodin; iw - PMHx: 12:40 Diabetes - NIDDM; Hyperlipidemia; Hypertension; Hypothyroidism; iw - PSHx: 12:40 leg infection; iw - Immunization history:: Adult Immunizations up to date. - Social history:: Smoking status: unknown. Screenin:53 [facility] ED Fall Risk Assessment (Adult) History of falling in the last 3 months, iw including since admission No falls in past 3 months (0 pts) Confusion or Disorientation No (0 pts) Intoxicated or Sedated No (0 pts) Impaired Gait No (0 pts) Mobility Assist Device Used No (0 pt) Altered Elimination No (0 pt) Score/Fall Risk Level 0 - 2 = Low Risk. Abuse screen: Denies threats or abuse. Denies injuries from another. Nutritional screening: No deficits noted. Tuberculosis screening: No symptoms or risk factors identified. Assessment: 13:53 General: Appears in no apparent distress. uncomfortable, well groomed, well developed. iw Pain: Complains of pain in pelvis, scrotum. Neuro: Level of Consciousness is awake, alert, obeys commands, Oriented to person, place, time, situation, Appropriate for age. Cardiovascular: Capillary refill < 3 seconds. Respiratory: Airway is patent Trachea midline Respiratory effort is even, unlabored, Respiratory pattern is regular, symmetrical. GI: No signs and/or symptoms were reported involving the gastrointestinal system. : No signs and/or symptoms were reported regarding the genitourinary system. Urine is clear, Swelling noted on scrotum with purulent drainage. EENT: No signs and/or symptoms were reported regarding the EENT system. Derm: Skin is intact, is healthy with good turgor, Skin is pink, warm \T\ dry. Abscess located on scrotum is half dollar sized, has purulent drainage, has foul odor. Musculoskeletal: No signs and/or symptoms reported regarding the musculoskeletal system. Circulation, motion, and sensation intact. Capillary refill < 3 seconds, Range of motion: intact in all extremities. 14:53 Reassessment: Patient appears in no apparent distress at this time. No changes from kc6 previously documented assessment. Patient and/or family updated on plan of care and expected duration. Pain level reassessed. Patient is alert, oriented x 3, equal unlabored respirations, skin warm/dry/pink. 15:53 Reassessment: Patient appears in no apparent distress at this time. No changes from kc6 previously documented assessment. Patient and/or family updated on plan of care and expected duration. Pain level reassessed. Patient is alert, oriented x 3, equal unlabored respirations, skin warm/dry/pink. 16:53 Reassessment: Patient appears in no apparent distress at this time. No changes from kc6 previously documented assessment. Patient and/or family updated on plan of care and expected duration. Pain level reassessed. Patient is alert, oriented x 3, equal unlabored respirations, skin warm/dry/pink. 17:53 Reassessment: Patient appears in no apparent distress at this time. No changes from kc6 previously documented assessment. Patient and/or family updated on plan of care and expected duration. Pain level reassessed. Patient is alert, oriented x 3, equal unlabored respirations, skin warm/dry/pink. 18:53 Reassessment: Patient appears in no apparent distress at this time. No changes from kc6 previously documented assessment. Patient and/or family updated on plan of care and expected duration. Pain level reassessed. Patient is alert, oriented x 3, equal unlabored respirations, skin warm/dry/pink. 19:09 Reassessment: Patient appears in no apparent distress at this time. No changes from tm6 previously documented assessment. Patient and/or family updated on plan of care and expected duration. Pain level reassessed. Patient is alert, oriented x 3, equal unlabored respirations, skin warm/dry/pink. 19:33 Reassessment: report attempted. Floor nurse will call back. tm6 Vital Signs: 12:39 BP 126 / 88; Pulse 109; Resp 16; Temp 99.2; Pulse Ox 97% on R/A; Weight 88.45 kg; iw Height 6 ft. 2 in. ; Pain 9/10; 13:55 BP 105 / 84; Pulse 97; Resp 16 S; Pulse Ox 99% on R/A; iw 15:46 BP 111 / 84; Pulse 98; Resp 16 S; Pulse Ox 99% on R/A; kc6 17:15 BP 123 / 91; Pulse 84; Resp 17 S; Pulse Ox 100% on R/A; kc6 19:09 BP 111 / 82; Pulse 95; Pulse Ox 100% ; tm6 12:39 Body Mass Index 25.04 (88.45 kg, 187.96 cm) iw 12:39 Pain Scale: Adult iw ED Course: 12:24 Patient arrived in ED. ra3 12:24 Nick Mukherjee MD is Attending Physician. ec2 12:40 Triage completed. iw 12:41 Arm band placed on. iw 13:32 Inserted saline lock: 20 gauge in right forearm, using aseptic technique. Blood kc6 collected. Patient maintains SpO2 saturation greater than 95% on room air. 13:51 Gill Tellez, DEEPTHI is Primary Nurse. iw 13:53 Patient has correct armband on for positive identification. Placed in gown. Bed in low iw position. Call light in reach. Side rails up X 1. Adult w/ patient. Client placed on continuous cardiac and pulse oximetry monitoring. NIBP monitoring applied. 14:16 CT Abd/Pelvis - IV Contrast Only In Process Unspecified. EDMS 15:09 Darius Egan MD is Hospitalizing Provider. ec2 19:00 Report given to DEEPTHI Guerrier. kc6 20:17 Provided Education on: need for admit. tm6 20:17 No provider procedures requiring assistance completed. Patient admitted, IV remains in tm6 place. Administered Medications: 13:51 Drug: Piperacillin-Tazobactam IVPB 3.375 grams IVPB once over 60 mins; (mix in NS 100 iw mL) Route: IVPB; Infused Over: 60 mins; Site: right forearm; 15:45 Follow up: Response: No adverse reaction; IV Status: Completed infusion; IV Intake: kc6 100ml 13:51 Drug: Acetaminophen PO 1000 mg PO once Route: PO; iw 15:45 Follow up: Response: No adverse reaction [facility] 14:31 Drug: NS 0.9% IV 1000 ml IV at 1 bolus Per protocol; 1000 mL bolus Route: IV; Rate: 1 kc6 bolus; Site: right forearm; 15:46 Follow up: Response: No adverse reaction; IV Status: Completed infusion; IV Intake: kc6 1000ml 14:31 Drug: NS 0.9% IV 1000 ml IV at 1 bolus Per protocol; 1000 mL bolus Route: IV; Rate: 1 kc6 bolus; Site: right forearm; 15:46 Follow up: Response: No adverse reaction; IV Status: Completed infusion; IV Intake: kc6 1000ml 14:32 Drug: Insulin Regular Human IVP 5 units IVP once {Co-Signature: cp4 (Yola, kc6 Sinai).} Route: IVP; Site: right forearm; 15:23 Follow up: Response: No adverse reaction; Blood sugar is lowered kc6 15:23 Drug: vancoMYCIN IVPB 1.5 grams IVPB at calculated rate once Route: IVPB; Rate: kc6 calculated rate; Site: right forearm; 17:16 Follow up: Response: No adverse reaction; IV Status: Completed infusion; IV Intake: kc6 250ml 15:45 Drug: fentaNYL (PF) IVP 50 mcg IVP once Route: IVP; Site: right forearm; kc6 17:16 Follow up: Response: No adverse reaction; Pain is decreased; RASS: Alert and Calm (0) kc6 Medication: 20:18 VIS not applicable for this client. tm6 Intake: 15:45 IV: 100ml; Total: 100ml. kc6 15:46 IV: 1000ml; Total: 1100ml. kc6 15:46 IV: 1000ml; Total: 2100ml. kc6 17:16 IV: 250ml; Total: 2350ml. kc6 Outcome: 15:09 Decision to Hospitalize by Provider. ec2 20:17 Admitted to Med/surg accompanied by nurse, via stretcher, room 411, with chart, Report tm6 called to Elba LACEY 20:17 Condition: stable 20:17 Instructed on the need for admit, 20:18 Patient left the ED. tm6 Signatures: Dispatcher [employer] Gill Mccormick, RN DEEPTHI iw Kimberly Wood RN RN kc6 Nick Mukherjee MD MD ec2 Chey Armas RN RN tm6 January Mccracken ra [facility] Aceves 4
--- NOTE | 2023-04-27 15:10 | EDPHYS ---
Physician Documentation [facility] Name: Sp Nagel Age: 47 yrs Sex: Male : 1975 Arrival Date: 04/27/2023 Time: 12:21 Bed 13 Private MD: ED Physician Nick Mukherjee HPI: 04/27 12:58 This 47 yrs old Male presents to ER via Ambulatory with complaints of Abscess, ec2 Scrotal Pain, Acute Onset. 12:58 Patient arrives today for evaluation of scrotal pain and discharge. Patient reports ec2 that he had noted a small pimple several weeks ago that progressed to have skin breakdown. States that he is having discharge as well as bleeding from the area. Reports no fevers or chills, no nausea or vomiting. Reports history of diabetes.. Historical: - Allergies: 12:40 Vicodin; iw - PMHx: 12:40 Diabetes - NIDDM; Hyperlipidemia; Hypertension; Hypothyroidism; iw - PSHx: 12:40 leg infection; iw - Immunization history:: Adult Immunizations up to date. - Social history:: Smoking status: unknown. ROS: 12:58 Constitutional: as per hpi ec2 Exam: 12:58 Constitutional: GEN: NAD Head: atraumatic Eyes: EOMI Ears: External ears are ec2 normal. CV: tachycardia LUNGS: no respiratory distress ABD: non-distended SKIN: no evidence of rashes. : Large gaping wound in the perineum with purulent drainage and skin breakdown MSK: no evidence of trauma NEURO: moves all extremities equally Vital Signs: 12:39 BP 126 / 88; Pulse 109; Resp 16; Temp 99.2; Pulse Ox 97% on R/A; Weight 88.45 kg; iw Height 6 ft. 2 in. ; Pain 9/10; 13:55 BP 105 / 84; Pulse 97; Resp 16 S; Pulse Ox 99% on R/A; iw 15:46 BP 111 / 84; Pulse 98; Resp 16 S; Pulse Ox 99% on R/A; kc6 17:15 BP 123 / 91; Pulse 84; Resp 17 S; Pulse Ox 100% on R/A; kc6 19:09 BP 111 / 82; Pulse 95; Pulse Ox 100% ; tm6 12:39 Body Mass Index 25.04 (88.45 kg, 187.96 cm) iw 12:39 Pain Scale: Adult iw MDM: 12:45 Patient medically screened. ec2 12:58 Data reviewed: vital signs. ec2 13:00 ED course: Patient arrives today due to concern for discharge from his scrotum and skin ec2 breakdown. Examination remarkable for findings as noted above. Will obtain lab work, CT imaging and treat the patient empirically with antibiotics. Concern for cellulitis versus Jaya's gangrene.. 13:31 ED course: EKG independently reviewed and interpreted by me, shows normal sinus rhythm, ec2 rate of 100, no acute ST segment elevations, intervals nonactionable.. 14:05 ED course: CBC without marked leukocytosis, metabolic profile shows hyperglycemia with ec2 a blood sugar of 697, pseudohyponatremia noted, anion gap of 16.3 noted. CRP elevated at 4.89. Lactic acid within normal ranges. . 14:34 ED course: Blood gas shows pH of 7.4.. ec2 14:34 ED course: +1 ketones present in the urine.. ec2 14:44 ED course: CT imaging shows scrotal wound/ulceration, consistent with physical ec2 examination, no evidence of tissue gas to suggest necrotizing fasciitis. . 15:08 ED course: I discussed case with urology, Dr. Johnston, who will consult on the ec2 inpatient setting. Discussed case with hospitalist, pending admission.. 02 12:56 Order name: Blood Culture Adult (2) ec2 04/27 12:56 Order name: CBC with Diff; Complete Time: 14:04 ec2 04/27 12:56 Order name: CMP; Complete Time: 14:04 ec2 04/27 12:56 Order name: Lactate w/ 2H reflex if indic.; Complete Time: 14:04 ec2 04/27 12:56 Order name: Protime (+inr); Complete Time: 14:04 ec2 04/27 12:56 Order name: Ptt, Activated; Complete Time: 14:04 ec2 04/27 13:18 Order name: CRP; Complete Time: 14:04 ec2 04/27 14:05 Order name: UAM; Complete Time: 14:34 ec2 04/27 14:07 Order name: ABG: VBG instead ec2 04/27 15:30 Order name: Glucose, Ancillary Testing EDMS 04/27 20:12 Order name: Glucose, Ancillary Testing EDME 04/27 12:56 Order name: CT Abd/Pelvis - IV Contrast Only; Complete Time: 14:44 ec2 04/27 12:56 Order name: EKG; Complete Time: 12:56 ec2 04/27 15:52 Order name: CONS Physician Consult [facility] 04/27 12:56 Order name: Accucheck; Complete Time: 13:32 ec2 04/27 12:56 Order name: Cardiac monitoring; Complete Time: 13:32 ec2 04/27 12:56 Order name: EKG - Nurse/Tech; Complete Time: 13:32 ec2 04/27 12:56 Order name: IV Saline Lock - Large Bore; Complete Time: 13:32 ec2 04/27 12:56 Order name: Labs collected and sent; Complete Time: 13:32 ec2 04/27 12:56 Order name: O2 Per Protocol; Complete Time: 13:10 ec2 04/27 12:56 Order name: O2 Sat Monitoring; Complete Time: 13:10 ec2 04/27 12:56 Order name: Vital Signs; Complete Time: 13:10 ec2 04/27 15:01 Order name: Accucheck Blood Glucose; Complete Time: 15:23 ec2 Administered Medications: 13:51 Drug: Piperacillin-Tazobactam IVPB 3.375 grams IVPB once over 60 mins; (mix in NS 100 iw mL) Route: IVPB; Infused Over: 60 mins; Site: right forearm; 15:45 Follow up: Response: No adverse reaction; IV Status: Completed infusion; IV Intake: kc6 100ml 13:51 Drug: Acetaminophen PO 1000 mg PO once Route: PO; iw 15:45 Follow up: Response: No adverse reaction kc6 14:31 Drug: NS 0.9% IV 1000 ml IV at 1 bolus Per protocol; 1000 mL bolus Route: IV; Rate: 1 kc6 bolus; Site: right forearm; 15:46 Follow up: Response: No adverse reaction; IV Status: Completed infusion; IV Intake: kc6 1000ml 14:31 Drug: NS 0.9% IV 1000 ml IV at 1 bolus Per protocol; 1000 mL bolus Route: IV; Rate: 1 kc6 bolus; Site: right forearm; 15:46 Follow up: Response: No adverse reaction; IV Status: Completed infusion; IV Intake: kc6 1000ml 14:32 Drug: Insulin Regular Human IVP 5 units IVP once {Co-Signature: cp4 (margy Aceves).} Route: IVP; Site: right forearm; 15:23 Follow up: Response: No adverse reaction; Blood sugar is lowered kc6 15:23 Drug: vancoMYCIN IVPB 1.5 grams IVPB at calculated rate once Route: IVPB; Rate: kc6 calculated rate; Site: right forearm; 17:16 Follow up: Response: No adverse reaction; IV Status: Completed infusion; IV Intake: kc6 250ml 15:45 Drug: fentaNYL (PF) IVP 50 mcg IVP once Route: IVP; Site: right forearm; kc6 17:16 Follow up: Response: No adverse reaction; Pain is decreased; RASS: Alert and Calm (0) kc6 Disposition Summary: 04/27/23 15:09 Hospitalization Ordered Notes: Hospitalization Status: Inpatient Admission ec2 Provider: Darius Egan ec2 Condition: Stable ec2 Problem: new ec2 Symptoms: are unchanged ec2 Bed/Room Type: Standard ec2 Location: Telemetry/MedSurg (Inpatient)(04/27/23 19:02) rv1 Room Assignment: 411(04/27/23 19:02) rv1 Diagnosis - Scrotal Ulcer ec2 - Diabetes mellitus due to underlying condition with hyperglycemia ec2 Forms: - Medication Reconciliation Form ec2 - SBAR form ec2 - Leadership Thank You Letter ec2 Signatures: Dispatcher [employer] Michaela Carver Irene, RN RN iw Campbell, Kaitlyn, RN RN [email or web address] Daniela Griffith rv1 Nick Mukherjee MD MD ec2 Chey Armas RN RN tm6 Potter, Christina cp4 Corrections: (The following items were deleted from the chart) 12:57 12:56 Patient medically screened. ec2 ec2 12:59 12:58 Constitutional: GEN: NAD Head: atraumatic Eyes: EOMI Ears: External ears are ec2 normal. CV: regular rate LUNGS: no respiratory distress ABD: non-distended SKIN: no evidence of rashes. : Large gaping wound in the perineum with purulent drainage and skin breakdown MSK: no evidence of trauma NEURO: moves all extremities equally ec2 16:46 15:09 ec2 bd 17:19 15:09 Telemetry/MedSurg (Inpatient) ec2 bd 17:19 16:46 213 bd bd 19:02 17:19 [facility] ER HOLD bd rv1 19:02 17:19 ERHOLD- bd rv1
[2023-04-27] MEDS ORDERED: FENTANYL CITR 100 MCG/2 ML ONE (15:40)
--- NOTE | 2023-04-27 15:48 | P.HP ---
Certification for Inpatient Patient admitted to: Inpatient With expected LOS: <2 Midnights Practitioner: I am a practitioner with admitting privileges, knowledge of patient current condition, hospital course, and medical plan of care. Services: Services provided to patient in accordance with Admission requirements found in Title 42 Section 412.3 of the Code of Federal Regulations Patient History Date of Service: 04/27/23 Reason for admission: Sacral abscess History of Present Illness: 47-year-old male with a past medical history of diabetes, hyperlipidemia, hypertension, hypothyroidism, presents to the emergency room for skin scrotal abscess he reports symptoms started 3 weeks ago is progressively getting worse. He reports foul odor, bloody drainage. He reports history of diabetes, noncompliant with insulin, noncompliance with checking blood glucose, he reports noncompliance with following up with primary care, he reports last PCP visit was in February 2023 with a hemoglobin of 15. No reported fever, nausea vomiting diarrhea, urinary frequency, plan to admit for scrotal ulcer, uncontrolled diabetes, hyperglycemia. CT imaging shows scrotal wound/ulceration, consistent with physical examination, no evidence of tissue gas to suggest necrotizing fasciitis. Urology consulted and notified of admission. ER evaluation EKG normal sinus rhythm rate [address] elevations, CBC without leukocytosis, metabolic panel shows hyperglycemia blood sugar of 697, pseudohyponatremia, gap of 16.3, elevated CRP. Lactic acid within normal limits Allergies acetaminophen [From Vicodin] Allergy (Verified 11/11/22 10:08) Hives hydrocodone [From Vicodin] Allergy (Verified 11/11/22 10:08) Hives seafood Allergy (Unknown, Uncoded 09/02/15 07:24) Rash Home Medications: Metformin HCl [Glucophage*] 1,000 mg PO BIDWM 07/18/15 Insulin Lispro [Humalog] 5 unit SQ TID #10 ml 04/24/22 Hydrocodone 10/APAP 325 [[place] 10/325] 1 tab PO Q6H PRN #30 tab 11/12/22 Minocycline HCl 100 mg PO BID #20 cap 11/12/22 Smz./Tmp. [Bactrim Ds 800 MG/160 MG] 1 tab PO BID #20 tab 11/12/22 - Past Medical/Surgical History Diabetic: Yes -: Hypothyroidism -: Diabetes -: Hypertension -: abcess/cellulitis to R arm w/ I&D - Family History Father -: Heart disease, Hypertension, Other (see notes) Notes: Hypothyroidism Mother -: Diabetes, Kidney disease, Other (see notes) Notes: Dialysis; Legally blind - Social History Alcohol use: Yes CD- Drugs: No Caffeine use: Yes Review of Systems PER HPI Physical Examination - Physical Exam General: Alert, In no apparent distress, Oriented x3 HEENT: Atraumatic, Normocephalic Neck: Supple, 2+ carotid pulse no bruit Respiratory: Clear to auscultation bilaterally, Normal air movement Cardiovascular: No edema, Normal pulses Gastrointestinal: Normal bowel sounds, Soft and benign Musculoskeletal: No clubbing, No swelling Integumentary: Other (Scrotal abscess with serosanguineous discharge,) Neurological: Normal speech, Normal strength at 5/5 x4 extr - Studies Laboratory Data (last 24 hrs) 04/27/23 04/27/23 04/27/23 13:27 13:27 13:27 WBC 8.40 Hgb 13.6 Hct 39.3 L Plt Count 499 H PT 10.1 INR 0.92 APTT 29.2 Sodium 127 L Potassium 4.3 BUN 16 Creatinine 0.99 Glucose 697 H* Total Bilirubin 0.7 AST 8 L ALT 19 Alkaline Phosphatase 189 H Assessment and Plan - Plan Assessment and plan Scrotal abscess Urology consult, IV antibiotics, as needed analgesics Infectious disease consult, wound culture, skin scrotal abscess he reports symptoms started 3 weeks ago is progressively getting worse. He reports foul odor, bloody drainage. CT imaging shows scrotal wound/ulceration, consistent with physical examination, no evidence of tissue gas to suggest necrotizing fasciitis. Uncontrolled diabetes with hyperglycemia with complication Treatment noncompliance High level sliding scale insulin, Accu-Cheks, A1c in a.m. CBC without leukocytosis, metabolic panel shows hyperglycemia blood sugar of 697, Lactic acid within normal limits noncompliant with insulin, noncompliance with checking blood glucose, he reports noncompliance with following up with primary care, he reports last PCP visit was in February 2023 with a hemoglobin of 15. pseudohyponatremia gap of 16.3 elevated CRP. hyperlipidemia Essential hypertension hypothyroidism EKG normal sinus rhythm rate [address] elevations, Resume appropriate home meds Full code DVT SCD Diet diabetic Discharge Plan: Home Plan to discharge in: 48 Hours - Advance Directives Does patient have a Living Will: No Does patient have a Durable POA for Healthcare: No - Code Status/Comfort Care Code Status: Full Code Critical Care: No Time Spent Managing Pts Care (In Minutes): 55
[2023-04-27] MEDS: ENOXAPARIN 40 MG/0.4 ML SQ SCH (17:00)
[2023-04-27] MEDS: PIPER TAZO 3.375 GM in NA CHLORIDE 0.9% 100 ML IV SCH (17:00)
[2023-04-27] MEDS ORDERED: HYDROMORPHONE HCL 0.5 MG/0.5 ML INJ ONE (19:16)
[2023-04-27] MEDS ORDERED: ENOXAPARIN 40 MG/0.4 ML SQ ONE (19:16)
[2023-04-27] MEDS: HYDROMORPHONE HCL 0.5 MG/0.5 ML INJ IV PRN (19:20)
[2023-04-27] MEDS ORDERED: ACETAMINOPHEN 500 MG TAB PO PRN (20:24)
[2023-04-27] MEDS ORDERED: ONDANSETRON 4 MG/2 ML VIAL IV PRN (20:24)
[2023-04-27 20:41] VITALS: BMI 24.3
[2023-04-27] MEDS: INSULIN REGULAR (HUMAN) 100 UNIT/ML SQ SCH (21:00)
[2023-04-27] MEDS: INSULIN GLARGINE 100 UNIT/ML SQ SCH (21:49)
[2023-04-27] MEDS: NA CHLORIDE 0.9% 1,000 ML IV SCH (21:49)
--- NOTE | 2023-04-27 21:52 | P.CNS ---
Date of Consult: 04/27/23 Reason for Consult: scrotal abscess Chief Complaint: Sacral abscess History of Present Illness: 47-year-old gentleman with hypertension, IDDM 2, hyperlipidemia and hypothyroidism, who is previously been seen and managed surgically with Dr. Addison for lower extremity wound issues, presents with 3-week history of a scrotal issue. He says it started like a pimple and eventually progressed within the last week and a half to a cavity. He had been managing it at home with the assistance of his using an irrigation device that he had previously been given for treatment of his lower extremity wounds, but despite this, the area failed to improve and in fact worsened. He indicates significant foul odor and drainage. He was previously on antibiotics, Bactrim and minocycline, relative to treatment of the lower extremity wound, but he has not been on any antibiotics in the last several weeks. Past medical history: As above Past surgical history: Lower extremity wound treatments Allergies: Acetaminophen, hydrocodone, seafood/iodine Social history: Former smoker of 20 years, 0.5 packs/day, but he quit about 3 years ago Family history: Denies urologic malignancy Review of symptoms: Denies any fevers or chills, nausea or vomiting Examination: Alert, awake, oriented x 3 in no acute distress No dyspnea or sign of respiratory distress Perineal scrotal area with large, approximately 5 to 6 cm diameter cavity with necrotic patch of tissue hanging from within the cavity, and sinus tracts extending superiorly and exiting with drainage at 2 points more superiorly within the inferior midline hemiscrotum. No crepitus noted. Mild erythema surrounding the periphery of the cavity. Able to move his lower extremities despite lying in bed sufficient to frog-leg for the exam and assessment 04/27/2023 CT abdomen and pelvis with contrast -I reviewed the images in detail with the following findings: Ulceration and possible cavity with subcutaneous gas and fluid within the inferior hemiscrotum Radiologist interpretation additional findings: 2 mm right renal calcification. Reactive inguinal lymph nodes noted. WBC 8.4, hemoglobin 13.6, platelets 499, INR 0.92, creatinine 0.99, glucose 697, bicarb 25, sodium 127, chloride 90, elevated anion gap, lactate 1.2 UA micro 4+ glucose, 1+ ketones, otherwise negative Assessment and recommendation: 47-year-old gentleman with hypertension, IDDM 2, hyperlipidemia and hypothyroidism, with prior lower extremity wounds manage surgically now with large perineal scrotal widely open 6 cm diameter abscess cavity with sinus tract with necrotic tissue and approximately 2 to 3 cm diameter inferior scrotal mid line draining abscess, likely contributing to DKA. -I counseled the patient that the wound was dirty enough appearing, that while draining, was unlikely to heal without definitive surgical debridement followed by intensive wound care. As such, to prevent further deterioration of his clinical situation, especially given his poorly controlled diabetes, I recommended operative surgical debridement, and incision and spatulation of the inferior scrotal abscess and marsupialization of the associated sinus tracts. -I counseled him on the likely need for wet-to-dry dressing changes postoperatively, which had the potential for significant discomfort, and these would likely be of benefit following twice daily sitz bath's, and sitz bath's following any bowel movements. -Meanwhile, since he has industrial paper towels now sitting in the wound, I discussed with nursing placing a 50-50 mixture of Betadine and saline soaked gauze into the cavity and covering it with an ABD pad pending surgical debri kiana. -I further counseled the patient that as long as he does not take a turn for the worse and become clinically ill, he can have breakfast in the morning, but he should be n.p.o. starting at lunch tomorrow including dinner, anticipating surgical debridement around 7 PM. -Wound care nursing consultation would be of value, likely on Tuesday, following surgical debridement tomorrow evening. -Continue aggressive IV antimicrobial therapy targeting aerobic as well as anaerobic organisms and MRSA Allergies acetaminophen [From Vicodin] Allergy (Verified 11/11/22 10:08) Hives hydrocodone [From Vicodin] Allergy (Verified 11/11/22 10:08) Hives seafood Allergy (Unknown, Uncoded 09/02/15 07:24) Rash Home medications list reviewed: Yes Home Medications: Metformin HCl [Glucophage*] 1,000 mg PO BIDWM 07/18/15 Insulin Lispro [Humalog] 5 unit SQ TID #10 ml 04/24/22 Hydrocodone 10/APAP 325 [[place] 10/325] 1 tab PO Q6H PRN #30 tab 11/12/22 Minocycline HCl 100 mg PO BID #20 cap 11/12/22 Smz./Tmp. [Bactrim Ds 800 MG/160 MG] 1 tab PO BID #20 tab 11/12/22 - Past Medical/Surgical History Diabetic: Yes -: Hypothyroidism -: Diabetes -: Hypertension -: abcess/cellulitis to R arm w/ I&D - Family History Father Medical History: Heart disease, Hypertension, Other (see notes) Notes: Hypothyroidism Mother Medical History: Diabetes, Kidney disease, Other (see notes) Notes: Dialysis; Legally blind - Social History Smoking Status: Unknown if ever smoked Alcohol use: Yes CD- Drugs: No Caffeine use: Yes Physical Examination Temp Pulse Resp BP Pulse Ox 99.2 F 95 H 17 111/82 100 04/27/23 20:27 04/27/23 20:34 04/27/23 20:32 04/27/23 20:34 04/27/23 19:20 Laboratory Data (last 24 hrs) 04/27/23 04/27/23 04/27/23 13:27 13:27 13:27 WBC 8.40 Hgb 13.6 Hct 39.3 L Plt Count 499 H PT 10.1 INR 0.92 APTT 29.2 Sodium 127 L Potassium 4.3 BUN 16 Creatinine 0.99 Glucose 697 H* Total Bilirubin 0.7 AST 8 L ALT 19 Alkaline Phosphatase 189 H - Problems (1) Abscess of deep perineal space Current Visit: Yes Status: Acute (2) Scrotal abscess Current Visit: Yes Status: Acute (3) DKA (diabetic ketoacidosis) Current Visit: Yes Status: Acute Critical Care: No Time Spent Managing Pts care (In Minutes): 75
[2023-04-28] MEDS: HYDROCODONE/APAP 10/325 TAB PO PRN (00:04)
[2023-04-28] MEDS: VANCOMYCIN 1 GM/VIAL ONE (02:13)
[2023-04-28] MEDS: NA CHLORIDE 0.9% 500 ML ONE (02:13)
[2023-04-28] MEDS: VANCOMYCIN 500 MG/VIAL ONE (02:15)
[2023-04-28] MEDS: VANCOMYCIN 1.5 GM in NA CHLORIDE 0.9% 500 ML IVPB SCH (02:52)
--- NOTE | 2023-04-28 07:13 | P.PN ---
Subjective Date of Service: 04/28/23 Chief Complaint: Sacral abscess No overnight events, pain controlled with as needed analgesia - Physical Exam General: Alert, In no apparent distress, Oriented x3 HEENT: Atraumatic, Normocephalic Neck: Supple, 2+ carotid pulse no bruit Respiratory: Clear to auscultation bilaterally, Normal air movement Cardiovascular: No edema, Normal pulses Gastrointestinal: Normal bowel sounds, Soft and benign Musculoskeletal: No clubbing, No swelling Integumentary: Other (Scrotal abscess with serosanguineous discharge,) Neurological: Normal speech, Normal strength at 5/5 x4 extr Review of Systems per HPI Physical Examination - Vital Signs Temperature: 97.3 F Blood Pressure: 113/65 Pulse: 86 Respirations: 20 Pulse Ox (%): 98 - Studies Laboratory Data (last 24 hrs) 04/27/23 04/27/23 04/27/23 13:27 13:27 13:27 WBC 8.40 Hgb 13.6 Hct 39.3 L Plt Count 499 H PT 10.1 INR 0.92 APTT 29.2 Sodium 127 L Potassium 4.3 BUN 16 Creatinine 0.99 Glucose 697 H* Total Bilirubin 0.7 AST 8 L ALT 19 Alkaline Phosphatase 189 H Microbiology Data (last 24 hrs): 04/27/23 13:27 Blood - Blood Anaerobic Blood Culture - Final Assessment And Plan - Plan Assessment and plan Scrotal abscess Urology consult, IV antibiotics, as needed analgesics Infectious disease consult, wound culture, skin scrotal abscess he reports symptoms started 3 weeks ago is progressively getting worse. He reports foul odor, bloody drainage. CT imaging shows scrotal wound/ulceration, consistent with physical examination, no evidence of tissue gas to suggest necrotizing fasciitis. Dr. Johnston to consult n.p.o. for I&D 04/28 crotal widely open 6 cm diameter abscess cavity with sinus tract with necrotic tissue and approximately 2 to 3 cm diameter inferior scrotal midline draining abscess, likely contributing to DKA. recommended operative surgical debridement, and incision and spatulation of the inferior scrotal abscess and marsupialization of the associated sinus tracts. -I counseled him on the likely need for wet-to-dry dressing changes postoperatively, which had the potential for significant discomfort, and these would likely be of benefit following twice daily sitz bath's, and sitz bath's following any bowel movements. -Meanwhile, since he has industrial paper towels now sitting in the wound, I discussed with nursing placing a 50-50 mixture of Betadine and saline soaked gauze into the cavity and covering it with an ABD pad pending surgical debridement. -I further counseled the patient that as long as he does not take a turn for the worse and become clinically ill, he can have breakfast in the morning, but he should be n.p.o. starting at lunch tomorrow including dinner, anticipating surgical debridement around 7 PM. -Wound care nursing consultation would be of value, likely on Tuesday, following surgical debridement tomorrow evening. -Continue aggressive IV antimicrobial therapy targeting aerobic as well as anaerobic organisms and MRSA Uncontrolled diabetes with hyperglycemia with complication Treatment noncompliance Glucosuria Proteinuria High level sliding scale insulin, Accu-Cheks, Normal saline at 125 x 3 L treatment for hyperglycemia A1c in a.m. CBC without leukocytosis, metabolic panel shows hyperglycemia blood sugar of 697, Lactic acid within normal limits, gap of 16.3 noncompliant with insulin, noncompliance with checking blood glucose, he reports noncompliance with following up with primary care, he reports last PCP visit was in February 2023 with a hemoglobin of 15. 2/22 Lantus increased from 20 to 24 units at bedtime, hemoglobin A1c greater than 14 pseudohyponatremia elevated CRP. Trend CRP Thrombocytosis platelets 499 Lovenox hyperlipidemia Essential hypertension hypothyroidism EKG normal sinus rhythm rate [address] elevations, Resume appropriate home meds Full code DVT Lovenox Diet diabetic Disposition Home estimated 48 hours Discharge Plan: Home - Code Status/Comfort Care Code Status: Full Code Critical Care: No Time Spent Managing PTS Care (In Minutes): 35
[2023-04-28 07:27] LABS: Absolute Lymphocytes (CBC) 1.8 K/uL (0.7-4.9); Lymphocytes % 23.3 % (15.3-44.8); MCV 89.6 fL (80-100); MPV 7.3 fL (7.6-11.3); Platelets 495 thou/uL (152-406); RBC Red Blood Cell Count 4.35 M/uL (4.33-5.43)
[2023-04-28 07:44] LABS: C-Reactive Protein 3.88 mg/L (<3.00); Potassium 4.6 mEq/L (3.5-5.1)
--- NOTE | 2023-04-28 08:53 | P.CNS ---
Date of Consult: 04/28/23 Reason for Consult: scrotal cellulitis Chief Complaint: Sacral abscess History of Present Illness: "47-year-old male with a past medical history of diabetes, hyperlipidemia, hypertension, hypothyroidism, presents to the emergency room for skin scrotal abscess he reports symptoms started 3 weeks ago is progressively getting worse. He reports foul odor, bloody drainage. He reports history of diabetes, noncompliant with insulin, noncompliance with checking blood glucose, he reports noncompliance with following up with primary care, he reports last PCP visit was in February 2023 with a hemoglobin of 15. No reported fever, nausea vomiting diarrhea, urinary frequency, plan to admit for scrotal ulcer, uncontrolled diabetes, hyperglycemia. CT imaging shows scrotal wound/ulceration, consistent with physical examination, no evidence of tissue gas to suggest necrotizing fasciitis." Allergies No Known Allergies Allergy (Verified 04/27/23 22:10) Home medications list reviewed: Yes Home Medications: Metformin HCl [Glucophage*] 1,000 mg PO BIDWM 07/18/15 Insulin Glargine,Hum.rec.anlog [Lantus] 10 unit SQ BEDTIME 04/28/23 Insulin Lispro [Humalog] See Protocol SQ AC 04/28/23 - Past Medical/Surgical History Diabetic: Yes -: Hypothyroidism-resolved after weight loss -: Diabetes -: Hypertension-resolved after weight loss -: abcess/cellulitis to R arm w/ I&D -: Debridement RLE wound - Family History Father Medical History: Heart disease, Hypertension, Other (see notes) Notes: Hypothyroidism Mother Medical History: Diabetes, Kidney disease, Other (see notes) Notes: Dialysis; Legally blind - Social History Smoking Status: Unknown if ever smoked Alcohol use: Yes CD- Drugs: No Caffeine use: Yes Place of Residence: Home Review of Systems 10-point ROS is otherwise unremarkable Integumentary: As per HPI Physical Examination Temp Pulse Resp BP Pulse Ox 97.3 F 86 20 113/65 98 04/28/23 07:16 04/28/23 07:16 04/28/23 07:16 04/28/23 07:16 04/28/23 07:16 General: Alert, In no apparent distress, Oriented x3 HEENT: Atraumatic, Normocephalic Respiratory: Clear to auscultation bilaterally, Normal air movement Cardiovascular: Regular rate/rhythm, Edema (trace BLE edema) Gastrointestinal: Normal bowel sounds, Soft and benign Integumentary: Other (scrotal erythema and tenderness. Full thickness scrotal wound with eschar. Foul odor noted.) Neurological: Normal speech External genitalia: Edema, Tenderness Laboratory Data - Reviewed Microbiology Data - Reviewed Imagings Data: - Reviewed Conclusions/Impression: Problem List Scrotal Cellulitis Diabetes Mellitus type II Thrombocytosis Hypertension Hyperlipidemia Scrotal Cellulitis - CT abdomen pelvis 04/27:" Scrotal wound/ulceration without abscess. No evidence of disseminated soft tissue gas to suggest a necrotizing fasciitis." - Blood cultures 04/27: pending - scrotal wound culture 04/27: gram positive cocci - Currently on Zosyn and Vancomycin (started 04/27) - Urology consulted, pending debridement No leukocytosis Afebrile Recommendations - Scrotal cellulitis, wound culture growing preliminary gram stain with gram positive cocci: - Continue Zosyn and Vancomycin for now. - Will follow up with final wound culture results and adjust antibiotics as appropriate. - Recommend continuing antibiotic therapy for 14 days. - Keep area clean and dry. Wound care per urology/wound care team. - Monitor CBC and BMP Case discussed with Rocky Olguin
--- NOTE | 2023-04-28 16:08 | EKG ---
Test Date: 2023-04-27 Test Time: 13:18:54 Service Or Work Dispatcher: KWAME MEASUREMENT RESULTS: Intervals: Rate: 100 OH: 142 QRSD: 90 QT: 380 QTc: 490 [place]: P: 83 OH: 142 QRS: 85 T: 85 INTERPRETIVE STATEMENTS: Normal sinus rhythm Prolonged QT Abnormal ECG Compared to ECG 11/10/2022 14:32:32 Prolonged QT interval now present Sinus tachycardia no longer present Electronically Signed On 04-28-23 16:04:55 WASH WORKER by Nicholas Farmer
[2023-04-28] MEDS ORDERED: ONDANSETRON 4 MG/2 ML VIAL ONE (19:57)
[2023-04-28] MEDS ORDERED: FENTANYL CITR 100 MCG/2 ML ONE (19:57)
[2023-04-28] MEDS ORDERED: MIDAZOLAM HCL 2 MG/2 ML INJ ONE (19:57)
[2023-04-28] MEDS ORDERED: LIDOCAINE 2% MPF 5 ML VIAL ONE (19:57)
[2023-04-28] MEDS ORDERED: propofoL 200 MG/20 ML VIAL IV ONE (19:57)
[2023-04-28] MEDS ORDERED: BUPIVACAINE 0.25% PF 30 ML VIAL ONE (19:59)
[2023-04-28] MEDS ORDERED: BACITRACIN OINTMENT 14 GM TUBE TOP ONE (19:59)
[2023-04-28] MEDS ORDERED: EPHEDRINE SULF 50 MG/ML VIAL ONE (20:37)
[2023-04-28] MEDS ORDERED: METHYLENE BLUE 1% 10 ML VIAL ONE (21:01)
[2023-04-28] MEDS: NA CHLORIDE 0.9% 2,000 ML ONE (21:25)
[2023-04-28] MEDS: HYDROMORPHONE HCL 1 MG/ML INJ ONE (22:03)
[2023-04-28] MEDS: FENTANYL CITR 100 MCG/2 ML ONE (22:17)
--- NOTE | 2023-04-28 22:20 | P.OP ---
Date of Service: 04/28/23 Preoperative diagnosis: Perineal scrotal abscess Postoperative diagnosis: Perineal scrotal abscess Phimosis Principal procedures: Complicated placement of a urethral Gonzalez catheter Methylene blue assessment of [id number] Marsupialization of sinus tracts Incision and drainage of perineal scrotal abscess Indication for procedure: 47-year-old gentleman with hypertension, IDDM 2, hyperlipidemia and hypothyroidism, with prior lower extremity wounds manage surgically now with large perineal scrotal widely open 6 cm diameter abscess cavity with sinus tract with necrotic tissue and approximately 2 to 3 cm diameter inferior scrotal midline draining abscess, likely contributing to DKA. Procedure note: The patient was consented in the preoperative holding area before being transferred to the operative suite where general anesthesia was induced. He was receiving vancomycin and Zosyn IV antimicrobial therapy as admitted inpatient. Pneumoboots were provided for DVT prophylaxis. He was placed in the lithotomy position, padded and secured to the table appropriately. His genitalia and perineal scrotal region and inner thighs was prepped with Betadine and draped in standard fashion. The case was begun using a bulb irrigation syringe and Betadine to gain access into a densely phimotic foreskin and irrigate the glans region with Betadine. I then passed a 20 Malay urethral Gonzalez catheter via the meatus and into his bladder with relative ease. I decompressed the bladder of several 100 cc of clear yellow urine and then clamped the catheter elevating the phallus out of the perineal region using a Sheila clamp attaching it to the drape. I then elevated the scrotum out of the perineal region by suturing the scrotal skin bilaterally using 2-0 nylon suture to the drapes. This did nicely open the incision for evaluation. At this point, there was significant necrotic debris emanating from within the abscess cavity and attached densely to the underlying tissue. I began by using a pulse lavage and normal saline irrigation to dislodge a significant portion of that debris. I then utilized a clamp to hold it while I excised it from the underlying tissue using Bovie electrocautery. Once this necrotic debris was completely excised, I noted an area inferiorly near the opening to the anal canal. As a result, I digitally explored the anal canal for any sign of obvious entry from the inferior portion of the abscess cavity. None was noted. I then placed a Ray-Bren sponge into the anal canal and inner portion of the rectum and attempted to inject methylene blue via an Angiocath and syringe and to any crevices and possible sinus tracts present within the inferior portion of the abscess cavity wound to see if any of it would enter into the rectum and stain the gauze. Ultimately, after period of assessment, the gauze was removed and no methylene blue was noted on it. So I then turned my attention to marsupialize in the connection between the main abscess cavity and 2 additional portions of abscess extending into the inferior midline of the scrotum. A large sinus tract was present that was easily acc essed with a Sheila clamp and the tip of the sinus tract did open in the center of a inferior scrotal abscess. I thus utilized Bovie electrocautery on cut to incise and open that sinus track completely into both locations. The intervening necrotic tissue I then excised sharply and excised all of the rim associated unhealthy and devascularized tissue along the rim of the entire abscess cavity. Bovie electrocautery was used to fulgurate any and all bleeding vessels throughout the course of this excision. Along the base of the cavity after pulse lavage, there was noted to be reasonable granulation tissue. As a result, once all and necrotic or devascularized tissue had been removed, and the area was fulgurated and not bleeding, I again used the pulse lavage extensively to irrigate the totality of the tissue. Once the odor from the abscess cavity was no longer perceptible following debridement and irrigation, we then utilized a Kerlix that was partially wet and partially dry packed into the inferior portion of the abscess cavity and along the base extending to the inferior hemiscrotum in a wet-to-dry fashion. Tape was used to hold it in place, and the patient was then taken out of the lithotomy position after the sutures were cut holding the scrotum up. The urethral Gonzalez catheter was removed, and he was awakened from general anesthesia. He was transferred to a stretcher, and then transferred to the recovery room in good condition. Complications: None Discharge disposition: He would benefit from wound care consultation for recommendations; however, my clinical impression is while there was a significant component of necrotic debris that was removed, the base of much of the abscess cavity was indeed healthy granulation tissue already in the early stages of healing. This is likely why the patient was not more ill and did not have a white blood count. As a result, he would not likely require extensive additional debridement at this point, instead a antimicrobial based healing dressing like Aquacel silver would encourage rapidity of healing and maintain an antimicrobial presence. Twice daily sitz baths would be recommended on discharge home given its hostile antimicrobial location, and sitz bath performed after any bowel movement would also be of value before reapplying a dressing again like Aquacel silver, while the wound granulates closed. He would also likely benefit from general surgical consultation who would assess for the potential [id number] in a more definitive manner than that which I attempted intraoperatively today. Aggressive antimicrobial therapy is unlikely I continued necessity at this point, as the tissue did not appear to have deep-seated infection and was already in the process of healing, simply requiring surgical help to expedite the process. He would likely benefit from an antimicrobial course involving either Bactrim DS or Cipro + clindamycin to cover gram-negatives as well as MRSA + anaerobes, which can be tailored based on culture results.
[2023-04-28] MEDS: INSULIN GLARGINE 100 UNIT/ML SQ SCH (22:54)
[2023-04-28] MEDS: NA CHLORIDE 0.9% 1,000 ML ONE (22:54)
[2023-04-29 05:36] LABS: Absolute Lymphocytes (CBC) 1.5 K/uL (0.7-4.9); Hematocrit 35.3 % (39.6-49.0); Lymphocytes % 16.4 % (15.3-44.8); MPV 7.4 fL (7.6-11.3); Platelets 399 thou/uL (152-406); RBC Red Blood Cell Count 3.92 M/uL (4.33-5.43)
[2023-04-29 05:45] LABS: Magnesium 1.8 mg/dL (1.6-2.4); Potassium 3.9 mEq/L (3.5-5.1)
--- NOTE | 2023-04-29 07:27 | P.PN ---
Subjective Date of Service: 04/29/23 Chief Complaint: Sacral abscess No overnight events, pain controlled with as needed analgesia - Physical Exam General: Alert, In no apparent distress, Oriented x3 HEENT: Atraumatic, Normocephalic Neck: Supple, 2+ carotid pulse no bruit Respiratory: Clear to auscultation bilaterally, Normal air movement Cardiovascular: No edema, Normal pulses Gastrointestinal: Normal bowel sounds, Soft and benign Musculoskeletal: No clubbing, No swelling Integumentary: Other (Scrotal abscess with serosanguineous discharge,) Neurological: Normal speech, Normal strength at 5/5 x4 extr Review of Systems PER HPI Physical Examination - Vital Signs Temperature: 97.3 F Blood Pressure: 106/70 Pulse: 90 Respirations: 18 Pulse Ox (%): 97 - Studies Microbiology Data (last 24 hrs): 04/27/23 13:27 Blood - Blood Anaerobic Blood Culture - Final Assessment And Plan - Plan Assessment and plan Scrotal abscess Urology consult, IV antibiotics, as needed analgesics Infectious disease consult, wound culture, skin scrotal abscess he reports symptoms started 3 weeks ago is progressively getting worse. He reports foul odor, bloody drainage. CT imaging shows scrotal wound/ulceration, consistent with physical examination, no evidence of tissue gas to suggest necrotizing fasciitis. Dr. Johnston to consult n.p.o. for I&D 04/28 crotal widely open 6 cm diameter abscess cavity with sinus tract with necrotic tissue and approximately 2 to 3 cm diameter inferior scrotal midline draining abscess, likely contributing to DKA. recommended operative surgical debridement, and incision and spatulation of the inferior scrotal abscess and marsupialization of the associated sinus tracts. -I counseled him on the likely need for wet-to-dry dressing changes postoperatively, which had the potential for significant discomfort, and these would likely be of benefit following twice daily sitz bath's, and sitz bath's following any bowel movements. -Meanwhile, since he has industrial paper towels now sitting in the wound, I discussed with nursing placing a 50-50 mixture of Betadine and saline soaked gauze into the cavity and covering it with an ABD pad pending surgical debridement. -I further counseled the patient that as long as he does not take a turn for the worse and become clinically ill, he can have breakfast in the morning, but he should be n.p.o. starting at lunch tomorrow including dinner, anticipating surgical debridement around 7 PM. -Wound care nursing consultation would be of value, likely on Tuesday, following surgical debridement tomorrow evening. -Continue aggressive IV antimicrobial therapy targeting aerobic as well as anaerobic organisms and MRSA Infectious disease CT abdomen pelvis 04/27:" Scrotal wound/ulceration without abscess. No evidence of disseminated soft tissue gas to suggest a necrotizing fasciitis." - Blood cultures 04/27: pending - scrotal wound culture 04/27: gram positive cocci - Currently on Zosyn and Vancomycin (started 04/27) - Urology consulted, pending debridement Uncontrolled diabetes with hyperglycemia with complication Treatment noncompliance Glucosuria Proteinuria High level sliding scale insulin, Accu-Cheks, Normal saline at 125 x 3 L treatment for hyperglycemia A1c in a.m. CBC without leukocytosis, metabolic panel shows hyperglycemia blood sugar of 697, Lactic acid within normal limits, gap of 16.3 noncompliant with insulin, noncompliance with checking blood glucose, he reports noncompliance with following up with primary care, he reports last PCP visit was in February 2023 with a hemoglobin of 15. 2/22 Lantus increased from 20 to 24 units at bedtime, hemoglobin A1c greater than 14 pseudohyponatremia elevated CRP. Trend CRP Thrombocytosis platelets 499 Lovenox hyperlipidemia Essential hypertension hypothyroidism EKG normal sinus rhythm rate [address] elevations, Resume appropriate home meds Full code DVT Lovenox Diet diabetic Disposition Home estimated 48 hours Discharge Plan: Home - Code Status/Comfort Care Code Status: Full Code Critical Care: No Time Spent Managing PTS Care (In Minutes): 35
[2023-04-29] MEDS: POTASSIUM CL SA 10 MEQ TAB PO ONE (07:48)
[2023-04-29] MEDS: MAGNESIUM SULFATE 1 gm IVPB 1 GM/100 ML BAG IV ONE (07:49)
[2023-04-29] MEDS ORDERED: MAGNESIUM SULFATE 1 gm IVPB 1 GM/100 ML BAG IV ONE (09:00)
--- NOTE | 2023-04-29 09:52 | P.PN ---
Date of Service: 04/29/23 Chief Complaint: Sacral abscess Subjective: s/p I&D of perineal scrotal abscess yesterday by Dr. Johnston. In no apparent distress. No acute events overnight. Physical Examination Temp Pulse Resp BP Pulse Ox 97.2 F 87 17 127/80 98 04/29/23 08:00 04/29/23 08:00 04/29/23 08:48 04/29/23 08:00 04/29/23 08:48 General: Alert, In no apparent distress, Oriented x3 HEENT: Atraumatic, Normocephalic Respiratory: Clear to auscultation bilaterally, Normal air movement Cardiovascular: Regular rate/rhythm. Trace BLE edema. Gastrointestinal: Normal bowel sounds, Soft and benign Integumentary: Scrotal erythema and tenderness. s/p I&D scrotal abscess dressing clean dry and intact. Laboratory Data - Reviewed Microbiology Data - Reviewed Imagings Data: - Reviewed Medication List: Reviewed Assessment and Plan Problem List Scrotal Cellulitis Diabetes Mellitus type II Thrombocytosis Hypertension Hyperlipidemia Scrotal Cellulitis with Abscess - CT abdomen pelvis 04/27:" Scrotal wound/ulceration without abscess. No evidence of disseminated soft tissue gas to suggest a necrotizing fasciitis." - Blood cultures 04/27: no growth to date - scrotal wound culture 04/28: 4+ gram negative rods - Currently on Zosyn and Vancomycin (started 04/27) - s/p I&D of perineal scrotal abscess on 04/[address] Johnston. - Urology Dr Johnston on case. No leukocytosis Afebrile Recommendations - Scrotal cellulitis with abscess: - Recommend continuing antibiotic therapy for 14 days (04/27-05/10) - Continue Zosyn for now. - Will follow up with final wound culture results and adjust antibiotics as appropriate. Depending on results, consider switch to Ciprofloxacin PO upon discharge to complete remainder of antibiotic course. - Strict blood glucose control. A1c = >14 - Wound care per urology/wound care team. See Urology note for further recommendations. Case discussed with Rocky Olguin
[2023-04-29 10:00] VITALS: O2SAT 98
--- NOTE | 2023-04-29 13:47 | P.DS ---
Admission Date: 04/27/23 Discharge Date: 04/29/23 Disposition: ROUTINE DISCHARGE Discharge Condition: FAIR Reason for Admission: Scrotal abscess Brief History of Present Illness: 47-year-old male with a past medical history of diabetes, hyperlipidemia, hypertension, hypothyroidism, presents to the emergency room for skin scrotal abscess he reports symptoms started 3 weeks ago is progressively getting worse. He reports foul odor, bloody drainage. He reports history of diabetes, noncompliant with insulin, noncompliance with checking blood glucose, he reports noncompliance with following up with primary care, he reports last PCP visit was in February 2023 with a hemoglobin of 15. No reported fever, nausea vomiting diarrhea, urinary frequency, plan to admit for scrotal ulcer, uncontrolled diabetes, hyperglycemia. CT imaging shows scrotal wound/ulceration, consistent with physical examination, no evidence of tissue gas to suggest necrotizing fasciitis. Urology consulted and notified of admission. ER evaluation EKG normal sinus rhythm rate [address] elevations, CBC without leukocytosis, metabolic panel shows hyperglycemia blood sugar of 697, pseudohyponatremia, gap of 16.3, elevated CRP. Lactic acid within normal limits - Physical Exam General: Alert, In no apparent distress, Oriented x3 HEENT: Atraumatic, Normocephalic Neck: Supple, 2+ carotid pulse no bruit Respiratory: Clear to auscultation bilaterally, Normal air movement Cardiovascular: No edema, Normal pulses Gastrointestinal: Normal bowel sounds, Soft and benign Musculoskeletal: No clubbing, No swelling Integumentary: Other (Scrotal abscess with serosanguineous discharge,) Neurological: Normal speech, Normal strength at 5/5 x4 extr Hospital Course: 47 year-old male patient presented with hyperglycemia, scrotal abscess. Was noted to have uncontrolled diabetes type 2, scrotal abscess, Condition improved with I&D scrotal abscess by urology, is status post incision and debridement of abscess. Plan to discharge home with dressing changes, patient requested that his will do dressing changes. Patient tolerating diet, stable for discharge to home with follow-up appointment with primary care physician, and urology, will need referral by primary care to follow-up with endocrinology for hyperglycemia management PROBLEM: Uncontrolled diabetes Hyperglycemia Scrotal abscess Treatment noncompliant CT imaging shows scrotal wound/ulceration, consistent with physical examination, no evidence of tissue gas to suggest necrotizing fasciitis. Prescription p.o. antibiotic patient and family denied home health. Nurse will educate on dressing changes. Semglee 25 units at bedtime, reume home metformin Follow-up with primary care for evaluation of blood sugar evaluation Daily blood sugar monitoring, take blood sugar log to follow-up appointment Follow-up in the wound care center on Tuesday for wound care evaluation monitoring. Wound care supplies given to patient and family until patient follows up next week. Nurse educated, visual patient and family on dressing changes. Follow-up with Dr. Johnston in 1 to 2 weeks. Continue home medicines as previously prescribed GOAL: Clear understanding of disease process INSTRUCTIONS: Physician Discharge Instructions: -DC IV and DC home -Follow-up with PCP in 1 to 2 weeks -Please call Dr. Egan at [phone] if any questions regarding hospital stay -Please call nursing station at [phone] if any nursing or medication questions -Return to the emergency room if symptoms worsen Diet: ADA, low sodium Activity: Fall precautions Vital Signs/Physical Exam: Temp Pulse Resp BP Pulse Ox 97.3 F 90 18 106/70 97 04/29/23 13:41 04/29/23 13:41 04/29/23 13:41 04/29/23 13:41 04/29/23 13:41 Laboratory Data at Discharge: WBC 9.10 thou/uL (4.3-10.9) 04/29/23 05:01 Hgb 12.2 g/dL (13.6-17.9) L 04/29/23 05:01 Hct 35.3 % (39.6-49.0) L 04/29/23 05:01 Plt Count 399 thou/uL (152-406) 04/29/23 05:01 PT 10.1 SECONDS (9.5-12.5) 04/27/23 13:27 INR 0.92 04/27/23 13:27 APTT 29.2 SECONDS (24.3-36.9) 04/27/23 13:27 Sodium 139 mEq/L (136-145) 04/29/23 05:01 Potassium 3.9 mEq/L (3.5-5.1) D 04/29/23 05:01 BUN 6 mg/dL (7-18) L 04/29/23 05:01 Creatinine 0.63 mg/dL (0.70-1.30) L 04/29/23 05:01 Glucose 304 mg/dL (74-106) H 04/29/23 05:01 Phosphorus 3.0 mg/dL (2.5-4.9) 04/28/23 06:30 Magnesium 1.8 mg/dL (1.6-2.4) 04/29/23 05:01 Total Bilirubin 0.7 mg/dL (0.2-1.0) 04/27/23 13:27 AST 8 U/L (15-37) L 04/27/23 13:27 ALT 19 U/L (16-61) 04/27/23 13:27 Alkaline Phosphatase 189 U/L (45-117) H 04/27/23 13:27 Home Medications: Metformin HCl [Glucophage*] 1,000 mg PO BIDWM 07/18/15 Ciprofloxacin HCl [Cipro 500 MG Tablet] 500 mg PO BID 14 Days #28 tab 04/29/23 Doxycycline Hyclate [Vibramycin] 100 mg PO BID 14 Days #28 mg 04/29/23 Insulin Glargine,Hum.rec.anlog [Semglee] 25 unit SQ BEDTIME 30 Days #100 ml 04/29/23 Lactobacillus Acidophilus [Acidophilus Lactobacilli] 1 each PO BID 14 Days #28 cap 04/29/23 Tramadol HCl 100 mg PO TID PRN 14 Days #21 tab 04/29/23 New Medications: Lactobacillus Acidophilus [Acidophilus Lactobacilli] 1 each PO BID 14 Days #28 cap Ciprofloxacin HCl [Cipro 500 MG Tablet] 500 mg PO BID 14 Days #28 tab Insulin Glargine,Hum.rec.anlog [Semglee] 25 unit SQ BEDTIME 30 Days #100 ml Tramadol HCl 100 mg PO TID PRN 14 Days #21 tab PRN Reason: Pain Scale 5-7 (Moderate) Doxycycline Hyclate [Vibramycin] 100 mg PO BID 14 Days #28 mg Physician Discharge Instructions: 47 year-old male patient presented with hyperglycemia, scrotal abscess. Was noted to have uncontrolled diabetes type 2, Condition improved with scrotal abscess. Was evaluated by urology, is status post incision and debridement of abscess. Plan to discharge home with dressing changes, patient requested that his will do dressing changes. Patient tolerating diet, stable for discharge to home with follow-up appointment with primary care physician, and urology PROBLEM: Uncontrolled diabetes Hyperglycemia hemoglobin A1c >14 04/28 Treatment noncompliant Scrotal abscess CT imaging shows scrotal wound/ulceration, consistent with physical examination, no evidence of tissue gas to suggest necrotizing fasciitis. Prescription p.o. antibiotic patient and family denied home health.. Doxycycline and ciprofloxacin for 14 days Daily dressing change Nurse will educate on dressing changes. Cleanse with soap/water; irrigate and rinse well with NS. Apply Aquacel AG, gauze, ABD daily and as needed for soilage/dislodgment. Follow-up with the wound healing center called [place] [id number] [facility] healing center for follow up wound care apt. Follow-up with Dr. Johnston in 1 to 2 weeks. Semglee 25 units at bedtime, resume home metformin Follow-up with primary care for evaluation of blood sugar evaluation Daily blood sugar monitoring, take blood sugar log to follow-up appointment recommend referral from primary care to follow-up with endocrinology for blood sugar monitoring/treatment for hyperglycemia Follow-up with Dr. Johnston in 1 to 2 weeks. Continue home medicines as previously prescribed GOAL: Clear understanding of disease process INSTRUCTIONS: Physician Discharge Instructions: -Follow-up with PCP in 1 to 2 weeks -Please call Dr. Egan at [phone] if any questions regarding hospital stay -Please call nursing station at [phone] if any nursing or medication questions -Return to the emergency room if symptoms worsen Diet: ADA Activity: Fall precautions Followup: Azael Johnston [ACTIVE - CAN ADMIT] - 1-2 Weeks Ariella Rust MD [Primary Care Provider] - 1 Week Time spent managing pt's care (in minutes): 55
[2023-04-29 17:31] VITALS: BP 109/62; TEMP 98.2
== END 2023-04-29 17:00 | disposition home or self-care (01) | DRG 717 ==
LOC: ER 12:21 → ERHOLD 15:48 → 4TH 19:09
PROVIDERS: ADMIT Hospitalist; ATTEND Hospitalist
PROC: 0V950ZZ Drainage of Scrotum, Open Approach (ICD-10-PCS; principal; 2023-04-27)
PROC: 0T9B70Z Drainage of Bladder with Drainage Device, Via Natural or Artificial Opening (ICD-10-PCS; 2023-04-27)
DX: N49.2 Inflammatory disorders of scrotum (principal); E11.10 Type 2 diabetes mellitus with ketoacidosis without coma; E11.52 Type 2 diabetes mellitus with diabetic peripheral angiopathy with gangrene; I10 Essential (primary) hypertension; N47.1 Phimosis; E78.5 Hyperlipidemia, unspecified; E03.9 Hypothyroidism, unspecified; D75.839 Thrombocytosis, unspecified; T38.3X6A Underdosing of insulin and oral hypoglycemic [antidiabetic] drugs, initial encounter; R80.9 Proteinuria, unspecified; Z88.5 Allergy status to narcotic agent; Z79.4 Long term (current) use of insulin; Z79.84 Long term (current) use of oral hypoglycemic drugs; Z79.899 Other long term (current) drug therapy; Z91.138 Patient's unintentional underdosing of medication regimen for other reason; Z91.199 Patient's noncompliance with other medical treatment and regimen due to unspecified reason; Z91.013 Allergy to seafood; Z91.148 Patient's other noncompliance with medication regimen for other reason; Z87.891 Personal history of nicotine dependence
CPT/HCPCS: 36415; 36600; 74177; 80048; 80053; 80202; 81001; 82805; 82947; 83036; 83605; 83735; 84100; 85025; 85610; 85730; 86140; 87040; 87070; 87077; 87186; 87205; 93005; 96365; 96366; 96375; 99285; J1170; J1650; J1815; J2001; J2250; J2405; J2543; J2704; J3010; J3475; J7030; J7040; J7050; Q9967

== ENCOUNTER 2023-10-22 13:38 | Emergency (ER) | payer BC ==
[2023-10-22] MEDS ORDERED: NA CHLORIDE 0.9% 100 ML ONE (14:14)
[2023-10-22] MEDS ORDERED: CEFEPIME 1 GM/VIAL ONE (14:15)
[2023-10-22 14:33] LABS: Absolute Basophils 0.1 K/uL (0-0.5); Absolute Eosinophils 0.2 K/uL (0-0.5); Absolute Lymphocytes (CBC) 1.5 K/uL (0.7-4.9); Absolute Monocytes 0.9 K/uL (0.1-1.3); Absolute Neutrophil 7.9 K/uL (1.8-8.0); Basophils % 0.7 % (0-1.3); Eosinophils % 1.6 % (0-4.4); Hematocrit 37.5 % (39.6-49.0); Hemoglobin 12.6 g/dL (13.6-17.9); Lymphocytes % 13.9 % (15.3-44.8); MCHC 33.8 g/dL (32.0-36.0); MCV 91.7 fL (80-100); Monocytes % 8.2 % (3.3-12.3); Neutrophils % 75.6 % (41.7-73.7); Platelets 524 thou/uL (152-406); RBC Red Blood Cell Count 4.08 M/uL (4.33-5.43); Red Cell Distribution Width 13.1 % (12.1-15.2)
[2023-10-22] MEDS ORDERED: NA CHLORIDE 0.9% 250 ML ONE (14:47)
[2023-10-22] MEDS ORDERED: VANCOMYCIN 1 GM/VIAL ONE (14:47)
[2023-10-22 14:53] LABS: Albumin 3.1 g/dL (3.4-5.0); Albumin/Globulin Ratio 0.7 (1.1-1.8); Anion Gap 13.2 mEq/L (5.0-15.0); Bilirubin Total 0.5 mg/dL (0.2-1.0); Globulin 4.5 g/dL (2.3-3.5); Potassium 4.2 mEq/L (3.5-5.1); Protein, Total 7.6 g/dL (6.4-8.2)
[2023-10-22] MEDS ORDERED: NA CHLORIDE 0.9% 2,000 ML ONE (14:58)
[2023-10-22] MEDS ORDERED: INSULIN REGULAR (HUMAN) 100 UNIT/ML ONE ×2 (14:58→17:05)
--- NOTE | 2023-10-22 17:14 | EDPHYS ---
Physician Documentation [facility] Name: Sp Nagel Age: 48 yrs Sex: Male : 1975 Arrival Date: 10/22/2023 Time: 13:38 Bed 18 Private MD: ED Physician Vito Grider HPI: 10/21 14:34 This 48 yrs old Male presents to ER via Ambulatory with complaints of Wound jr8 Infection - finger. 14:34 The patient or guardian reports decreased range of motion, pain, swelling, tenderness. jr8 The complaints affect the DIP of left middle finger and PIP of left middle finger. Onset: The symptoms/episode began/occurred gradually, 1 day(s) ago. Modifying factors: The symptoms are alleviated by nothing, the symptoms are aggravated by movement. Associated signs and symptoms: The patient has no apparent associated signs or symptoms. Severity of symptoms: At their worst the symptoms were moderate, in the emergency department the symptoms are unchanged. The patient has not experienced similar symptoms in the past. The patient has not recently seen a physician. Patient stated that a few weeks ago had accidentally drove a nail into his left pad of his middle finger. Stated that he was able to take it out without any issue and was healing up. Had picked the scab recently and for the past 24 to 48 hours has had increased erythema and tenderness to the tip of the finger that has now become pustulous and with streaking and moderate swelling to the entire digit and up to the dorsal left wrist. History of diabetes with neuropathy.. Historical: - Allergies: 13:52 Vicodin; aa5 - PMHx: 13:52 Diabetes - NIDDM; Hyperlipidemia; Hypertension; Hypothyroidism; aa5 - PSHx: 13:52 leg infection; aa5 13:52 Tonsillectomy; Adenoid excision; ear tubes; aa5 - Immunization history:: Adult Immunizations unknown. - Infectious Disease History:: Denies. - Social history:: Smoking status: Patient denies any tobacco usage or history of. ROS: 14:34 Eyes: Negative for injury, pain, redness, and discharge, ENT: Negative for injury, jr8 pain, and discharge, Neck: Negative for injury, pain, and swelling, Cardiovascular: Negative for chest pain, palpitations, and edema, Respiratory: Negative for shortness of breath, cough, wheezing, and pleuritic chest pain, Abdomen/GI: Negative for abdominal pain, nausea, vomiting, diarrhea, and constipation, Back: Negative for injury and pain, Neuro: Negative for headache, weakness, numbness, tingling, and seizure, 14:34 MS/extremity: Positive for decreased range of motion, erythema, swelling, tenderness, warmth, of the left hand, Exam: 14:34 Constitutional: This is a well developed, well nourished patient who is awake, alert, jr8 and in no acute distress. Eyes: Pupils equal round and reactive to light, extra-ocular motions intact. Lids and lashes normal. Conjunctiva and sclera are non-icteric and not injected. Cornea within normal limits. Periorbital areas with no swelling, redness, or edema. 14:34 Respiratory: Lungs have equal breath sounds bilaterally, clear to auscultation and percussion. No rales, rhonchi or wheezes noted. No increased work of breathing, no retractions or nasal flaring. Abdomen/GI: Soft, non-tender, with normal bowel sounds. No distension or tympany. No guarding or rebound. No evidence of tenderness throughout. Back: No spinal tenderness. No costovertebral tenderness. Full range of motion. Skin: Warm, dry with normal turgor. Normal color with no rashes, no lesions, and no evidence of cellulitis. Neuro: Awake and alert, GCS 15, oriented to person, place, time, and situation. Motor strength 5/5 in all extremities. Sensory grossly intact. 14:34 Cardiovascular: Rate: tachycardic, Rhythm: regular, Pulses: Pulses are 2+ in right radial artery and left radial artery. Heart sounds: normal, normal S1and S2, no S3 or S4, no murmur, no rub, no gallop, Edema: is not appreciated, 14:34 Musculoskeletal/extremity: Extremities: grossly normal except: noted in the left middle finger: decreased ROM, erythema, pain, swelling, tenderness, exudative matter noted to tip of finger on pad . Extension of swelling and erythema up the dorsal left hand to wrist level , Circulation is intact in all extremities. Sensation intact. Vital Signs: 13:52 BP 131 / 96; Pulse 106; Resp 18 S; Temp 98.8(O); Pulse Ox 97% on R/A; Weight 83.01 kg aa5 (R); Height 6 ft. 2 in. (R); 15:00 BP 129 / 97; Pulse 98; Resp 18; Pulse Ox 98% ; cm10 16:00 BP 126 / 97; Pulse 98; Resp 18; Pulse Ox 98% ; cm10 17:00 BP 132 / 99; Pulse 106; Resp 16; Pulse Ox 100% ; cm10 18:00 BP 124 / 90; Pulse 107; Resp 18; Pulse Ox 99% ; cm10 13:52 Body Mass Index 23.50 (83.01 kg, 187.96 cm) aa5 MDM: 13:58 Patient medically screened. jr8 16:33 Differential diagnosis: Cellulitis, tenosynovitis, abscess. Data reviewed: vital signs, [facility] nurses notes, lab test result(s). Consideration of Admission/Observation Escalation of care including admission/observation considered. 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 Hand surgery stated that he is out of town and wondered why we had no one to take care of it but would be back in town tomorrow if medicine can accept. Medicine denied because patient is "too sick". Awaiting consultation to other facilities at this point. . 17:23 Counseling: I had a detailed discussion with the patient and/or guardian regarding the [facility] historical points, exam findings, and any diagnostic results supporting the discharge/admit diagnosis, lab results, radiology results, the need to transfer to another facility, for higher level of care, [facility] does not immediately have the required specialist. ED course: [facility] was contacted after [facility] declined. Accepted patient for ER-ER to evaluate under hand surgery. . 10/21 14:10 Order name: Blood Culture Adult (2) 8 10/21 14:10 Order name: CBC with Diff; Complete Time: 14:42 jr8 10/21 14:10 Order name: CMP; Complete Time: 14:59 jr8 10/21 16:13 Order name: Glucose; Complete Time: 16:40 cm10 10/21 16:15 Order name: Glucose, Ancillary Testing; Complete Time: 16:33 EDMS 10/21 18:13 Order name: Glucose, Ancillary Testing; Complete Time: 10:53 EDMS 10/21 17:01 Order name: Hand Left 3 View XRAY; Complete Time: 18:01 jr8 10/21 14:10 Order name: IV Saline Lock - Large Bore; Complete Time: 14: jr8 10/21 14:10 Order name: Labs collected and sent; Complete Time: 14:8 10/21 14:10 Order name: Vital Signs; Complete Time: : Administered Medications: 14:41 Drug: Cefepime IVPB 1 grams IVPB at 200 ml/hr once over 30 mins; (mix in NS 100 mL) cm10 Route: IVPB; Rate: 200 ml/hr; Infused Over: 30 mins; Site: right forearm; 15:10 Follow up: Response: No adverse reaction; IV Status: Completed infusion; IV Intake: cm10 100ml 15:01 Drug: Insulin Regular Human Sub-Q 10 units Sub-Q once {Co-Signature: angel Crowe RN).} Route: Sub-Q; Site: abdomen; 16:04 Follow up: Response: No adverse reaction cm10 15:03 Drug: NS 0.9% IV 1000 ml IV at 1000 ml once Route: IV; Rate: 1000 ml; Site: left cm10 forearm; 16:04 Follow up: Response: No adverse reaction; IV Status: Completed infusion; IV Intake: cm10 1000ml 15:04 Drug: NS 0.9% IV 1000 ml IV at 1000 ml once Route: IV; Rate: 1000 ml; Site: right cm10 forearm; 16:04 Follow up: Response: No adverse reaction; IV Status: Completed infusion; IV Intake: cm10 1000ml 15:10 Drug: vancoMYCIN IVPB 1 grams IVPB once over 2 hrs Route: IVPB; Infused Over: 2 hrs; cm10 Site: left forearm; 17:17 Follow up: Response: No adverse reaction; IV Status: Completed infusion; IV Intake: cm10 250ml 17:08 Drug: Insulin Regular Human IVP 10 units IVP once {Co-Signature: Susan Crowe RN).} Route: IVP; Site: left forearm; 18:14 Follow up: Response: No adverse reaction cm10 Disposition Summary: 10/22/23 17:14 Transfer Ordered Notes: Transfer Location: [facility] Reason: Higher level of care jr8 Condition: Stable jr8 Problem: new jr8 Symptoms: have improved jr8 Accepting Physician: Dr. Wilkinson (10/22/23 18:15) cm10 Diagnosis - Diabetes mellitus due to underlying condition with hyperglycemia jr8 - Cellulitis of left finger - with lymphangitis and abscess jr8 Forms: - Medication Reconciliation Form jr8 - SBAR form jr8 Signatures: Dispatcher [employer] EDMS Crystal Blue RN RN aa5 Naif Mays PA PA jr8 Zoë Craig RN RN cm10 Susan Soto RN db Corrections: (The following items were deleted from the chart) 14:11 14:11 BLOOD CULTURE*+BA.LAB.BRZ ordered. EDMS EDMS 14:11 14:11 CBC+H.LAB.BRZ ordered. EDMS EDMS 14:11 14:11 COMPREHENSIVE METABOLIC PANEL+C.LAB.BRZ ordered. EDMS EDMS 16:14 16:14 GLUCOSE+C.LAB.BRZ ordered. EDMS EDMS 18:15 17:14 Dr. Wilkinson jr8 cm10
--- NOTE | 2023-10-22 17:14 | ER ---
Nurse's Notes [facility] Name: Sp Nagel Age: 48 yrs Sex: Male : 1975 Arrival Date: 10/22/2023 Time: 13:38 Bed 18 Private MD: Diagnosis: Diabetes mellitus due to underlying condition with hyperglycemia;Cellulitis of left finger-with lymphangitis and abscess Presentation: 10/21 13:52 Chief complaint: Patient states: punctured by metal screw to left middle finger, pt aa5 states "it was a callus at first and then I picked at it and it was draining pus". Redness to left middle finger that has extended to dorsal aspect of hand since Tuesday. 13:52 Method Of Arrival: Ambulatory aa5 13:52 Coronavirus screen: At this time, the client does not indicate any symptoms associated aa5 with coronavirus-19. Ebola Screen: Patient denies travel to an Ebola-affected area in the 21 days before illness onset. Initial Sepsis Screen: Does the patient meet any 2 criteria? HR > 90 bpm. Does the patient have a suspected source of infection? No. Patient's initial sepsis screen is negative. Risk Assessment: Do you want to hurt yourself or someone else? Patient reports no desire to harm self or others. Onset of symptoms was October 2023. 13:52 Acuity: [place] 3 aa5 Historical: - Allergies: 13:52 Vicodin; aa5 - PMHx: 13:52 Diabetes - NIDDM; Hyperlipidemia; Hypertension; Hypothyroidism; aa5 - PSHx: 13:52 leg infection; aa5 13:52 Tonsillectomy; Adenoid excision; ear tubes; aa5 - Immunization history:: Adult Immunizations unknown. - Infectious Disease History:: Denies. - Social history:: Smoking status: Patient denies any tobacco usage or history of. Screenin:50 [facility] ED Fall Risk Assessment (Adult) History of falling in the last 3 months, cm10 including since admission No falls in past 3 months (0 pts) Confusion or Disorientation No (0 pts) Intoxicated or Sedated No (0 pts) Impaired Gait No (0 pts) Mobility Assist Device Used No (0 pt) Altered Elimination No (0 pt) Score/Fall Risk Level 0 - 2 = Low Risk Oriented to surroundings, Maintained a safe environment, Hourly rounding (assess needs \\T\\ fall precautionary measures) done. Abuse screen: Denies threats or abuse. Denies injuries from another. Nutritional screening: No deficits noted. Tuberculosis screening: No symptoms or risk factors identified. Assessment: 14:25 General: Appears in no apparent distress. comfortable, Behavior is calm, cooperative, cm10 appropriate for age. Pain: Complains of pain in dorsal aspect of distal phalanx of left middle finger, dorsal aspect of middle phalanx of left middle finger, palmar aspect of distal phalanx of left middle finger and palmar aspect of middle phalanx of left middle finger. Neuro: No deficits noted. Level of Consciousness is awake, alert, obeys commands, Oriented to person, place, time, situation, Appropriate for age. Respiratory: No deficits noted. Airway is patent Respiratory effort is even, unlabored, Respiratory pattern is regular, symmetrical. Derm: Wound noted left middle finger Abscess located on dorsal aspect of distal phalanx of left middle finger, dorsal aspect of middle phalanx of left middle finger, dorsal aspect of proximal phalanx of left middle finger, palmar aspect of distal phalanx of left middle finger, palmar aspect of middle phalanx of left middle finger, palmar aspect of proximal phalanx of left middle finger and left middle fingernail. 17:12 Reassessment: Patient appears in no apparent distress at this time. No changes from cm10 previously documented assessment. Patient and/or family updated on plan of care and expected duration. Pain level reassessed. Patient is alert, oriented x 3, equal unlabored respirations, skin warm/dry/pink. Vital Signs: 13:52 BP 131 / 96; Pulse 106; Resp 18 S; Temp 98.8(O); Pulse Ox 97% on R/A; Weight 83.01 kg aa5 (R); Height 6 ft. 2 in. (R); 15:00 BP 129 / 97; Pulse 98; Resp 18; Pulse Ox 98% ; cm10 16:00 BP 126 / 97; Pulse 98; Resp 18; Pulse Ox 98% ; cm10 17:00 BP 132 / 99; Pulse 106; Resp 16; Pulse Ox 100% ; cm10 18:00 BP 124 / 90; Pulse 107; Resp 18; Pulse Ox 99% ; cm10 13:52 Body Mass Index 23.50 (83.01 kg, 187.96 cm) aa5 ED Course: 13:41 Patient arrived in ED. im 13:42 Naif Mays PA is PHCP. jr8 13:42 Vito Grider MD is Attending Physician. jr8 13:52 Arm band placed on Patient placed in an exam room, on a stretcher. aa5 13:56 Triage completed. aa5 14:00 Zoë Craig, RN is Primary Nurse. cm10 14:25 Initial lab(s) drawn, by ED staff, sent to lab. First set of blood cultures drawn by cm10 me. Inserted saline lock: 20 gauge in right forearm, using aseptic technique. Blood collected. Flushed with 10 mL NS. 14:28 CBC with Diff Sent. cm10 14:28 CMP Sent. cm10 14:39 initiated a transfer with Will from the [facility] transfer center. eb 14:50 Patient has correct armband on for positive identification. Bed in low position. Call cm10 light in reach. Side rails up X2. Provided Education on: ER process and procedures.. 15:[address] hand surgeon Dr. Martinez the surgeon fire protection fabricator for [facility] with Naif Muniz for patient transfer consultation. 15:54 Per Will the hospitalist fire protection fabricator Dr. Ocampo does not want to accept the patient since the patient is really sick and hand surgery is not in town if needed. So they will have to decline due to service not available. 16:15 attempted to initiate a transfer with the [facility] and have eb been on hold for 20 minutes. 16:38 initiated a transfer with Sheila from the [facility]. eb 17:08 administrative approval given by Sheila Brian Rn/ patient has been accepted to [facility] ED/ Dr. Supa Arguello has accepted the patient in transfer/ report to be called to [phone]. 17:24 Report given to DEEPTHI MCNAMARA AT [facility] ER. cm10 17:30 [facility] called for transport. eb 17:45 Hand Left 3 View XRAY In Process Unspecified. EDMS 18:14 Report given to PAULETTE WITH [facility]. PT STABLE FOR TRANSPORT AT THIS TIME. cm10 18:14 No provider procedures requiring assistance completed. Patient transferred, IV remains cm10 in place. Administered Medications: 14:41 Drug: Cefepime IVPB 1 grams IVPB at 200 ml/hr once over 30 mins; (mix in NS 100 mL) cm10 Route: IVPB; Rate: 200 ml/hr; Infused Over: 30 mins; Site: right forearm; 15:10 Follow up: Response: No adverse reaction; IV Status: Completed infusion; IV Intake: cm10 100ml 15:01 Drug: Insulin Regular Human Sub-Q 10 units Sub-Q once {Co-Signature: angel Crowe RN).} Route: Sub-Q; Site: abdomen; 16:04 Follow up: Response: No adverse reaction cm10 15:03 Drug: NS 0.9% IV 1000 ml IV at 1000 ml once Route: IV; Rate: 1000 ml; Site: left cm10 forearm; 16:04 Follow up: Response: No adverse reaction; IV Status: Completed infusion; IV Intake: cm10 1000ml 15:04 Drug: NS 0.9% IV 1000 ml IV at 1000 ml once Route: IV; Rate: 1000 ml; Site: right cm10 forearm; 16:04 Follow up: Response: No adverse reaction; IV Status: Completed infusion; IV Intake: cm10 1000ml 15:10 Drug: vancoMYCIN IVPB 1 grams IVPB once over 2 hrs Route: IVPB; Infused Over: 2 hrs; cm10 Site: left forearm; 17:17 Follow up: Response: No adverse reaction; IV Status: Completed infusion; IV Intake: cm10 250ml 17:08 Drug: Insulin Regular Human IVP 10 units IVP once {Co-Signature: Susan Crowe RN).} Route: IVP; Site: left forearm; 18:14 Follow up: Response: No adverse reaction cm10 Medication: 14:50 VIS not applicable for this client. cm10 Intake: 15:10 IV: 100ml; Total: 100ml. cm10 16:04 IV: 1000ml; Total: 1100ml. cm10 16:04 IV: 1000ml; Total: 2100ml. cm10 17:17 IV: 250ml; Total: 2350ml. cm10 Outcome: 17:14 ER care complete, transfer ordered by MD. hall 18:15 Transferred by [facility] to [facility], Transfer form cm10 completed. 18:15 Condition: good 18:15 Instructed on the need for transfer, 18:15 Patient left the ED. cm10 Signatures: Dispatcher [employer] Crystal Wells RN RN aa5 Naif Mays PA PA jr8 [place]ia [place] Itzel im Martinez, Clarissa, RN RN cm10 Susan Soto RN db
--- NOTE | 2023-10-22 17:58 | RAD REPORT ---
EXAM DESCRIPTION: RAD - Hand Left 3 View - 10/22/2023 5:43 pm CLINICAL HISTORY: r/o osteo COMPARISON: No comparisons FINDINGS/IMPRESSION: No acute fracture. No malalignment. No significant focal degenerative changes.
[2023-10-22 18:30] VITALS: TEMP 98.8
[2023-10-22 18:36] VITALS: BP 132/99; O2SAT 100
== END 2023-10-22 18:15 | disposition short-term general hospital (02) ==
LOC: ER 13:38
DX: L03.012 Cellulitis of left finger (principal); L02.512 Cutaneous abscess of left hand; E08.65 Diabetes mellitus due to underlying condition with hyperglycemia
CPT/HCPCS: 87040 ×2; 85025; 36415; 82947 ×3; 80053; 73130; 96372; 99285; J7050; J7030; J0692

== ENCOUNTER 2024-07-14 12:38 | Inpatient (IN) | payer BC, SELFPAY ==
[2024-07-14] MEDS: BUPIVACAINE 0.5% PF 10 ML VIAL ONE (07:14)
--- OUTSIDE RECORDS SUMMARY | 2024-07-14 12:41 | XMS REPORT | Continuity of Care Document ---
Author Name Unknown Address [address] [place] [address] [facility] Address [address] [address] [place] [address] Care Team Providers Care Three Dimensional Art Instructor Name Role Phone Shelia Maher Attending Clinician Unavailable ELIZABETH CARNES Attending Clinician Unavail able ANGELIQUE BONILLA Attending Clinician Unavailable EDDIE STEELE Attending Clinician Unava ilable LAB90 Attending Clinician Unavailable ELIZABETH CARNES Admitting Clinician Unavail able Payers Payer Name Policy Type Policy Number Effective Date Expirati on Date Source BCBS 2 [id number] 2022 00:00:00 [facility] 6 [id number] [facility] Problems Condition Name Condition Details Condition Category Status Onset Date Resolution Date Last Treatment Date Treating Clinician Comments Source [id number] Mixed hyperlipid emia Problem Active [facility] [id number] Hypothyroi dism, unspecifie d type Problem Active [facility] Hyperglyce diamante due to type 2 diabetes mellitus Type 2 diabetes mellitus with hyperglyce diamante Problem Active [facility] [id number] Essential (primary) hypertensi on Problem Active [facility] Allergies, Adverse Reactions, Alerts Allergy Name Allergy Type Status Severity Reaction(s) Onset Date Inactive Date Treating Clinician Comments Source Hydrocod one Propensi ty to adverse reaction s Active Hives 04-19 00:00: 00 Faye vo 4614 Drug allergy Active Unknown [facility] Social History Social Habit Start Date Stop Date Quantity Comments Source History of Tobacco Use [facility] Tobacco use and exposure 2022-03-29 00:00:00 2022-03-29 00:00:00 Smokeless tobacco non-user Faye Lozano Sex Assigned At 1975 00:00:00 1975 00:00:00 Faye Lozano Smoking Status Start Date Stop Date Source Never smoked tobacco Faye Mendes - [place] Former Smoker 2021-08-27 00:00:00 2021-08-27 00:00:00 [facility] Medications Ordered Medication Name Filled Medication Name [...] oral Tablet 04-24 00:00: 00 Yes 1{tbl} [id number] 3D Take 1 tablet by mouth every [...] Solution Pen-Injecto r 03-31 00:00: 00 Yes [id number] .5mg Inject 0.5 mg into the skin once a week Faye vo Atorvastati n Calcium 40 MG oral Tablet 03-30 00:00: 00 Yes [id number] 40mg Take 1 tablet (40 mg total) by mouth daily Faye vo GlipiZIDE 10 MG oral TABLET SR 24 HR 03-30 00:00: 00 Yes [id number] 10mg Take 1 tablet (10 mg total) by mouth daily Faye vo Levothyroxi ne Sodium 88 MCG oral Tablet 03-30 00:00: 00 Yes [id number] 88ug Take 1 tablet (88 mcg total) by mouth daily Faye vo Lisinopril 2.5 MG oral Tablet 03-30 00:00: 00 Yes [id number] 2.5mg Take 1 tablet (2.5 mg total) by mouth daily Faye vo Metformin HCl 1000 MG oral Tablet 03-30 00:00: 00 Yes [id number] 1000mg Take 1 tablet (1,000 mg total) by mouth in the morning and 1 tablet (1,000 mg total) in the evening. Take with meals. Faye vo OZEMPIC (0.25 or 0.5 mg/dose) 2 mg/1.5 mL SQ Solution Pen-Injecto r 03-30 00:00: 00 04-27 00:00 :00 No [id number] 0.5 mg Faye vo Lisinopril 2.5 MG Lisinopril 2.5 MG 5-06 00:00: 00 No 1{table t} QD Lisinopril 2.5 MG glipiZIDE XL 10 MG glipiZIDE XL 10 MG 3-18 00:00: 00 No 1{table t_with_ breakfa st} QD glipiZIDE XL 10 MG Atorvastati n Calcium 40 MG Atorvastati n Calcium 40 MG 05-22 00:00: 00 No 1{table t} QD Atorvastat in Calcium 40 MG metFORMIN HCl 1000 MG metFORMIN HCl 1000 MG 05-22 00:00: 00 No 1{table t_with_ a_meal} BID metFORMIN HCl 1000 MG Levothyroxi ne Sodium 75 MCG Levothyroxi ne Sodium 75 MCG 05-22 00:00: 00 No QD Levothyrox ine Sodium 75 MCG No Known Medications No Known Medications No Common [facility] Vital Signs Vital Name Observation Time Observation [...] height 2021-08-31 09:40:00 75 [in_i] Commo n [facility] weight 2021-08-31 09:40:00 199.2 [lb_av] Co mmon [facility] temperature 2021-08-31 09:40:00 98.6 [degF] Com mon [facility] bmi 2021-08-31 09:40:00 24.9 kg/m2 Commo n [facility] oximetry 2021-08-31 09:40:00 99 % Commo n [facility] respiratory rate 2021-08-31 09:40:00 16 /min [facility] blood pressure systolic 2021-08-31 09:40:00 126 mm[Hg] Common [facility] blood pressure diastolic 2021-08-31 09:40:00 72 mm[Hg] Common [facility] height 2021-07-10 09:20:00 75 [in_i] Commo n [facility] weight 2021-07-10 09:20:00 193.6 [lb_av] Co mmon [facility] temperature 2021-07-10 09:20:00 97.9 [degF] Com mon [facility] bmi 2021-07-10 09:20:00 24.2 kg/m2 Commo n [facility] oximetry 2021-07-10 09:20:00 99 % Commo n [facility] respiratory rate 2021-07-10 09:20:00 16 /min [facility] blood pressure systolic 2021-07-10 09:20:00 128 mm[Hg] [facility] pressure diastolic 2021-07-10 09:20:00 72 mm[Hg] Common [facility] height 2021-05-22 11:40:00 75 [in_i] Commo n [facility] weight 2021-05-22 11:40:00 198 [lb_av] Comm on [facility] bmi 2021-05-22 11:40:00 24.75 kg/m2 Comm on [facility] height 2021-05-15 15:40:00 75 [in_i] Commo n [facility] weight 2021-05-15 15:40:00 198 [lb_av] Comm on [facility] temperature 2021-05-15 15:40:00 97.9 [degF] Com mon [facility] bmi 2021-05-15 15:40:00 24.75 kg/m2 Comm on [facility] oximetry 2021-05-15 15:40:00 95 % Commo n [facility] respiratory rate 2021-05-15 15:40:00 16 /min [facility] blood pressure systolic 2021-05-15 15:40:00 127 mm[Hg] [facility] blood pressure diastolic 2021-05-15 15:40:00 85 mm[Hg] [facility] Encounters Start Date/Time End Date/Time Encounter Type Admission Type Attending Clinicians Care Facility Care Department Encounter ID Source 2023-12-05 14:44[id number] [facility] 2023-05-02 09:34:01 [address] Maher [facility] [id number] [facility] 2021-11-27 12:25:01 Out[address] Maher [facility] [id number] [facility] 2021-08-27 10:24:03 Outpatient Shelia Maher [facility] [id number] [facility] 2021-07-08 11:32:01 Outpatient Ma[address]Shelia caballero [facility] [id number] [facility] 2021-05-20 10:54:02 Outpatient Ma[address]Shelia caballero [facility] [id number] [facility] 2021-05-15 15:20:02 Outpatient Ma[address]Shelia caballero [facility] [id number] [facility] 2023-10-23 02:12:00 2023-10-25 14:43:00 Inpatient E TRICE ELIZABETH [facility] [id number] [facility] 2022-06-09 14:30:00 2022-06-09 14:30:00 Outpatient ANGELIQUE BONILLA [id number] [facility] 2022-05-10 15:00:00 2022-05-10 15:00:00 Outpatient EDDIE STEELE [id number] [facility] 2022-05-03 00:00:00 2022-05-03 00:00:00 Outpatient EDDIE STEELE [id number] [facility] 2022-04-29 00:00:00 2022-04-29 00:00:00 Outpatient EDDIE STEELE [id number] [facility] 2022-04-28 00:00:00 2022-04-28 00:00:00 Outpatient EDDIE STEELE [id number] [facility] 2022-04-27 16:30:00 2022-04-27 16:30:00 Outpatient EDDIE STEELE [id number] [facility] 2022-04-19 00:00:00 2022-04-19 00:00:00 Outpatient EDDIE STEELE [id number] [facility] 2022-04-13 08:45:00 2022-04-13 08:45:00 Outpatient ANGELIQUE BONILLA [id number] [facility] 2022-03-30 00:00:00 2022-03-30 00:00:00 Outpatient CEDRICEDDIE ACOSTA FAYE MACKEY [id number] [facility] 2022-03-30 00:00:00 2022-03-30 00:00:00 Outpatient EDDIE STEELE FAYE MACKEY [id number] [facility] 2022-03-29 15:30:00 2022-03-29 15:30:00 Outpatient LAB90 FAYE MACKEY [id number] [facility] 2022-03-29 14:30:00 2022-03-29 14:30:00 Outpatient EDDIE STEELE [id number] [facility] 2021-08-31 00:00:00 2021-08-31 00:00:00 OFFICE VISIT ESTAB PT LEVEL 4 STLMLC STLMLC [id number] [facility] 2021-07-10 00:00:00 2021-07-10 00:00:00 OFFICE VISIT ESTAB PT LEVEL 4 STLMLC STLMLC [id number] [facility] 2021-05-22 00:00:00 2021-05-22 00:00:00 OFFICE VISIT ESTAB PT LEVEL 4 STLMLC STLMLC [id number] [facility] 2021-05-15 00:00:00 2021-05-15 00:00:00 OFFICE VISIT NEW PT LEVEL 3 STLMLC STLMLC [id number] [facility] Results Test Description Test Time Test Comments Results Result Co mments Source
[2024-07-14 13:44] LABS: Absolute Basophils 0.1 K/uL (0-0.5); Absolute Lymphocytes (CBC) 1.7 K/uL (0.7-4.9); Absolute Monocytes 1.3 K/uL (0.1-1.3); Absolute Neutrophil 18.3 K/uL (1.8-8.0); Basophils % 0.7 % (0-1.3); Eosinophils % 0.1 % (0-4.4); Hematocrit 40.8 % (39.6-49.0); Hemoglobin 13.5 g/dL (13.6-17.9); MCH 29.2 pg (27.0-35.0); MCHC 33.2 g/dL (32.0-36.0); MPV 7.8 fL (7.6-11.3); Monocytes % 6.1 % (3.3-12.3); Neutrophils % 85.1 % (41.7-73.7); Platelets 741 thou/uL (152-406); RBC Red Blood Cell Count 4.63 M/uL (4.33-5.43)
[2024-07-14 13:57] LABS: PT Prothrombin Time 12.2 SECONDS (10-13.0); Protime INR 1.07
[2024-07-14] MEDS ORDERED: VANCOMYCIN 1 GM/VIAL ONE (13:57)
[2024-07-14] MEDS ORDERED: NA CHLORIDE 0.9% 250 ML ONE (13:58)
[2024-07-14] MEDS ORDERED: NA CHLORIDE 0.9% 100 ML ONE (13:58)
[2024-07-14] MEDS ORDERED: PIPERACIL/TAZO 3.375 GM VIAL IV ONE (13:58)
[2024-07-14] MEDS ORDERED: NA CHLORIDE 0.9% 1,000 ML ONE (13:58)
[2024-07-14 14:07] LABS: ALT/SGPT 15 U/L (16-61); AST/SGOT < 10 U/L (15-37); Albumin 2.7 g/dL (3.4-5.0); Albumin/Globulin Ratio 0.5 (1.1-1.8); Alkaline Phosphatase 154 U/L (45-117); Anion Gap 21.8 mEq/L (5.0-15.0); BUN Blood Urea Nitrogen 12 mg/dL (7-18); Bicarbonate 15 mEq/L (21-32); Bilirubin Total 0.6 mg/dL (0.2-1.0); Globulin 5.9 g/dL (2.3-3.5); Glomerular Filtration Rate 62 ml/min (=/>90); Potassium 3.8 mEq/L (3.5-5.1); Protein, Total 8.6 g/dL (6.4-8.2); Sodium Level 132 mEq/L (136-145)
[2024-07-14 14:09] LABS: Glucose Level 475 mg/dL (74-106)
--- NOTE | 2024-07-14 15:10 | RAD REPORT ---
EXAMINATION: Pelvis W/Cont CLINICAL INDICATION: Pelvic pain. Left to buttock abscess TECHNIQUE: CT pelvis was performed, with 100 cc Isovue-300 IV contrast, as per department protocol. A xial, sagittal and coronal reconstructions were obtained. One or more of the following dose reduction techniques were used: Automated exposure control, adjustment of the mA and/or kV according to patient size, and/or iterative reconstruction. Unless otherwise specified, incidental findings do not require dedicated imaging follow-up. [id number]. COMPARISON: No prior exam. FINDINGS: Ulceration involves the posterior subcutaneous tissue left buttocks. Air is present throughout the ti ssues. A 7 x 2 x 11 cm fluid collection is present within the posterior contains tissues of the left buttocks extending to level of the mid left femur.. Air within the tissues likely produced by in fection. No evidence of osteomyelitis. IMPRESSION: 7 x 2 x 11 cm abscess subcutaneous tissues left buttocks extending inferiorly within the posterior temple bcutaneous tissues to the level of the mid left femur.
--- NOTE | 2024-07-14 15:11 | RAD REPORT ---
EXAM:Lower Extremity W/ Cont Clinical history: Leg abscess TECHNIQUE: CT of the left lower extremity was performed with contrast. Images were obtained from above the pelv is to above the left knee.. 100 cc Isovue-300 administered intravenously. Axial, sagittal, and coronal reconstructed images. This exam was performed according to our [facility] dose-optimization program, which includes automated exposure control, adjustment of the mA and/or kV according to patient size and/or use of iterative reconstruction technique. FINDINGS: Ulceration involves the posterior subcutaneous tissue left buttocks. Air is present throughout the ti ssues. A 7 x 2 x 11 cm fluid collection is present within the posterior contains tissues of the left buttocks extending to level of the mid left femur.. Air within the tissues likely produced by in fection. No evidence of osteomyelitis. IMPRESSION: 7 x 2 x 11 cm abscess subcutaneous tissues left buttocks extending inferiorly within the posterior temple bcutaneous tissues to the level of the mid left femur.
--- NOTE | 2024-07-14 15:20 | ER ---
Nurse's Notes [facility] Name: Sp Nagel Age: 48 yrs Sex: Male : 1975 Arrival Date: 07/14/2024 Time: 12:38 Bed 3 Private MD: Diagnosis: Cutaneous abscess of left lower limb;Diabetes mellitus due to underlying condition with ketoacidosis without coma Presentation: 07/14 12:48 Chief complaint: Patient states: draining "boil" to L buttock that began 2 weeks ago. ph Pt reports that the area seems to be getting bigger. Coronavirus screen: Client denies travel out of the [place] in the last 14 days. Ebola Screen: Patient denies exposure to infectious person. Patient denies travel to an Ebola-affected area in the 21 days before illness onset. Initial Sepsis Screen: Does the patient meet any 2 criteria? No. Patient's initial sepsis screen is negative. Does the patient have a suspected source of infection? No. Patient's initial sepsis screen is negative. Risk Assessment: Do you want to hurt yourself or someone else? Patient reports no desire to harm self or others. Onset of symptoms was July 07, 2024. 12:48 Acuity: [place] 2 12:48 Method Of Arrival: Ambulatory Triage Assessment: 13:00 General: Appears in no apparent distress. uncomfortable, ill, Behavior is calm, bp cooperative, appropriate for age. Pain: Complains of pain in left leg. EENT: No deficits noted. Neuro: No deficits noted. Cardiovascular: No deficits noted. Respiratory: No deficits noted. GI: No deficits noted. : No signs and/or symptoms were reported regarding the genitourinary system. Derm: Abscess located on left leg. Musculoskeletal: No deficits noted. Historical: - Allergies: 12:54 No Known Allergies; ph - PMHx: 12:51 Diabetes - NIDDM; Hyperlipidemia; Hypertension; Hypothyroidism; ph - PSHx: 12:51 Adenoid excision; ear tubes; leg infection; Tonsillectomy; ph - Infectious Disease History:: Denies. - Social history:: Smoking status: Patient denies any tobacco usage or history of. - Family history:: not pertinent. - Hospitalizations: : No recent hospitalization is reported. Screenin:[address] [facility] ED Fall Risk Assessment (Adult) History of falling in the last 3 months, bp including since admission No falls in past 3 months (0 pts) Confusion or Disorientation No (0 pts) Intoxicated or Sedated No (0 pts) Impaired Gait No (0 pts) Mobility Assist Device Used No (0 pt) Altered Elimination No (0 pt) Score/Fall Risk Level 0 - 2 = Low Risk Oriented to surroundings. Abuse screen: Denies threats or abuse. Denies injuries from another. Nutritional screening: No deficits noted. Tuberculosis screening: No symptoms or risk factors identified. Assessment: 13:00 General: SEE TRIAGE NOTE. bp 14:00 Reassessment: No changes from previously documented assessment. Patient is alert, bp oriented x 3, equal unlabored respirations, skin warm/dry/pink. 14:25 Reassessment: Patient is alert, oriented x 3, equal unlabored respirations, skin aa5 warm/dry/pink. Pt to CT. Vital Signs: 12:48 BP 96 / 68; Pulse 113; Resp 16; Temp 96.5(O); Pulse Ox 100% on R/A; ph 12:53 Weight 97.52 kg; Height 6 ft. 2 in. ; Pain 8/10; ph 14:12 BP 112 / 92; Pulse 104; Resp 15; Pulse Ox 100% ; bp 12:53 Body Mass Index 27.60 (97.52 kg, 187.96 cm) ph 12:53 Pain Scale: Adult ph ED Course: 12:40 Patient arrived in ED. mr 12:48 Feng Garcia MD is Attending Physician. rn 12:51 Triage completed. ph 12:51 Arm band placed on left wrist. ph 12:54 Raymond Salomon, DEEPTHI is Primary Nurse. bp 13:00 Patient has correct armband on for positive identification. bp 13:00 Initial lab(s) drawn, by ED staff, sent to lab. Inserted saline lock: 20 gauge in right bp antecubital area, using aseptic technique. Blood collected. Flushed with 10 mL NS. 13:07 EKG done, by ED staff, reviewed by Feng Garcia MD. aa5 14:42 Lower Extremity W/ Cont In Process Unspecified. EDMS 14:42 Pelvis W/Cont In Process Unspecified. EDMS 15:19 Jerald Ron MD is Hospitalizing Provider. rn 16:32 No provider procedures requiring assistance completed. Patient admitted, IV remains in aa5 place. Administered Medications: 14:07 Drug: NS 0.9% IV 1000 ml IV at 1000 ml once; to be given as a bolus over 60 minutes bp Route: IV; Rate: 1000 ml; Site: right antecubital; 15:07 Follow up: IV Status: Completed infusion; IV Intake: 1000ml aa5 14:07 Drug: Piperacillin-Tazobactam IVPB 3.375 grams IVPB once over 60 mins; (mix in NS 100 bp mL) Route: IVPB; Infused Over: 60 mins; Site: right antecubital; 16:33 Follow up: Response: No adverse reaction; IV Status: Completed infusion aa5 14:45 Drug: vancoMYCIN IVPB 1 grams IVPB once over 2 hrs Route: IVPB; Infused Over: 2 hrs; bp Site: right antecubital; 16:33 Follow up: Response: No adverse reaction; IV Status: Completed infusion aa5 15:49 Drug: Insulin Drip - (Insulin Regular Human IVP 100 units, NS 0.9% IV 100 ml) IV at bp calculated rate continuous; Standard concentration 1unit/ml; Dose for DKA is 0.1 units/kg/hr {Co-Signature: aa5 (Crystal Blue RN).} Route: IV; Rate: calculated rate; Site: left antecubital; 16:34 Follow up: IV Status: Infusion continued upon admission aa5 15:59 Drug: fentaNYL (PF) IVP 50 mcg IVP once Route: IVP; Site: right antecubital; bp 16:34 Follow up: Response: No adverse reaction aa5 16:34 Not Given (Physician Discretion): ns 0.9% 1000 ml IV at 1000 ml once; to be given as a aa5 bolus over 60 minutes Medication: 16:32 VIS not applicable for this client. aa5 Intake: 15:07 IV: 1000ml; Total: 1000ml. aa5 Outcome: 15:20 Decision to Hospitalize by Provider. rn 16:32 Admitted to OR accompanied by nurse, via wheelchair, with chart, aa5 16:32 Condition: stable 16:32 Instructed on the need for admit, Demonstrated understanding of instructions, 16:33 Patient left the ED. eb Signatures: Dispatcher [employer] EDPA Winter Chambers, Reg Reg Feng Gomez MD MD rn Calderon, Audri, DEEPTHI RN aa5 Terri Washburn RN RN ph Raymond Salomon RN RN [place] Audri RN aa5 Corrections: (The following items were deleted from the chart) 12:54 12:51 Allergies: Vicodin; ph ph
--- NOTE | 2024-07-14 15:20 | EDPHYS ---
Physician Documentation [facility] Name: Sp Nagel Age: 48 yrs Sex: Male : 1975 Arrival Date: 07/14/2024 Time: 12:38 Bed 3 Private MD: ED Physician Feng Garcia HPI: 07/14 13:48 This 48 yrs old Male presents to ER via Ambulatory with complaints of Abscess. rn 13:48 The patient presents with an abscess of the left leg. Onset: The symptoms/episode rn began/occurred 1 week(s) ago. Modifying factors: the symptoms are alleviated by nothing, the symptoms are aggravated by pressure, touching. The patient has experienced similar episodes in the past. Patient reports open wound and abscess with drainage and foul smell underneath left buttocks that started a week ago. Patient has had similar infections in the past that required IV antibiotics and admission. Denies any trauma. Spouse has been packing and changing dressing frequently with a lot of drainage.. Historical: - Allergies: 12:54 No Known Allergies; ph - PMHx: 12:51 Diabetes - NIDDM; Hyperlipidemia; Hypertension; Hypothyroidism; ph - PSHx: 12:51 Adenoid excision; ear tubes; leg infection; Tonsillectomy; ph - Infectious Disease History:: Denies. - Social history:: Smoking status: Patient denies any tobacco usage or history of. - Family history:: not pertinent. - Hospitalizations: : No recent hospitalization is reported. ROS: 13:48 Constitutional: Negative for fever, chills, and weight loss, Cardiovascular: Negative rn for chest pain, palpitations, and edema, Respiratory: Negative for shortness of breath, cough, wheezing, and pleuritic chest pain, Abdomen/GI: Negative for abdominal pain, nausea, vomiting, diarrhea, and constipation, Back: Negative for injury and pain, MS/Extremity: Positive for open wound to the left proximal posterior thigh Exam: 13:48 Constitutional: This is a well developed, well nourished patient who is awake, alert, rn and in no acute distress. Cardiovascular: Tachycardic, regular Respiratory: Lungs have equal breath sounds bilaterally, clear to auscultation and percussion. No rales, rhonchi or wheezes noted. No increased work of breathing, no retractions or nasal flaring. Abdomen/GI: Soft, nontender Skin: Warm, dry, induration of skin approximately 10 to 12 inches from left posterior proximal thigh to posterior distal thigh. There is about a 3 inch irregular open wound with green and lennon drainage, some bubbles. Does not extend into the perineum or scrotum. Does not extend into buttocks 16:20 ECG was reviewed by the Attending Physician. rn Vital Signs: 12:48 BP 96 / 68; Pulse 113; Resp 16; Temp 96.5(O); Pulse Ox 100% on R/A; ph 12:53 Weight 97.52 kg; Height 6 ft. 2 in. ; Pain 8/10; ph 14:12 BP 112 / 92; Pulse 104; Resp 15; Pulse Ox 100% ; bp 12:53 Body Mass Index 27.60 (97.52 kg, 187.96 cm) ph 12:53 Pain Scale: Adult ph MDM: 12:48 Medical Screening Exam initiated rn 15:17 Differential diagnosis: abscess, cellulitis. Data reviewed: vital signs, nurses notes, rn employee health test result(s), radiologic studies, CT scan, and as a result, I will admit patient. Consideration of Admission/Observation Patient was admitted/placed on observation. Escalation of care including admission/observation considered. Management of patient was discussed with the following: Community Resource Consultant: Discussed case with Dr. Mata, he is coming in right now for OR drainage and debridement.. Counseling: I had a detailed discussion with the patient and/or guardian regarding the historical points, exam findings, and any diagnostic results supporting the discharge/admit diagnosis, lab results, radiology results, the need for further work-up and treatment in the hospital. Response to treatment: the patient's symptoms have mildly improved after treatment, and as a result, I will admit patient. ED course: Patient with large left posterior thigh abscess, 7 x 2 x 11 cm. Elevated WBC but normal lactic acid. Patient also in DKA. Insulin drip ordered. Vancomycin and Zosyn ordered empirically. Patient not in septic shock but given 2 L bolus due to DKA and tachycardia. Will admit to hospitalist service for further care.. 07/14 12:55 Order name: Blood Culture Adult (2) rn 07/14 12:55 Order name: CBC with Diff rn 07/14 12:55 Order name: CMP; Complete Time: 14:11 rn 07/14 12:55 Order name: Lactate w/ 2H reflex if indic.; Complete Time: 14:11 rn 07/14 12:55 Order name: Protime (+inr); Complete Time: 14:11 rn 07/14 12:55 Order name: Ptt, Activated; Complete Time: 14: rn 07/14 12:55 Order name: Wound Culture rn 07/14 15:53 Order name: Glucose, Ancillary Testing; Complete Time: 16:15 EDMS 07/14 16:22 Order name: Magnesium EDMS 07/14 16:22 Order name: Osmolality, Serum EDMS 07/14 16:22 Order name: Basic Metabolic Panel EDMS 07/14 16:22 Order name: Basic Metabolic Panel EDMS 07/14 16:22 Order name: Basic Metabolic Panel EDMS 07/14 16:22 Order name: Basic Metabolic Panel EDMS 07/14 16:22 Order name: CBC with Automated Diff EDMS 07/14 16:22 Order name: CBC with Automated Diff EDMS 07/14 16:22 Order name: CBC with Automated Diff EDMS 07/14 16:22 Order name: CBC with Automated Diff EDMS 07/14 16:22 Order name: Lipid Profile EDMS 07/14 16:22 Order name: Lipid Profile EDMS 07/14 13:01 Order name: Lower Extremity W/ Cont; Complete Time: 15:12 EDMS 07/14 13:01 Order name: Pelvis W/Cont; Complete Time: 15:12 EDMS 07/14 16:22 Order name: CONS Diabetic Education Consul EDMS 07/14 16:22 Order name: CONS Physician Consult EDMS 07/14 12:55 Order name: Accucheck; Complete Time: 13:07 rn 07/14 12:55 Order name: Cardiac monitoring; Complete Time: 13: rn 07/14 12:55 Order name: EKG - Nurse/Tech; Complete Time: 13:15 rn 07/14 12:55 Order name: IV Saline Lock - Large Bore; Complete Time: 13: rn 07/14 12:55 Order name: Labs collected and sent; Complete Time: 13: rn 07/14 12:55 Order name: O2 Per Protocol; Complete Time: 13:07 rn 07/14 12:55 Order name: O2 Sat Monitoring; Complete Time: 13: rn 07/14 12:55 Order name: Vital Signs; Complete Time: 13:07 rn EC:20 Rate is 112 beats/min. Rhythm is regular. AR interval is normal. QRS interval is rn normal. QT interval is normal. No Q waves. T waves are Normal. No ST changes noted. Clinical impression: Sinus tachycardia. Interpreted by me. Reviewed by me. Administered Medications: 14:07 Drug: NS 0.9% IV 1000 ml IV at 1000 ml once; to be given as a bolus over 60 minutes bp Route: IV; Rate: 1000 ml; Site: right antecubital; 15:07 Follow up: IV Status: Completed infusion; IV Intake: 1000ml aa5 14:07 Drug: Piperacillin-Tazobactam IVPB 3.375 grams IVPB once over 60 mins; (mix in NS 100 bp mL) Route: IVPB; Infused Over: 60 mins; Site: right antecubital; 16:33 Follow up: Response: No adverse reaction; IV Status: Completed infusion aa5 14:45 Drug: vancoMYCIN IVPB 1 grams IVPB once over 2 hrs Route: IVPB; Infused Over: 2 hrs; bp Site: right antecubital; 16:33 Follow up: Response: No adverse reaction; IV Status: Completed infusion aa5 15:49 Drug: Insulin Drip - (Insulin Regular Human IVP 100 units, NS 0.9% IV 100 ml) IV at bp calculated rate continuous; Standard concentration 1unit/ml; Dose for DKA is 0.1 units/kg/hr {Co-Signature: aa5 (Crystal Blue RN).} Route: IV; Rate: calculated rate; Site: left antecubital; 16:34 Follow up: IV Status: Infusion continued upon admission aa5 15:59 Drug: fentaNYL (PF) IVP 50 mcg IVP once Route: IVP; Site: right antecubital; bp 16:34 Follow up: Response: No adverse reaction aa5 16:34 Not Given (Physician Discretion): ns 0.9% 1000 ml IV at 1000 ml once; to be given as a aa5 bolus over 60 minutes Disposition Summary: 07/14/24 15:20 Hospitalization Ordered Notes: Hospitalization Status: Inpatient Admission rn Provider: Jerald Ron rn Location: Intensive Care Unit rn Condition: Stable rn Problem: new rn Symptoms: have improved rn Bed/Room Type: Standard rn Room Assignment: rn Diagnosis - Cutaneous abscess of left lower limb rn - Diabetes mellitus due to underlying condition with ketoacidosis without coma rn Forms: - Medication Reconciliation Form rn - SBAR form rn - Leadership Thank You Letter erisa attorney time excluding procedures: 15:17 Critical care time: Bedside Care: 35 minutes, Consultation: 5 minutes. Total time: 40 rn minutes Signatures: Dispatcher [employer] EDMS Feng Garcia MD MD rn Hall, Patricia, RN RN Raymond Salomon RN RN Crystal Blue RN aa5 Crystal Blue RN aa5 Corrections: (The following items were deleted from the chart) 12:54 12:51 Allergies: Vicodin; ph ph 12:55 12:55 BLOOD CULTURE*+BA.LAB.BRZ ordered. EDMS EDMS 12:55 12:55 CBC+H.LAB.BRZ ordered. EDMS EDMS 12:55 12:55 COMPREHENSIVE METABOLIC PANEL+C.LAB.BRZ ordered. EDMS EDMS 12:55 12:55 LACTATE+C.LAB.BRZ ordered. EDMS EDMS 12:55 12:55 PROTIME (+INR)+COAG.LAB.BRZ ordered. EDMS EDMS 12:55 12:55 PTT, ACTIVATED+COAG.LAB.BRZ ordered. EDMS EDMS 12:55 12:55 Wound Culture+BA.LAB.BRZ ordered. EDMS EDMS
[2024-07-14] MEDS ORDERED: FENTANYL CITR 100 MCG/2 ML ONE ×2 (15:57→16:33)
--- NOTE | 2024-07-14 15:58 | P.CNS ---
Date of Consult: 07/14/24 Reason for consult: Left posterior thigh abscess with gas and DKA History of present illness: Patient is a 48-year-old gentleman with multiple medical problems presents to the emergency room with 2-week history of a developing wound which now is associated with redness, pain, drainage and foul odor. Patient denies any sore throat, runny nose, cough, headaches, dizziness or chest pain. Patient did have subjective fever and chills at home. Patient had multiple infections in the past associated with skin including the scrotum. Review of systems: Otherwise unremarkable Past medical history: Type 2 diabetes, hyperlipidemia, hypertension, hypothyroidism Past surgical history: Tonsillectomy and adenoidectomy, earlobe surgery, multiple infections leading to incision and drainage Allergies: None Social history: Patient denies smoking or drinking alcohol Family history: Noncontributory Vital signs: Systolic is in the 90s, heart rate is in the 110s, temperature is 96.5 Physical exam: He is awake and alert Head and neck exam: No masses Chest: Clear Heart: S1-S2 Abdomen: Soft Extremity: Neurovascular intact Neuro: Nonfocal Left posterior thigh: Patient has approximately a 8 x 5 cm area of necrotic wound with pus inside of it and necrotic fibrin with surrounding erythema warmth and edema. Wound is very tender. Diagnostic data: White count is 21.5, glucose is 450 with an anion gap of 21. CT of the thigh reveals a 7 x 2 x 11 cm abscess with subcutaneous tissue extending inferiorly to the level of the mid left femur. Air is present throughout the tissue like produced by infection. Assessment: Necrotizing infection of the left posterior thigh in a patient with DKA Plan/recommendation: Resuscitation with fluids, IV antibiotics, insulin drip for controlling patient's glucose and then to the OR for excisional debridement of the left posterior thigh infected wound. Patient and family understand risk benefits alternatives and agreed procedure. Plan of care discussed with the hospitalist team. CC:
[2024-07-14] MEDS ORDERED: INSULIN REGULAR, HUMAN 100 UNIT in NA CHLORIDE 0.9% 100 ML IV SCH (16:00)
--- NOTE | 2024-07-14 16:21 | P.HP ---
Patient History Date of Service: 07/14/24 History of Present Illness: 48-year-old with a past medical history of uncontrolled type 2 diabetes, hypertension, neuropathy presenting with vomiting and abscess of the left thigh. He states it began as a boil 2 weeks ago. He noticed the skin around the boil was becoming harder and changing color. He states its tender to touch. Rates it the pain as a 9 out of 10. He has not been taking any qefw-rcd-nozhyyv medications for it. He states his blood sugar has been all over the place. Allergies No Known Allergies Allergy (Verified 04/27/23 22:10) Home Medications: Metformin HCl [Glucophage*] 1,000 mg PO BIDWM 07/18/15 Ciprofloxacin HCl [Cipro 500 MG Tablet] 500 mg PO BID 14 Days #28 tab 04/29/23 Doxycycline Hyclate [Vibramycin] 100 mg PO BID 14 Days #28 mg 04/29/23 Insulin Glargine,Hum.rec.anlog [Semglee] 25 unit SQ BEDTIME 30 Days #100 ml 04/29/23 Lactobacillus Acidophilus [Acidophilus Lactobacilli] 1 each PO BID 14 Days #28 cap 04/29/23 Tramadol HCl 100 mg PO TID PRN 14 Days #21 tab 04/29/23 - Past Medical/Surgical History Diabetic: Yes -: Hypothyroidism-resolved after weight loss -: Diabetes -: Hypertension-resolved after weight loss -: abcess/cellulitis to R arm w/ I&D -: Debridement RLE wound - Family History Father -: Heart disease, Hypertension, Other (see notes) Notes: Hypothyroidism Mother -: Diabetes, Kidney disease, Other (see notes) Notes: Dialysis; Legally blind - Social History Alcohol use: Yes CD- Drugs: No Caffeine use: Yes Review of Systems General: Unremarkable Eyes: Unremarkable ENT: Unremarkable Respiratory: Unremarkable Cardiovascular: Unremarkable Gastrointestinal: Vomiting Genitourinary: Unremarkable Musculoskeletal: Unremarkable Integumentary: Lesions (Left thigh abscess) Neurological: Unremarkable Lymphatics: Unremarkable Physical Examination - Physical Exam General: In no apparent distress HEENT: Normocephalic Neck: Supple Respiratory: Clear to auscultation bilaterally, Normal air movement Cardiovascular: No edema, Normal pulses Capillary refill: <2 Seconds Gastrointestinal: Normal bowel sounds, Soft and benign Musculoskeletal: No clubbing, No swelling Integumentary: No rashes Neurological: Normal strength at 5/5 x4 extr - Studies Laboratory Data (last 24 hrs) 07/14/24 07/14/24 07/14/24 13:24 13:24 13:24 WBC 21.50 H Hgb 13.5 L Hct 40.8 Plt Count 741 H PT 12.2 INR 1.07 APTT 29.0 Sodium 132 L Potassium 3.8 BUN 12 Creatinine 1.41 H Glucose 475 H* Total Bilirubin 0.6 AST < 10 L ALT 15 L Alkaline Phosphatase 154 H Assessment and Plan - Plan Sepsis due to left thigh abscess DKA Neuropathy Leukocytosis Thrombocytosis Paraprotein gap Admit to ICU Keep n.p.o. General Surgery consulted and taking the OR for I&D Continue insulin gtt and continue IVfluids monitor anion gap and HCO3 replace K Start Vancomycin CBC, CXR, Blood cultures, UA transition to subq insulin once gap is corrected and bicarb above 18 DVT prophylaxis with SCDs - Advance Directives Does patient have a Living Will: No Does patient have a Durable POA for Healthcare: No
[2024-07-14] MEDS ORDERED: ONDANSETRON 4 MG/2 ML VIAL ONE (16:30)
[2024-07-14] MEDS ORDERED: propofoL 200 MG/20 ML VIAL IV ONE (16:30)
[2024-07-14] MEDS ORDERED: LIDOCAINE 2% MPF 5 ML VIAL ONE (16:30)
[2024-07-14] MEDS ORDERED: MIDAZOLAM HCL 2 MG/2 ML INJ ONE (16:33)
[2024-07-14 16:43] LABS: Band Neutrophils 11 % (0-1); Blood Morphology Comment NOT SEEN (NOT SEEN); Differential Total Cells Count 100; Lymphocytes 15 % (15-42); Monocytes 8 % (0-10); Platelet Estimate INCR; Segmented Neutrophils 66 % (40-80)
[2024-07-14] MEDS: NA CHLORIDE 0.9% 1,000 ML ONE (16:46)
[2024-07-14] MEDS: D5.45NS W/KCL 20MEQ 1,000 ML IV SCH (17:00)
[2024-07-14] MEDS ORDERED: EPHEDRINE SULF 50 MG/ML VIAL ONE (17:07)
[2024-07-14] MEDS ORDERED: VANCOMYCIN 1 GM in NA CHLORIDE 0.9% 250 ML IVPB SCH (17:16)
[2024-07-14] MEDS: COLLAGENASE 30 GM OINTMENT TOP ONE (17:36)
[2024-07-14] MEDS: VANCOMYCIN 750 MG in NA CHLORIDE 0.9% 150 ML IVPB ONE (17:45)
--- NOTE | 2024-07-14 17:46 | P.OP ---
Date of Service: 07/14/24 Preop diagnosis: Necrotizing infection of the left posterior thigh with abscess Postop diagnosis: Same Procedure performed: Excisional debridement of left posterior thigh necrotizing infected wound to subcutaneous tissue and fascia 10 x 12 x 4 cm Surgeon: Genaro Mata MD Corporate Counsel: None Estimated blood loss: Minimal Specimen: Pus and necrotic infected tissue for culture, debridement tissue Findings: As above Anesthesia: General Complications: None Drains: None Fluids and blood products: Nonapplicable Disposition: Recovery room Operative note: Patient brought to the OR and placed in supine position. General anesthesia began. Patient placed in the right lateral position. Patient prepped and draped in usual sterile fashion. Marcaine 0.5%. Locally. Sharp dissection utilizing cautery and scissors used to debride the wound down to the deep subcutaneous tissue and fascia until healthy bleeding tissue was encountered. Large amount of pus was encountered. Cultures were done. All necrotic tissue was debrided. Necrotic infected tissue was sent for tissue culture as well. Pulse irrigation was used with Betadine first. Then normal saline was used to irrigate the wound with pulse irrigation. Bleeding was controlled with cautery. All necrotic tissue visible was debrided and removed. Santyl with wet-to-dry normal saline dressing change applied. Patient awakened and taken to recovery room in fair condition. CC:
[2024-07-14] MEDS: FENTANYL CITR 100 MCG/2 ML ONE (18:00)
[2024-07-14] MEDS: HYDROMORPHONE HCL 1 MG/ML INJ ONE (18:08)
[2024-07-14] MEDS: NS KCL 20MEQ 1,000 ML IV SCH (19:00)
[2024-07-14] MEDS: HYDROCODONE/APAP 7.5/325 MG TAB PO PRN (19:11)
[2024-07-14] MEDS: NA CHLORIDE 0.9% 500 ML IV ONE (20:05)
[2024-07-14] MEDS: VANCOMYCIN 500 MG/VIAL ONE ×2 (20:06)
[2024-07-14] MEDS: NA CHLORIDE 0.9% 250 ML ONE (20:07)
[2024-07-14] MEDS: HYDROMORPHONE HCL 1 MG/ML INJ IV PRN (22:18)
[2024-07-14 22:55] LABS: Anion Gap 15.6 mEq/L (5.0-15.0)
[2024-07-14 22:57] LABS: Magnesium 1.6 mg/dL (1.6-2.4); Potassium 3.6 mEq/L (3.5-5.1)
[2024-07-15] MEDS: PIPER TAZO 3.375 GM in NA CHLORIDE 0.9% 100 ML IV SCH (00:08)
[2024-07-15] MEDS: D5 0.45 NS 1,000 ML IV SCH (00:08)
[2024-07-15 02:51] LABS: Anion Gap 12.4 mEq/L (5.0-15.0); Potassium 3.4 mEq/L (3.5-5.1)
[2024-07-15] MEDS: KCL 20 MEQ/100 mL IVPB 20 MEQ/100 ML BAG IV SCH (03:36)
[2024-07-15 05:10] LABS: Absolute Basophils 0.1 K/uL (0-0.5); Absolute Eosinophils 0.1 K/uL (0-0.5); Absolute Lymphocytes (CBC) 1.5 K/uL (0.7-4.9); Absolute Monocytes 0.9 K/uL (0.1-1.3); Absolute Neutrophil 10.7 K/uL (1.8-8.0); Basophils % 0.7 % (0-1.3); Eosinophils % 0.5 % (0-4.4); Hematocrit 32.4 % (39.6-49.0); Hemoglobin 11.4 g/dL (13.6-17.9); Lymphocytes % 11.4 % (15.3-44.8); MCH 30.2 pg (27.0-35.0); MCHC 35.1 g/dL (32.0-36.0); MCV 85.9 fL (80-100); Monocytes % 7.1 % (3.3-12.3); Neutrophils % 80.3 % (41.7-73.7); Platelets 558 thou/uL (152-406); RBC Red Blood Cell Count 3.77 M/uL (4.33-5.43); Red Cell Distribution Width 13.8 % (12.1-15.2)
[2024-07-15] MEDS: INSULIN GLARGINE 100 UNIT/ML SQ SCH (05:43)
[2024-07-15] MEDS: ENOXAPARIN 40 MG/0.4 ML SQ SCH (07:39)
[2024-07-15] MEDS: INSULIN REGULAR (HUMAN) 100 UNIT/ML SQ SCH (07:39)
[2024-07-15] MEDS: NA CHLORIDE 0.9% 1,000 ML IV SCH (10:00)
--- NOTE | 2024-07-15 11:30 | P.PN ---
Date of Service: 07/15/24 Subjective: Doing much better today. Some soreness around the dressing. Denies fevers and chills. Ate breakfast this morning. His is at bedside. no new complaint Review of Systems General: Unremarkable Eyes: Unremarkable ENT: Unremarkable Respiratory: Unremarkable Cardiovascular: Unremarkable Gastrointestinal: Vomiting Genitourinary: Unremarkable Musculoskeletal: Unremarkable Integumentary: Lesions (Left thigh abscess) Neurological: Unremarkable Lymphatics: Unremarkable Physical Examination - Physical Exam General: In no apparent distress HEENT: Normocephalic Neck: Supple Respiratory: Clear to auscultation bilaterally, Normal air movement Cardiovascular: No edema, Normal pulses Capillary refill: <2 Seconds Gastrointestinal: Normal bowel sounds, Soft and benign Musculoskeletal: No clubbing, No swelling Integumentary: No rashes Neurological: Normal strength at 5/5 x4 extr - Studies Laboratory Data (last 24 hrs) 07/14/24 07/14/24 07/14/24 13:24 13:24 13:24 WBC 21.50 H Hgb 13.5 L Hct 40.8 Plt Count 741 H PT 12.2 INR 1.07 APTT 29.0 Sodium 132 L Potassium 3.8 BUN 12 Creatinine 1.41 H Glucose 475 H* Total Bilirubin 0.6 AST < 10 L ALT 15 L Alkaline Phosphatase 154 H Assessment and Plan - Plan Sepsis due to left thigh abscess Uncontrolled type 2 diabetes mellitus with hyperglycemia Neuropathy Leukocytosis Thrombocytosis Neuropathy DKA resolved DKA resolved, off insulin drip and gap closed Switch to subcu insulin and advance to carbohydrate consistent diet Continue aggressive sliding scale insulin regimen with Accu-Cheks ACHS I&D of left thigh abscess on 07/14/2024, wound VAC orders from Dr. Mata Marked improvement in WBC count Continue vancomycin and Zosyn, procalcitonin within normal limit CBC and CMP in the a.m. Leukocytosis improved DVT prophylaxis with SCDs - Advance Directives Does patient have a Living Will: No Does patient have a Durable POA for Healthcare: No
[2024-07-15] MEDS: VANCOMYCIN 1.75 GM in NA CHLORIDE 0.9% 500 ML IVPB SCH (12:23)
--- NOTE | 2024-07-15 12:50 | PN ---
Date of Progress Note: 07/15/2024 Subjective: Patient is awake, alert. Pain is much better. His vital signs are stable. He is curre ntly afebrile. His white count is down to 13.3. The platelets have improved as well as the left sh ift. His Gram stain, so far, shows beta-hemolytic strep group B. Sensitivities are pending and rita charlotte of the Gram stains are pending as well. Objective: Examination reveals the dressing to be relatively clean. There is mild amount of drainag e on it, but the erythema, warmth, and edema surrounding the wound is not present. Assessment: Status post excisional debridement of an infected wound, necrotizing in nature. Recommendations: The patient is doing well. We will start wound VAC tomorrow with Santyl and contin ue antibiotics. Check cultures and adjust antibiotics. Medical management of his diabetes. Patient is clinically doing well and we should initiate discharge planning as well. /MODL Voice ID: [id number] Report ID: [id number]
[2024-07-15 13:47] LABS: Anion Gap 13.5 mEq/L (5.0-15.0); Magnesium 1.7 mg/dL (1.6-2.4); Phosphorus 1.7 mg/dL (2.5-4.9); Potassium 3.5 mEq/L (3.5-5.1)
[2024-07-15] MEDS: COLLAGENASE 30 GM OINTMENT TOP SCH (15:00)
[2024-07-15] MEDS: ONDANSETRON 4 MG/2 ML VIAL IV PRN (15:16)
[2024-07-15] MEDS: PROMETHAZINE INJ 25 MG/ML AMP IV PRN (16:29)
--- NOTE | 2024-07-16 03:48 | P.PN ---
Subjective Date of Service: 07/16/24 Subjective: No new changes, No C/O voiced, Improving Review of Systems 10-point ROS is otherwise unremarkable Physical Examination - Vital Signs Temperature: 99 F Blood Pressure: 120/82 Pulse: 86 Respirations: 15 Pulse Ox (%): 99 - Physical Exam General: Alert, In no apparent distress, Oriented x3 Respiratory: Clear to auscultation bilaterally, Normal air movement Cardiovascular: Regular rate/rhythm, Normal S1 S2 Gastrointestinal: Normal bowel sounds, Soft and benign, Non-distended, No tenderness Musculoskeletal: No tenderness Integumentary: Tenderness/swelling, Erythema, Other (open wound to the left thigh) Neurological: Other (no focal deficits; generalized weakness) - Studies Microbiology Data (last 24 hrs): 07/14/24 13:31 Wound - Abscess Gram Stain - Final Medications List Reviewed: Yes Assessment & Plan - Problems (Diagnosis) (1) Abscess of left thigh Current Visit: Yes Status: Acute (2) DKA (diabetic ketoacidosis) Current Visit: No Status: Acute (3) Neuropathy Current Visit: No Status: Acute - Plan - Plan 1. Abscess of the left thigh with sepsis; continue with IV fluids and IV antibiotic therapy. Continue with wound care recommendations per general surgery. Patient will need continued wound care as an outpatient. Outpatient evaluation for skin graft as well. 2. Diabetic ketoacidosis; continue with strict blood sugar management. Long- acting insulin and monitor electrolytes closely. 3. Diabetic neuropathy; continue with gabapentin 4. Leukocytosis with thrombocytosis; monitor CBC. Should be coming down as infection is healing 5. GI DVT prophylaxis - Advance Directives Does patient have a Living Will: No Does patient have a Durable POA for Healthcare: No Discharge Plan: Home Plan to discharge in: Greater than 2 days - Advance Directives Does patient have a Living Will: No Does patient have a Durable POA for Healthcare: No - Code Status/Comfort Care Code Status Assessed: Yes Code Status: Full Code Critical Care: No Time Spent Managing PTS Care (In Minutes): 30
[2024-07-16 05:17] LABS: Absolute Basophils 0.1 K/uL (0-0.5); Absolute Eosinophils 0.1 K/uL (0-0.5); Absolute Lymphocytes (CBC) 2.1 K/uL (0.7-4.9); Absolute Monocytes 1.1 K/uL (0.1-1.3); Absolute Neutrophil 6.9 K/uL (1.8-8.0); Basophils % 1.2 % (0-1.3); Eosinophils % 1.2 % (0-4.4); Hematocrit 33.9 % (39.6-49.0); Hemoglobin 11.9 g/dL (13.6-17.9); Lymphocytes % 20.1 % (15.3-44.8); MCH 29.9 pg (27.0-35.0); MCHC 35.1 g/dL (32.0-36.0); MCV 85.2 fL (80-100); MPV 7.2 fL (7.6-11.3); Monocytes % 10.8 % (3.3-12.3); Neutrophils % 66.7 % (41.7-73.7); Platelets 551 thou/uL (152-406); RBC Red Blood Cell Count 3.98 M/uL (4.33-5.43); Red Cell Distribution Width 13.5 % (12.1-15.2)
[2024-07-16 05:32] LABS: Albumin/Globulin Ratio 0.5 (1.1-1.8); Alkaline Phosphatase 111 U/L (45-117); Anion Gap 10.4 mEq/L (5.0-15.0); BUN Blood Urea Nitrogen 4 mg/dL (7-18); Bicarbonate 25 mEq/L (21-32); Bilirubin Total 0.3 mg/dL (0.2-1.0); Globulin 4.2 g/dL (2.3-3.5); Glomerular Filtration Rate 114 ml/min (=/>90); Glucose Level 255 mg/dL (74-106); Magnesium 1.8 mg/dL (1.6-2.4); Phosphorus 1.8 mg/dL (2.5-4.9); Potassium 3.4 mEq/L (3.5-5.1); Protein, Total 6.2 g/dL (6.4-8.2); Sodium Level 138 mEq/L (136-145)
[2024-07-16 05:34] LABS: ALT/SGPT < 14 U/L (16-61); AST/SGOT < 10 U/L (15-37)
[2024-07-16] MEDS: POTASSIUM PHOS IN 0.9 % NACL 15 MMOL/250 ML BAG IV ONE (09:39)
[2024-07-16] MEDS: MAGNESIUM SULFATE 1 gm IVPB 1 GM/100 ML BAG IV ONE (09:39)
[2024-07-16] MEDS: KCL 20 MEQ/100 mL IVPB 20 MEQ/100 ML BAG IV SCH (09:39)
--- NOTE | 2024-07-16 12:02 | EKG ---
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
--- NOTE | 2024-07-16 14:05 | PN ---
Date of Progress Note: 07/16/2024 Subjective: The patient is awake, alert. No complaints. Vitals stable, afebrile. White count is n ormal. Left shift has normalized. Cultures are growing Strep agalactiae group B sensitive to penici llin, vancomycin, and Levaquin. The wound is clean. There is no purulence. There is some beginning of granulation tissue. No surrounding erythema, warmth, or edema. Assessment: Status post debridement of a necrotizing infection, left posterior thigh. Recommendation: Continue IV antibiotics to oral antibiotic Levaquin. Wound VAC will be s tarted. Discharge planning. The patient is clinically doing well. /MODL Voice ID: [id number] Report ID: [id number]
[2024-07-16] MEDS: VANCOMYCIN 1.75 GM in NA CHLORIDE 0.9% 500 ML IVPB SCH (17:20)
[2024-07-17 00:11] VITALS: O2SAT 99
[2024-07-17 06:00] LABS: Absolute Basophils 0.1 K/uL (0-0.5); Absolute Eosinophils 0.1 K/uL (0-0.5); Absolute Lymphocytes (CBC) 1.4 K/uL (0.7-4.9); Absolute Monocytes 1.4 K/uL (0.1-1.3); Absolute Neutrophil 6.8 K/uL (1.8-8.0); Basophils % 0.9 % (0-1.3); Eosinophils % 1.5 % (0-4.4); Hematocrit 33.2 % (39.6-49.0); Hemoglobin 11.8 g/dL (13.6-17.9); Lymphocytes % 14.5 % (15.3-44.8); MCH 30.3 pg (27.0-35.0); MCHC 35.7 g/dL (32.0-36.0); MCV 84.9 fL (80-100); MPV 6.7 fL (7.6-11.3); Monocytes % 14.3 % (3.3-12.3); Neutrophils % 68.8 % (41.7-73.7); Platelets 489 thou/uL (152-406); RBC Red Blood Cell Count 3.91 M/uL (4.33-5.43); Red Cell Distribution Width 13.7 % (12.1-15.2)
[2024-07-17 06:08] VITALS: BMI 26.9
[2024-07-17 06:33] LABS: Anion Gap 10.3 mEq/L (5.0-15.0); Magnesium 1.8 mg/dL (1.6-2.4); Phosphorus 2.3 mg/dL (2.5-4.9); Potassium 3.3 mEq/L (3.5-5.1)
[2024-07-17] MEDS ORDERED: PROMETHAZINE INJ 25 MG/ML AMP IV PRN (10:16)
[2024-07-17] MEDS ORDERED: PROMETHAZINE 25 MG TABLET PO PRN (10:51)
[2024-07-17] MEDS: POTASSIUM CL SA 10 MEQ TAB PO ONE (11:59)
[2024-07-17] MEDS: MAGNESIUM SULFATE 1 gm IVPB 1 GM/100 ML BAG IV ONE (11:59)
[2024-07-17] MEDS: POTASSIUM PHOS IN 0.9 % NACL 15 MMOL/250 ML BAG IV ONE (11:59)
--- NOTE | 2024-07-17 13:01 | PN ---
Date of Progress Note: 07/17/2024 Subjective: The patient is awake, alert. No complaint. Vitals stable, afebrile. Wound cultures re viewed. The patient is sensitive to Bactrim, penicillin, and Levaquin for his staph and strep infect ion. His wound appears to be clean. There is no redness, erythema, or warmth. The patient is clini ebonie stable. Assessment: Status post excisional debridement of an infected wound with abscess, left thigh. Recommendations: The patient can be converted to oral antibiotics, from my point of view. Wound VAC when available. Patient can be discharged to home. [facility] after dis charge. /KACEY Voice ID: [id number] Report ID: [id number]
[2024-07-17 17:29] VITALS: BP 119/96; TEMP 98
== END 2024-07-17 17:33 | disposition home or self-care (01) | DRG 853 ==
LOC: ER 12:38 → ERHOLD 16:14 → 3RD-ICU 17:24
PROVIDERS: ADMIT Family Medicine; ATTEND Hospitalist
PROC: 0JBM0ZZ Excision of Left Upper Leg Subcutaneous Tissue and Fascia, Open Approach (ICD-10-PCS; principal; 2024-07-14 17:00)
DX: A41.9 Sepsis, unspecified organism (principal); E11.10 Type 2 diabetes mellitus with ketoacidosis without coma; E11.52 Type 2 diabetes mellitus with diabetic peripheral angiopathy with gangrene; L02.416 Cutaneous abscess of left lower limb; E11.40 Type 2 diabetes mellitus with diabetic neuropathy, unspecified; I10 Essential (primary) hypertension; H54.8 Legal blindness, as defined in USA; E03.9 Hypothyroidism, unspecified; E78.5 Hyperlipidemia, unspecified; D75.839 Thrombocytosis, unspecified; B95.1 Streptococcus, group B, as the cause of diseases classified elsewhere; Z79.4 Long term (current) use of insulin; Z79.84 Long term (current) use of oral hypoglycemic drugs; Z79.899 Other long term (current) drug therapy
CPT/HCPCS: 36415; 72193; 73701; 80048; 80053; 80061; 80202; 82947; 83605; 83735; 83930; 84100; 84145; 85025; 85610; 85730; 87040; 87070; 87075; 87077; 87176; 87186; 87205; 88304; 93005; 99285; J1171; J1650; J1815; J2003; J2250; J2405; J2543; J2550; J2704; J3010; J3370; J3475; J3480; J3590; J7030; J7040; J7050; J7799; Q9967

== ENCOUNTER 2024-11-28 07:33 | Inpatient (IN) | payer OTHER ==
[2024-11-28] MEDS ORDERED: ACETAMINOPHEN 500 MG TAB PO PRN (10:16)
[2024-11-28] MEDS ORDERED: TRAMADOL HCL 50 MG TAB PO PRN (13:41)
[2024-11-28] MEDS ORDERED: DOCUSATE NA/SENNA CONC 1 TAB PO PRN (13:47)
[2024-11-28] MEDS ORDERED: GABAPENTIN 300 MG CAP PO SCH (14:00)
[2024-11-28] MEDS: TRAMADOL HCL 50 MG TAB PO ONE (15:13)
[2024-11-28 15:46] VITALS: BMI 25.7
[2024-11-28 16:37] LABS: Urine Microscopic Reflex YN NO UMIC
[2024-11-28] MEDS: INSULIN REGULAR (HUMAN) 100 UNIT/ML SQ SCH (20:52)
[2024-11-28] MEDS: INSULIN GLARGINE 100 UNIT/ML SQ SCH (20:52)
[2024-11-28] MEDS: GABAPENTIN 300 MG CAP PO SCH (20:53)
[2024-11-28] MEDS: TRAMADOL HCL 50 MG TAB PO PRN (20:53)
[2024-11-28] MEDS: MAGNESIUM OXIDE 400 MG TAB PO SCH (20:53)
[2024-11-28] MEDS: APIXABAN 2.5 MG TABLET PO SCH (20:54)
[2024-11-28] MEDS: MELATONIN 3 MG TABLET PO SCH (20:54)
[2024-11-29 04:44] LABS: Absolute Lymphocytes (CBC) 1.7 K/uL (0.7-4.9); Hematocrit 21.5 % (39.6-49.0); Hemoglobin 7.4 g/dL (13.6-17.9); MCH 29.3 pg (27.0-35.0); MCHC 34.2 g/dL (32.0-36.0); MCV 85.6 fL (80-100); MPV 6.0 fL (7.6-11.3); Nucleated RBC Absolute Count 0.0 (0-0); Nucleated Red Blood Cells % 0.1 % (0-0); RBC Red Blood Cell Count 2.51 M/uL (4.33-5.43); White Blood Count 8.80 thou/uL (4.3-10.9)
[2024-11-29 05:18] LABS: Albumin 1.5 g/dL (3.4-5.0); Anion Gap 7.8 mEq/L (5.0-15.0); BUN Blood Urea Nitrogen 11.0 mg/dL (7-18); Glucose Level 202.0 mg/dL (74-106); Magnesium 1.8 mg/dL (1.6-2.4); Potassium 3.8 mEq/L (3.5-5.1); Prealbumin 10.9 mg/dL (20-40)
[2024-11-29] MEDS: TRAMADOL HCL 50 MG TAB PO SCH ×2 (08:45→13:08)
--- NOTE | 2024-11-29 09:02 | HP ---
Date of Admission: 11/28/2024 Time: 1 p.m. Chief Complaint: Leg amputated and needs to be able to get around again. History Of Present Illness: Mr. Berrios is a 49-year-old patient with history of hypertension, dysli pidemia, hypothyroidism, and poorly controlled diabetes mellitus, further complicated by osteomyeliti s with gangrene of his right fifth toe. The patient had amputation done but the rest of his foot was not showing good blood supply. As a result, he came back with signs of an infection, worsening naus ea, vomiting, generalized weakness and was found to have diabetic ketoacidosis along with sepsis of h is wound. He was to [facility] for a higher level of care, started on an insul in drip with broad-spectrum antibiotics and was evaluated by the surgical service. On the , he w as seen and managed by the surgical service and his imaging of the foot revealed necrotizing fasciiti s. On 11/19 the surgical team performed an urgent right guobt-sjo-obll amputation for the necrotizin g soft tissue infection and the patient was eventually managed with antibiotics and the Podiatry Serv ice signed off following the removal of the limb. Infectious Disease Service continued recommendatio ns with Unasyn IV to be completed on 11/26, which was done. His post infection and surgical treatmen t course was complicated by his diabetes mellitus, worsening weakness, need for ongoing wound care, a nd comorbid condition management. He was receiving un0its of insulin around 32-35 at night with an i ncrease of 10-15 units. He did have decreased hemoglobin to around 7.6, and he was evaluated at that point by the therapy service and found to be functioning well below baseline level and requires at t his point, moderate assistance for transferring, mobilization and performing activities of daily danica ng. Prior to the patient's worsening infection and osteomyelitis and amputation, he was independent all m obility, all activities of daily living, ambulating without an assistive device, living alone in the bedroom with bathroom located on the second floor. He now requires again significant help. He requi res supervision for bed mobility, minimum assistance for [id number]-[id number] transfers, minimum assistance f or ambulation of 20 feet with a rolling walker and hopping with the left leg. He is limited by fatig ue, requiring cues,to help him minimize the risk of injury as he has to learn that the leg is not pre sent and he cannot try to step on that leg and use the arms as he is mobilizing. He requires standby assistance for grooming, showering. Since he has been medically cleared and stable and now requires significant help, he is admitted to the inpatient rehabilitation unit for physical occupational health rn apy to help him return his prior level of functioning and reduce the risk of rehospitalization. Past Medical History: Diabetes mellitus, dyslipidemia, hypertension, peripheral neuropathy. Past Surgical History: Amputation of the right toe on 10/01/2024, amputation of the right foot on , closure of wound on 10/04/2024, debridement with I and D also 10/04/2024, and he had more l ower extremity surgery as noted on 11/16/2024 and as noted above. Allergies: NO KNOWN DRUG ALLERGIES. Medications: Tylenol 500 mg every 4 hours as needed, Eliquis 2.5 mg twice daily, gabapentin 600 mg t wice daily, Semglee insulin 35 units at bedtime, Prinivil 10 units daily, magnesium oxide 400 mg twic e daily, melatonin 3 mg at bedtime, and Senokot-S 2 at bedtime, tramadol 50 mg scheduled morning and at noon time and p.r.n. as needed. Imaging Studies: CT scan of the lower extremity with IV contrast on 11/19 shows he is status post de bridement of the medial midfoot, medial instep and a large soft tissue defect scattered foci of gas i n the plantar intrinsic foot muscles extending proximally along the deep fascia of the medial midfoot . There is additional foci of gas tracking proximally along the medial flexor tendons and along the fascia of the deep posterior compartment of the mid to distal calf with diffuse fascial edema. He wa s found to have concern for necrotizing fasciitis of the mid to distal calf and the foot, with soft t issue gas in the foot, which may be partially attributed to postsurgical changes. No drainable soft tissue fluid collection noted. No osseous erosion of the destructive changes seen. There is septic tenosynovitis of the medial flexor tendons extending proximally to approximately 45 mm above the tibi otalar joint line. There is a transverse osteotomy of the fourth proximal metatarsal shaft without s ignificant consolidation. There is a focus of gas within the lateral fourth digit with associated temple bcutaneous adipose tissue thickening and no drainable fluid. Laboratory Studies: His glucose ranged now from 175-214. Otherwise, white blood cell count 10.1, he moglobin 7.6, hematocrit 23.3, platelets 763. Potassium 4.0, glucose 156, BUN 10, creatinine 0.46, c alcium 7.5, magnesium 1.8, calcium and sodium 137. Family History: Noncontributory. Social History: No alcohol, tobacco, or IV drug use. The patient lives in a single-family home as n oted. Review of Systems: Does report some moderate pain in the stump. Some phantom limb pain is present, and otherwise no fev ers or chills and some myalgias, arthralgias. No rash. No headache. No psychiatric complaints. No evidence of depression following his amputations. No other positives on the systems review Current Level Of Functioning: Currently his eating is independent, grooming setup assistance, bathin g moderate assistance, upper body dressing supervision, lower body dressing moderate assistance, chalino ing and doffing footwear, moderate assistance. Toileting is moderate assistance. Transfer from bed to chair, wheelchair and toilet is at a moderate assistance level. Ambulation is a moderate assistan ce level with a rolling walker. Wheelchair, he did cover 1000 feet with supervision. Physical Examination: Vital Signs: Blood pressure is 123/80, pulse 88, respiratory rate 18, temperature 97.2, oxygen satur ation 99%. General: Weight 200 pounds height 6 feet 2 inches, BMI 25.7. He is resting comfortably in bed. He is in no acute distress. HEENT: He is normocephalic, atraumatic. Sclerae anicteric. Oropharynx moist. Neck: Supple. Chest: Clear. Heart: Regular Extremities: His right lower extremity dkaps-bac-mcnc amputation has good hemostasis. No issues not ed there. No complications. The patient is actually doing very well from that standpoint. Neurologic: He has no focal neurological deficits. Rehab And Medical Assessment And Plan: Mr. Sp Nagel is a 49-year-old patient [facility] with impairment category 10, amputation of lower extremity. Impairment gr oup code is 05.4, unilateral lower limb, [id number]-ipc-ithw amputation. Etiologic diagnosis gangrene of the right foot. Cormorbid conditions decreased mobility, decreased physical functioning, hypertensio n, dyslipidemia, diabetes mellitus, diabetic neuropathy. Plan: Will be to have physical and occupational therapy 3 hours a day, 5 to 7 days. He will continu e with addressing the pain with Tylenol and Tramadol along with gabapentin. Continue with subcutaneo us insulin Semglee 35 units at bedtime and a sliding scale that is mild. Continue with Prinivil 10 m g daily for hypertension, magnesium oxide for muscle spasm, melatonin for insomnia, and if need be, S enokot-S for constipation. Comorbidities that are impacting his rehabilitation, currently the patient's blood sugar control must improve. Does have some elevated blood sugars as active put him at risk for additional infection, p neumonia, as well as urinary tract infection. Furthermore after the recent amputation, he may have p hantom limb pain, may forget that the limb is off and try to stand, and would have to be reminded thr oughout its hospital stay to re-tool the thinking to reduce his risk of falling and injury. Rehab specific plan: Mr. Nagel will have physical and occupational therapy to help him with his liset lity to transfer with the missing right lower extremity. To use the upper extremities and use his le ft leg to stand and hop along with hands on the rolling walker. He may be able to work also with a c [employer] depending on how he is able to do. His transfers will then again be to a walker, wheelchair, o n and off the toilet, in and out the shower, and to help him with his dressing of lower body, donning , doffing footwear on the left, managing his activities of daily living and performing his cognitive functioning properly. Mr. Nagel has a good understanding of the process of admission to the inpatient rehabilitation unit, and how he will benefit from physical and occupational therapy. He will have 24 hours a day, 7 days a week skilled rehabilitation nursing, daily physician evaluation and management, and social service s evaluation and management for discharge planning, home equipment, and continue therapy after his di scharge. If need be, the hospitalist service will be consulted. Barriers to discharge: Again, he is a right below-knee amputation patient and again may be at high r isk of falling, will be reinforced how he should think of losing the leg. He will have the prosthesi s folks come in and work with him at some point to set him up for a nut sifter and to begin to be fitte d for a prostheses. His risk of infection is present in a prolonged stay. Length Of Stay: Expected to be about 12-14 days. Disposition: Expected to be home and continue therapy via Home Health. Prognosis: Good. Code Status: Full code. Rehab Specific Goals: 1. Become independent with upper body dressing and donning, doffing of footwear on the left. 2. Independently perform all activities of daily living. 3. Independently mobilize wheelchair 250 feet and a rolling walker 250 feet and up and down 10 steps with bilateral handrails. 4. Independently perform cognitive functioning. The above goals were reviewed with Mr. Nagel and he is in agreement. By signing this document, I acknowledge I personally performed a full physical examination on Mr. Dayron mayen no later than 24 hours after his admission to the inpatient rehabilitation unit and determined th at he is able to tolerate the above course of treatment at an intensive level for a reasonable period of time. A detailed individualized plan of care for him will be completed by hospital day 4 based o n preadmission screen, history and physical and therapy evaluations. LOLIS Voice ID: [id number]
[2024-11-29] MEDS: FE SULF/FA/VIT B COMP & C TAB PO SCH (10:25)
[2024-11-29] MEDS ORDERED: INSULIN GLARGINE 100 UNIT/ML SQ ONE (17:51)
[2024-11-29] MEDS: GABAPENTIN 300 MG CAP PO SCH (20:29)
[2024-11-29] MEDS: FERROUS SULFATE 325 MG TAB PO SCH (20:29)
[2024-11-29] MEDS: INSULIN GLARGINE 100 UNIT/ML SQ SCH (20:30)
--- NOTE | 2024-11-29 21:23 | PN ---
Date of Progress Note: 11/29/2024 Time: 1:00 p.m. Subjective: Mr. Nagel is sitting in a chair beside the bed. His sister is at the bedside. He does have complaints 10/14. He does have mild phantom limb pain. Also, there is an area of si gnificant decubital ulcer, stage III with eschar and was seen by . Robe was seen by Dr. Craig who plans to do debridement of the stage III wound in the buttocks region that is moderately large, b ut requires debridement of the eschar. Physical Examination: Vital Signs: Blood pressure 110/76, pulse 79, respiratory rate 16, temperature is 97.9, oxygen satur ation 99%. General: Mr. Nagel is sitting in a chair beside the bed. HEENT: He is normocephalic, atraumatic. Sclerae anicteric. Oropharynx pink and moist. Neck: Supple. Extremities: He does have of course the right below the knee amputation and a large area of wound in the buttock area. Neuro: Still has decreased mobility, decreased physical functioning. Other than that, no focal neur ological deficits. Laboratory Studies: White blood cell count 8.8, hemoglobin 10.4, platelets 787. Sodium 140, potassi um 3.8, chloride 108, carbon dioxide 28, BUN 11, creatinine 0.46. His glucose ranged from 199 to 214 . Hemoglobin A1c is 12.1. Calcium 7.8. Magnesium 1.8. Albumin 1.5. Prealbumin 10.9. Urinalysis, trace glucose, otherwise unremarkable. X-ray/imaging: None. Medications: Tylenol 500 mg every 4 hours as needed, Eliquis 2.5 mg twice daily, ferrous sulfate 325 mg twice daily, gabapentin 900 mg twice daily, Semglee insulin 37 mg at night, Prinivil 10 mg daily, magnesium oxide 400 mg twice daily, melatonin 3 mg at bedtime, Hemocyte Plus 1 with breakfast, trama dol 50 mg scheduled twice daily, Senokot S 2 at bedtime, and tramadol as needed is scheduled as well every 6 hours for pain level 5-7. Progress Made With Physical, Occupational, And Speech Therapy: With his therapy today, he was able t o perform clc-cu-mzwgh transfers with supervision. He did ambulate 20 feet with a rolling walker wit h moderate assistance. Did have fair strength. Some difficulty keeping his balance. With occupati onal therapy, minimum assistance for lower body dressing to pull up pants, standby assistance for upp er body dressing, minimum assistance for showering to wrap his stump on the right. Assessment And Plan: Mr. Nagel is a 49-year-old patient in rehabilitation unit with a right foot ga ngrene, status post right foot below-knee amputation. He does have a large wound in the buttock irma on, left side. He is being treated by Dr. Craig. He has comorbidities of pain, iron deficiency a nemia, hypertension, diabetes mellitus, risk of deep vein thrombus, and wounds in stump on the right lower extremity. His plan will be to continue with physical and occupational therapy 3 hours a day, 5 of 7 days. He has a list of comorbid condition medications, will be continued. In addition, the p atient does have the debridement to be done of the wound in the buttocks region that has an eschar. He was instructed on the importance of offloading that area when sitting and lying in bed to minimize the risk of worsening and tissue breakdown and potential infection in that area. He will have caref ul attention paid to when there are bowel movements to minimize the risk of infection in that region as well and the patient's family members to be trained to assist him to make good, safe decisions reg arding his transfers and ability to minimize risk of falling given the loss of his right leg. INGE/KACEY Voice ID: [id number] Report ID: [id number]
[2024-11-30] MEDS: CRANBERRY FRUIT EXTRACT 425 MG CAPSULE PO SCH (08:39)
[2024-11-30] MEDS ORDERED: LIDOCAINE HCL JELLY 2% 6 ML SYRINGE TOP ONE (10:59)
[2024-11-30] MEDS ORDERED: LIDOCAINE 1% MPF 5 ML VIAL ONE (10:59)
--- NOTE | 2024-11-30 14:03 | P.RH.PN ---
Estimated Length of Stay: 11 Expected Discharge Date: 12/11/24 Discharge Disposition Plan: Home Family Support: Yes Detention Goal: Mobility, Transfers, Self Care Vital Signs: Last Vital Signs Temp 97.8 F 11/30/24 07:04 Pulse 96 H 11/30/24 08:37 Resp 15 11/30/24 11:46 BP 127/86 11/30/24 08:37 Pulse Ox 99 11/30/24 07:04 Laboratory: Laboratory Last Values WBC 8.80 thou/uL (4.3-10.9) 11/29/24 04:04 RBC 2.51 M/uL (4.33-5.43) L 11/29/24 04:04 Hgb 7.4 g/dL (13.6-17.9) L 11/29/24 04:04 Hct 21.5 % (39.6-49.0) L 11/29/24 04:04 MCV 85.6 fL (80-100) 11/29/24 04:04 MCH 29.3 pg (27.0-35.0) 11/29/24 04:04 MCHC 34.2 g/dL (32.0-36.0) 11/29/24 04:04 RDW 15.9 % (12.1-15.2) H 11/29/24 04:04 Plt Count 787 thou/uL (152-406) H 11/29/24 04:04 MPV 6.0 fL (7.6-11.3) L 11/29/24 04:04 Neutrophils % 70.0 % (41.7-73.7) 11/29/24 04:04 Lymphocytes % 19.7 % (15.3-44.8) 11/29/24 04:04 Monocytes % 6.9 % (3.3-12.3) 11/29/24 04:04 Eosinophils % 1.8 % (0-4.4) 11/29/24 04:04 Basophils % 1.6 % (0-1.3) H 11/29/24 04:04 Absolute Neutrophils 6.1 K/uL (1.8-8.0) 11/29/24 04:04 Absolute Lymphocytes 1.7 K/uL (0.7-4.9) 11/29/24 04:04 Absolute Monocytes 0.6 K/uL (0.1-1.3) 11/29/24 04:04 Absolute Eosinophils 0.2 K/uL (0-0.5) 11/29/24 04:04 Absolute Basophils 0.1 K/uL (0-0.5) 11/29/24 04:04 Sodium 140 mEq/L (136-145) 11/29/24 04:04 Potassium 3.8 mEq/L (3.5-5.1) 11/29/24 04:04 Chloride 108 mEq/L (98-107) H 11/29/24 04:04 Carbon Dioxide 28 mEq/L (21-32) 11/29/24 04:04 Anion Gap 7.8 mEq/L (5.0-15.0) 11/29/24 04:04 BUN 11 mg/dL (7-18) 11/29/24 04:04 Creatinine 0.46 mg/dL (0.70-1.30) L 11/29/24 04:04 Est GFR (CKD-EPI) 130 ml/min (=/>90) 11/29/24 04:04 Glucose 202 mg/dL (74-106) H 11/29/24 04:04 POC Glucose 173 mg/dL (65-120) H 11/30/24 12:08 Hemoglobin A1c 12.1 % (4.2-6.3) H 11/29/24 04:04 Calcium 7.8 mg/dL (8.5-10.1) L 11/29/24 04:04 Magnesium 1.8 mg/dL (1.6-2.4) 11/29/24 04:04 Albumin 1.5 g/dL (3.4-5.0) L 11/29/24 04:04 Prealbumin 10.9 mg/dL (20-40) L 11/29/24 04:04 Urine Color Light-yellow (Yellow) 11/28/24 16:30 Urine Clarity Clear (Clear) 11/28/24 16:30 Urine pH 5.5 (5.0-7.0) 11/28/24 16:30 Ur Specific [place] 1.013 (1.005-1.030) 11/28/24 16:30 Glucose (UA)(Auto) Trace (Negative) H 11/28/24 16:30 Urine Ketones Negative (Negative) 11/28/24 16:30 Urine Blood Negative (Negative) 11/28/24 16:30 Urine Nitrite Negative (Negative) 11/28/24 16:30 Urine Bilirubin Negative (Negative) 11/28/24 16:30 Urine Urobilinogen Normal (Normal) 11/28/24 16:30 Ur Leukocyte Esterase Negative Yoselyn/uL (Negative) 11/28/24 16:30 Urine Total Protein Negative (Negative) 11/28/24 16:30 Weight: 200 lb Wound Present: Yes Closed Surgical Incision Present: Yes Negative Pressure Wound Therapy Present: No Physician Update: His labs were reviewed and are stable. He has lef buttocks wound to be addressed by Dr. Craig. He is CGA bed mobility, min for pivot transfers, RW 150' min assist, did 5 stairs CGA. Supervision with bathing upper and lower body dressing and shower transfers. Independent at wheelchair level oral care. Summary: Patient's care plan and hydrographic engineer goals have been reviewed and revised as necessary. Please see the Rehabilitation Signature page for all necessary signatures.
[2024-11-30] MEDS: COLLAGENASE 30 GM OINTMENT TOP SCH (14:38)
[2024-11-30] MEDS: LOPERAMIDE HCL 2 MG CAPSULE PO PRN (14:51)
--- NOTE | 2024-11-30 15:44 | P.CNS ---
Date of Consult: 11/29/24 Reason for Consult: Necrotic ulcer History of Present Illness: 49 y/o male with pressure ulcer , necrosis left buttock. Allergies No Known Allergies Allergy (Verified 04/27/23 22:10) Home Medications: Insulin Glargine,Hum.rec.anlog [Semglee] 25 unit SQ DAILY #10 ml 07/17/24 Gabapentin 300 mg PO BID 09/20/24 Insulin Glargine,Hum.rec.anlog [Lantus] 25 unit SQ BEDTIME 09/20/24 Amox/Clavulanate [Augmentin 875-125 Tab] 875 mg PO BID 7 Days #14 tab 09/22/24 Ciprofloxacin HCl [Cipro 500 MG Tablet] 500 mg PO BID 7 Days #14 tab 09/22/24 Hydrocodone 5/APAP 325 [[place] 5/325] 1 tab PO Q6H PRN #15 tab 09/22/24 - Past Medical/Surgical History Diabetic: Yes -: Hypothyroidism-resolved after weight loss -: Diabetesinsulin-dependent -: Hypertension-resolved after weight loss -: abcess/cellulitis to R arm w/ I&D -: Debridement RLE wound -: RBKA - Family History Father History Unknown: Yes Medical History: Heart disease, Hypertension, Other (see notes) Notes: Hypothyroidism Mother History Unknown: Yes Medical History: Diabetes, Kidney disease, Other (see notes) Notes: Dialysis; Legally blind - Social History Smoking Status: Former smoker Alcohol use: No CD- Drugs: No Caffeine use: Yes Place of Residence: Home Physical Examination Temp Pulse Resp BP Pulse Ox 97.8 F 96 H 16 127/86 99 11/30/24 07:04 11/30/24 08:37 11/30/24 12:46 11/30/24 08:37 11/30/24 07:04 General: Alert, In no apparent distress, Oriented x3, Cooperative HEENT: PERRLA, EOMI Neck: Supple Gastrointestinal: Soft and benign Integumentary: Pressure ulcer (necrotic ulcer 7.5cm x 1.8x0.1cm) Neurological: Normal speech Conclusions/Impression: excisional debridement of left buttock nerotic ulcer. BAR explaind including but not limited to infection, bleeding damage to adjacent structures TN non healing ulcer even deah.
--- NOTE | 2024-11-30 20:48 | OP ---
Date of Procedure: 11/30/2024 Surgeon: Willy Craig MD Preoperative Diagnosis: Left buttock necrotic ulcer. Postoperative Diagnosis: Left buttock necrotic ulcer. Procedure: Excisional debridement of left buttock necrotic ulcer, it is about 4 x 2.5 x 2 cm. Anesthesia: Local. Complications: None. Indications: This is a case of a 80-year-old patient seen yesterday for a necrotic ulcer in the left buttock. The patient is paraplegic. He is in the rehab center, right now, noticed to have this [facility] er since he is leaning more into that area. The surgical consult was obtained, and the [facility] is involved in the treatment. So, since I was on-call, they asked me to take a look at the p atient. Also the patient requested at that way. So, when I saw the patient yesterday, I explained t o him the need for debridement with the benefits, alternatives, and risks including, but not limited to, infection, bleeding, damage to adjacent structures, anesthesia complication, recurrence, [place], and even . We discussed with him the importance of offloading, nutrition, the importance of followu p when he gets discharged in the [facility]. He signed a consent. Description Of Procedure: The patient was placed in prone position. A time-out was called. Left bu ttock was prepped and draped in a sterile fashion. Local anesthesia was applied, injected lidocaine 1% plain. After the area was prepped and draped in a sterile fashion, using a sharp knife, we procee ded to debride the necrotic tissue. Now, the entire wound is about 7.5 x 1.8 x 0.1 cm, but the area that needed debridement was about 4 cm x 2.5 x 2 cm. There is 2 cm tunnel. It goes deep, but that d oes not show tendon or bone yet. Hemostasis was obtained with pressure. Then the area was packed wi th wet-to-dry dressing. The patient tolerated the procedure well. Plan: Will be acetic acid cleaning with the Santyl, offloading, nutrition, and whenever the necrotic tissues and the area looks better, our goal is just to put him in a wound VAC. HM/MODL Voice ID: [id number] Report ID: [id number]
[2024-12-01 05:43] LABS: Hematocrit 20.4 % (39.6-49.0); Hemoglobin 6.8 g/dL (13.6-17.9)
[2024-12-01] MEDS: NA CHLORIDE 0.9% 250 ML IV SCH (21:49)
[2024-12-01] MEDS: ACETIC ACID 0.25% IRRIG IRR ONE (21:55)
[2024-12-02 04:41] LABS: Hematocrit 24.1 % (39.6-49.0)
[2024-12-02 05:14] LABS: Hemoglobin 8.0 g/dL (13.6-17.9)
--- NOTE | 2024-12-03 22:35 | PN ---
Date of Progress Note: 12/03/2024 Time Of Service: 1:15. Subjective: Mr. Nagel is sitting in a chair beside the bed. He is in no acute distress. Last week , had debridement of the buttock wound and his stump on the right lower extremity for which he has alejandro d a right below-knee amputation and Dr. Craig did a bedside debridement. He has some mild pain st ill in the area. It is noted the patient does have a significant difficulty mobilizing and he of cou rse has to offload the buttocks area where he has the significant wound debrided. Requires a custom wheelchair that could accommodate what he needs obviously, the right foot amputation, and there is s welling and significant edema in the left lower extremity, making very difficult for him to mobilize. Difficult to use the wheelchair. A custom wheelchair will be more appropriate for him. Review of Systems: No recent fevers, chills, nausea, vomiting, myalgias, arthralgias, rash. No depression with the rece nt amputation. Physical Examination: Vital Signs: Blood pressure 132/85, his pulse is 95, respiratory rate 16 to 20, temperature 98.3, ox ygen saturation 99%. General: Mr. Nagel is sitting in a chair beside the bed. He is in no significant distress. HEENT: He is normocephalic, atraumatic. Sclerae anicteric. Skin: The stump on the right has good hemostasis and good hemostasis in the buttock area where debri kiana was done by Dr. Craig. Laboratory Studies: White blood cell count is 8.8, hemoglobin 8.0. He did receive a unit of blood o n 12/02 due to significantly low hemoglobin. His hemoglobin was down to 6.8 on . He received bl ood on and improved to 8.0. His glucose ranged from 114 to 219 and he was seen by Dr. Craig and he performed debridement at bedside and it was excisional debridement of the left buttock necroti c ulcer, which is about 4 x 2.5 x 2 cm. Progress Made With Physical And Occupational Therapy: With his physical therapy today, Mr. Nagel wa s able to perform ofecdk-ph-kdw transfers with standby assistance, multiple lgk-se-qsuhd transfers on different surfaces with minimum to contact guard assistance. Ambulated in the parallel bars 35 feet 5 times with contact guard assistance and mobilized wheelchair 300 feet independently. With occupat ional therapy, he was able to propel his wheelchair in the room to shower and did showering. Supervi david for bathing, upper and lower body dressing, and footwear. Did have bilateral upper extremity ex ercises done. Assessment And Plan: Mr. 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 He has a left buttock wound that was debrided by Dr. Craig. Still has decreased mobility, decreased physical functioning, has a risk o f deep vein thrombus. He has neuropathic pain. He has diabetes mellitus with diabetic neuropathy. He has hypertension, constipation, of course significant pain. Plan will be to continue with physica l and occupational therapy 3 hours a day, 5 of 7 days. Continue wound care management of his wounds. Continue with comorbid condition medication, which have been noted. The patient again requires a c ustom wheelchair to accommodate the patient's left buttock wound and his right below the knee amputat ion and difficulty with his mobilization. Custom wheelchair would definitely benefit the patient and regular wheelchair, but does not have accommodations to offload appropriate areas on his buttocks. INGE/KACEY Voice ID: [id number] Report ID: [id number]
--- NOTE | 2024-12-05 00:36 | PN ---
Date of Progress Note: 12/04/2024 Subjective: Mr. Nagel is mobilizing around the unit. He is feeling better about his therapy and alejandro s shaved off german and feels a lot better. At this point, his pain is still moderate in his right lo wer extremity stump after the amputation and still has the left buttock decubital ulcer that was rece ntly debrided because of necrotic tissue and then by Dr. Craig. He will be following up with Dr. Craig and will have a wound care. Will have the wound VAC and potentially hyperbaric to help with wound healing. Objective: Denies any fevers, chills, nausea, vomiting, myalgias, arthralgias, rash, or psychiatric complaints. Physical Examination: Vital Signs: Blood pressure 140/87, pulse 107, respiratory rate 15 to 18, temperature 98.3, oxygen s aturation 97%. General: Mr. Nagel is sitting in a chair. Mobilized while in the unit. HEENT: He appears normocephalic, atraumatic. Sclerae anicteric. Oropharynx pink and moist. Extremities: His right lower extremity stumps have good hemostasis. He has had moderate edema in th e left lower extremity. Laboratory Studies: No new laboratory studies except blood sugars did range from 157 to 269. X-ray And Imaging: No new x-rays or imaging. Medications: Have been reviewed and are continued and unchanged. Progress Made With Physical And Occupational Therapy: With physical therapy today, he did complete g ait training with a rolling walker 315 feet with contact guard assistance, was up and down 7 steps wi th moderate to maximal assistance, mobilized to wheelchair 200 feet, 250 feet, and 75 feet with modif ied independence. With occupational therapy, self propelled wheelchair from gym to room independentl y and back. Did work with 3-pound dumbbells to improve strength in upper extremities. Assessment And Plan: Mr. Nagel is a 49-year-old patient in rehabilitation unit with right foot gang andrzej, status post right below-knee amputation. He still has some decreased mobility, decreased physi evelia functioning, left buttocks decubital ulcer that is recently debrided. He has mild insomnia, hype rtension, diabetes mellitus, iron deficiency, risk of stroke. Plan will be to continue with physical and occupational therapy 3 hours a day, 5 of 7 days. His medication list in noted previously and ar e continued and unchanged. His plan is to return home with help of family and continue therapy via [facility] and follow up with the wound care service and Dr. Craig, the surgeon, who performed amp utation of the right qsiyi-xpn-ftmx for his gangrene. INGE/KACEY Voice ID: [id number] Report ID: [id number]
--- NOTE | 2024-12-05 18:25 | PN ---
Date of Progress Note: 12/05/2024 Reason For Service: Left buttock nonhealing pressure ulcer. Subjective: The patient is doing better. We did debridement about more than a week ago and it is im proving. No fluctuance. No crepitus. No cellulitis present. Objective: Abdomen: Soft. Extremities: Good capillary refill. The patient has history of amputations in the lower extremity. Subcutaneously on the left buttock, patient has a nonhealing wound deep. See previous measurements, but less fibrin, no necrotic tissue present at this moment. Plan: Continue with the Santyl dressing changes. In the future, the plan will be a wound VAC once h e gets discharged this Tuesday and follow up in the Wound [facility]aling Center. JULIANA/KACEY Voice ID: [id number] Report ID: [id number]
--- NOTE | 2024-12-06 02:12 | PN ---
Date of Progress Note: 12/05/2024 Subjective: Mr. Nagel is feeling much better about his therapy. Still course of the right foot clemente grene status post amputation. He is followed by the wound care service for the left buttock decubita l ulcer that has been debrided by Dr. Craig. He is followed on a daily basis for wound care. He denies any worsening pain. Pain is mild to moderate but is managed by multimodality treatment includ ing Tylenol, tramadol, and gabapentin. Objective: Again, no fevers, chills, nausea, vomiting. No myalgias, arthralgias. Physical Examination: Vital Signs: Blood pressure 130/86, pulse up to 99, respiratory rate 18, temperature 98.1, O2 satura tion 98%. General: Mr. Nagel again is sitting in chair, mobilizing 1 unit. HEENT: Appears normocephalic, atraumatic. Sclerae are anicteric. Oropharynx pink and moist. Extremities: He does have moderate to significant edema in the left lower extremity. Laboratory Studies: His blood sugars today ranged from 113 to 259. X-ray And Imaging: No new x-rays or imaging. Progress Made With Physical, Occupational, And Speech Therapy: With physical therapy, he did complet e gait training covering 315 feet with a rolling walker independently, propelled a wheelchair 250 fee t and additional 500 feet independently. With occupational therapy, self propelled wheelchair from r oom to shower, completed showering transfers, using grab bars, did so independently and was independe nt with bathing, upper and lower body dressing and donning and doffing footwear. Assessment: Mr. Nagel is a 49-year-old patient in rehabilitation unit with right foot gangrene stat us post amputation to the right dleft-cux-lkcf. He is making great progress with physical and occupa tional therapy. Still has a left buttock decubital ulcer followed by Wound Care. Risk of deep vein thrombosis, addressed with Eliquis 2.5 mg twice daily. He has iron deficiency, addressed with ferrou s sulfate 325 mg twice daily. Wounds, collagenase apply daily. Semglee insulin for his diabetes roseann litus. Neuropathic pain, addressed with gabapentin along with phantom limb pain. He has Prinivil fo r his hypertension, Imodium for loose stools, melatonin for insomnia, and tramadol and Soma for pain. He will continue with physical, occupational therapy 3 hours a day, 5 of 7 days. LOLIS Voice ID: [id number] Report ID: [id number]
[2024-12-06 06:53] LABS: Absolute Lymphocytes (CBC) 1.4 K/uL (0.7-4.9); Hematocrit 26.0 % (39.6-49.0); Hemoglobin 8.8 g/dL (13.6-17.9); MCH 29.0 pg (27.0-35.0); MCHC 33.9 g/dL (32.0-36.0); MCV 85.5 fL (80-100); MPV 6.4 fL (7.6-11.3); Nucleated RBC Absolute Count 0.0 (0-0); Nucleated Red Blood Cells % 0.0 % (0-0); RBC Red Blood Cell Count 3.04 M/uL (4.33-5.43); White Blood Count 6.00 thou/uL (4.3-10.9)
[2024-12-06 07:12] LABS: Albumin 1.9 g/dL (3.4-5.0); Anion Gap 6.9 mEq/L (5.0-15.0); BUN Blood Urea Nitrogen 14.0 mg/dL (7-18); Glucose Level 145.0 mg/dL (74-106); Magnesium 1.9 mg/dL (1.6-2.4); Potassium 3.9 mEq/L (3.5-5.1); Prealbumin 14.9 mg/dL (20-40)
--- NOTE | 2024-12-06 22:11 | PN ---
Date of Progress Note: 12/06/2024 Time: 1 p.m. Subjective: Mr. Nagel is doing very well. He is feeling better about his therapy. Denies signific ant pain at the stump on his right lower extremity where he has had an amputation due to gangrene. A lso there is a left buttock area of debridement and it is producing to him significant pain, although the patient is offloading as much as possible. Objective: No fevers, chills, nausea, or vomiting. No myalgias, arthralgias, rash, or other complai nts. Physical Examination: Vital Signs: Blood pressure is 135/84, pulse up to 107, respiratory rate 18, temperature 97.6, oxyge n saturation 99%. General: Mr. Nagel is resting in between therapy sessions. HEENT: He appears normocephalic, atraumatic. Sclerae anicteric. Oropharynx pink and moist. Extremities: Good hemostasis in the right below-knee amputation surgical site. Laboratory Studies: White blood cell count 6.0, hemoglobin 8.8, platelets 519. His sodium 144, pota ssium 3.9, chloride 114, his BUN is 14, creatinine 0.45, glucose ranged from 120 to 369, calcium 8.2, magnesium 1.9, albumin 1.9 as well, and prealbumin 14.9. X-ray/imaging: No new x-rays or imaging. Medications: Have been reviewed and are unchanged. Progress Made With Physical And Occupational Therapy: With physical therapy today, he performed mult iple optqvb-xg-vdz transfers independently, multiple gqlyj-br-gmxvq transfers independently. Ambulat ed 250 feet with a rolling walker independently. Able to go up and down 5 steps using bilateral hand rails with minimum assistance and wheelchair mobilization was 325 feet independently. With occupatio nal therapy, independent with self propelling a wheelchair, from wheelchair to shower, independent wi th showering using grab bars. Independent with bathing of upper and lower body, dressing of upper an d lower body as well. Assessment And Plan: Mr. Nagel is a 49-year-old patient in rehabilitation unit with right foot gang andrzej, status post amputation. He has a significant buttock ulcer in the left buttock region that has been debrided by Dr. Craig. He is followed by Wound Care for that. He has comorbidities that di d include pain, risk of deep vein thrombosis in the left lower extremity. He has some loose stools a nd Imodium is helpful. He has hypertension and diabetes mellitus, addressed by his multiple medicati ons including Javier Avelar. He does have Tylenol for pain, ferrous sulfate for his iron deficie ncy, and gabapentin for neuropathic pain now 900 mg twice daily. The plan will be to continue with p hysical and occupational therapy 3 hours a day, 5 of 7 days. Continue with comorbid condition medica tions list. Those have been noted and that will be continued. He has plans to be able to go home an d to continue therapy. INGE/KACEY Voice ID: [id number] Report ID: [id number]
[2024-12-07 08:16] VITALS: BP 132/92
[2024-12-07 08:22] VITALS: TEMP 97.8
== END 2024-12-07 10:00 | disposition home health service (06) | DRG 463 ==
LOC: 5TH 10:00
PROVIDERS: ADMIT Psychiatry & Neurology Neurology with Special Qualifications in Child Neurology; ATTEND Psychiatry & Neurology Neurology with Special Qualifications in Child Neurology
PROC: 0JB90ZZ Excision of Buttock Subcutaneous Tissue and Fascia, Open Approach (ICD-10-PCS; principal; 2024-11-30)
DX: Z47.81 Encounter for orthopedic aftercare following surgical amputation (principal); L89.323 Pressure ulcer of left buttock, stage 3; I96 Gangrene, not elsewhere classified; Z89.511 Acquired absence of right leg below knee; E11.51 Type 2 diabetes mellitus with diabetic peripheral angiopathy without gangrene; G54.6 Phantom limb syndrome with pain; M62.838 Other muscle spasm; R53.1 Weakness; Z74.09 Other reduced mobility; D50.9 Iron deficiency anemia, unspecified; I10 Essential (primary) hypertension; E78.5 Hyperlipidemia, unspecified; G47.00 Insomnia, unspecified; K59.00 Constipation, unspecified; E03.9 Hypothyroidism, unspecified; Z79.4 Long term (current) use of insulin; Z87.891 Personal history of nicotine dependence
CPT/HCPCS: 36415; 80048; 81003; 82040; 82947; 83036; 83735; 84134; 85014; 85018; 85025; 86850; 86900; 86901; 86920; 87070; 87205; 97110; 97112; 97116; 97161; 97165; 97530; 97542; J1815; J2003; J3590; J7050; P9016

== ENCOUNTER 2024-12-21 16:34 | Emergency (ER) | payer OTHER ==
[2024-12-21] MEDS ORDERED: CEFTRIAXONE 1000 MG/VIAL ONE (17:39)
--- NOTE | 2024-12-21 18:35 | EDPHYS ---
Physician Documentation [facility] Name: Sp Nagel Age: 49 yrs Sex: Male : 1975 Arrival Date: 12/21/2024 Time: 16:34 Bed 5 Private MD: ED Physician Vito Grider HPI: 12/21 20:42 This 49 yrs old Male presents to ER via Wheelchair with complaints of Abscess dr5 - RT BUTTOCKS. 20:42 The patient presents with cellulitis of the right gluteus renuka. Onset: The dr5 symptoms/episode began/occurred 3 day(s) ago. Patient is a 49-year-old male with history of diabetes, hyperlipidemia, hypertension, hypothyroidism coming in with redness and swelling to right buttock that started 3 days ago. Patient reports he has previous abscess on left side that currently is being managed by wound care and has wound VAC on it.. Historical: - Allergies: 17:04 No Known Allergies; iw - PMHx: 17:03 Diabetes - NIDDM; gangrene R foot (Unknown); Hyperlipidemia; Hypertension; iw Hypothyroidism; - PSHx: 17:03 Adenoid excision; amputation of toe from right foot; ear tubes; leg infection; iw Tonsillectomy; - Immunization history:: Adult Immunizations up to date. - Infectious Disease History:: Denies. - Social history:: Smoking status: Patient denies any tobacco usage or history of. ROS: 20:42 Constitutional: as per hpi dr5 Exam: 20:42 Constitutional: This is a well developed, well nourished patient who is awake, alert, dr5 and in no acute distress. Head/Face: Normocephalic, atraumatic. Eyes: Pupils equal round and reactive to light, extra-ocular motions intact. Lids and lashes normal. Conjunctiva and sclera are non-icteric and not injected. Cornea within normal limits. Periorbital areas with no swelling, redness, or edema. Neck: Trachea midline, no thyromegaly or masses palpated, and no cervical lymphadenopathy. Supple, full range of motion without nuchal rigidity, or vertebral point tenderness. No Meningismus. Chest/axilla: Normal chest wall appearance and motion. Nontender with no deformity. No lesions are appreciated. Cardiovascular: Regular rate and rhythm with a normal S1 and S2. Normal PMI, no JVD. No pulse deficits. Respiratory: Lungs have equal breath sounds bilaterally, clear to auscultation. No rales, rhonchi or wheezes noted. No increased work of breathing, no retractions or nasal flaring. Abdomen/GI: Soft, non-tender, non-distended Back: No spinal tenderness. No costovertebral tenderness. Full range of motion. MS/ Extremity: Pulses equal, no cyanosis. Neurovascular intact. Full, normal range of motion. Neuro: Awake and alert, GCS 15, oriented to person, place, time, and situation. Cranial nerves II-XII grossly intact. Motor strength 5/5 in all extremities. Sensory grossly intact. Cerebellar exam normal. Normal gait. 20:42 Skin: cellulitis, that is moderate, on the right gluteus renuka, Vital Signs: 17:01 BP 133 / 96; Pulse 97; Resp 16; Temp 99.6; Pulse Ox 100% on R/A; Weight 90.72 kg; iw Height 6 ft. 2 in. ; Pain 6/10; 18:50 BP 132 / 96; Pulse 74; Resp 20; Pulse Ox 97% on R/A; cf3 17:01 Body Mass Index 25.68 (90.72 kg, 187.96 cm) iw 17:01 Pain Scale: Adult iw MDM: 16:41 Medical Screening Exam initiated dr5 20:42 Differential diagnosis: abscess, allergic reaction, cellulitis, insect bite. Data dr5 reviewed: vital signs, nurses notes. Consideration of Admission/Observation Escalation of care including admission/observation considered. Escalation considered patient had abscess formation or fever.. I considered the following discharge prescriptions or medication management in the emergency department I discussed and recommended Over The Counter medications, Medications were administered in the Emergency Department. See MAR. Care significantly affected by the following Social Determinants of Health: Poor access to healthcare and/or lack of insurance, Poor access to transportation, Problems related to employment. Counseling: I had a detailed discussion with the patient and/or guardian regarding the historical points, exam findings, and any diagnostic results supporting the discharge/admit diagnosis, the presence of at least one elevated blood pressure reading (>120/80) during this emergency department visit, the need for outpatient follow up, for definitive care, a family practitioner, to return to the emergency department if symptoms worsen or persist or if there are any questions or concerns that arise at home. Medication response: Rocephin. Response to treatment: No reaction. ED course: Patient reports he would like to try outpatient antibiotics before any other attempts of incision are completed. All questions answered. Strict ER precautions given. Recommend patient follow-up with Dr. Addison for further management. . Administered Medications: 17:52 Drug: Rocephin (cefTRIAXone) IM 1 grams IM once Route: IM; Site: right ventrogluteal; cf3 18:50 Follow up: Response: No adverse reaction cf3 Disposition: 12/22 08:30 Co-signature as Attending Physician, Vito Grider MD I agree with the assessment and diomedes plan of care. Chart complete. Disposition Summary: 12/21/24 18:35 Discharge Ordered Notes: Location: Home dr5 Condition: Stable dr5 Diagnosis - Cellulitis of buttock dr5 Followup: dr5 - With: Emergency Department - When: As needed - Reason: Worsening of condition Followup: dr5 - With: Private Physician - When: 1 - 2 days - Reason: Recheck today's complaints, Continuance of care, Re-evaluation by your physician Discharge Instructions: - Discharge Summary Sheet dr5 - Cellulitis, Adult dr5 Forms: - Medication Reconciliation Form dr5 - Patient Portal Instructions dr5 - Leadership Thank You Letter dr5 Prescriptions: - Cephalexin 500 mg Oral Capsule - take 1 capsule ORAL route every 12 hours for 10 days; 20 capsule; Refills: 0, dr5 Product Selection Permitted - Bactrim DS 800-160 mg Oral Tablet - take 1 tablet ORAL route every 12 hours for 7 days; 14 tablet; Refills: 0, dr5 Product Selection Permitted Signatures: Vito Grider MD MD cha Williams, Irene RN DEEPTHI Brooklyn Ritchie RN RN me1 Cody Christiansen, CUSTOMER SERVICE DISPATCHER-C CUSTOMER SERVICE DISPATCHER-Cdr5 Rafa Garcia, DEEPTHI RN cf3
--- NOTE | 2024-12-21 18:35 | ER ---
Nurse's Notes [facility] Name: Sp Nagel Age: 49 yrs Sex: Male : 1975 Arrival Date: 12/21/2024 Time: 16:34 Bed 5 Private MD: Diagnosis: Cellulitis of buttock Presentation: 12/21 17:01 Chief complaint: Patient states: abscess to right buttock area, started a couple days iw ago, felt like bruising , tender to touch, today when he was bathing he felt a knot. Coronavirus screen: At this time, the client does not indicate any symptoms associated with coronavirus-19. Ebola Screen: No symptoms or risks identified at this time. Initial Sepsis Screen: Does the patient meet any 2 criteria? HR > 90 bpm. Does the patient have a suspected source of infection? No. Patient's initial sepsis screen is negative. Risk Assessment: Do you want to hurt yourself or someone else? Patient reports no desire to harm self or others. 17:01 Method Of Arrival: Wheelchair iw 17:01 Acuity: [place] 3 iw 17:04 Onset of symptoms was December 18, 2024. iw Historical: - Allergies: 17:04 No Known Allergies; iw - PMHx: 17:03 Diabetes - NIDDM; gangrene R foot (Unknown); Hyperlipidemia; Hypertension; iw Hypothyroidism; - PSHx: 17:03 Adenoid excision; amputation of toe from right foot; ear tubes; leg infection; iw Tonsillectomy; - Immunization history:: Adult Immunizations up to date. - Infectious Disease History:: Denies. - Social history:: Smoking status: Patient denies any tobacco usage or history of. Screenin:18 [facility] ED Fall Risk Assessment (Adult) History of falling in the last 3 months, me1 including since admission No falls in past 3 months (0 pts) Confusion or Disorientation No (0 pts) Intoxicated or Sedated No (0 pts) Impaired Gait No (0 pts) Mobility Assist Device Used No (0 pt) Altered Elimination No (0 pt) Score/Fall Risk Level 0 - 2 = Low Risk Maintained a safe environment, Provided non-skid footwear, Hourly rounding (assess needs \T\ fall precautionary measures) done. Abuse screen: Denies threats or abuse. Nutritional screening: No deficits noted. Tuberculosis screening: No symptoms or risk factors identified. Assessment: 17:18 General: Appears uncomfortable, Behavior is calm, cooperative, appropriate for age, me1 Reports abscess to right buttock area, started a couple days ago, felt like bruising , tender to touch, today when he was bathing he felt a knot. Pain: Complains of pain in right gluteus renuka Pain does not radiate. Pain currently is 6 out of 10 on a pain scale. Quality of pain is described as sharp, tender, Pain began gradually, Is continuous. Neuro: Level of Consciousness is awake, alert, obeys commands, Oriented to person, place, time, situation, Appropriate for age. Cardiovascular: Patient's skin is warm and dry. Respiratory: Airway is patent Respiratory effort is even, unlabored, Respiratory pattern is regular, symmetrical. GI: No signs and/or symptoms were reported involving the gastrointestinal system. : No signs and/or symptoms were reported regarding the genitourinary system. EENT: No signs and/or symptoms were reported regarding the EENT system. Derm: Skin is healthy with good turgor, Skin is normal, Wound noted right gluteus renuka Wound is abscess. Musculoskeletal: Circulation, motion, and sensation intact. Range of motion: intact in all extremities. Vital Signs: 17:01 BP 133 / 96; Pulse 97; Resp 16; Temp 99.6; Pulse Ox 100% on R/A; Weight 90.72 kg; iw Height 6 ft. 2 in. ; Pain 6/10; 18:50 BP 132 / 96; Pulse 74; Resp 20; Pulse Ox 97% on R/A; cf3 17:01 Body Mass Index 25.68 (90.72 kg, 187.96 cm) iw 17:01 Pain Scale: Adult iw ED Course: 16:38 Patient arrived in ED. cj3 16:41 [facility] 16:41 Vito Grider MD is Attending Physician. dr5 17:03 Triage completed. iw 17:05 Arm band placed on. iw 17:17 Brooklyn Ritchie, DEEPTHI is Primary Nurse. me1 17:18 Patient has correct armband on for positive identification. Bed in low position. Call me1 light in reach. Side rails up X2. Provided Education on: POC. Verbalized understanding.. Client placed on continuous cardiac and pulse oximetry monitoring. NIBP monitoring applied. Pulse ox on. NIBP on. 17:18 No provider procedures requiring assistance completed. me1 18:52 Patient did not have IV access during this emergency room visit. cf3 Administered Medications: 17:52 Drug: Rocephin (cefTRIAXone) IM 1 grams IM once Route: IM; Site: right ventrogluteal; cf3 18:50 Follow up: Response: No adverse reaction cf3 Medication: 17:18 VIS not applicable for this client. me1 Outcome: 18:35 Discharge ordered by MD. dr5 18:51 Discharged to home via wheelchair, cf3 18:51 Condition: improved 18:51 Discharge instructions given to patient, Instructed on discharge instructions, follow up and referral plans. medication usage, Demonstrated understanding of instructions, follow-up care, medications, Prescriptions given X 2, 18:52 Patient left the ED. cf3 Signatures: Gill Tellez, DEEPTHI RN Brooklyn Ritchie RN RN me1 Cody Christiansen, REMOTE SENSING ADVISOR-C REMOTE SENSING ADVISOR-Cdr5 Alpa Lewis 3 Rafa Garcia RN RN cf3 Corrections: (The following items were deleted from the chart) 17:05 17:01 BP 133 / 96; Pulse 97bpm; Resp 16bpm; Pulse Ox 100% RA; Temp 99.6F; iw iw 17:18 17:01 Chief complaint: Patient states: abscess to right buttock area, started a couple me1 days ago, felt like bruising , tender to touch, today when he was bathing he felt a knot iw
[2024-12-22 00:23] VITALS: TEMP 99.6
[2024-12-22 00:25] VITALS: BP 132/96; O2SAT 97
== END 2024-12-21 18:52 | disposition home or self-care (01) ==
LOC: ER 16:34
DX: L03.317 Cellulitis of buttock (principal)
CPT/HCPCS: 96372; 99284; J0696